=== PATIENT | female | born 1965 | race Caucasian/White ===

== ENCOUNTER 2017-05-01 08:47 | Inpatient (IN) | payer OTHER ==
[~2017-05-01] VITALS: Ht 157.5 cm; Wt 64.5 kg
--- NOTE | 2017-05-01 09:06 | RADRPT ---
PROCEDURE: Chest Radiograph. CLINICAL INDICATION: Chest pain TECHNIQUE: Single frontal chest radiograph. COMPARISON: None available FINDINGS: The cardiomediastinal silhouette is within normal limits. No infiltrate or effusion is seen. Th e bones are intact. IMPRESSION: 1. Unremarkable chest radiograph. RPTAT: KK .Alonso Cameron MD, MD Date Time Electronically viewed and signed by .Alonso Cameron MD, on 05/01/2017 09:06 .B/
--- NOTE | 2017-05-01 09:10 | ERA ---
ER Documentation Chief Complaint Date/Time DATE: 05/01/17 TIME: 09:07 Chief Complaint per ems report cp HPI 51-year-old female history of chronic psychiatric issues and chronic encephalopathy who presents with chest pain. The patient presents from convalescent home and reported approximately 5 minutes of left-sided chest pain that was difficult to characterize. She describes complete resolution of symptoms. She denies any fevers or chills, no pleuritic pain. Remainder of HPI is somewhat limited given her mental state. ROS All systems reviewed and are negative except as per history of present illness. FmHx Family History: No diabetes Physical Exam Vitals Vital Signs Date Time Temp Pulse Resp B/P Pulse Ox O2 Delivery O2 Flow Rate FiO2 05/01/17 09:15 Nasal Cannula 2 05/01/17 08:58 98.1 75 18 111/70 99 Physical Exam General: Well developed, well nourished, no acute distress Head: Normocephalic, atraumatic. Eyes: Pupils equally reactive, EOM intact ENT: Moist mucous membranes Neck: Supple, no lymphadenopathy Respiratory: Lungs clear bilaterally, no distress Cardiovascular: RRR, no murmurs, rubs, or gallops Abdominal: Soft, non-tender, non-distended, no peritoneal signs : Deferred MSK: No edema, no unilateral swelling, 4/5 strength diffusely appears to be somewhat bedridden Neurologic: Alert and oriented to person and place appears to be at baseline, moving all extremities, normal speech, no focal weakness, no cerebellar signs Skin: No rash Psych: Normal mood Result Diagram: 05/01/1790405/01/17904 Results 24 hrs Laboratory Tests Test 05/01/17 09:05 White Blood Count 6.610^3/ul Red Blood Count 4.7510^6/ul Hemoglobin 14.0g/dl Hematocrit 42.9% Mean Corpuscular Volume 90.3fl Mean Corpuscular Hemoglobin 29.5pg Mean Corpuscular Hemoglobin Concent 32.6g/dl Red Cell Distribution Width 13.2% Platelet Count 53759^3/UL Mean Platelet Volume 9.9fl Neutrophils % 51.4% Lymphocytes % 39.0% Monocytes % 5.3% Eosinophils % 3.5% Basophils % 0.6% Nucleated Red Blood Cells % 0.0/100WBC Neutrophils # 3.410^3/ul Lymphocytes # 2.610^3/ul Monocytes # 0.410^3/ul Eosinophils # 0.210^3/ul Basophils # 0.010^3/ul Nucleated Red Blood Cells # 0.010^3/ul Prothrombin Time 13.5Sec Prothrombin Time Ratio 1.1 INR International Normalized Ratio 1.03 Activated Partial Thromboplast Time 24.6Sec D-Dimer 484.60ng/ml D-Dimer Comment Sodium Level 145mmol/L Potassium Level 4.1mmol/L Chloride Level 98mmol/L Carbon Dioxide Level 32mmol/L Anion Gap 19 Blood Urea Nitrogen 17mg/dl Creatinine 0.54mg/dl Glucose Level 109mg/dl Calcium Level 10.2mg/dl Troponin I < 0.012ng/ml Current Medications Medications (Trade) Dose Ordered Sig/Loren Route PRN Reason Start Time Stop Time Status Last Admin Dose Admin IV Flush 10 ml 10 ml STK-MED ONCE .ROUTE 05/01/17 10:19 05/01/17 10:20 DC Sodium Chloride (NS) 100 ml @ ud STK-MED ONCE .ROUTE 05/01/17 10:19 05/01/17 10:20 DC Iodixanol (Visipaque Locm) 50 ml STK-MED ONCE .ROUTE 05/01/17 10:20 05/01/17 10:21 DC Procedures/MDM EKG, MONITORS, & DIAGNOSTIC IMAGING: EKG: I reviewed and interpreted a 12-lead EKG. Rhythm: Normal sinus rhythm Ectopy: None Intervals: No abnormalities ST segments: No elevations or depressions T waves: No contiguous inversions Repeat EKG: EKG: I reviewed and interpreted a 12-lead EKG. Rhythm: Normal sinus rhythm Ectopy: None Intervals: No abnormalities ST segments: No elevations or depressions T waves: No contiguous inversions Chest x-ray: I reviewed and interpreted a 1 view of the chest Mediastinum: No enlargement Cardiac silhouette: No cardiomegaly Airspace: Clear lung qiu bilaterally without evidence of pneumothorax Bones: No evidence of fracture CTPA: No evidence of pulmonary embolism or dissection LAB INTERPRETATION: Positive d-dimer, negative troponin MEDICAL DECISION MAKING: The patient's history, physical exam and clinical presentation is concerning for possible cardiogenic etiology and acute coronary syndrome. The patient is at risk for pulmonary embolism given her bedridden state, d-dimer is appropriate given low concern for pulmonary embolism. Low risk Wells profile. Based on the patient's clinical exam and history and risk factors, I have a much lower clinical concern for acute aortic dissection, pneumothorax, pneumonia , cardiac tamponade HEART Score: 2 MACE Rate: 1.7% Shared Decision Making: We had a conversation regarding risk stratification, MACE rate, and the risks, benefits, alternatives of disposition planning options. Disposition planning: Given the patient's age and description of symptoms I cannot fully rule out ACS in the emergency room and recommend hospitalization for serial enzymes and risk stratification. ER COURSE: Aspirin provided prior to arrival. The patient is chest pain-free. D-dimer was elevated prompting CTPA which is negative for pulmonary embolism or dissection. The patient is resting comfortably. Inpatient hospitalization to risk stratify and rule out ACS is appropriate. I kept the patient and/or family informed of laboratory and diagnostic imaging results throughout the emergency room course. DISPOSITION PLAN: Telemetry admission for management and rule out of acute coronary syndrome. CONSULTATION: Accepting care team and consultations: I discussed the current laboratory data, diagnostic imaging and emergency care provided. Admitting team: Dr. Felder Admitting team indication: Insurance directed Departure Diagnosis: Primary Impression: Chest pain Qualified Code: R07.9 - Chest pain, unspecified type Condition: Stable ANA MEHTA MD May 01, 2017 09:10
[2017-05-01 09:18] LABS: BASOPHILS % 0.6 % (0.0-2.0); EOSINOPHILS # 0.2 10^3/ul (0.0-0.5); EOSINOPHILS % 3.5 % (0.0-7.0); HEMATOCRIT 42.9 % (37.0-47.0); LYMPHOCYTES # 2.6 10^3/ul (0.8-2.9); MEAN CORPUSCULAR HEMOGLOBIN 29.5 pg (29.0-33.0); MEAN CORPUSCULAR HGB CONC 32.6 g/dl (32.0-37.0); MEAN CORPUSCULAR VOLUME 90.3 fl (82.0-101.0); MEAN PLATELET VOLUME 9.9 fl (7.4-10.4); MONOCYTE # 0.4 10^3/ul (0.3-0.9); MONOCYTES % 5.3 % (0.0-11.0); NEUTROPHIL # 3.4 10^3/ul (1.6-7.5); NEUTROPHILS % 51.4 % (39.0-77.0); PLATELET COUNT 184 10^3/UL (140-415); RED BLOOD COUNT 4.75 10^6/ul (4.20-5.40); RED CELL DISTRIBUTION WIDTH 13.2 % (11.5-14.5); WHITE BLOOD COUNT 6.6 10^3/ul (4.8-10.8)
[2017-05-01 09:43] LABS: ANION GAP 19 (8-16); BLOOD UREA NITROGEN 17 mg/dl (7-20); CALCIUM 10.2 mg/dl (8.4-10.2); CARBON DIOXIDE 32 mmol/L (21-31); CHLORIDE 98 mmol/L (97-110); CREATININE 0.54 mg/dl (0.44-1.00); GLUCOSE 109 mg/dl (70-220); INR 1.03; POTASSIUM 4.1 mmol/L (3.5-5.1); PROTIME 13.5 Sec (12.2-14.2); PT RATIO 1.1; SODIUM 145 mmol/L (135-144)
[2017-05-01 09:44] LABS: PARTIAL THROMBOPLASTIN TIME 24.6 Sec (25.0-35.0)
[2017-05-01 09:52] LABS: D-DIMER 484.6 ng/ml (<460)
[2017-05-01 10:10] LABS: TROPONIN-I < 0.012 ng/ml (0.00-0.12)
[2017-05-01] MEDS ORDERED: SOD CHLORIDE 0.9% 100 ML ONE (10:19)
[2017-05-01] MEDS ORDERED: IODIXANOL LOCM 50 ML BTL ONE (10:20)
--- NOTE | 2017-05-01 11:00 | RADRPT ---
PROCEDURE: CT angiogram of the chest with contrast. CLINICAL INDICATION: Left-sided chest pain. TECHNIQUE: CT scan of the chest with contrast was performed on a multidetector high-resolution CT scan. The patient was scanned following the uncomplicated intravenous administration of 110 ml Visi paque 320. Coronal and sagittal reformatted images were obtained from the axial source images. Stand rashel CT angiogram of the chest with contrast protocols were performed. 2-D and 3-D reformats were per formed. The total exam CTDI equals 73.82 mGy and the total exam DLP equals 488.89 mGy-cm. One or more of the following dose reduction techniques were used: - Automated exposure control. - Adjustment of the mA and/or kV according to patient size. Use of iterative reconstruction technique. COMPARISON: Chest earlier same day FINDINGS: The aorta is normal in size without aneurysm or dissection. No evidence of periaortic fluid collect ions. The pulmonary outflow tract, right and left main pulmonary arteries, right and left interloba r and primary intersegmental pulmonary arteries are well enhanced without evidence of filling defect s. Specifically no central pulmonary emboli. There is no evidence of pulmonary arterial hypertensio n or right heart strain. The brachial cephalic artery, right and left subclavian arteries, and prox imal right and left common carotid and vertebral arteries are unremarkable. The celiac axis and tho se portions of the SMA visualized are unremarkable. The heart is within normal limits in size without pericardial effusion. No evidence of mediastinal hilar or axillary lymphadenopathy. No evidence of pleural effusions or pneumothorax. Evidence of a cute lung consolidation or pulmonary nodules bilaterally. There is mild diffuse chronic interstitia l lung disease. Status post previous cholecystectomy without evidence of biliary ductal dilation. Those portions of the upper abdomen visualized are unremarkable. There is degenerative changes of the thoracic and up per lumbar spine. No acute osseous findings are osteoblastic/osteolytic lesions. The thoracic and upper abdominal brito are unremarkable. IMPRESSION: 1. No evidence of aortic dissection or aneurysm. 2. No central pulmonary emboli. 3. No evidence acute lung infiltrates, thoracic effusions or lymphadenopathy. Mild bilateral diffu se chronic interstitial lung disease. RPTAT:AAJJ B Donnie, Physician Date Time Electronically viewed and signed by Shari Fields Physician on 05/01/2017 10:59 BM/
[2017-05-01] MEDS ORDERED: ONDANSETRON 4 MG INJ IV PRN ×2 (12:00→12:30)
[2017-05-01] MEDS ORDERED: ACETAMINOPHEN 325 MG TAB PO PRN ×2 (12:00→12:30)
[2017-05-01] MEDS ORDERED: IODIXANOL LOCM 100 ML BTL ONE (12:09)
[2017-05-01] MEDS ORDERED: morphine 2 MG INJ IV PRN (12:30)
[2017-05-01] MEDS ORDERED: NACL 0.9% 3 ML SYG IV SCH (12:30)
[2017-05-01] MEDS ORDERED: MAGNESIUM HYDROXIDE 30ML CUP PO PRN (12:30)
[2017-05-01] MEDS ORDERED: BISACODYL (EC) 5 MG TAB PO PRN (12:30)
[2017-05-01] MEDS ORDERED: HYDROCODONE/APAP (5/325) TAB PO PRN (12:30)
--- NOTE | 2017-05-01 14:49 | HP ---
Date/Time of Note Date/Time of Note DATE: 05/01/17 TIME: 14:48 Assessment/Plan VTE Prophylaxis VTE Prophylaxis Intervention: LMWH Lines/Catheters IV [facility]ter [facility]from [facility] [place] Assessment/Plan Chief Complaint/Hosp Course 1. Chest pain. To rule out acute coronary syndrome. Serial troponins will be ordered. A 2D echocardiogram will be ordered. Cardiology consult will be obtained. The patient will be maintained on aspirin. 2. Essential hypertension. The patient's antihypertensives will be resumed. 3. Type 2 diabetes mellitus. The patient was started on sliding scale insulin along with basal insulin and pre-meal insulin. Hemoglobin A1c will be obtained to evaluate the blood glucose control over the past few weeks. 4. Dyslipidemia. The patient will be continued on statins. A fasting lipid panel will be obtained. 5. Nicotine use. Cessation will be advised. The patient will be provided with a nicotine patch if she develops any withdrawal from nicotine. 6. Schizophrenia. The patient will be continued on antipsychotics. Plan: The patient will be admitted to inpatient telemetry floor. The patient will be started on a carbohydrate controlled, low-cholesterol diet. The patient will be started on DVT prophylaxis and gastrointestinal prophylaxis. The patient will remain a full code. Activities will be as tolerated. The rest of the patient's management will be based on the clinical course and the results of diagnostic studies. Based on the patient's clinical presentation, she most probably requires at least one midnight's stay for further management and evaluation of her clinical presentation. The case and management of this patient was fully discussed with Dr. Felder. Problems: HPI/ROS Admit Date/Time Admit Date/Time May 01, 2017 at 11:32 Hx of Present Illness Reason for admission: Chest pain. Consultants 1. Erika Aguilar MD, Cardiology. This is a 51-year-old female with past medical history of essential hypertension, type 2 diabetes mellitus, depression, schizophrenia, and current nicotine use who was brought to the emergency room because of complaints of chest pain. The patient lives in a convalescent home resident. Patient verbalized the chest pain as substernal with radiation to the back. The patient denied any associated diaphoresis. The patient denied any associated nausea, vomiting, or dizziness. The patient was complaining of some cephalgia. The patient verbalized that her chest pain resolved with aspirin. In the emergency room, the patient's initial troponins were negative. The patient was treated with IV Zofran in the emergency room. The patient was noticed to have elevated d-dimer. Consequently, the patient underwent a CT angiogram of the chest that was negative for any pulmonary embolism. ROS Constitutional: no complaints Eyes: no complaints ENT: no complaints Respiratory: no complaints Cardiovascular: chest pain Gastrointestinal: no complaints Genitourinary: no complaints Musculoskeletal: no complaints Skin: no complaints Neurologic: no complaints Endocrine: no complaints Lymphatic: no complaints Psychological: anxiety Immunologic: no complaints PMH/Family/Social Past Medical History Medical History: diabetes, high cholesterol, hypertension, other (Depression, Schizophrenia) Past Surgical History Past Surgical Hx: no surgical history Family History Significant Family History: heart disease Social History Alcohol Use: sober Smoking Status: Former smoker Drug Use: none Exam/Review of Systems Vital Signs Vitals Vital Signs Date Time Temp Pulse Resp B/P Pulse Ox O2 Delivery O2 Flow Rate FiO2 05/01/17 11:59 73 20 97/74 99 Room Air 05/01/17 09:15 2 05/01/17 08:58 98.1 Exam Exam General: Adequately build 48 year-old female lying in bed in no apparent distress. HEENT: Normocephalic, atraumatic. Eyes: Anicteric sclerae, conjunctivae clear. ENT: Nasal septum midline, oral mucosa moist. Neck supple, no JVD noticed. Respiratory: Bilaterally diminished breath sounds. No use of accessory muscles of respiration. No adventitious breath sounds. Cardiovascular: S1, S2 heard. No murmurs or gallops. Abdomen: Soft, nontender, and nondistended. Bowel sounds positive in all 4 quadrants. Genitourinary: Deferred. Extremities: No cyanosis, no clubbing. Bilateral lower extremity 1+ pitting pedal edema. Peripheral pulses palpable. Neurologic: Cranial nerves II through XII grossly intact. The patient is awake, alert, and oriented. Skin: Normal skin turgor. No skin rashes. Psychologic: Appropriate affect. Labs Result Diagram: 05/01/1790405/01/17904 Medications Medications Current Medications Ondansetron HCl (Zofran Inj) 4 mg Q6H PRN IV NAUSEA AND/OR VOMITING; Start 05/01 at 12:30 Aspirin (Aspirin) 81 mg DAILY PO ; Start 05/02/17 at 09:00 Acetaminophen (Tylenol Tab) 650 mg Q6H PRN PO PAIN LEVEL 1-3 OR FEVER; Start at 12:30 Acetaminophen/ Hydrocodone Bitart ([place] (5/325)) 1 tab Q6H PRN PO PAIN LEVEL 4 -6; Start 05/01/17 at 12:30 Morphine Sulfate (morphine) 2 mg Q4H PRN IV PAIN LEVEL 7-10; Start 05/01/17 at 12:30 Magnesium Hydroxide (Milk Of Mag) 30 ml DAILY PRN PO CONSTIPATION; Start at 12:30 Bisacodyl (Dulcolax) 5 mg DAILY PRN PO CONSTIPATION; Start 05/01/17 at 12:30 Famotidine (Pepcid) 20 mg Q12 PO ; Start 05/01/17 at 21:00 Enoxaparin Sodium (Lovenox) 40 mg DAILY SC ; Start 05/02/17 at 09:00 Insulin Glargine (Lantus) 12 unit DAILY@08 SC ; Start 05/02/17 at 08:00; Status UNV Diagnostic Test (Pha) (Accu-Chek) 1 ea 02 XX ; Start 05/02/17 at 02:00; Status UNV Miscellaneous Information 1 ea NOTE XX ; Start 05/01/17 at 15:00 Glucose (Glutose) 15 gm Q15M PRN PO DECREASED GLUCOSE; Start 05/01/17 at 15:00 Glucose (Glutose) 22.5 gm Q15M PRN PO DECREASED GLUCOSE; Start 05/01/17 at 15:00 Dextrose (D50w Syringe) 25 ml Q15M PRN IV DECREASED GLUCOSE; Start 05/01/17 at 15:00 Dextrose (D50w Syringe) 50 ml Q15M PRN IV DECREASED GLUCOSE; Start 05/01/17 at 15:00 Glucagon (Glucagen) 1 mg Q15M PRN IM DECREASED GLUCOSE; Start 05/01/17 at 15:00 Glucose (Glutose) 15 gm Q15M PRN BUCCAL DECREASED GLUCOSE; Start 05/01/17 at 15: 00 BAYRON SUTHERLAND NP May 01, 2017 14:49
[2017-05-01 14:52] VITALS: Ht 157.5 cm; Wt 64.5 kg
[2017-05-01] MEDS ORDERED: GLUCAGON 1 MG INJ IM PRN (15:00)
[2017-05-01] MEDS ORDERED: GLUCOSE GEL 15 GRAM TUBE PO PRN ×2 (15:00)
[2017-05-01] MEDS ORDERED: DEXTROSE 50% 50 ML SYRINGE IV PRN ×2 (15:00)
[2017-05-01] MEDS ORDERED: GLUCOSE GEL 15 GRAM TUBE BUCCAL PRN (15:00)
[2017-05-01] MEDS ORDERED: LORAZEPAM 1 MG TAB PO PRN (15:00)
[2017-05-01 15:36] LABS: CREATINE KINASE 81 IU/L (23-200)
--- NOTE | 2017-05-01 15:44 | RADRPT ---
Echocardiogram Report Patient Name: YODIT BALLARD Gender: Female Date: 1965 Study Date: 01-May-2017 [employer] Making Machine Operator: Jak Jensen [facility] Location: [id number] Ref. Physician: BAYRON SUTHERLAND Quality: Adequate Procedures: Transthoracic echocardiogram with complete 2D, M-Mode, and doppler examination. Indications: Chest Pain. 2D/M Mode Doppler Measurement Value Normal Ranges Measurement Value Normal Ranges LVIDd 2D 3.3 3.5 - 5.6 cm AV Peak Mickey 1.3 m/sec LVIDs 2D 2.2 2.1 - 4.1 cm AV Peak PG 7.0 mmHg FS 2D 32.4 % LVOT Peak Mickey 1.0 m/sec LVPWd 2D 1.3 0.6 - 1.1 cm LVOT Peak PG 4.0 mmHg IVSd 2D 1.3 0.6 - 1.1 cm MV E Peak Mickey 0.8 m/sec IVS/LVPW 2D 1.0 MV A Peak Mickey 0.6 m/sec AoR Diam 2D 2.6 2.0 - 3.7 cm MV E/A 1.3 LA/Ao 2D 2 0 - 1 MV Decel Time 250 msec EDV 2D 35.9 cm3 MV E/A 1.3 ESV 2D 11.1 cm3 TR Peak Mickey 2.1 m/sec LA Dimen 2D 4.1 2.3 - 4.0 cm TR Peak PG 18.0 mmHg RVSP 28.0 mmHg Findings Left Ventricle: Normal left ventricular systolic function. Normal left ventricular cavity size. Mild concentric left ventricular hypertrophy. Ejection fraction is visually estimated at 55 %. Abnormal Diastolic Function. Right Ventricle: Normal right ventricular size. Normal right ventricular systolic function. Left Atrium: There is mild enlargement of left atrium. Right Atrium: The right atrium is normal in size. Mitral Valve: Mitral valve leaflets appear mildly thickened. Mild mitral annular calcification. Trace mitral regurgitation. Aortic Valve: Normal appearance of the aortic valve. No significant aortic stenosis or insufficiency. Tricuspid Valve: Normal appearance of the tricuspid valve. Estimated peak PA systolic pressure 28 mmHg. There is trace tricuspid regurgitation. Pulmonic Valve: Pulmonic valve not well visualized. There is trace pulmonic regurgitation. Pericardium: Normal pericardium with no significant pericardial effusion. Aorta: Normal aortic root. IVC: Normal size and poor respiratory collapse consistent with elevated right atrial pressure. Conclusions 1.Normal left ventricular systolic function. Normal left ventricular cavity size. Mild concentric left ventricular hypertrophy. Ejection fraction is visually estimated at 55 %. Abnormal Diastolic Function. 2.Mitral valve leaflets appear mildly thickened. Mild mitral annular calcification. Trace mitral regurgitation. 3.Normal appearance of the aortic valve. No significant aortic stenosis or insufficiency. 4.Normal appearance of the tricuspid valve. Estimated peak PA systolic pressure 28 mmHg. There is trace tricuspid regurgitation. Electronically Signed By: Eric Aguilar 01-May-2017 15:43:26 -0700 Patient Name: YODIT BALLARD Study Date: 01-May-2017 [id number]
[2017-05-01 15:50] LABS: CK-MB 4.34 ng/ml (0.0-2.4)
[2017-05-01 15:51] LABS: TROPONIN-I < 0.012 ng/ml (0.00-0.12)
[2017-05-01 16:14] VITALS: BP 95/61; RESP 20
[2017-05-01] MEDS ORDERED: ALBUTEROL/IPRATROPIUM (NEB) 3 ML AMP HHN PRN (16:30)
[2017-05-01 16:42] VITALS: PULSE 64
--- NOTE | 2017-05-01 17:01 | CONS ---
Date/Time of Note Date/Time of Note DATE: 05/01/17 TIME: 16:54 Assessment/Plan Assessment/Plan Chief Complaint/Hosp Course 1. Atypical chest pain rule out acute coronary syndrome 2. Diabetes with normal hemoglobin A1c. 3. History of hypertension currently under good control 4. History of drug use 5. History of alcohol and drug abuse which has quit now. 6. History of psych disorder. Recommendations: I will continue with her current cardiac care including aspirin. Serial cardiac enzymes will be obtained. We will do a Lexiscan stress test tomorrow thoracic and obstructive coronary artery disease. Patient was advised to stop smoking. Thank you for this referral will continue to follow along with you. Problems: Consultation Date/Type/Reason Admit Date/Time May 01, 2017 at 11:32 Date of Consultation: May 01, 2017 Type of Consultation: CARDIOLOGY Reason for Consultation CHEST PAIN Referring Provider: BAYRON SUTHERLAND NP Hx of Present Illness Thank you for his referral. This is a 51-year-old female history of diabetes hypertension who was brought into the emergency room with complaint of chest pain. Patient is a poor historian. She apparently lives in a jail does not move her exercise. She has complained of chest pain left-sided sharp poking. Could not not explain any exacerbating or relieving factors for it. It was mild to moderate intensity. Has resolved completely. Allergies no reported allergy PMH: 1. Diabetes #2 hypertension #3 history of psych disorder and schizophrenia, 4. History of smoking. History of drug and alcohol use. Social history patient actively smokes. She has a history of heavy alcohol and drug abuse apparently including cocaine use. She said she has been sober since last year. Family history: No early coronary artery disease is reported. Medications are medical records reviewed personally reviewed. Review of system as above mentioned she denies all other. Past Medical History Medical History: diabetes, high cholesterol, hypertension, other (Depression, Schizophrenia) Past Surgical History Past Surgical Hx: no surgical history Social History Alcohol Use: sober Smoking Status: Former smoker Drug Use: none Exam/Review of Systems Vital Signs Vitals Vital Signs Date Time Temp Pulse Resp B/P Pulse Ox O2 Delivery O2 Flow Rate FiO2 05/01/17 16:42 64 05/01/17 16:14 97.9 20 95/61 98 05/01/17 11:59 Room Air 05/01/17 09:15 2 Exam General: no acute distress HEENT: NC/AT. pupils are equal. round. NECK: NO JVD. no stridor. CV: RRR. systolic murmur; no gallop or rubs. PULM: no wheezing or rhonchi. GI: SOFT, NT, ND, no rebound or guarding Extremity: trace B/L LE edema. no clubbing. neuro: awake and alert, OX3. Psych:ANXIOUS rectal: deferred : normal ECG NSR nonspecific T-wave abnormality ECHO REVIEWED: 1. Normal left ventricular systolic function. Normal left ventricular cavity size. Mild concentric left ventricular hypertrophy. Ejection fraction is visually estimated at 55 %. Abnormal Diastolic Function. 2. Mitral valve leaflets appear mildly thickened. Mild mitral annular calcification. Trace mitral regurgitation. 3. Normal appearance of the aortic valve. No significant aortic stenosis or insufficiency. 4. Normal appearance of the tricuspid valve. Estimated peak PA systolic pressure 28 mmHg. There is trace tricuspid regurgitation. Results Result Diagram: 05/01/17 0905 05/01/17 0905 Results 24 hrs Laboratory Tests Test 05/01/17 09:05 05/01/17 14:52 05/01/17 15:09 White Blood Count 6.6 Red Blood Count 4.75 Hemoglobin 14.0 Hematocrit 42.9 Mean Corpuscular Volume 90.3 Mean Corpuscular Hemoglobin 29.5 Mean Corpuscular Hemoglobin Concent 32.6 Red Cell Distribution Width 13.2 Platelet Count 184 Mean Platelet Volume 9.9 Neutrophils % 51.4 Lymphocytes % 39.0 Monocytes % 5.3 Eosinophils % 3.5 Basophils % 0.6 Nucleated Red Blood Cells % 0.0 Neutrophils # 3.4 Lymphocytes # 2.6 Monocytes # 0.4 Eosinophils # 0.2 Basophils # 0.0 Nucleated Red Blood Cells # 0.0 Prothrombin Time 13.5 Prothrombin Time Ratio 1.1 INR International Normalized Ratio 1.03 Activated Partial Thromboplast Time 24.6 L D-Dimer 484.60 H D-Dimer Comment Sodium Level 145 H Potassium Level 4.1 Chloride Level 98 Carbon Dioxide Level 32 H Anion Gap 19 H Blood Urea Nitrogen 17 Creatinine 0.54 Glucose Level 109 Calcium Level 10.2 Troponin I < 0.012 < 0.012 Hemoglobin A1c 5.0 Creatine Kinase 81 Creatine Kinase Index 5.4 Creatinine Kinase MB (Mass) 4.34 H Thyroid Stimulating Hormone (TSH) 1.180 Free Thyroxine 1.11 B-Type Natriuretic Peptide 17 Medications Medications Current Medications Ondansetron HCl (Zofran Inj) 4 mg Q6H PRN IV NAUSEA AND/OR VOMITING; Start 05/01 at 12:30 Aspirin (Aspirin) 81 mg DAILY PO ; Start 05/02/17 at 09:00 Acetaminophen (Tylenol Tab) 650 mg Q6H PRN PO PAIN LEVEL 1-3 OR FEVER; Start at 12:30 Acetaminophen/ Hydrocodone Bitart ([place] (5/325)) 1 tab Q6H PRN PO PAIN LEVEL 4 -6; Start 05/01/17 at 12:30 Morphine Sulfate (morphine) 2 mg Q4H PRN IV PAIN LEVEL 7-10; Start 05/01/17 at 12:30 Magnesium Hydroxide (Milk Of Mag) 30 ml DAILY PRN PO CONSTIPATION; Start at 12:30 Bisacodyl (Dulcolax) 5 mg DAILY PRN PO CONSTIPATION; Start 05/01/17 at 12:30 Famotidine (Pepcid) 20 mg Q12 PO ; Start 05/01/17 at 21:00 Enoxaparin Sodium (Lovenox) 40 mg DAILY SC ; Start 05/02/17 at 09:00 Insulin Glargine (Lantus) 12 unit DAILY@08 SC ; Start 05/02/17 at 08:00 Diagnostic Test (Pha) (Accu-Chek) 1 ea 02 XX ; Start 05/02/17 at 02:00 Miscellaneous Information 1 ea NOTE XX ; Start 05/01/17 at 15:00 Glucose (Glutose) 15 gm Q15M PRN PO DECREASED GLUCOSE; Start 05/01/17 at 15:00 Glucose (Glutose) 22.5 gm Q15M PRN PO DECREASED GLUCOSE; Start 05/01/17 at 15:00 Dextrose (D50w Syringe) 25 ml Q15M PRN IV DECREASED GLUCOSE; Start 05/01/17 at 15:00 Dextrose (D50w Syringe) 50 ml Q15M PRN IV DECREASED GLUCOSE; Start 05/01/17 at 15:00 Glucagon (Glucagen) 1 mg Q15M PRN IM DECREASED GLUCOSE; Start 05/01/17 at 15:00 Glucose (Glutose) 15 gm Q15M PRN BUCCAL DECREASED GLUCOSE; Start 05/01/17 at 15: 00 Atorvastatin Calcium (Lipitor) 10 mg HS PO ; Start 05/01/17 at 21:00 Risperidone (Risperdal) 2 mg BID PO ; Start 05/01/17 at 21:00 Lorazepam (Ativan) 1 mg Q6H PRN PO ANXIETY; Start 05/01/17 at 15:00 Lamotrigine (Lamictal) 50 mg BID PO ; Start 05/01/17 at 21:00 Losartan Potassium (Cozaar) 25 mg DAILY PO ; Start 05/02/17 at 09:00 CHAITANYA NEVAREZ MD May 01, 2017 17:01
[2017-05-01 17:08] LABS: ADD UMIC NO; UR ASCORBIC ACID NEGATIVE (NEGATIVE); UR BILIRUBIN (Dip) NEGATIVE (NEGATIVE); UR BLOOD (Dip) NEGATIVE (NEGATIVE); UR CLARITY CLEAR (CLEAR); UR COLOR YELLOW (YELLOW); UR GLUCOSE (Dip) NEGATIVE (NEGATIVE); UR KETONES (Dip) NEGATIVE (NEGATIVE); UR LEUKOCYTE ESTERASE (Dip) NEGATIVE Leu/ul (NEGATIVE); UR NITRITE (Dip) NEGATIVE (NEGATIVE); UR SPECIFIC GRAVITY (Dip) 1.028 (1.003-1.030); UR TOTAL PROTEIN (Dip) NEGATIVE (NEGATIVE); UR UROBILINOGEN (Dip) NEGATIVE (NEGATIVE)
[2017-05-01 17:24] LABS: BARBITURATES Negative (NEGATIVE); BENZODIAZEPINES Negative (NEGATIVE); CANNABINOIDS Negative (NEGATIVE); COCAINE Negative (NEGATIVE); OPIATES Negative (NEGATIVE)
[2017-05-01] MEDS: INSULIN ASPART [NOVOLOG] 3 ML PEN SC SCH ×3 (17:39→21:00)
[2017-05-01 20:00] VITALS: BP 99/64; RESP 15
[2017-05-01 21:26] VITALS: PULSE 80
[2017-05-01 21:36] LABS: CREATINE KINASE 58 IU/L (23-200)
[2017-05-01 21:47] LABS: CK-MB 2.84 ng/ml (0.0-2.4)
[2017-05-01 21:54] LABS: TROPONIN-I < 0.012 ng/ml (0.00-0.12)
[2017-05-01] MEDS: FAMOTIDINE 20 MG TAB PO SCH (22:16)
[2017-05-01] MEDS: RISPERIDONE 2 MG TAB PO SCH (22:17)
[2017-05-01] MEDS: ATORVASTATIN 10 MG TAB PO SCH (22:17)
[2017-05-01] MEDS: LAMOTRIGINE 25 MG TAB PO SCH (22:17)
[2017-05-02] VITALS (12 sets, daily range): BP systolic 90–122; BP diastolic 51–70; PULSE 64–74; RESP 15–18
[2017-05-02] MEDS ORDERED: ACCU-CHEK XX SCH (02:00)
[2017-05-02] MEDS: ACCU-CHEK XX SCH (02:00)
[2017-05-02 07:53] LABS: BASOPHILS % 0.5 % (0.0-2.0); EOSINOPHILS # 0.2 10^3/ul (0.0-0.5); EOSINOPHILS % 2.9 % (0.0-7.0); HEMATOCRIT 41.2 % (37.0-47.0); HEMOGLOBIN 13.6 g/dl (12.0-16.0); LYMPHOCYTES # 2.5 10^3/ul (0.8-2.9); LYMPHOCYTES % 40.4 % (15.0-51.0); MEAN CORPUSCULAR HEMOGLOBIN 29.7 pg (29.0-33.0); MEAN PLATELET VOLUME 10.3 fl (7.4-10.4); MONOCYTE # 0.3 10^3/ul (0.3-0.9); MONOCYTES % 5.4 % (0.0-11.0); NEUTROPHIL # 3.2 10^3/ul (1.6-7.5); NEUTROPHILS % 50.5 % (39.0-77.0); PLATELET COUNT 187 10^3/UL (140-415); RED BLOOD COUNT 4.58 10^6/ul (4.20-5.40); WHITE BLOOD COUNT 6.3 10^3/ul (4.8-10.8)
[2017-05-02] MEDS: INSULIN ASPART [NOVOLOG] 3 ML PEN SC SCH ×7 (07:55→20:12)
[2017-05-02 08:20] LABS: CREATINE KINASE 44 IU/L (23-200)
[2017-05-02 08:27] LABS: ALBUMIN/GLOBULIN RATIO 1.33; BILIRUBIN,INDIRECT 0.3 mg/dl (0-1.1); BILIRUBIN,TOTAL 0.3 mg/dl (0.2-1.3); CREATININE 0.59 mg/dl (0.44-1.00); POTASSIUM 3.8 mmol/L (3.5-5.1)
[2017-05-02 08:30] LABS: CHOL/HDL RATIO 2.7 RATIO; MAGNESIUM 1.5 mg/dl (1.7-2.5)
[2017-05-02 08:33] LABS: CK-MB 1.42 ng/ml (0.0-2.4)
[2017-05-02 08:35] LABS: TROPONIN-I < 0.012 ng/ml (0.00-0.12)
[2017-05-02] MEDS: INSULIN GLARGINE [LANtus] 3 ML PEN SC SCH (08:35)
[2017-05-02] MEDS: LOSARTAN 25 MG TAB PO SCH (09:00)
[2017-05-02] MEDS: LAMOTRIGINE 25 MG TAB PO SCH ×2 (10:40→20:09)
[2017-05-02] MEDS: FAMOTIDINE 20 MG TAB PO SCH ×2 (10:41→20:09)
[2017-05-02] MEDS: RISPERIDONE 2 MG TAB PO SCH ×2 (10:42→20:10)
[2017-05-02] MEDS: ASPIRIN 81 MG TAB PO SCH (10:42)
[2017-05-02] MEDS: ENOXAPARIN 40 MG/0.4 ML SYG SC SCH (10:44)
[2017-05-02] MEDS ORDERED: MAGNESIUM SULFATE 2 GM/50 ML 50 ML IVPB ONE (11:00)
--- NOTE | 2017-05-02 12:25 | PN ---
Date/Time of Note Date/Time of Note DATE: 05/02/17 TIME: 12:20 Assessment/Plan VTE Prophylaxis VTE Prophylaxis Intervention: LMWH Lines/Catheters IV C[facility]ter Type [facility]from [facility] Urinary Cath still in place: Yes Reason Cath still needed: other (indicate) Assessment/Plan Chief Complaint/Hosp Course 1. Chest pain. To rule out acute coronary syndrome. The patient is scheduled for a CT coronary angiogram. Continue aspirin. Serial troponins negative. 2D echocardiogram showing preserved left ventricular ejection fraction. 2. Essential hypertension. Continue antihypertensives. 3. Type 2 diabetes mellitus. Continue the patient on sliding scale insulin along with basal insulin and pre-meal insulin. 4. Dyslipidemia. The patient will be continued on statins. Fasting lipid panel satisfactory. 5. Nicotine use. Cessation will be advised. The patient will be provided with a nicotine patch if she develops any withdrawal from nicotine. 6. Schizophrenia. The patient will be continued on antipsychotics. 7. Fluids, electrolytes, and nutrition. Carbohydrate controlled, low- cholesterol diet. 8. DVT prophylaxis. Subcutaneous Lovenox. Plan: Continue current management. Await further recommendations from cardiology. The case and management of this patient was fully discussed with Dr. Felder. Problems: Subjective 24 Hr Interval Summary Free Text/Dictation Denies any chest pain. Exam/Review of Systems Vital Signs Vitals Vital Signs Date Time Temp Pulse Resp B/P Pulse Ox O2 Delivery O2 Flow Rate FiO2 05/02/17 12:03 98.6 72 16 96/51 95 05/01/17 11:59 Room Air 05/01/17 09:15 2 Intake and Output 05/01/17 05/01/17 05/02/17 15:00 23:00 07:00 Intake Total 500 ml 200 ml Output Total 550 ml 500 ml Balance -50 ml -300 ml Exam General: Adequately build 48 year-old female lying in bed in no apparent distress. HEENT: Normocephalic, atraumatic. Eyes: Anicteric sclerae, conjunctivae clear. ENT: Nasal septum midline, oral mucosa moist. Neck supple, no JVD noticed. Respiratory: Bilaterally diminished breath sounds. No use of accessory muscles of respiration. No adventitious breath sounds. Cardiovascular: S1, S2 heard. No murmurs or gallops. Abdomen: Soft, nontender, and nondistended. Bowel sounds positive in all 4 quadrants. Genitourinary: Deferred. Extremities: No cyanosis, no clubbing. Bilateral lower extremity 1+ pitting pedal edema. Peripheral pulses palpable. Neurologic: Cranial nerves II through XII grossly intact. The patient is awake, alert, and oriented. Skin: Normal skin turgor. No skin rashes. Psychologic: Appropriate affect. Results Result Diagram: 05/02/17 0654 05/02/17 0654 Results 24 hrs Laboratory Tests Test 05/01/17 14:52 05/01/17 15:09 05/01/17 16:45 05/01/17 17:20 Hemoglobin A1c 5.0 Creatine Kinase 81 Creatine Kinase Index 5.4 Creatinine Kinase MB (Mass) 4.34 H Troponin I < 0.012 Thyroid Stimulating Hormone (TSH) 1.180 Free Thyroxine 1.11 B-Type Natriuretic Peptide 17 Urine Color YELLOW Urine Clarity CLEAR Urine pH 7.0 Urine Specific [place] 1.028 Urine Ketones NEGATIVE Urine Nitrite NEGATIVE Urine Bilirubin NEGATIVE Urine Urobilinogen NEGATIVE Urine Leukocyte Esterase NEGATIVE Urine Hemoglobin NEGATIVE Urine Glucose NEGATIVE Urine Total Protein NEGATIVE Urine Test NEGATIVE Urine Opiates Screen Negative Urine Barbiturates Negative Urine Amphetamines Screen Negative Urine Benzodiazepines Screen Negative Urine Cocaine Screen Negative Urine Cannabinoids Negative Bedside Glucose 83 Test 05/01/17 21:05 05/01/17 22:13 05/02/17 06:54 05/02/17 08:10 Creatine Kinase 58 44 Creatine Kinase Index 4.9 3.2 Creatinine Kinase MB (Mass) 2.84 H 1.42 Troponin I < 0.012 < 0.012 Bedside Glucose 91 156 White Blood Count 6.3 Red Blood Count 4.58 Hemoglobin 13.6 Hematocrit 41.2 Mean Corpuscular Volume 90.0 Mean Corpuscular Hemoglobin 29.7 Mean Corpuscular Hemoglobin Concent 33.0 Red Cell Distribution Width 13.0 Platelet Count 187 Mean Platelet Volume 10.3 Neutrophils % 50.5 Lymphocytes % 40.4 Monocytes % 5.4 Eosinophils % 2.9 Basophils % 0.5 Nucleated Red Blood Cells % 0.0 Neutrophils # 3.2 Lymphocytes # 2.5 Monocytes # 0.3 Eosinophils # 0.2 Basophils # 0.0 Nucleated Red Blood Cells # 0.0 Sodium Level 144 Potassium Level 3.8 Chloride Level 97 Carbon Dioxide Level 31 Anion Gap 20 H Blood Urea Nitrogen 18 Creatinine 0.59 Glucose Level 108 Calcium Level 10.0 Phosphorus Level 4.0 Magnesium Level 1.5 L Total Bilirubin 0.3 Direct Bilirubin 0.00 Indirect Bilirubin 0.3 Aspartate Amino Transf (AST/SGOT) 16 Alanine Aminotransferase (ALT/SGPT) 38 Alkaline Phosphatase 113 Total Protein 7.0 Albumin 4.0 Globulin 3.00 Albumin/Globulin Ratio 1.33 Triglycerides Level 113 Cholesterol Level 123 LDL Cholesterol, Calculated 56 HDL Cholesterol 44 Cholesterol/HDL Ratio 2.7 Thyroid Stimulating Hormone (TSH) 1.760 Free Thyroxine 1.05 Medications Medications Current Medications Ondansetron HCl (Zofran Inj) 4 mg Q6H PRN IV NAUSEA AND/OR VOMITING; Start 05/01 at 12:30 Aspirin (Aspirin) 81 mg DAILY PO Last administered on 05/02/17 10:42; Admin Dose 81 MG; Start 05/02/17 at 09:00 Acetaminophen (Tylenol Tab) 650 mg Q6H PRN PO PAIN LEVEL 1-3 OR FEVER; Start at 12:30 Acetaminophen/ Hydrocodone Bitart ([place] (5/325)) 1 tab Q6H PRN PO PAIN LEVEL 4 -6; Start 05/01/17 at 12:30 Morphine Sulfate (morphine) 2 mg Q4H PRN IV PAIN LEVEL 7-10; Start 05/01/17 at 12:30 Magnesium Hydroxide (Milk Of Mag) 30 ml DAILY PRN PO CONSTIPATION; Start at 12:30 Bisacodyl (Dulcolax) 5 mg DAILY PRN PO CONSTIPATION; Start 05/01/17 at 12:30 Famotidine (Pepcid) 20 mg Q12 PO Last administered on 05/02/17 10:41; Admin Dose 20 MG; Start 05/01/17 at 21:00 Enoxaparin Sodium (Lovenox) 40 mg DAILY SC Last administered on 05/02/17 10:44 ; Admin Dose 40 MG; Start 05/02/17 at 09:00 Insulin Glargine (Lantus) 12 unit DAILY@08 SC Last administered on 05/02/17 08: 35; Admin Dose 12 UNIT; Start 05/02/17 at 08:00 Diagnostic Test (Pha) (Accu-Chek) 1 ea 02 XX ; Start 05/02/17 at 02:00 Miscellaneous Information 1 ea NOTE XX ; Start 05/01/17 at 15:00 Glucose (Glutose) 15 gm Q15M PRN PO DECREASED GLUCOSE; Start 05/01/17 at 15:00 Glucose (Glutose) 22.5 gm Q15M PRN PO DECREASED GLUCOSE; Start 05/01/17 at 15:00 Dextrose (D50w Syringe) 25 ml Q15M PRN IV DECREASED GLUCOSE; Start 05/01/17 at 15:00 Dextrose (D50w Syringe) 50 ml Q15M PRN IV DECREASED GLUCOSE; Start 05/01/17 at 15:00 Glucagon (Glucagen) 1 mg Q15M PRN IM DECREASED GLUCOSE; Start 05/01/17 at 15:00 Glucose (Glutose) 15 gm Q15M PRN BUCCAL DECREASED GLUCOSE; Start 05/01/17 at 15: 00 Atorvastatin Calcium (Lipitor) 10 mg HS PO Last administered on 05/01/17 22:17 ; Admin Dose 10 MG; Start 05/01/17 at 21:00 Risperidone (Risperdal) 2 mg BID PO Last administered on 05/02/17 10:42; Admin Dose 2 MG; Start 05/01/17 at 21:00 Lorazepam (Ativan) 1 mg Q6H PRN PO ANXIETY; Start 05/01/17 at 15:00 Lamotrigine (Lamictal) 50 mg BID PO Last administered on 05/02/17 10:40; Admin Dose 50 MG; Start 05/01/17 at 21:00 Losartan Potassium 25 mg 25 mg DAILY PO ; Start 05/02/17 at 09:00 Magnesium Sulfate (Magnesium Sulfate 2 Gm/50 ml) 50 ml @ 25 mls/hr ONCE ONCE IVPB ; Start 05/02/17 at 11:00; Stop 05/02/17 at 12:59 BAYRON SUTHERLAND NP May 02, 2017 12:24
--- NOTE | 2017-05-02 14:27 | CONS ---
Date/Time of Note Date/Time of Note DATE: 05/02/17 TIME: 14:26 Consult Date/Type/Reason Admit Date/Time May 01, 2017 at 11:32 Initial Consult Date 05/01/17 Type of Consultation: CARDIOLOGY Ordering Provider: BAYRON SUTHERLAND NP Subjective Discussed with staff emergency was reviewed patient remained sinus rhythm. At this point does not chest pain pressure to me. Discussed with Dr. Garcia as well. Nuclear medicine machine is down unable to use and do a nuclear stress study. OBJECTIVE: General: no acute distress HEENT: NC/AT. pupils are equal. round. NECK: NO JVD. no stridor. CV: RRR. systolic murmur; no gallop or rubs. PULM: no wheezing or rhonchi. GI: SOFT, NT, ND, no rebound or guarding Extremity: trace B/L LE edema. no clubbing. neuro: awake and alert, OX3. Psych:ANXIOUS rectal: deferred : normal ECG NSR nonspecific T-wave abnormality ECHO REVIEWED: 1. Normal left ventricular systolic function. Normal left ventricular cavity size. Mild concentric left ventricular hypertrophy. Ejection fraction is visually estimated at 55 %. Abnormal Diastolic Function. 2. Mitral valve leaflets appear mildly thickened. Mild mitral annular calcification. Trace mitral regurgitation. 3. Normal appearance of the aortic valve. No significant aortic stenosis or insufficiency. 4. Normal appearance of the tricuspid valve. Estimated peak PA systolic pressure 28 mmHg. There is trace tricuspid regurgitation. Objective Vital Signs Date Time Temp Pulse Resp B/P Pulse Ox O2 Delivery O2 Flow Rate FiO2 05/02/17 12:38 67 05/02/17 12:03 98.6 16 96/51 95 05/01/17 11:59 Room Air 05/01/17 09:15 2 Intake and Output 05/01/17 05/01/17 05/02/17 15:00 23:00 07:00 Intake Total 500 ml 200 ml Output Total 550 ml 500 ml Balance -50 ml -300 ml Results/Medications Result Diagram: 05/02/17 0654 05/02/17 0654 Results 24 hrs Laboratory Tests Test 05/01/17 14:52 05/01/17 15:09 05/01/17 16:45 05/01/17 17:20 Hemoglobin A1c 5.0 Creatine Kinase 81 Creatine Kinase Index 5.4 Creatinine Kinase MB (Mass) 4.34 H Troponin I < 0.012 Thyroid Stimulating Hormone (TSH) 1.180 Free Thyroxine 1.11 B-Type Natriuretic Peptide 17 Urine Color YELLOW Urine Clarity CLEAR Urine pH 7.0 Urine Specific [place] 1.028 Urine Ketones NEGATIVE Urine Nitrite NEGATIVE Urine Bilirubin NEGATIVE Urine Urobilinogen NEGATIVE Urine Leukocyte Esterase NEGATIVE Urine Hemoglobin NEGATIVE Urine Glucose NEGATIVE Urine Total Protein NEGATIVE Urine Test NEGATIVE Urine Opiates Screen Negative Urine Barbiturates Negative Urine Amphetamines Screen Negative Urine Benzodiazepines Screen Negative Urine Cocaine Screen Negative Urine Cannabinoids Negative Bedside Glucose 83 Test 05/01/17 21:05 05/01/17 22:13 05/02/17 06:54 05/02/17 08:10 Creatine Kinase 58 44 Creatine Kinase Index 4.9 3.2 Creatinine Kinase MB (Mass) 2.84 H 1.42 Troponin I < 0.012 < 0.012 Bedside Glucose 91 156 White Blood Count 6.3 Red Blood Count 4.58 Hemoglobin 13.6 Hematocrit 41.2 Mean Corpuscular Volume 90.0 Mean Corpuscular Hemoglobin 29.7 Mean Corpuscular Hemoglobin Concent 33.0 Red Cell Distribution Width 13.0 Platelet Count 187 Mean Platelet Volume 10.3 Neutrophils % 50.5 Lymphocytes % 40.4 Monocytes % 5.4 Eosinophils % 2.9 Basophils % 0.5 Nucleated Red Blood Cells % 0.0 Neutrophils # 3.2 Lymphocytes # 2.5 Monocytes # 0.3 Eosinophils # 0.2 Basophils # 0.0 Nucleated Red Blood Cells # 0.0 Sodium Level 144 Potassium Level 3.8 Chloride Level 97 Carbon Dioxide Level 31 Anion Gap 20 H Blood Urea Nitrogen 18 Creatinine 0.59 Glucose Level 108 Calcium Level 10.0 Phosphorus Level 4.0 Magnesium Level 1.5 L Total Bilirubin 0.3 Direct Bilirubin 0.00 Indirect Bilirubin 0.3 Aspartate Amino Transf (AST/SGOT) 16 Alanine Aminotransferase (ALT/SGPT) 38 Alkaline Phosphatase 113 Total Protein 7.0 Albumin 4.0 Globulin 3.00 Albumin/Globulin Ratio 1.33 Triglycerides Level 113 Cholesterol Level 123 LDL Cholesterol, Calculated 56 HDL Cholesterol 44 Cholesterol/HDL Ratio 2.7 Thyroid Stimulating Hormone (TSH) 1.760 Free Thyroxine 1.05 Test 05/02/17 12:56 Bedside Glucose 84 Medications Current Medications Ondansetron HCl (Zofran Inj) 4 mg Q6H PRN IV NAUSEA AND/OR VOMITING; Start 05/01 at 12:30 Aspirin (Aspirin) 81 mg DAILY PO Last administered on 05/02/17 10:42; Admin Dose 81 MG; Start 05/02/17 at 09:00 Acetaminophen (Tylenol Tab) 650 mg Q6H PRN PO PAIN LEVEL 1-3 OR FEVER; Start at 12:30 Acetaminophen/ Hydrocodone Bitart ([place] (5/325)) 1 tab Q6H PRN PO PAIN LEVEL 4 -6; Start 05/01/17 at 12:30 Morphine Sulfate (morphine) 2 mg Q4H PRN IV PAIN LEVEL 7-10; Start 05/01/17 at 12:30 Magnesium Hydroxide (Milk Of Mag) 30 ml DAILY PRN PO CONSTIPATION; Start at 12:30 Bisacodyl (Dulcolax) 5 mg DAILY PRN PO CONSTIPATION; Start 05/01/17 at 12:30 Famotidine (Pepcid) 20 mg Q12 PO Last administered on 05/02/17 10:41; Admin Dose 20 MG; Start 05/01/17 at 21:00 Enoxaparin Sodium (Lovenox) 40 mg DAILY SC Last administered on 05/02/17 10:44 ; Admin Dose 40 MG; Start 05/02/17 at 09:00 Insulin Glargine (Lantus) 12 unit DAILY@08 SC Last administered on 05/02/17 08: 35; Admin Dose 12 UNIT; Start 05/02/17 at 08:00 Diagnostic Test (Pha) (Accu-Chek) 1 ea 02 XX ; Start 05/02/17 at 02:00 Miscellaneous Information 1 ea NOTE XX ; Start 05/01/17 at 15:00 Glucose (Glutose) 15 gm Q15M PRN PO DECREASED GLUCOSE; Start 05/01/17 at 15:00 Glucose (Glutose) 22.5 gm Q15M PRN PO DECREASED GLUCOSE; Start 05/01/17 at 15:00 Dextrose (D50w Syringe) 25 ml Q15M PRN IV DECREASED GLUCOSE; Start 05/01/17 at 15:00 Dextrose (D50w Syringe) 50 ml Q15M PRN IV DECREASED GLUCOSE; Start 05/01/17 at 15:00 Glucagon (Glucagen) 1 mg Q15M PRN IM DECREASED GLUCOSE; Start 05/01/17 at 15:00 Glucose (Glutose) 15 gm Q15M PRN BUCCAL DECREASED GLUCOSE; Start 05/01/17 at 15: 00 Atorvastatin Calcium (Lipitor) 10 mg HS PO Last administered on 05/01/17 22:17 ; Admin Dose 10 MG; Start 05/01/17 at 21:00 Risperidone (Risperdal) 2 mg BID PO Last administered on 05/02/17 10:42; Admin Dose 2 MG; Start 05/01/17 at 21:00 Lorazepam (Ativan) 1 mg Q6H PRN PO ANXIETY; Start 05/01/17 at 15:00 Lamotrigine (Lamictal) 50 mg BID PO Last administered on 05/02/17 10:40; Admin Dose 50 MG; Start 05/01/17 at 21:00 Losartan Potassium (Cozaar) 25 mg DAILY PO ; Start 05/02/17 at 09:00 Assessment/Plan Chief Complaint/Hosp Course 1. Atypical chest pain rule out acute coronary syndrome 2. Diabetes with normal hemoglobin A1c. 3. History of hypertension currently under good control 4. History of drug use 5. History of alcohol and drug abuse which has quit now. 6. History of psych disorder. Recommendations: I will continue with her current cardiac care including aspirin. I have ordered a CT coronary angiogram to rule out obstructive coronary artery disease. Patient was advised to stop smoking. Thank you for this referral will continue to follow along with you. Problems: CHAITANYA NEVAREZ MD May 02, 2017 14:27
[2017-05-02] MEDS ORDERED: SOD CHLORIDE 0.9% 100 ML ONE (17:46)
[2017-05-02] MEDS ORDERED: IOHEXOL 100 ML ONE (17:46)
[2017-05-02] MEDS ORDERED: IOHEXOL 350MG/ML 50 ML BTL ONE (17:47)
[2017-05-02] MEDS ORDERED: NITROGLYCERIN AEROSOL (4.9 GM) ONE (18:47)
--- NOTE | 2017-05-02 19:48 | RADRPT ---
PROCEDURE: CTA OF THE HEART AND CORONARY ARTERIES WITH CONTRAST CLINICAL INDICATION: Chest pain COMPARISON: CT chest 05/01/2017 TECHNIQUE: Multiphasic ECG-gated volumetric acquisition from the ascending aorta to the diaphragm pe rformed with intravenous contrast on a high-resolution multi detector scanner with multiphasic recon structions. Multiplanar reconstructions, three-dimensional reconstructions, as well as maximal inten sity projection images are produced and reviewed. One or more of the following dose reduction techni ques were used: Automated exposure control; Adjustment of the mA and/or kV according to patient size ; Use of iterative reconstruction technique; ECG dose modulation. CTDI = 8, 34, 69 mGy. DLP = 991 mG y-cm. Stenosis classification of vessels greater than 1.5 mm in diameter: None0% Minimal1-24% Wzwl67-53% Wjrywyue17-07% Wfmeye73-89% Vovwpeej690% (When a vessel appears focally occluded with distal reconstitution there may be trac e patency which is below the resolution of the examination or collateral pathways may exist.) CONTRAST: 100 mL of Omnipaque 350 intravenously without adverse event. FINDINGS: CORONARY CT ANGIOGRAM: Overall quality of the CT angiographic examination is partially degraded due to elevated heart rate; beta blockade was not possible due to borderline low blood pressure. Normal origins of the coronary arteries are present. The coronary artery system is left dominant. Total calcium score: 0 Right Coronary Artery: Widely patent without focal irregularity, mural plaque, or significant stenos is. The acute marginal branch enhances normally. Posterior descending and posterior lateral coronary artery branches are widely patent. Left Main Coronary Artery: Widely patent without focal irregularity, mural plaque, or significant st enosis. Left Anterior Descending Coronary Artery: Widely patent without focal irregularity, mural plaque, or significant stenosis. Visualized septal and diagonal branches: Widely patent without focal irregularity, mural plaque, or significant stenosis. Left Circumflex Coronary Artery: Widely patent without focal irregularity, mural plaque, or signific ant stenosis. Visualized obtuse marginal branches: Widely patent throughout, without focal significant stenosis. Normal appearance of the pericardium. No pericardial effusion. Normal appearing trileaflet aortic valve. Normal appearance of the mitral valve without evidence of prolapse on systolic gated images. Myocardial attenuation appears within normal limits. Left atrial appendage is well opacified. No evidence of intracardiac mass or thrombus. EXTRACARDIAC FINDINGS: Thoracic aorta: Normal caliber. Pulmonary vessels: Normal caliber pulmonary arteries. No evidence of central filling defect. Conven tional pulmonary venous return. Chest: The visualized lung parenchyma is unremarkable. No mediastinal lymphadenopathy. Abdomen: Incidental imaging of the upper abdomen is unremarkable. IMPRESSION: Left dominant coronary arterial system. Total calcium score: 0 Although images are partially degraded due to elevated heart rate there is no evidence of calcified or noncalcified plaque within any of the coronary arteries, all vessels appear widely patent. RPTAT: AADD .Alejandro Sanford MD, MD Date Time Electronically viewed and signed by .Alejandro Sanford MD, MD on 05/02/2017 19:48 .B/
[2017-05-02] MEDS: ATORVASTATIN 10 MG TAB PO SCH (20:09)
[2017-05-03] VITALS (12 sets, daily range): BP systolic 91–104; BP diastolic 57–67; PULSE 59–80; RESP 18–19
[2017-05-03] MEDS: ACCU-CHEK XX SCH (02:00)
[2017-05-03 07:41] LABS: BASOPHILS % 0.3 % (0.0-2.0); EOSINOPHILS # 0.2 10^3/ul (0.0-0.5); EOSINOPHILS % 2.8 % (0.0-7.0); HEMOGLOBIN 13.6 g/dl (12.0-16.0); LYMPHOCYTES # 2.5 10^3/ul (0.8-2.9); LYMPHOCYTES % 38.7 % (15.0-51.0); MEAN CORPUSCULAR HEMOGLOBIN 29.7 pg (29.0-33.0); MEAN CORPUSCULAR HGB CONC 33.2 g/dl (32.0-37.0); MEAN CORPUSCULAR VOLUME 89.5 fl (82.0-101.0); MEAN PLATELET VOLUME 10.2 fl (7.4-10.4); MONOCYTE # 0.4 10^3/ul (0.3-0.9); MONOCYTES % 6.5 % (0.0-11.0); NEUTROPHIL # 3.3 10^3/ul (1.6-7.5); NEUTROPHILS % 51.7 % (39.0-77.0); PLATELET COUNT 188 10^3/UL (140-415); RED BLOOD COUNT 4.58 10^6/ul (4.20-5.40); RED CELL DISTRIBUTION WIDTH 13.2 % (11.5-14.5); WHITE BLOOD COUNT 6.4 10^3/ul (4.8-10.8)
[2017-05-03] MEDS: INSULIN ASPART [NOVOLOG] 3 ML PEN SC SCH ×7 (07:55→20:21)
[2017-05-03 08:04] LABS: CALCIUM 9.8 mg/dl (8.4-10.2); CREATININE 0.5 mg/dl (0.44-1.00); POTASSIUM 3.7 mmol/L (3.5-5.1)
[2017-05-03 08:08] LABS: MAGNESIUM 1.7 mg/dl (1.7-2.5); PHOSPHORUS 3.7 mg/dl (2.5-4.9)
--- NOTE | 2017-05-03 08:56 | CONS ---
Date/Time of Note Date/Time of Note DATE: 05/03/17 TIME: 08:54 Consult Date/Type/Reason Admit Date/Time May 01, 2017 at 11:32 Initial Consult Date 05/01/17 Type of Consultation: CARDIOLOGY Ordering Provider: BAYRON SUTHERLAND NP Subjective Discussed with staff rhythm was reviewed patient remained sinus rhythm. At this point does not chest pain pressure to me. no palpitations OBJECTIVE: General: no acute distress HEENT: NC/AT. pupils are equal. round. NECK: NO JVD. no stridor. CV: RRR. systolic murmur; no gallop or rubs. PULM: no wheezing or rhonchi. GI: SOFT, NT, ND, no rebound or guarding Extremity: trace B/L LE edema. no clubbing. neuro: awake and alert, OX3. Psych:ANXIOUS rectal: deferred : normal ECG NSR nonspecific T-wave abnormality ECHO REVIEWED: 1. Normal left ventricular systolic function. Normal left ventricular cavity size. Mild concentric left ventricular hypertrophy. Ejection fraction is visually estimated at 55 %. Abnormal Diastolic Function. 2. Mitral valve leaflets appear mildly thickened. Mild mitral annular calcification. Trace mitral regurgitation. 3. Normal appearance of the aortic valve. No significant aortic stenosis or insufficiency. 4. Normal appearance of the tricuspid valve. Estimated peak PA systolic pressure 28 mmHg. There is trace tricuspid regurgitation. Objective Vital Signs Date Time Temp Pulse Resp B/P Pulse Ox O2 Delivery O2 Flow Rate FiO2 05/03/17 07:00 98.3 67 18 104/60 96 05/01/17 11:59 Room Air 05/01/17 09:15 2 Intake and Output 05/02/17 05/02/17 05/03/17 15:00 23:00 07:00 Intake Total 100 ml Output Total 700 ml Balance -600 ml Results/Medications Result Diagram: 05/03/17 0633 05/03/17 0633 Results 24 hrs Laboratory Tests Test 05/02/17 12:56 05/02/17 14:55 05/02/17 17:46 05/02/17 20:12 Bedside Glucose 84 83 83 108 Test 05/03/17 06:33 05/03/17 08:32 White Blood Count 6.4 Red Blood Count 4.58 Hemoglobin 13.6 Hematocrit 41.0 Mean Corpuscular Volume 89.5 Mean Corpuscular Hemoglobin 29.7 Mean Corpuscular Hemoglobin Concent 33.2 Red Cell Distribution Width 13.2 Platelet Count 188 Mean Platelet Volume 10.2 Neutrophils % 51.7 Lymphocytes % 38.7 Monocytes % 6.5 Eosinophils % 2.8 Basophils % 0.3 Nucleated Red Blood Cells % 0.0 Neutrophils # 3.3 Lymphocytes # 2.5 Monocytes # 0.4 Eosinophils # 0.2 Basophils # 0.0 Nucleated Red Blood Cells # 0.0 Sodium Level 143 Potassium Level 3.7 Chloride Level 99 Carbon Dioxide Level 29 Anion Gap 19 H Blood Urea Nitrogen 17 Creatinine 0.50 Glucose Level 81 Calcium Level 9.8 Phosphorus Level 3.7 Magnesium Level 1.7 Bedside Glucose 86 Medications Current Medications Ondansetron HCl (Zofran Inj) 4 mg Q6H PRN IV NAUSEA AND/OR VOMITING; Start 05/01 at 12:30 Aspirin (Aspirin) 81 mg DAILY PO Last administered on 05/02/17 10:42; Admin Dose 81 MG; Start 05/02/17 at 09:00 Acetaminophen (Tylenol Tab) 650 mg Q6H PRN PO PAIN LEVEL 1-3 OR FEVER; Start at 12:30 Acetaminophen/ Hydrocodone Bitart ([place] (5/325)) 1 tab Q6H PRN PO PAIN LEVEL 4 -6; Start 05/01/17 at 12:30 Morphine Sulfate (morphine) 2 mg Q4H PRN IV PAIN LEVEL 7-10; Start 05/01/17 at 12:30 Magnesium Hydroxide (Milk Of Mag) 30 ml DAILY PRN PO CONSTIPATION; Start at 12:30 Bisacodyl (Dulcolax) 5 mg DAILY PRN PO CONSTIPATION; Start 05/01/17 at 12:30 Famotidine (Pepcid) 20 mg Q12 PO Last administered on 05/02/17 20:09; Admin Dose 20 MG; Start 05/01/17 at 21:00 Enoxaparin Sodium (Lovenox) 40 mg DAILY SC Last administered on 05/02/17 10:44 ; Admin Dose 40 MG; Start 05/02/17 at 09:00 Insulin Glargine (Lantus) 12 unit DAILY@08 SC Last administered on 05/02/17 08: 35; Admin Dose 12 UNIT; Start 05/02/17 at 08:00 Diagnostic Test (Pha) (Accu-Chek) 1 ea 02 XX ; Start 05/02/17 at 02:00 Miscellaneous Information 1 ea NOTE XX ; Start 05/01/17 at 15:00 Glucose (Glutose) 15 gm Q15M PRN PO DECREASED GLUCOSE; Start 05/01/17 at 15:00 Glucose (Glutose) 22.5 gm Q15M PRN PO DECREASED GLUCOSE; Start 05/01/17 at 15:00 Dextrose (D50w Syringe) 25 ml Q15M PRN IV DECREASED GLUCOSE; Start 05/01/17 at 15:00 Dextrose (D50w Syringe) 50 ml Q15M PRN IV DECREASED GLUCOSE; Start 05/01/17 at 15:00 Glucagon (Glucagen) 1 mg Q15M PRN IM DECREASED GLUCOSE; Start 05/01/17 at 15:00 Glucose (Glutose) 15 gm Q15M PRN BUCCAL DECREASED GLUCOSE; Start 05/01/17 at 15: 00 Atorvastatin Calcium (Lipitor) 10 mg HS PO Last administered on 05/02/17 20:09 ; Admin Dose 10 MG; Start 05/01/17 at 21:00 Risperidone (Risperdal) 2 mg BID PO Last administered on 05/02/17 20:10; Admin Dose 2 MG; Start 05/01/17 at 21:00 Lorazepam (Ativan) 1 mg Q6H PRN PO ANXIETY; Start 05/01/17 at 15:00 Lamotrigine (Lamictal) 50 mg BID PO Last administered on 05/02/17 20:09; Admin Dose 50 MG; Start 05/01/17 at 21:00 Losartan Potassium (Cozaar) 25 mg DAILY PO ; Start 05/02/17 at 09:00 Assessment/Plan Chief Complaint/Hosp Course 1. Atypical chest pain rule out acute coronary syndrome 2. Diabetes with normal hemoglobin A1c. 3. History of hypertension currently under good control 4. History of drug use 5. History of alcohol and drug abuse which has quit now. 6. History of psych disorder. Recommendations: I will continue with her current cardiac care including aspirin. CT coronary angiogram did NOT show any evidence of significant CAD. Patient was advised to stop smoking. cont medical therapy Thank you for this referral will continue to follow along with you. Problems: CHAITANYA NEVAREZ MD May 03, 2017 08:56
[2017-05-03] MEDS: ASPIRIN 81 MG TAB PO SCH (09:56)
[2017-05-03] MEDS: LAMOTRIGINE 25 MG TAB PO SCH ×2 (09:56→20:21)
[2017-05-03] MEDS: RISPERIDONE 2 MG TAB PO SCH ×2 (09:56→20:21)
[2017-05-03] MEDS: FAMOTIDINE 20 MG TAB PO SCH ×2 (09:57→20:20)
[2017-05-03] MEDS: LOSARTAN 25 MG TAB PO SCH (09:57)
[2017-05-03] MEDS: INSULIN GLARGINE [LANtus] 3 ML PEN SC SCH (09:59)
[2017-05-03] MEDS: ENOXAPARIN 40 MG/0.4 ML SYG SC SCH (10:01)
--- NOTE | 2017-05-03 10:39 | PN ---
Date/Time of Note Date/Time of Note DATE: 05/03/17 TIME: 10:30 Assessment/Plan VTE Prophylaxis VTE Prophylaxis Intervention: SCD's Lines/Catheters IV [facility]from [facility] Urinary Cath still in place: Yes Reason Cath still needed: urinary retention Assessment/Plan Chief Complaint/Hosp Course Patient denies shortness of breath, denies any chest pain, however remains slightly hypotensive. Problems: Assessment/Plan -Atypical chest pain. Acute coronary syndrome ruled out. Dr. Aguilar is following and cardiology consultation. Patient status post CT coronary angiogram with no evidence of acute coronary artery disease. Continue aspirin. -Hypertension, patient is currently hypotensive. -Diabetes mellitus type 2, continue Lantus and NovoLog. -Dyslipidemia, continue statin. -Possible COPD, continue breathing treatments as needed for shortness of breath. -Ongoing tobacco use, cessation is strongly advised. -Schizophrenia, continue Lamictal and Risperdal. Further recommendations based on clinical course. Plan of care discussed with Dr. Roach Exam/Review of Systems Vital Signs Vitals Vital Signs Date Time Temp Pulse Resp B/P Pulse Ox O2 Delivery O2 Flow Rate FiO2 05/03/17 09:01 61 05/03/17 07:00 98.3 18 104/60 96 05/01/17 11:59 Room Air 05/01/17 09:15 2 Intake and Output 05/02/17 05/02/17 05/03/17 15:00 23:00 07:00 Intake Total 100 ml Output Total 700 ml Balance -600 ml Exam Constitutional: alert, frail Psych: confusion Head: normocephalic Neck: supple Respiratory: normal air movement Cardiovascular: nl pulses, regular rate and rhythm Gastrointestinal: non-tender, soft Extremities: normal pulses Neurological: confused Results Result Diagram: 05/03/17 0633 05/03/17 0633 Results 24 hrs Laboratory Tests Test 05/02/17 12:56 05/02/17 14:55 05/02/17 17:46 05/02/17 20:12 Bedside Glucose 84 83 83 108 Test 05/03/17 06:33 05/03/17 08:32 White Blood Count 6.4 Red Blood Count 4.58 Hemoglobin 13.6 Hematocrit 41.0 Mean Corpuscular Volume 89.5 Mean Corpuscular Hemoglobin 29.7 Mean Corpuscular Hemoglobin Concent 33.2 Red Cell Distribution Width 13.2 Platelet Count 188 Mean Platelet Volume 10.2 Neutrophils % 51.7 Lymphocytes % 38.7 Monocytes % 6.5 Eosinophils % 2.8 Basophils % 0.3 Nucleated Red Blood Cells % 0.0 Neutrophils # 3.3 Lymphocytes # 2.5 Monocytes # 0.4 Eosinophils # 0.2 Basophils # 0.0 Nucleated Red Blood Cells # 0.0 Sodium Level 143 Potassium Level 3.7 Chloride Level 99 Carbon Dioxide Level 29 Anion Gap 19 H Blood Urea Nitrogen 17 Creatinine 0.50 Glucose Level 81 Calcium Level 9.8 Phosphorus Level 3.7 Magnesium Level 1.7 Bedside Glucose 86 Medications Medications Current Medications Ondansetron HCl (Zofran Inj) 4 mg Q6H PRN IV NAUSEA AND/OR VOMITING; Start 05/01 at 12:30 Aspirin (Aspirin) 81 mg DAILY PO Last administered on 05/03/17 09:56; Admin Dose 81 MG; Start 05/02/17 at 09:00 Acetaminophen (Tylenol Tab) 650 mg Q6H PRN PO PAIN LEVEL 1-3 OR FEVER; Start at 12:30 Acetaminophen/ Hydrocodone Bitart ([place] (5/325)) 1 tab Q6H PRN PO PAIN LEVEL 4 -6; Start 05/01/17 at 12:30 Morphine Sulfate (morphine) 2 mg Q4H PRN IV PAIN LEVEL 7-10; Start 05/01/17 at 12:30 Magnesium Hydroxide (Milk Of Mag) 30 ml DAILY PRN PO CONSTIPATION; Start at 12:30 Bisacodyl (Dulcolax) 5 mg DAILY PRN PO CONSTIPATION; Start 05/01/17 at 12:30 Famotidine (Pepcid) 20 mg Q12 PO Last administered on 05/03/17 09:57; Admin Dose 20 MG; Start 05/01/17 at 21:00 Enoxaparin Sodium (Lovenox) 40 mg DAILY SC Last administered on 05/03/17 10:01 ; Admin Dose 40 MG; Start 05/02/17 at 09:00 Insulin Glargine (Lantus) 12 unit DAILY@08 SC Last administered on 05/03/17 09: 59; Admin Dose 12 UNIT; Start 05/02/17 at 08:00 Diagnostic Test (Pha) (Accu-Chek) 1 ea 02 XX ; Start 05/02/17 at 02:00 Miscellaneous Information 1 ea NOTE XX ; Start 05/01/17 at 15:00 Glucose (Glutose) 15 gm Q15M PRN PO DECREASED GLUCOSE; Start 05/01/17 at 15:00 Glucose (Glutose) 22.5 gm Q15M PRN PO DECREASED GLUCOSE; Start 05/01/17 at 15:00 Dextrose (D50w Syringe) 25 ml Q15M PRN IV DECREASED GLUCOSE; Start 05/01/17 at 15:00 Dextrose (D50w Syringe) 50 ml Q15M PRN IV DECREASED GLUCOSE; Start 05/01/17 at 15:00 Glucagon (Glucagen) 1 mg Q15M PRN IM DECREASED GLUCOSE; Start 05/01/17 at 15:00 Glucose (Glutose) 15 gm Q15M PRN BUCCAL DECREASED GLUCOSE; Start 05/01/17 at 15: 00 Atorvastatin Calcium (Lipitor) 10 mg HS PO Last administered on 05/02/17 20:09 ; Admin Dose 10 MG; Start 05/01/17 at 21:00 Risperidone (Risperdal) 2 mg BID PO Last administered on 05/03/17 09:56; Admin Dose 2 MG; Start 05/01/17 at 21:00 Lorazepam (Ativan) 1 mg Q6H PRN PO ANXIETY; Start 05/01/17 at 15:00 Lamotrigine (Lamictal) 50 mg BID PO Last administered on 05/03/17 09:56; Admin Dose 50 MG; Start 05/01/17 at 21:00 Losartan Potassium (Cozaar) 25 mg DAILY PO Last administered on 05/03/17 09:57 ; Admin Dose 25 MG; Start 05/02/17 at 09:00 LINDA BEASLEY May 03, 2017 10:38
[2017-05-03] MEDS ORDERED: SOD CHLORIDE 0.9% 1,000 ML IV ONE (17:00)
[2017-05-03] MEDS: ATORVASTATIN 10 MG TAB PO SCH (20:20)
[2017-05-04] VITALS (8 sets, daily range): BP systolic 95–134; BP diastolic 52–66; PULSE 61–80; RESP 17–18
[2017-05-04] MEDS: ACCU-CHEK XX SCH (01:39)
[2017-05-04] MEDS: INSULIN ASPART [NOVOLOG] 3 ML PEN SC SCH ×4 (07:55→12:39)
--- NOTE | 2017-05-04 08:09 | CONS ---
Date/Time of Note Date/Time of Note DATE: 05/04/17 TIME: 08:08 Consult Date/Type/Reason Admit Date/Time May 01, 2017 at 11:32 Initial Consult Date 05/01/17 Type of Consultation: CARDIOLOGY Ordering Provider: BAYRON SUTHERLAND NP Subjective Discussed with staff rhythm was reviewed patient remained sinus rhythm. At this point SHE does not report any more chest pain pressure to me. no palpitations OBJECTIVE: General: no acute distress HEENT: NC/AT. pupils are equal. round. NECK: NO JVD. no stridor. CV: RRR. systolic murmur; no gallop or rubs. PULM: no wheezing or rhonchi. GI: SOFT, NT, ND, no rebound or guarding Extremity: trace B/L LE edema. no clubbing. neuro: awake and alert, OX3. Psych:ANXIOUS rectal: deferred : normal ECG NSR nonspecific T-wave abnormality ECHO REVIEWED: 1. Normal left ventricular systolic function. Normal left ventricular cavity size. Mild concentric left ventricular hypertrophy. Ejection fraction is visually estimated at 55 %. Abnormal Diastolic Function. 2. Mitral valve leaflets appear mildly thickened. Mild mitral annular calcification. Trace mitral regurgitation. 3. Normal appearance of the aortic valve. No significant aortic stenosis or insufficiency. 4. Normal appearance of the tricuspid valve. Estimated peak PA systolic pressure 28 mmHg. There is trace tricuspid regurgitation. Objective Vital Signs Date Time Temp Pulse Resp B/P Pulse Ox O2 Delivery O2 Flow Rate FiO2 05/04/17 07:31 98.5 65 17 95/56 96 05/01/17 11:59 Room Air 05/01/17 09:15 2 Intake and Output 05/03/17 05/03/17 05/04/17 15:00 23:00 07:00 Intake Total 800 ml 200 ml Output Total 950 ml 1100 ml Balance -150 ml -900 ml Results/Medications Result Diagram: 05/03/17 0633 05/03/17 0633 Results 24 hrs Laboratory Tests Test 05/03/17 08:32 05/03/17 12:30 05/03/17 17:09 05/03/17 20:13 Bedside Glucose 86 147 87 139 Test 05/04/17 02:48 Bedside Glucose 136 Medications Current Medications Ondansetron HCl (Zofran Inj) 4 mg Q6H PRN IV NAUSEA AND/OR VOMITING; Start 05/01 at 12:30 Aspirin (Aspirin) 81 mg DAILY PO Last administered on 05/03/17 09:56; Admin Dose 81 MG; Start 05/02/17 at 09:00 Acetaminophen (Tylenol Tab) 650 mg Q6H PRN PO PAIN LEVEL 1-3 OR FEVER; Start at 12:30 Acetaminophen/ Hydrocodone Bitart ([place] (5/325)) 1 tab Q6H PRN PO PAIN LEVEL 4 -6; Start 05/01/17 at 12:30 Morphine Sulfate (morphine) 2 mg Q4H PRN IV PAIN LEVEL 7-10; Start 05/01/17 at 12:30 Magnesium Hydroxide (Milk Of Mag) 30 ml DAILY PRN PO CONSTIPATION; Start at 12:30 Bisacodyl (Dulcolax) 5 mg DAILY PRN PO CONSTIPATION; Start 05/01/17 at 12:30 Famotidine (Pepcid) 20 mg Q12 PO Last administered on 05/03/17 20:20; Admin Dose 20 MG; Start 05/01/17 at 21:00 Enoxaparin Sodium (Lovenox) 40 mg DAILY SC Last administered on 05/03/17 10:01 ; Admin Dose 40 MG; Start 05/02/17 at 09:00 Insulin Glargine (Lantus) 12 unit DAILY@08 SC Last administered on 05/03/17 09: 59; Admin Dose 12 UNIT; Start 05/02/17 at 08:00 Diagnostic Test (Pha) (Accu-Chek) 1 ea 02 XX ; Start 05/02/17 at 02:00 Miscellaneous Information 1 ea NOTE XX ; Start 05/01/17 at 15:00 Glucose (Glutose) 15 gm Q15M PRN PO DECREASED GLUCOSE; Start 05/01/17 at 15:00 Glucose (Glutose) 22.5 gm Q15M PRN PO DECREASED GLUCOSE; Start 05/01/17 at 15:00 Dextrose (D50w Syringe) 25 ml Q15M PRN IV DECREASED GLUCOSE; Start 05/01/17 at 15:00 Dextrose (D50w Syringe) 50 ml Q15M PRN IV DECREASED GLUCOSE; Start 05/01/17 at 15:00 Glucagon (Glucagen) 1 mg Q15M PRN IM DECREASED GLUCOSE; Start 05/01/17 at 15:00 Glucose (Glutose) 15 gm Q15M PRN BUCCAL DECREASED GLUCOSE; Start 05/01/17 at 15: 00 Atorvastatin Calcium (Lipitor) 10 mg HS PO Last administered on 05/03/17 20:20 ; Admin Dose 10 MG; Start 05/01/17 at 21:00 Risperidone (Risperdal) 2 mg BID PO Last administered on 05/03/17 20:21; Admin Dose 2 MG; Start 05/01/17 at 21:00 Lorazepam (Ativan) 1 mg Q6H PRN PO ANXIETY; Start 05/01/17 at 15:00 Lamotrigine (Lamictal) 50 mg BID PO Last administered on 05/03/17 20:21; Admin Dose 50 MG; Start 05/01/17 at 21:00 Assessment/Plan Chief Complaint/Hosp Course 1. Atypical chest pain: was ruled out for acute coronary syndrome 2. Diabetes with normal hemoglobin A1c. 3. History of hypertension currently under good control 4. History of drug use 5. History of alcohol and drug abuse which has quit now. 6. History of psych disorder. Recommendations: I will continue with her current cardiac care including aspirin. CT coronary angiogram did NOT show any evidence of significant CAD. Patient was advised to stop smoking. cont medical therapy dc planning when ok with IM. OK TO dc tele from cardiac stand point Thank you for this referral will continue to follow along with you. Problems: CHAITANYA NEVAREZ MD May 04, 2017 08:09
[2017-05-04 08:28] LABS: BASOPHILS % 0.4 % (0.0-2.0); EOSINOPHILS # 0.2 10^3/ul (0.0-0.5); EOSINOPHILS % 2.4 % (0.0-7.0); HEMATOCRIT 37.7 % (37.0-47.0); HEMOGLOBIN 12.4 g/dl (12.0-16.0); LYMPHOCYTES # 2.3 10^3/ul (0.8-2.9); LYMPHOCYTES % 30.6 % (15.0-51.0); MEAN CORPUSCULAR HEMOGLOBIN 29.9 pg (29.0-33.0); MEAN CORPUSCULAR HGB CONC 32.9 g/dl (32.0-37.0); MEAN CORPUSCULAR VOLUME 90.8 fl (82.0-101.0); MEAN PLATELET VOLUME 10.1 fl (7.4-10.4); MONOCYTE # 0.6 10^3/ul (0.3-0.9); MONOCYTES % 7.3 % (0.0-11.0); NEUTROPHIL # 4.5 10^3/ul (1.6-7.5); PLATELET COUNT 179 10^3/UL (140-415); RED BLOOD COUNT 4.15 10^6/ul (4.20-5.40); RED CELL DISTRIBUTION WIDTH 13.2 % (11.5-14.5); WHITE BLOOD COUNT 7.6 10^3/ul (4.8-10.8)
[2017-05-04] MEDS: LAMOTRIGINE 25 MG TAB PO SCH (08:33)
[2017-05-04] MEDS: ASPIRIN 81 MG TAB PO SCH (08:33)
[2017-05-04] MEDS: RISPERIDONE 2 MG TAB PO SCH (08:34)
[2017-05-04] MEDS: FAMOTIDINE 20 MG TAB PO SCH (08:34)
[2017-05-04] MEDS: ENOXAPARIN 40 MG/0.4 ML SYG SC SCH (08:35)
[2017-05-04] MEDS: INSULIN GLARGINE [LANtus] 3 ML PEN SC SCH (08:46)
[2017-05-04 08:47] LABS: CALCIUM 9.4 mg/dl (8.4-10.2); CREATININE 0.58 mg/dl (0.44-1.00); POTASSIUM 3.9 mmol/L (3.5-5.1)
--- NOTE | 2017-05-04 13:56 | PDOCDIS ---
Discharge Instructions CONDITION Patient Condition: Stable HOME CARE INSTRUCTIONS: Special Diet: carb controlled ACTIVITY: Activity Restrictions: Slowly Increase Activity Rest between Activity Avoid heavy lifting Do not Drive Do not operate Machinery Do not operate Power Tool Avoid Heavy Housework Bathing Restrictions: Sponge Bath FOLLOW UP/APPOINTMENTS Follow-up Plan FU with Primary MD x 1 week FU with cardiology as recommended Call 911 or send to the nearest hospital if symptoms get worse. Dw staff EUSEBIO VALERA May 04, 2017 13:56
== END 2017-05-04 16:05 | DRG 313 ==
LOC: E/R 08:47 → TEL 11:32
PROVIDERS: ADMIT Internal Medicine; ATTEND Internal Medicine
DX: R07.89 Other chest pain (principal); F20.9 Schizophrenia, unspecified; I10 Essential (primary) hypertension; E11.9 Type 2 diabetes mellitus without complications; E78.5 Hyperlipidemia, unspecified; F17.200 Nicotine dependence, unspecified, uncomplicated; Z86.59 Personal history of other mental and behavioral disorders; Z79.4 Long term (current) use of insulin
CPT/HCPCS: 36415; 71010; 71275; 75574; 80048; 80053; 80061; 80307; 81003; 82550; 82553; 82962; 83036; 83735; 83880; 84100; 84439; 84443; 84484; 84703; 85025; 85378; 85610; 85730; 87081; 93005; 93306; J1650; J1815; J3475; J7030; Q9967

== ENCOUNTER 2017-05-23 10:41 | Emergency (ER) | payer OTHER ==
[~2017-05-23] VITALS: Ht 165.1 cm; Wt 75.0 kg
[2017-05-23 10:51] VITALS: Ht 165.1 cm; Wt 75.0 kg
[2017-05-23] MEDS ORDERED: SOD CHLORIDE 0.9% 500 ML IV STA (11:17)
[2017-05-23] MEDS ORDERED: ACETAMINOPHEN 325 MG TAB PO STA (11:17)
[2017-05-23] MEDS ORDERED: DIPHENHYDRAMINE 50 MG INJ IV STA (11:17)
[2017-05-23] MEDS ORDERED: METOCLOPRAMIDE 10 MG INJ IV STA (11:17)
--- NOTE | 2017-05-23 11:35 | ERA ---
ER Documentation Chief Complaint Date/Time DATE: 05/23/17 TIME: 11:24 Chief Complaint headache x 2 months; hypertensive; tachycardia per facility HPI This is a 51-year-old female with a past medical history of hypertension, hyperlipidemia, diabetes, previous cocaine and tobacco use, chronic encephalopathy with tremor, nonambulatory, currently residing in a nursing facility who is presenting with a moderate 3-4 out of 10 dull aching bilateral frontal headache, waxing and waning for approximately 2 months, not relieved by Tylenol, not associated with any vision changes, no nausea or vomiting. The patient denies any trauma or falls. She does have a few scratches on her face, but she notes that is from picking her face. The family also reported concerns of an episode of hypertension as well as a fast heart rate. The patient is normotensive and not tachycardic in the ER. The patient has not been sick recently. She denies fever or chills. She denies chest pain or trouble breathing. She has not had a cough or cold or congestion recently. The patient does endorse suprapubic discomfort and reports burning sensation with urination that has been going on for "a long time." The patient's sensation is normal. She has chronic difficulty with movement of her extremities associated with chronic weakness that is unchanged today. ROS All systems reviewed and are negative except as per history of present illness. Medications Home Meds Reported Medications Insulin Aspart* (Novolog Insulin Pen*) 100 Unit/Ml Soln, 0 SC .SLIDING SCALE AC , EA IF 131-160 =2 UNITS 161-200 =3 UNITS 201-250 =6 UNITS 251-300 =9 UNITS 301-350 =12 UNITS 351-400 15 UNITS BS OVER 400 OR UNDER 60 CALL 05/23/17 Risperidone* (Risperidone*) 2 Mg Tablet, 2 MG PO BID, TAB 05/23/17 Ondansetron Hcl* (Zofran*) 4 Mg Tablet, 4 MG PO Q6H Y for NAUSEA AND OR VOMITING , TAB 05/23/17 Multivitamins* (Theragran*) 1 Tab Tab, 1 TAB PO DAILY, TAB 05/23/17 Magnesium Hydroxide* (Milk Of Magnesia*) 400 Mg/5 Ml Oral.susp, 30 ML PO DAILY Y for CONSTIPATION, ML 05/23/17 Lorazepam* (Lorazepam*) 1 Mg Tablet, 1 MG PO Q6 Y for ANXIETY, #60 TAB 05/23/17 Insulin Glargine* (Lantus*) 100 Unit/Ml Soln, 12 UNIT SC DAILY, #1 VIAL 05/23/17 Lamotrigine* (Lamotrigine*) 25 Mg Tablet, 50 MG PO Q12, TAB 05/23/17 Hydrocodone/Acetaminophen ([place] 5-325 Tablet) 1 Each Tablet, 1 EACH PO Q6 Y for PAIN, TAB 05/23/17 Famotidine* (Famotidine*) 20 Mg Tablet, 20 MG PO BID, #60 TAB 05/23/17 Enoxaparin Sodium* (Enoxaparin Sodium*) 40 Mg/0.4 Ml Syringe, 40 MG SC DAILY, SYR 05/23/17 Ipratropium-Albuterol (Ipratropium-Albuterol) 0.5-3 Mg/3 Ml Ampul.neb, 3 ML INHALATION Q4 Y for SHORTNESS OF BREATH, #30 VIAL 05/23/17 Bisacodyl* (Bisacodyl*) 5 Mg Tablet.dr, 5 MG PO DAILY, TAB 05/23/17 Atorvastatin Calcium (Atorvastatin Calcium) 10 Mg Tablet, 10 MG PO QHS, #30 TAB 05/23/17 Aspirin (Low Dose Aspirin) 81 Mg Tablet.dr, 81 MG PO DAILY, #30 TAB 05/23/17 Acetaminophen* (Acetaminophen*) 650 Mg Tablet, 650 MG PO Q6H Y for PAIN AND OR ELEVATED TEMP, #30 TAB 05/23/17 Allergies Allergies: Coded Allergies: No Known Allergy (Unverified , 05/23/17) PMhx/Soc History of Surgery: No Anesthesia Reaction: No (unknown) Hx Neurological Disorder: Yes (chronic encephalopathy) Hx Respiratory Disorders: No Hx Cardiac Disorders: Yes (HTN) Hx Psychiatric Problems: Yes (schizophrenia) Hx Miscellaneous Medical Probl: No Hx Alcohol Use: Yes Hx Substance Use: Yes (cocaine) Hx Tobacco Use: Yes Physical Exam Vitals Vital Signs Date Time Temp Pulse Resp B/P Pulse Ox O2 Delivery O2 Flow Rate FiO2 05/23/17 15:10 76 18 97/72 97 Room Air 05/23/17 14:13 78 18 92/65 97 Room Air 05/23/17 10:51 98.7 92 18 108/80 97 Physical Exam Const: NAD Head: Atraumatic to scalp, small scabbing lesion to right cheek Eyes: Normal Conjunctiva ENT: Normal External Ears, Nose. Dry Mucous Membranes Neck: Full range of motion. ~ No meningismus. Resp: Clear to auscultation bilaterally Cardio: Regular rate and rhythm, no murmurs Abd: Soft, non distended, mild suprapubic discomfort on palpation. Normal bowel sounds Skin: No petechiae or rashes Back: No flank tenderness Ext: No cyanosis, or edema Neur: Awake and alert, Orientedx3, spastic paraparesis, spastic plegia with tremor of BUE but squeeze 5/5 strength, sensation intact in all extremities Psych: slow, withdrawn Result Diagram: 05/23/17 1145 05/23/17 1145 Results 24 hrs Laboratory Tests Test 05/23/17 11:45 05/23/17 14:20 White Blood Count 6.810^3/ul Red Blood Count 4.2310^6/ul Hemoglobin 12.6g/dl Hematocrit 38.0% Mean Corpuscular Volume 89.8fl Mean Corpuscular Hemoglobin 29.8pg Mean Corpuscular Hemoglobin Concent 33.2g/dl Red Cell Distribution Width 13.8% Platelet Count 70469^3/UL Mean Platelet Volume 10.2fl Neutrophils % 55.9% Lymphocytes % 34.5% Monocytes % 6.7% Eosinophils % 1.9% Basophils % 0.7% Nucleated Red Blood Cells % 0.0/100WBC Neutrophils # (Manual) 3.810^3/ul Lymphocytes # 2.410^3/ul Monocytes # 0.510^3/ul Eosinophils # 0.110^3/ul Basophils # 0.110^3/ul Nucleated Red Blood Cells # 0.010^3/ul Prothrombin Time 13.6Sec Prothrombin Time Ratio 1.1 INR International Normalized Ratio 1.04 Activated Partial Thromboplast Time 28.6Sec Sodium Level 145mmol/L Potassium Level 4.1mmol/L Chloride Level 101mmol/L Carbon Dioxide Level 31mmol/L Anion Gap 17 Blood Urea Nitrogen 20mg/dl Creatinine 0.52mg/dl Glucose Level 92mg/dl Calcium Level 9.8mg/dl Total Bilirubin 0.1mg/dl Direct Bilirubin 0.00mg/dl Indirect Bilirubin 0.1mg/dl Aspartate Amino Transf (AST/SGOT) 17IU/L Alanine Aminotransferase (ALT/SGPT) 33IU/L Alkaline Phosphatase 98IU/L Total Protein 6.8g/dl Albumin 3.7g/dl Globulin 3.10g/dl Albumin/Globulin Ratio 1.19 Urine Color STRAW Urine Clarity CLEAR Urine pH 6.0 Urine Specific [place] 1.011 Urine Ketones NEGATIVEmg/dL Urine Nitrite NEGATIVEmg/dL Urine Bilirubin NEGATIVEmg/dL Urine Urobilinogen NEGATIVEmg/dL Urine Leukocyte Esterase NEGATIVELeu/ul Urine Microscopic RBC 1/HPF Urine Microscopic WBC 1/HPF Urine Bacteria FEW/HPF Urine Hemoglobin NEGATIVEmg/dL Urine Glucose NEGATIVEmg/dL Urine Total Protein NEGATIVEmg/dl Current Medications Medications (Trade) Dose Ordered Sig/Loren Route PRN Reason Start Time Stop Time Status Last Admin Dose Admin Sodium Chloride (NS) 500 ml @ 500 mls/hr Q1H STAT IV 05/23/17 11:17 05/23/17 12:16 DC 05/23/17 12:00 Acetaminophen (Tylenol Tab) 650 mg ONCE STAT PO 05/23/17 11:17 05/23/17 11:20 DC 05/23/17 11:59 Metoclopramide HCl (Reglan) 10 mg ONCE STAT IV 05/23/17 11:17 05/23/17 11:20 DC 05/23/17 11:59 Diphenhydramine HCl (Benadryl) 25 mg ONCE STAT IV 05/23/17 11:17 05/23/17 11:20 DC 05/23/17 11:58 Ketorolac Tromethamine (Toradol) 30 mg ONCE STAT IV 05/23/17 14:18 05/23/17 14:19 DC 05/23/17 14:54 Procedures/MDM The patient's initial complaint is a chronic headache. The patient denies trauma , she has a history of encephalopathy, so this must be ruled out. Workup will be performed for this. The patient does have a secondary complaint of suprapubic discomfort and burning with urination. This will be worked up as well. The patient's blood work was obtained and reviewed. Her CMC and BMP are unremarkable. The patient's urinalysis demonstrated showed 1 WBC and 1 bacteria, which is not convincing of a UTI. The patient's CT of the head showed the following per the radiologist: PROCEDURE: CT Head without. CLINICAL INDICATION: Headache. COMPARISON: No prior studies are available for comparison. FINDINGS: There is no intracranial hemorrhage, extra-axial fluid collection, mass lesion, midline shift or hydrocephalus. The ventricles, sulci and cisterns are within normal limits. The white matter is unremarkable. The [place]- white matter differentiation is preserved. The basal cisterns are patent. There is partial empty sella, normal variant. The midline structures are intact. The orbits, calvarium and extracranial soft tissues are normal in appearance. The visualized paranasal sinuses, mastoid air cells and middle ear cavities are normally aerated. IMPRESSION: No acute intracranial abnormality. No intracranial hemorrhage, extra-axial fluid collection, mass lesion or hydrocephalous. .Marilyn Lara MD, MD Date Time Electronically viewed and signed by .Marilyn Lara MD, MD on 05/23/2017 13: 36 The patient was given IV fluids, Reglan, Benadryl and toradol with resolution of her symptoms. The patient's vital signs have remained stable in the emergency department. At this time, the patient stable for discharge. She will be given precautions with which to return to the emergency department. She needs to follow-up with a primary care doctor in 2-3 days for reevaluation. Departure Diagnosis: Primary Impression: Headache Qualified Code: R51 - Chronic nonintractable headache, unspecified headache type Condition: Stable MARILYN CORREA MD May 23, 2017 11:35
[2017-05-23 12:25] LABS: BASOPHIL # 0.1 10^3/ul (0.0-0.1); BASOPHILS % 0.7 % (0.0-2.0); EOSINOPHILS # 0.1 10^3/ul (0.0-0.5); EOSINOPHILS % 1.9 % (0.0-7.0); HEMOGLOBIN 12.6 g/dl (12.0-16.0); LYMPHOCYTES # 2.4 10^3/ul (0.8-2.9); LYMPHOCYTES % 34.5 % (15.0-51.0); MEAN CORPUSCULAR HEMOGLOBIN 29.8 pg (29.0-33.0); MEAN CORPUSCULAR HGB CONC 33.2 g/dl (32.0-37.0); MEAN CORPUSCULAR VOLUME 89.8 fl (82.0-101.0); MEAN PLATELET VOLUME 10.2 fl (7.4-10.4); MONOCYTE # 0.5 10^3/ul (0.3-0.9); MONOCYTES % 6.7 % (0.0-11.0); NEUTROPHILS % 55.9 % (39.0-77.0); PLATELET COUNT 204 10^3/UL (140-415); RED BLOOD COUNT 4.23 10^6/ul (4.20-5.40); RED CELL DISTRIBUTION WIDTH 13.8 % (11.5-14.5); WHITE BLOOD COUNT 6.8 10^3/ul (4.8-10.8)
[2017-05-23 12:51] LABS: ALBUMIN 3.7 g/dl (3.3-4.9); ALBUMIN/GLOBULIN RATIO 1.19; BILIRUBIN,INDIRECT 0.1 mg/dl (0-1.1); BILIRUBIN,TOTAL 0.1 mg/dl (0.2-1.3); CALCIUM 9.8 mg/dl (8.4-10.2); CREATININE 0.52 mg/dl (0.44-1.00); INR 1.04; POTASSIUM 4.1 mmol/L (3.5-5.1); PROTIME 13.6 Sec (12.2-14.2); PT RATIO 1.1; TOTAL PROTEIN 6.8 g/dl (6.1-8.1)
[2017-05-23 12:52] LABS: PARTIAL THROMBOPLASTIN TIME 28.6 Sec (25.0-35.0)
--- NOTE | 2017-05-23 13:36 | RADRPT ---
PROCEDURE: CT Head without. CLINICAL INDICATION: Headache. TECHNIQUE: The study was performed utilizing a multi-slice, multidetector CT scanner. Direct spira l 1 mm axial sections were obtained through the head without the use of intravenous contrast materia l. 1 or more of the following dose reduction techniques were utilized: Automated exposure control, adjustment of the mA and/or kV according to patient's size, iterative reconstruction technique. Co logan and sagittal reformations were obtained. The images were reviewed on a PACS workstation. RADIATION DOSE: CTDIvol: 42.7 mGyDLP: 630.2 mGy-cm COMPARISON: No prior studies are available for comparison. FINDINGS: There is no intracranial hemorrhage, extra-axial fluid collection, mass lesion, midline shift or hyd rocephalus. The ventricles, sulci and cisterns are within normal limits. The white matter is unrem arkable. The corral[place]-white matter differentiation is preserved. The basal cisterns are patent. There is partial empty sella, normal variant. The midline structures are intact. The orbits, calvarium and extracranial soft tissues are normal in appearance. The visualized paranasal sinuses, mastoid ai r cells and middle ear cavities are normally aerated. IMPRESSION: 1. No acute intracranial abnormality. No intracranial hemorrhage, extra-axial fluid collection, ma ss lesion or hydrocephalous. RPTAT: HGAS .Neri Lara MD, MD Date Time Electronically viewed and signed by .Neri Lraa MD, MD on 05/23/2017 13:36 .S/
[2017-05-23] MEDS ORDERED: KETOROLAC 30 MG INJ IV STA (14:18)
[2017-05-23 14:45] LABS: UR BACTERIA FEW /HPF (NONE SEEN); UR RBC 1 /HPF (0-5)
[2017-05-23] MEDS ORDERED: ASPI-664 PO (14:51)
[2017-05-23] MEDS ORDERED: ATOR10TA65 PO (14:51)
[2017-05-23] MEDS ORDERED: ACET-2047 PO (14:51)
[2017-05-23] MEDS ORDERED: IPRA3AMP INHALATION (14:52)
[2017-05-23] MEDS ORDERED: BISA5TAB6 PO (14:52)
[2017-05-23] MEDS ORDERED: ENOX40DI2 SC (14:53)
[2017-05-23] MEDS ORDERED: FAMO20TA18 PO (14:55)
[2017-05-23] MEDS ORDERED: HYDR-906 PO (14:56)
[2017-05-23] MEDS ORDERED: LAMO25TA PO (14:57)
[2017-05-23] MEDS ORDERED: LORA1TAB PO (14:58)
[2017-05-23] MEDS ORDERED: LANT3I SC (14:58)
[2017-05-23] MEDS ORDERED: MULTI PO (14:59)
[2017-05-23] MEDS ORDERED: MAGN400O4 PO (14:59)
[2017-05-23] MEDS ORDERED: ONDA4TAB8 PO (15:00)
[2017-05-23] MEDS ORDERED: RISP2TAB3 PO (15:00)
[2017-05-23] MEDS ORDERED: NOVO3I SC (15:05)
[2017-05-23 15:06] LABS: ADD UMIC NO; UR ASCORBIC ACID NEGATIVE (NEGATIVE); UR BILIRUBIN (Dip) NEGATIVE (NEGATIVE); UR BLOOD (Dip) NEGATIVE (NEGATIVE); UR CLARITY CLEAR (CLEAR); UR COLOR STRAW (YELLOW); UR GLUCOSE (Dip) NEGATIVE (NEGATIVE); UR KETONES (Dip) NEGATIVE (NEGATIVE); UR LEUKOCYTE ESTERASE (Dip) NEGATIVE Leu/ul (NEGATIVE); UR NITRITE (Dip) NEGATIVE (NEGATIVE); UR SPECIFIC GRAVITY (Dip) 1.011 (1.003-1.030); UR TOTAL PROTEIN (Dip) NEGATIVE (NEGATIVE); UR UROBILINOGEN (Dip) NEGATIVE (NEGATIVE)
[2017-05-23 18:36] VITALS: BP 113/74; PULSE 87; RESP 18
== END 2017-05-23 18:34 | disposition home or self-care (01) ==
LOC: E/R 10:41
DX: R51 Headache (principal); I10 Essential (primary) hypertension; E11.9 Type 2 diabetes mellitus without complications; Z79.01 Long term (current) use of anticoagulants; Z79.4 Long term (current) use of insulin; Z79.82 Long term (current) use of aspirin; Z87.891 Personal history of nicotine dependence
CPT/HCPCS: 36415; 70450; 80053; 81003; 85025; 85610; 85730; 96374; 96375; J1200; J1885; J2765; J7040; P9612; Z7502; Z7610

== ENCOUNTER 2017-08-14 17:36 | Inpatient (IN) | payer OTHER ==
[~2017-08-14] VITALS: Ht 157.5 cm; Wt 76.8 kg
[~2017-08-14 17:36] MED LIST: ACET-2047 PO; ASPI-664 PO; ATOR10TA65 PO; BISA5TAB6 PO; ENOX40DI2 SC; FAMO20TA18 PO; HYDR-906 PO; IPRA3AMP INHALATION; LAMO25TA PO; LANT3I SC; LORA1TAB PO; MAGN400O4 PO; MULTI PO; NOVO3I SC; ONDA4TAB8 PO; RISP2TAB3 PO
--- NOTE | 2017-08-14 17:54 | ERD ---
ER Documentation Chief Complaint Chief Complaint HPI 51-year-old woman brought in by EMS from [facility] for complaints of chest pain. Patient states she has sharp nonexertional nonradiating chest pain to the lower portion of the anterior chest near the epigastrium and below the right breast. HPI was limited given the patient's past medical history although was supplemented by reviewing past medical reports, [place] [facility] records, speaking to EMS, nursing staff. Patient has had a recent cardiac workup with widely coronary vessels on angiography and negative cardiac CT imaging. Patient was transported here by EMS without further complications. ROS All systems reviewed and are negative except as per history of present illness. Medications Home Meds Reported Medications Insulin Aspart* (Novolog Insulin Pen*) 100 Unit/Ml Soln, 0 SC .SLIDING SCALE AC , EA IF 131-160 =2 UNITS 161-200 =3 UNITS 201-250 =6 UNITS 251-300 =9 UNITS 301-350 =12 UNITS 351-400 15 UNITS BS OVER 400 OR UNDER 60 CALL 05/23/17 Risperidone* (Risperidone*) 2 Mg Tablet, 2 MG PO BID, TAB 05/23/17 Ondansetron Hcl* (Zofran*) 4 Mg Tablet, 4 MG PO Q6H Y for NAUSEA AND OR VOMITING , TAB 05/23/17 Multivitamins* (Theragran*) 1 Tab Tab, 1 TAB PO DAILY, TAB 05/23/17 Magnesium Hydroxide* (Milk Of Magnesia*) 400 Mg/5 Ml Oral.susp, 30 ML PO DAILY Y for CONSTIPATION, ML 05/23/17 Lorazepam* (Lorazepam*) 1 Mg Tablet, 1 MG PO Q6 Y for ANXIETY, #60 TAB 05/23/17 Insulin Glargine* (Lantus*) 100 Unit/Ml Soln, 12 UNIT SC DAILY, #1 VIAL 05/23/17 Lamotrigine* (Lamotrigine*) 25 Mg Tablet, 50 MG PO Q12, TAB 05/23/17 Hydrocodone/Acetaminophen ([place] 5-325 Tablet) 1 Each Tablet, 1 EACH PO Q6 Y for PAIN, TAB 05/23/17 Famotidine* (Famotidine*) 20 Mg Tablet, 20 MG PO BID, #60 TAB 05/23/17 Enoxaparin Sodium* (Enoxaparin Sodium*) 40 Mg/0.4 Ml Syringe, 40 MG SC DAILY, SYR 05/23/17 Ipratropium-Albuterol (Ipratropium-Albuterol) 0.5-3 Mg/3 Ml Ampul.neb, 3 ML INHALATION Q4 Y for SHORTNESS OF BREATH, #30 VIAL 05/23/17 Bisacodyl* (Bisacodyl*) 5 Mg Tablet.dr, 5 MG PO DAILY, TAB 05/23/17 Atorvastatin Calcium (Atorvastatin Calcium) 10 Mg Tablet, 10 MG PO QHS, #30 TAB 05/23/17 Aspirin (Low Dose Aspirin) 81 Mg Tablet.dr, 81 MG PO DAILY, #30 TAB 05/23/17 Acetaminophen* (Acetaminophen*) 650 Mg Tablet, 650 MG PO Q6H Y for PAIN AND OR ELEVATED TEMP, #30 TAB 05/23/17 Allergies Allergies: Coded Allergies: No Known Allergy (Unverified , 05/23/17) PMhx/Soc Psychosis, hypertension, hyperlipidemia, diabetes, previous cocaine and tobacco use, chronic encephalopathy with tremor, recent CT angiogram IMPRESSION: 1. No evidence of aortic dissection or aneurysm. 2. No central pulmonary emboli. 3. No evidence acute lung infiltrates, thoracic effusions or lymphadenopathy. Mild bilateral diffuse chronic interstitial lung disease. Recent percutaneous transluminal coronary angiography revealed widely patent coronary vessels History of Surgery: No Anesthesia Reaction: No (unknown) Hx Neurological Disorder: Yes (chronic encephalopathy) Hx Respiratory Disorders: No Hx Cardiac Disorders: Yes (HTN) Hx Psychiatric Problems: Yes (schizophrenia) Hx Miscellaneous Medical Probl: No Hx Alcohol Use: No Hx Substance Use: No (cocaine) Hx Tobacco Use: No FmHx Family History: No diabetes Physical Exam Vitals Vital Signs Date Time Temp Pulse Resp B/P Pulse Ox O2 Delivery O2 Flow Rate FiO2 08/14/17 18:33 98.1 71 9 142/104 98 Room Air 08/14/17 17:56 98.7 86 20 138/66 98 Physical Exam GENERAL: Well-developed, appears dehydrated, afebrile HEENT: Dry mucous membranes, pink conjunctiva, no cervical spine tenderness or step-off deformities, no goiter, no jaundice or icterus, extraocular movements intact without pain. No submandibular induration, and no pharyngeal erythema NEURO: Alert and oriented x 1, pupils equal round reactive to light, able to answer simple questions and follow simple commands, no focal deficits CARDIAC: Regular rate and rhythm, no murmurs rubs or gallops LUNGS: Clear bilaterally no wheezing crackles or stridor ABDOMEN: Soft nontender, no guarding, no rigidity, no rebound, no psoas sign no obturator sign. Normoactive bowel sounds SKIN: Warm and dry to touch, no abrasions, contusions, or hematomas, no lacerations, no ecchymosis, no target lesions, and without ulcers EXTREMITIES: No clubbing cyanosis or edema, calves are bilaterally symmetrical, no Homans sign, no popliteal cord sign. Distal pulses equal and bilateral PSYCH: Flat affect Result Diagram: 08/14/17181608/14/171816 Results 24 hrs Laboratory Tests Test 08/14/17 18:17 White Blood Count 6.210^3/ul Red Blood Count 4.1110^6/ul Hemoglobin 12.5g/dl Hematocrit 37.0% Mean Corpuscular Volume 90.0fl Mean Corpuscular Hemoglobin 30.4pg Mean Corpuscular Hemoglobin Concent 33.8g/dl Red Cell Distribution Width 12.6% Platelet Count 80242^3/UL Mean Platelet Volume 9.5fl Neutrophils % 43.3% Lymphocytes % 44.1% Monocytes % 7.4% Eosinophils % 4.5% Basophils % 0.5% Nucleated Red Blood Cells % 0.0/100WBC Neutrophils # 2.710^3/ul Lymphocytes # 2.810^3/ul Monocytes # 0.510^3/ul Eosinophils # 0.310^3/ul Basophils # 0.010^3/ul Nucleated Red Blood Cells # 0.010^3/ul Prothrombin Time 13.7Sec Prothrombin Time Ratio 1.1 INR International Normalized Ratio 1.05 Sodium Level 141mmol/L Potassium Level 4.0mmol/L Chloride Level 102mmol/L Carbon Dioxide Level 31mmol/L Anion Gap 12 Blood Urea Nitrogen 28mg/dl Creatinine 0.84mg/dl Glucose Level 86mg/dl Calcium Level 9.3mg/dl Total Bilirubin 0.0mg/dl Direct Bilirubin 0.00mg/dl Indirect Bilirubin 0.0mg/dl Aspartate Amino Transf (AST/SGOT) 20IU/L Alanine Aminotransferase (ALT/SGPT) 44IU/L Alkaline Phosphatase 99IU/L Troponin I 0.016ng/ml Total Protein 6.6g/dl Albumin 3.6g/dl Globulin 3.00g/dl Albumin/Globulin Ratio 1.20 Lipase 1391U/L Current Medications Medications (Trade) Dose Ordered Sig/Loren Route PRN Reason Start Time Stop Time Status Last Admin Dose Admin Sodium Chloride 1,000 ml @ 1,000 mls/hr Q1H ONCE IV 08/14/17 18:30 08/14/17 19:29 DC 08/14/17 18:24 Sodium Chloride (NS) 1,000 ml @ 1,000 mls/hr Q1H ONCE IV 08/14/17 19:30 08/14/17 20:29 08/14/17 19:19 Procedures/MDM IV line was established patient was placed on secured entrance monitor rhythm strip revealed a sinus rhythm at about 70 bpm with upright P and T waves. Patient was afebrile EKG performed, read by me: 68 bpm, normal sinus rhythm, normal axis, no acute ST segment changes, narrow QRS complex, with good R-wave progression in precordial leads. Chest X-ray 1V Interpreted by me: Soft Tissue: No acute abnormalities Bones: No acute abnormalities Mediastinum/Cardiac Silhouette/Lungs: No acute abnormalities I administered 1 L normal saline intravenously for mild dehydration. CBC was within normal limits, electrolytes revealed dehydration with an increased BUN/creatinine ratio, liver function tests were normal, although lipase elevated at about 1400, troponin was negative. Urine analysis was negative for infection. I administered another 2 L normal saline intravenously for acute pancreatitis. I spoke to the patient's PMD Dr. Roach who recommended admission to [facility] for continued medical management and possible GI consultation. Departure Diagnosis: Primary Impression: Dehydration Additional Impression: Acute pancreatitis Pancreatitis type: unspecified pancreatitis type Acute pancreatitis complication: unspecified Qualified Code: K85.90 - Acute pancreatitis, unspecified complication status, unspecified pancreatitis type Condition: MELISSA Baltazar MD Aug 14, 2017 17:54
[2017-08-14 18:27] LABS: BASOPHILS % 0.5 % (0.0-2.0); EOSINOPHILS # 0.3 10^3/ul (0.0-0.5); EOSINOPHILS % 4.5 % (0.0-7.0); HEMOGLOBIN 12.5 g/dl (12.0-16.0); LYMPHOCYTES # 2.8 10^3/ul (0.8-2.9); LYMPHOCYTES % 44.1 % (15.0-51.0); MEAN CORPUSCULAR HEMOGLOBIN 30.4 pg (29.0-33.0); MEAN CORPUSCULAR HGB CONC 33.8 g/dl (32.0-37.0); MEAN PLATELET VOLUME 9.5 fl (7.4-10.4); MONOCYTE # 0.5 10^3/ul (0.3-0.9); MONOCYTES % 7.4 % (0.0-11.0); NEUTROPHIL # 2.7 10^3/ul (1.6-7.5); NEUTROPHILS % 43.3 % (39.0-77.0); PLATELET COUNT 187 10^3/UL (140-415); RED BLOOD COUNT 4.11 10^6/ul (4.20-5.40); RED CELL DISTRIBUTION WIDTH 12.6 % (11.5-14.5); WHITE BLOOD COUNT 6.2 10^3/ul (4.8-10.8)
[2017-08-14] MEDS ORDERED: SOD CHLORIDE 0.9% 1,000 ML IV ONE ×2 (18:30→19:30)
[2017-08-14 18:33] VITALS: TEMP 98.1
--- NOTE | 2017-08-14 18:39 | RADRPT ---
PROCEDURE: XR Chest 1 view. CLINICAL INDICATION: Chest pain. Abdominal pain. TECHNIQUE: Single view of the chest was obtained. COMPARISON: May 01, [address] May 01, 2017 FINDINGS: The heart is large. Calcified atherosclerosis is noted in the aorta. Elevated right hemidiaphragm i s identified. Subsegmental atelectasis is noted in the left lower lobe. No consolidations are identi fied. No pneumothorax is seen. Osseous structures are intact. IMPRESSION: Cardiomegaly with calcified atherosclerosis in the aorta. Subsegmental atelectasis in the left lower lobe. Elevated right hemidiaphragm. RPTAT: AA .Venancio Saldana MD, MD Date Time Electronically viewed and signed by .Venancio Saldana MD, on 08/14/2017 18:39 .P/
[2017-08-14 18:42] LABS: INR 1.05; PROTIME 13.7 Sec (12.2-14.2); PT RATIO 1.1
[2017-08-14 18:46] LABS: ALBUMIN 3.6 g/dl (3.3-4.9); ALBUMIN/GLOBULIN RATIO 1.2; CALCIUM 9.3 mg/dl (8.4-10.2); CREATININE 0.84 mg/dl (0.44-1.00); TOTAL PROTEIN 6.6 g/dl (6.1-8.1)
[2017-08-14 18:58] LABS: TROPONIN-I 0.016 ng/ml (0.00-0.12)
[2017-08-14 19:36] LABS: ADD UMIC YES; UR ASCORBIC ACID NEGATIVE (NEGATIVE); UR BILIRUBIN (Dip) NEGATIVE (NEGATIVE); UR BLOOD (Dip) NEGATIVE (NEGATIVE); UR CLARITY CLEAR (CLEAR); UR COLOR YELLOW (YELLOW); UR GLUCOSE (Dip) NEGATIVE (NEGATIVE); UR KETONES (Dip) NEGATIVE (NEGATIVE); UR LEUKOCYTE ESTERASE (Dip) TRACE Leu/ul (NEGATIVE); UR NITRITE (Dip) NEGATIVE (NEGATIVE); UR RBC 1 /HPF (0-5); UR SPECIFIC GRAVITY (Dip) 1.025 (1.003-1.030); UR TOTAL PROTEIN (Dip) NEGATIVE (NEGATIVE); UR UROBILINOGEN (Dip) NEGATIVE (NEGATIVE)
[2017-08-14 20:20] VITALS: Ht 157.5 cm; Wt 76.8 kg
[2017-08-14 21:04] VITALS: BP 141/75; RESP 17
[2017-08-14] MEDS ORDERED: ALBUTEROL/IPRATROPIUM (NEB) 3 ML AMP NEB PRN (23:00)
[2017-08-14] MEDS ORDERED: BARIUM SULF 2% 450 ML BTL (BERRY SMOOTHIE) PO ONE (23:00)
[2017-08-14] MEDS ORDERED: ONDANSETRON 4 MG INJ IV PRN (23:00)
[2017-08-14] MEDS ORDERED: GLUCAGON 1 MG INJ IM PRN (23:45)
[2017-08-14] MEDS ORDERED: GLUCOSE GEL 15 GRAM TUBE PO PRN ×2 (23:45)
[2017-08-14] MEDS ORDERED: DEXTROSE 50% 50 ML SYRINGE IV PRN ×2 (23:45)
[2017-08-14] MEDS ORDERED: GLUCOSE GEL 15 GRAM TUBE BUCCAL PRN (23:45)
[2017-08-14] MEDS: D5W-0.45 NACL + KCL 20 MEQ 1,000 ML IV SCH (23:51)
[2017-08-14] MEDS: morphine 2 MG INJ IV PRN (23:55)
[2017-08-15 01:40] VITALS: BP 129/84; RESP 17
[2017-08-15] MEDS ORDERED: NIT4 SL (03:22)
[2017-08-15] MEDS ORDERED: PANTOPRAZOLE 40 MG INJ IV SCH (06:00)
[2017-08-15 06:29] LABS: BASOPHILS % 0.3 % (0.0-2.0); EOSINOPHILS # 0.2 10^3/ul (0.0-0.5); HEMOGLOBIN 11.5 g/dl (12.0-16.0); LYMPHOCYTES # 2.3 10^3/ul (0.8-2.9); LYMPHOCYTES % 35.8 % (15.0-51.0); MEAN CORPUSCULAR HEMOGLOBIN 29.6 pg (29.0-33.0); MEAN CORPUSCULAR HGB CONC 32.9 g/dl (32.0-37.0); MEAN CORPUSCULAR VOLUME 90.2 fl (82.0-101.0); MEAN PLATELET VOLUME 9.8 fl (7.4-10.4); MONOCYTE # 0.6 10^3/ul (0.3-0.9); MONOCYTES % 8.6 % (0.0-11.0); NEUTROPHIL # 3.3 10^3/ul (1.6-7.5); NEUTROPHILS % 52.1 % (39.0-77.0); PLATELET COUNT 162 10^3/UL (140-415); RED BLOOD COUNT 3.88 10^6/ul (4.20-5.40); RED CELL DISTRIBUTION WIDTH 12.7 % (11.5-14.5); WHITE BLOOD COUNT 6.4 10^3/ul (4.8-10.8)
[2017-08-15 07:16] LABS: ALBUMIN 3.3 g/dl (3.3-4.9); ALBUMIN/GLOBULIN RATIO 1.17; BILIRUBIN,INDIRECT 0.3 mg/dl (0-1.1); BILIRUBIN,TOTAL 0.3 mg/dl (0.2-1.3); CALCIUM 9.1 mg/dl (8.4-10.2); CREATININE 0.77 mg/dl (0.44-1.00); POTASSIUM 3.7 mmol/L (3.5-5.1); TOTAL PROTEIN 6.1 g/dl (6.1-8.1)
[2017-08-15 07:45] VITALS: BP 132/78; RESP 14
[2017-08-15] MEDS: INSULIN ASPART [NOVOLOG] 3 ML PEN SC SCH ×4 (08:15→21:00)
[2017-08-15] MEDS: INSULIN GLARGINE [LANtus] 3 ML PEN SC SCH (09:00)
[2017-08-15] MEDS: D5W-0.45 NACL + KCL 20 MEQ 1,000 ML IV SCH ×4 (09:00→23:54)
[2017-08-15] MEDS: morphine 2 MG INJ IV PRN ×3 (09:12→23:54)
[2017-08-15] MEDS ORDERED: IOHEXOL 300MG/ML 150 ML BTL ONE (10:05)
[2017-08-15] MEDS ORDERED: SOD CHLORIDE 0.9% 100 ML ONE (10:05)
--- NOTE | 2017-08-15 10:45 | RADRPT ---
PROCEDURE: CT ABDOMEN AND PELVIS WITH IV CONTRAST. CLINICAL INDICATION: Abdominal pain and history of pancreatitis TECHNIQUE: CT scan of the abdomen and pelvis without contrast was performed on a multidetector hig h-resolution CT scanner following the use of IV contrast. 100 cc Omnipaque-300 was administered. Cor onal and sagittal reformatted images were obtained from the axial source images. Images were reviewe d on a high-resolution PACS workstation. The total exam CTDI equals 21.1 mGy and the total exam DLP equals 1321.3 mGy-cm. One or more of the following dose reduction techniques were used: Automated exposure control. Adjustment of the mA and/or kV according to patient size. Use of iterative reconstruction technique. DICOM images are available. COMPARISON: None FINDINGS: CT abdomen: Left lower lobe atelectasis is noted. Heart size is mildly enlarged. No significant pericardial effu benito. Hepatic morphology is within limits. No gross masses or lesions. Status post cholecystectomy. Mild i ntrahepatic dilatation is noted. Common bile duct appears to within normal limits. The spleen and pancreas are within normal limits. Both adrenal glands are within normal limits. Both kidneys are in normal anatomic position. Left-sided hydronephrosis is identified secondary to a 5 mm stone within the left proximal ureter, located approximately 4.5 cm below the left UPJ. Multip le additional nonobstructing stones are noted within the left renal pelvis and midpole of the left k idney. The right kidney is unremarkable. The visualized GI tract demonstrate normal caliber loops of small and large bowel. No evidence of farhad wel obstruction. The appendix is within normal limits. Stool filled loops of large bowel suggestive of constipation. The aorta is unremarkable. No significant retroperitoneal lymphadenopathy. CT pelvis: The bladder is within limits. There is a low-density 2.8 cm lesion within the left body of the uteru s, probably a fibroid. Fat-containing bilateral inguinal hernias are noted. Stool filled rectosigmoi d colon is noted. The visualized osseous structures demonstrates degenerative changes of the spine. IMPRESSION: 1. No gross CT evidence of acute pancreatitis. 2. LEFT-SIDED HYDRONEPHROSIS SECONDARY TO A 5 MM STONE WITHIN THE LEFT PROXIMAL URETER, LOCATED APPR OXIMATELY 4.5 CM BELOW THE LEFT UVJ. Multiple additional nonobstructing stone within the left kidney . 3. The right kidney is unremarkable. 4. Status post cholecystectomy. 5. No evidence of bowel obstruction. The appendix is within normal limits. Stool filled loops of lar ge bowel suggestive of constipation. 6. Fat-containing bilateral inguinal hernias. 7. Probable 2.8 cm left uterine body leiomyoma. RPTAT: AARR Physician Becki Date Time Electronically viewed and signed by Michael Estrada Physician on 08/15/2017 10:44 DEV/
[2017-08-15] MEDS: LAMOTRIGINE 25 MG TAB PO SCH ×2 (11:07→21:42)
[2017-08-15] MEDS: ASPIRIN (EC) 81 MG TAB PO SCH (11:07)
[2017-08-15] MEDS: RISPERIDONE 2 MG TAB PO SCH ×2 (11:07→21:42)
--- NOTE | 2017-08-15 11:21 | HP ---
Date/Time of Note Date/Time of Note DATE: 08/15/17 TIME: 11:16 Assessment/Plan VTE Prophylaxis VTE Prophylaxis Intervention: SCD's Lines/Catheters IV [facility] Peripheral IV Central line still needed: Yes Assessment/Plan Chief Complaint/Hosp Course Assessment/Plan -Atypical chest pain. Rule out acute coronary syndrome. Obtain cardiac enzymes every [address] Aguilar is asked to see patient in cardiology consultation -Acute pancreatitis. Keep patient n.p.o., continue IV fluids with dextrose, continue to monitor amylase and lipase. Dr. Richards is asked to see patient in gastroenterology consultation -Left-sided hydronephrosis with stone in the ureter. Dr. Frost is asked to see patient in neurology consultation -Hypertension, patient is currently hypotensive. -Diabetes mellitus type 2, continue Lantus and NovoLog. -Dyslipidemia. -Possible COPD, continue breathing treatments as needed for shortness of breath. -Schizophrenia Further recommendations based on clinical course. Plan of care discussed with Dr. Roach Problems: HPI/ROS Admit Date/Time Admit Date/Time Aug 14, 2017 at 19:34 Hx of Present Illness Patient is 51-year-old female known to me from previous admission. Patient has a history of diabetes, essential hypertension, hyperlipidemia, and schizophrenia. Patient was brought from [facility] facility for complaints of sharp nonexertional and nonradiating chest pain. On evaluation in the emergency room patient's troponin was 0.016 twelve-lead EKG revealed normal sinus rhythm at the rate of [address] segment segment elevation or depression. However patient was found to have elevated lipase and amylase and elevated liver enzymes. Patient was diagnosed with acute pancreatitis and admitted for further evaluation and management. PMH/Family/Social Past Medical History Medical History: diabetes, high cholesterol, hypertension, other (Schizophrenia ) Past Surgical History Past Surgical Hx: no surgical history Family History Significant Family History: diabetes Social History Alcohol Use: none Smoking Status: Former smoker Drug Use: none Exam/Review of Systems Vital Signs Vitals Vital Signs Date Time Temp Pulse Resp B/P Pulse Ox O2 Delivery O2 Flow Rate FiO2 08/15/17 07:45 97.7 66 14 132/78 97 08/14/17 20:00 Room Air Intake and Output 08/14/17 08/14/17 08/15/17 15:00 23:00 07:00 Intake Total 2000 ml 500 ml Balance 2000 ml 500 ml Exam Constitutional: alert, oriented Head: normocephalic Eyes: nl conjunctiva Neck: supple Respiratory: normal air movement Cardiovascular: nl pulses Gastrointestinal: soft, tender Musculoskeletal: nl extremities to inspection Extremities: normal pulses Neurological: confused Labs Result Diagram: 08/15/17 0540 08/15/17 0540 Medications Medications Current Medications Potassium Chloride/Dextrose/ Sod Cl (D5-1/2ns + KCl 20 Meq) 1,000 ml @ 100 mls/ hr Q10H IV Last administered on 08/14/17 23:51; Admin Dose 100 MLS/HR; Start 08/14/17 at 23:00 Pantoprazole (Protonix Iv) 40 mg DAILY@06 IV Last administered on 08/15/17 06 :43; Admin Dose 40 MG; Start 08/15/17 at 06:00 Ondansetron HCl (Zofran Inj) 4 mg Q6H PRN IV NAUSEA AND/OR VOMITING; Start at 23:00 Morphine Sulfate (morphine) 2 mg Q4H PRN IV PAIN LEVEL 4-7 Last administered on 08/15/17 09:12; Admin Dose 2 MG; Start 08/14/17 at 23:00 Acetaminophen (Tylenol Tab) 650 mg Q6H PRN PO PAIN AND OR ELEVATED TEMP; Start 08/14/17 at 23:00 Aspirin (Halfprin) 81 mg DAILY PO Last administered on 08/15/17 11:07; Admin Dose 81 MG; Start 08/15/17 at 09:00 Insulin Glargine (Lantus) 12 unit DAILY SC ; Start 08/15/17 at 09:00 Lamotrigine (Lamictal) 50 mg Q12 PO Last administered on 08/15/17 11:07; Admin Dose 50 MG; Start 08/15/17 at 09:00 Lorazepam (Ativan) 1 mg Q6 PRN PO ANXIETY; Start 08/14/17 at 23:00 Risperidone (Risperdal) 2 mg BID PO Last administered on 08/15/17 11:07; Admin Dose 2 MG; Start 08/15/17 at 09:00 Miscellaneous Information 1 ea NOTE XX ; Start 08/14/17 at 23:45 Glucose (Glutose) 15 gm Q15M PRN PO DECREASED GLUCOSE; Start 08/14/17 at 23:45 Glucose (Glutose) 22.5 gm Q15M PRN PO DECREASED GLUCOSE; Start 08/14/17 at 23: 45 Dextrose (D50w Syringe) 25 ml Q15M PRN IV DECREASED GLUCOSE; Start 08/14/17 at 23:45 Dextrose (D50w Syringe) 50 ml Q15M PRN IV DECREASED GLUCOSE; Start 08/14/17 at 23:45 Glucagon (Glucagen) 1 mg Q15M PRN IM DECREASED GLUCOSE; Start 08/14/17 at 23: 45 Glucose (Glutose) 15 gm Q15M PRN BUCCAL DECREASED GLUCOSE; Start 08/14/17 at 23:45 LINDA BEASLEY Aug 15, 2017 11:21
[2017-08-15] MEDS ORDERED: INSULIN GLARGINE [LANtus] 3 ML PEN SC ONE (12:00)
--- NOTE | 2017-08-15 18:58 | CONS ---
Date/Time of Note Date/Time of Note DATE: 08/15/17 TIME: 18:52 Assessment/Plan Assessment/Plan Chief Complaint/Hosp Course 1. nonanginal chest pain 2. acute pancreatitis 3. HTN 4. DM 5. Psych disorder Patient has previously had cardiac workup including echocardiogram and CT coronary angiogram both of which were unremarkable. Her calcium score is 0. Her chest pain does not appear to be cardiac related and most likely related to her GI symptoms versus others. Treatment of her GI GI issues including her pancreatitis as per internal medicine. Diabetic management as per internal medicine. No further cardiac workup at this point would be required. Thank you for his referral. CHAITANYA NEVAREZ MD [facility] Problems: Consultation Date/Type/Reason Admit Date/Time Aug 14, 2017 at 19:34 Date of Consultation: Aug 15, 2017 Type of Consultation: cardiology Reason for Consultation chest pain Referring Provider: LINDA BEASLEY of Present Illness CC: chest pain HPI: Thank you for his referral. This is a 51-year-old female history of diabetes hypertension who was brought into the emergency room with complaint of chest pain. Patient is a poor historian. She apparently lives in a assisted does not move her exercise much She has complained of chest pain right-sided sharp poking. Could not not explain any exacerbating or relieving factors for it. It was mild to moderate intensity. Workup here has shown severely elevated amylase and lipase consistent with pancreatitis. Her old chart was reviewed. Patient was also admitted here a few months ago for similar complaints of chest pain. That time workup including CT coronary angiogram was normal. Allergies no reported allergy PMH: 1. Diabetes #2 hypertension #3 history of psych disorder and schizophrenia, 4. History of smoking. History of drug and alcohol use. Social history patient actively smokes. She has a history of heavy alcohol and drug abuse apparently including cocaine use. She said she has been sober since last year. Family history: No early coronary artery disease is reported. Medications are medical records reviewed personally reviewed. Review of system as above mentioned she denies all other. Past Medical History Medical History: diabetes, high cholesterol, hypertension, other (Schizophrenia ) Past Surgical History Past Surgical Hx: no surgical history Social History Alcohol Use: none Smoking Status: Former smoker Drug Use: none Exam/Review of Systems Vital Signs Vitals Vital Signs Date Time Temp Pulse Resp B/P Pulse Ox O2 Delivery O2 Flow Rate FiO2 11/21/17 07:45 97.7 66 14 132/78 97 08/14/17 20:00 Room Air Intake and Output 08/14/17 08/14/17 08/15/17 15:00 23:00 07:00 Intake Total 2000 ml 500 ml Balance 2000 ml 500 ml Exam General: no acute distress HEENT: NC/AT. pupils are equal. round. NECK: NO JVD. no stridor. CV: RRR. systolic murmur; no gallop or rubs. PULM: no wheezing or rhonchi. GI: SOFT, mild tenderness, ND, no rebound or guarding Extremity: trace B/L LE edema. no clubbing. neuro: awake and alert, Psych: calm and pleasant rectal: deferred ECG NSR NORMAL CT pio angio 05/02/17: Left dominant coronary arterial system. Total calcium score: 0 Although images are partially degraded due to elevated heart rate there is no evidence of calcified or noncalcified plaque within any of the coronary arteries , all vessels appear widely patent. Results Result Diagram: 08/15/17 0540 08/15/17 0540 Results 24 hrs Laboratory Tests Test 08/15/17 05:40 08/15/17 08:17 08/15/17 12:21 08/15/17 18:31 White Blood Count 6.4 Red Blood Count 3.88 L Hemoglobin 11.5 L Hematocrit 35.0 L Mean Corpuscular Volume 90.2 Mean Corpuscular Hemoglobin 29.6 Mean Corpuscular Hemoglobin Concent 32.9 Red Cell Distribution Width 12.7 Platelet Count 162 Mean Platelet Volume 9.8 Neutrophils % 52.1 Lymphocytes % 35.8 Monocytes % 8.6 Eosinophils % 3.0 Basophils % 0.3 Nucleated Red Blood Cells % 0.0 Neutrophils # 3.3 Lymphocytes # 2.3 Monocytes # 0.6 Eosinophils # 0.2 Basophils # 0.0 Nucleated Red Blood Cells # 0.0 Sodium Level 141 Potassium Level 3.7 Chloride Level 105 Carbon Dioxide Level 31 Anion Gap 9 Blood Urea Nitrogen 19 # Creatinine 0.77 Glucose Level 89 Hemoglobin A1c 5.0 Calcium Level 9.1 Total Bilirubin 0.3 Direct Bilirubin 0.00 Indirect Bilirubin 0.3 Aspartate Amino Transf (AST/SGOT) 649 H Alanine Aminotransferase (ALT/SGPT) 398 H Alkaline Phosphatase 126 H Total Protein 6.1 Albumin 3.3 Globulin 2.80 Albumin/Globulin Ratio 1.17 Amylase Level 324 H Lipase 7584 H Bedside Glucose 103 91 92 Medications Medications Current Medications Potassium Chloride/Dextrose/ Sod Cl (D5-1/2ns + KCl 20 Meq) 1,000 ml @ 100 mls/ hr Q10H IV Last administered on 08/15/17 12:17; Admin Dose 100 MLS/HR; Start 08/14/17 at 23:00 Ondansetron HCl (Zofran Inj) 4 mg Q6H PRN IV NAUSEA AND/OR VOMITING; Start at 23:00 Morphine Sulfate (morphine) 2 mg Q4H PRN IV PAIN LEVEL 4-7 Last administered on 08/15/17 18:26; Admin Dose 2 MG; Start 08/14/17 at 23:00 Acetaminophen (Tylenol Tab) 650 mg Q6H PRN PO PAIN AND OR ELEVATED TEMP; Start 08/14/17 at 23:00 Aspirin (Halfprin) 81 mg DAILY PO Last administered on 08/15/17 11:07; Admin Dose 81 MG; Start 08/15/17 at 09:00 Insulin Glargine (Lantus) 12 unit DAILY SC ; Start 08/15/17 at 09:00 Lamotrigine (Lamictal) 50 mg Q12 PO Last administered on 08/15/17 11:07; Admin Dose 50 MG; Start 08/15/17 at 09:00 Lorazepam (Ativan) 1 mg Q6 PRN PO ANXIETY; Start 08/14/17 at 23:00 Risperidone (Risperdal) 2 mg BID PO Last administered on 08/15/17 11:07; Admin Dose 2 MG; Start 08/15/17 at 09:00 Miscellaneous Information 1 ea NOTE XX ; Start 08/14/17 at 23:45 Glucose (Glutose) 15 gm Q15M PRN PO DECREASED GLUCOSE; Start 08/14/17 at 23:45 Glucose (Glutose) 22.5 gm Q15M PRN PO DECREASED GLUCOSE; Start 08/14/17 at 23: 45 Dextrose (D50w Syringe) 25 ml Q15M PRN IV DECREASED GLUCOSE; Start 08/14/17 at 23:45 Dextrose (D50w Syringe) 50 ml Q15M PRN IV DECREASED GLUCOSE; Start 08/14/17 at 23:45 Glucagon (Glucagen) 1 mg Q15M PRN IM DECREASED GLUCOSE; Start 08/14/17 at 23: 45 Glucose (Glutose) 15 gm Q15M PRN BUCCAL DECREASED GLUCOSE; Start 08/14/17 at 23:45 Insulin Aspart (Novolog Insulin Pen) NOVOLOG *MILD* ALGORITHM Q4 SC ; Start at 17:00 Famotidine (Pepcid Iv) 20 mg BID IV ; Start 08/15/17 at 21:00 CHAITANYA NEVAREZ MD Aug 15, 2017 18:58
[2017-08-15 19:28] VITALS: BP 127/87; RESP 16
[2017-08-15 19:55] LABS: CREATINE KINASE 25 IU/L (23-200)
[2017-08-15 20:04] LABS: CK-MB 0.28 ng/ml (0.0-2.4)
[2017-08-15 20:05] LABS: TROPONIN-I < 0.012 ng/ml (0.00-0.12)
--- NOTE | 2017-08-15 21:12 | CONS ---
Date/Time of Note Date/Time of Note DATE: 08/15/17 TIME: 21:00 Assessment/Plan Assessment/Plan Chief Complaint/Hosp Course 51-year-old female with a history of hypertension diabetes high cholesterol and history of schizophrenia, she resides in a [id number] and was brought to [facility] because of chest pain. she underwent a CT scan of the abdomen and pelvis and that showed a stone in the upper left ureter with multiple stones in the renal pelvis the 5 mm stone in the upper left ureter she should be able to pass it on her own. We will strain her urine, give her pain medications, get a KUB, and put her on Flomax as well Problems: Consultation Date/Type/Reason Admit Date/Time Aug 14, 2017 at 19:34 Date of Consultation: Aug 15, 2017 Type of Consultation: Urology Reason for Consultation Left upper ureteral stone and renal stones Referring Provider: TAWANA FORD MD Hx of Present Illness 51-year-old female resident of a [facility] facility was brought to [facility] emergency room because of chest pain and she has a history of the following problems: -Atypical chest pain. -Acute pancreatitis. -Left-sided hydronephrosis with stone in the ureter. -Hypertension -Diabetes mellitus type 2 -Dyslipidemia. -Possible COPD -Schizophrenia The patient underwent a CT scan of the abdomen and pelvis and that showed the stone in the upper left ureter was multiple additional stones in the left renal pelvis and lower pole of the left kidney therefore a urological consultation was requested Constitutional: no complaints Eyes: no complaints ENT: no complaints Respiratory: no complaints Cardiovascular: chest pain Gastrointestinal: No diarrhea, No nausea, No vomiting Genitourinary: no complaints Musculoskeletal: no complaints Skin: no complaints Neurologic: no complaints Past Medical History Medical History: diabetes, high cholesterol, hypertension, other (Schizophrenia ) Past Surgical History Past Surgical Hx: no surgical history Social History Alcohol Use: none Smoking Status: Former smoker Drug Use: none Exam/Review of Systems Vital Signs Vitals Vital Signs Date Time Temp Pulse Resp B/P Pulse Ox O2 Delivery O2 Flow Rate FiO2 08/15/17 19:28 98.3 68 16 127/87 95 08/14/17 20:00 Room Air Intake and Output 08/14/17 08/14/17 08/15/17 15:00 23:00 07:00 Intake Total 2000 ml 500 ml Balance 2000 ml 500 ml Exam Constitutional: alert Psych: no complaints Head: normocephalic Eyes: nl conjunctiva ENMT: nl external ears & nose Neck: supple Respiratory: normal air movement Cardiovascular: No jugular venous distention (JVD) Gastrointestinal: soft, No tender Musculoskeletal: nl extremities to inspection (The) Extremities: No calf tenderness ( The patient was brought to the operating room general anesthesia was induced. Timeout was done the patient was identified by his name birthdate and the procedure. The patient was given 1 g of ceftriaxone IV at the start of the procedure. The genital area was then prepped and draped in the usual sterile manner cystoscopy was done was a 22 Filipino cystoscope and it showed prostatic enlargement with obstruction, the bladder was trabeculated, there was no bladder tumors or stones. The cystoscope was then removed and the urethra was dilated with a Chicot dilators up to #30 Filipino. The 26 Filipino bipolar resectoscope sheath was then introduced under direct vision through the penile urethra all the way to the bladder. Then the resection of the prostate was started first the median lobe was resected then the right lateral lobe then the left lateral lobe and finally the anterior lobe as well as apical tissue. All the bleeders were electrocoagulated, all the prostatic chips were evacuated, good hemostasis was obtained. The ureteral orifices as well as external sphincter were intact and safeguarded during the whole procedure. At the end of the procedure the resectoscope was removed and #24 Filipino three-way Chaney catheter was inserted into the bladder the balloon was inflated with 60 mL of sterile water the catheter was connected to a drainage back and continuous bladder irrigation was started in the operating room with normal saline. The patient was transferred to the recovery room in stable and satisfactory condition.), No pitting pedal edema Results Result Diagram: 08/15/17 0540 08/15/17 0540 Results 24 hrs Laboratory Tests Test 08/15/17 05:40 08/15/17 08:17 08/15/17 12:21 08/15/17 18:31 White Blood Count 6.4 Red Blood Count 3.88 L Hemoglobin 11.5 L Hematocrit 35.0 L Mean Corpuscular Volume 90.2 Mean Corpuscular Hemoglobin 29.6 Mean Corpuscular Hemoglobin Concent 32.9 Red Cell Distribution Width 12.7 Platelet Count 162 Mean Platelet Volume 9.8 Neutrophils % 52.1 Lymphocytes % 35.8 Monocytes % 8.6 Eosinophils % 3.0 Basophils % 0.3 Nucleated Red Blood Cells % 0.0 Neutrophils # 3.3 Lymphocytes # 2.3 Monocytes # 0.6 Eosinophils # 0.2 Basophils # 0.0 Nucleated Red Blood Cells # 0.0 Sodium Level 141 Potassium Level 3.7 Chloride Level 105 Carbon Dioxide Level 31 Anion Gap 9 Blood Urea Nitrogen 19 # Creatinine 0.77 Glucose Level 89 Hemoglobin A1c 5.0 Calcium Level 9.1 Total Bilirubin 0.3 Direct Bilirubin 0.00 Indirect Bilirubin 0.3 Aspartate Amino Transf (AST/SGOT) 649 H Alanine Aminotransferase (ALT/SGPT) 398 H Alkaline Phosphatase 126 H Total Protein 6.1 Albumin 3.3 Globulin 2.80 Albumin/Globulin Ratio 1.17 Amylase Level 324 H Lipase 7584 H Bedside Glucose 103 91 92 Test 08/15/17 19:12 Creatine Kinase 25 Creatine Kinase Index 1.1 Creatinine Kinase MB (Mass) 0.28 Troponin I < 0.012 Imaging Free Text/Dictation CT scan of the abdomen and pelvis with contrast: 1. No gross CT evidence of acute pancreatitis. 2. LEFT-SIDED HYDRONEPHROSIS SECONDARY TO A 5 MM STONE WITHIN THE LEFT PROXIMAL URETER, LOCATED APPROXIMATELY 4.5 CM BELOW THE LEFT UVJ. Multiple additional nonobstructing stone within the left kidney. 3. The right kidney is unremarkable. 4. Status post cholecystectomy. 5. No evidence of bowel obstruction. The appendix is within normal limits. Stool filled loops of large bowel suggestive of constipation. 6. Fat-containing bilateral inguinal hernias. 7. Probable 2.8 cm left uterine body leiomyoma. Medications Medications Current Medications Potassium Chloride/Dextrose/ Sod Cl (D5-1/2ns + KCl 20 Meq) 1,000 ml @ 100 mls/ hr Q10H IV Last administered on 08/15/17 12:17; Admin Dose 100 MLS/HR; Start 08/14/17 at 23:00 Ondansetron HCl (Zofran Inj) 4 mg Q6H PRN IV NAUSEA AND/OR VOMITING; Start at 23:00 Morphine Sulfate (morphine) 2 mg Q4H PRN IV PAIN LEVEL 4-7 Last administered on 08/15/17 18:26; Admin Dose 2 MG; Start 08/14/17 at 23:00 Acetaminophen (Tylenol Tab) 650 mg Q6H PRN PO PAIN AND OR ELEVATED TEMP; Start 08/14/17 at 23:00 Aspirin (Halfprin) 81 mg DAILY PO Last administered on 08/15/17 11:07; Admin Dose 81 MG; Start 08/15/17 at 09:00 Insulin Glargine (Lantus) 12 unit DAILY SC ; Start 08/15/17 at 09:00 Lamotrigine (Lamictal) 50 mg Q12 PO Last administered on 08/15/17 11:07; Admin Dose 50 MG; Start 08/15/17 at 09:00 Lorazepam (Ativan) 1 mg Q6 PRN PO ANXIETY; Start 08/14/17 at 23:00 Risperidone (Risperdal) 2 mg BID PO Last administered on 08/15/17 11:07; Admin Dose 2 MG; Start 08/15/17 at 09:00 Miscellaneous Information 1 ea NOTE XX ; Start 08/14/17 at 23:45 Glucose (Glutose) 15 gm Q15M PRN PO DECREASED GLUCOSE; Start 08/14/17 at 23:45 Glucose (Glutose) 22.5 gm Q15M PRN PO DECREASED GLUCOSE; Start 08/14/17 at 23: 45 Dextrose (D50w Syringe) 25 ml Q15M PRN IV DECREASED GLUCOSE; Start 08/14/17 at 23:45 Dextrose (D50w Syringe) 50 ml Q15M PRN IV DECREASED GLUCOSE; Start 08/14/17 at 23:45 Glucagon (Glucagen) 1 mg Q15M PRN IM DECREASED GLUCOSE; Start 08/14/17 at 23: 45 Glucose (Glutose) 15 gm Q15M PRN BUCCAL DECREASED GLUCOSE; Start 08/14/17 at 23:45 Insulin Aspart (Novolog Insulin Pen) NOVOLOG *MILD* ALGORITHM Q4 SC ; Start at 17:00 Famotidine (Pepcid Iv) 20 mg BID IV ; Start 08/15/17 at 21:00 KANIKA HENAO MD Aug 15, 2017 21:11
[2017-08-15] MEDS: FAMOTIDINE 20 MG INJ IV SCH (21:40)
[2017-08-16] MEDS: INSULIN ASPART [NOVOLOG] 3 ML PEN SC SCH ×6 (01:00→20:38)
[2017-08-16 01:22] LABS: CREATINE KINASE 25 IU/L (23-200)
[2017-08-16 01:30] LABS: CK-MB 0.31 ng/ml (0.0-2.4)
[2017-08-16 01:38] LABS: TROPONIN-I < 0.012 ng/ml (0.00-0.12)
[2017-08-16 01:39] VITALS: BP 140/77; RESP 16
[2017-08-16] MEDS: D5W-0.45 NACL + KCL 20 MEQ 1,000 ML IV SCH ×2 (05:00→13:29)
[2017-08-16] MEDS: morphine 2 MG INJ IV PRN ×3 (05:39→20:21)
[2017-08-16 06:15] LABS: BASOPHILS % 0.5 % (0.0-2.0); EOSINOPHILS # 0.3 10^3/ul (0.0-0.5); EOSINOPHILS % 5.9 % (0.0-7.0); HEMATOCRIT 38.4 % (37.0-47.0); HEMOGLOBIN 12.8 g/dl (12.0-16.0); LYMPHOCYTES # 1.7 10^3/ul (0.8-2.9); LYMPHOCYTES % 41.2 % (15.0-51.0); MEAN CORPUSCULAR HEMOGLOBIN 30.3 pg (29.0-33.0); MEAN CORPUSCULAR HGB CONC 33.3 g/dl (32.0-37.0); MEAN CORPUSCULAR VOLUME 90.8 fl (82.0-101.0); MONOCYTE # 0.4 10^3/ul (0.3-0.9); NEUTROPHIL # 1.8 10^3/ul (1.6-7.5); NEUTROPHILS % 42.2 % (39.0-77.0); PLATELET COUNT 165 10^3/UL (140-415); RED BLOOD COUNT 4.23 10^6/ul (4.20-5.40); RED CELL DISTRIBUTION WIDTH 12.9 % (11.5-14.5); WHITE BLOOD COUNT 4.2 10^3/ul (4.8-10.8)
[2017-08-16 06:50] LABS: CALCIUM 9.8 mg/dl (8.4-10.2); CREATININE 0.73 mg/dl (0.44-1.00); POTASSIUM 3.9 mmol/L (3.5-5.1)
[2017-08-16 07:54] VITALS: BP 146/83; RESP 18
--- NOTE | 2017-08-16 08:47 | CONS ---
Date/Time of Note Date/Time of Note DATE: 08/16/17 TIME: 08:45 Consult Date/Type/Reason Admit Date/Time Aug 14, 2017 at 19:34 Initial Consult Date 08/15/17 Type of Consultation: card Ordering Provider: TAWAAN FORD MD Subjective cardiology follow up note: S: D/w STAFF pt denies any cp or sob or palpitations to me now she denies abd pain to me and wants to eat. O: General: no acute distress HEENT: NC/AT. pupils are equal. round. NECK: NO JVD. no stridor. CV: RRR. systolic murmur; no gallop or rubs. PULM: no wheezing or rhonchi. GI: SOFT, mild tenderness, ND, no rebound or guarding Extremity: trace B/L LE edema. no clubbing. neuro: awake and alert, Psych: calm and pleasant rectal: deferred ECG NSR NORMAL CT pio angio 05/02/17: Left dominant coronary arterial system. Total calcium score: 0 Although images are partially degraded due to elevated heart rate there is no evidence of calcified or noncalcified plaque within any of the coronary arteries , all vessels appear widely patent. Objective Vital Signs Date Time Temp Pulse Resp B/P Pulse Ox O2 Delivery O2 Flow Rate FiO2 08/16/17 07:54 98.3 69 18 146/83 96 08/14/17 20:00 Room Air Intake and Output 08/15/17 08/15/17 08/16/17 15:00 23:00 07:00 Intake Total 650 ml 950 ml Balance 650 ml 950 ml Results/Medications Result Diagram: 08/16/17 0529 08/16/17 0529 Results 24 hrs Laboratory Tests Test 08/15/17 12:21 08/15/17 18:31 08/15/17 19:12 08/15/17 21:47 Bedside Glucose 91 92 92 Creatine Kinase 25 Creatine Kinase Index 1.1 Creatinine Kinase MB (Mass) 0.28 Troponin I < 0.012 Test 08/16/17 00:28 08/16/17 01:18 08/16/17 05:29 08/16/17 05:35 Creatine Kinase 25 Creatine Kinase Index 1.2 Creatinine Kinase MB (Mass) 0.31 Troponin I < 0.012 Bedside Glucose 99 102 White Blood Count 4.2 #L Red Blood Count 4.23 Hemoglobin 12.8 Hematocrit 38.4 Mean Corpuscular Volume 90.8 Mean Corpuscular Hemoglobin 30.3 Mean Corpuscular Hemoglobin Concent 33.3 Red Cell Distribution Width 12.9 Platelet Count 165 Mean Platelet Volume 10.0 Neutrophils % 42.2 Lymphocytes % 41.2 Monocytes % 10.0 Eosinophils % 5.9 Basophils % 0.5 Nucleated Red Blood Cells % 0.0 Neutrophils # 1.8 Lymphocytes # 1.7 Monocytes # 0.4 Eosinophils # 0.3 Basophils # 0.0 Nucleated Red Blood Cells # 0.0 Sodium Level 141 Potassium Level 3.9 Chloride Level 103 Carbon Dioxide Level 30 Anion Gap 12 Blood Urea Nitrogen 11 Creatinine 0.73 Glucose Level 101 Calcium Level 9.8 Amylase Level 173 #H Medications Current Medications Potassium Chloride/Dextrose/ Sod Cl (D5-1/2ns + KCl 20 Meq) 1,000 ml @ 100 mls/ hr Q10H IV Last administered on 08/15/17 23:54; Admin Dose 100 MLS/HR; Start 08/14/17 at 23:00 Ondansetron HCl (Zofran Inj) 4 mg Q6H PRN IV NAUSEA AND/OR VOMITING; Start at 23:00 Morphine Sulfate (morphine) 2 mg Q4H PRN IV PAIN LEVEL 4-7 Last administered on 08/16/17 05:39; Admin Dose 2 MG; Start 08/14/17 at 23:00 Acetaminophen (Tylenol Tab) 650 mg Q6H PRN PO PAIN AND OR ELEVATED TEMP; Start 08/14/17 at 23:00 Aspirin (Halfprin) 81 mg DAILY PO Last administered on 08/15/17 11:07; Admin Dose 81 MG; Start 08/15/17 at 09:00 Insulin Glargine (Lantus) 12 unit DAILY SC ; Start 08/15/17 at 09:00 Lamotrigine (Lamictal) 50 mg Q12 PO Last administered on 08/15/17 21:42; Admin Dose 50 MG; Start 08/15/17 at 09:00 Lorazepam (Ativan) 1 mg Q6 PRN PO ANXIETY; Start 08/14/17 at 23:00 Risperidone (Risperdal) 2 mg BID PO Last administered on 08/15/17 21:42; Admin Dose 2 MG; Start 08/15/17 at 09:00 Miscellaneous Information 1 ea NOTE XX ; Start 08/14/17 at 23:45 Glucose (Glutose) 15 gm Q15M PRN PO DECREASED GLUCOSE; Start 08/14/17 at 23:45 Glucose (Glutose) 22.5 gm Q15M PRN PO DECREASED GLUCOSE; Start 08/14/17 at 23: 45 Dextrose (D50w Syringe) 25 ml Q15M PRN IV DECREASED GLUCOSE; Start 08/14/17 at 23:45 Dextrose (D50w Syringe) 50 ml Q15M PRN IV DECREASED GLUCOSE; Start 08/14/17 at 23:45 Glucagon (Glucagen) 1 mg Q15M PRN IM DECREASED GLUCOSE; Start 08/14/17 at 23: 45 Glucose (Glutose) 15 gm Q15M PRN BUCCAL DECREASED GLUCOSE; Start 08/14/17 at 23:45 Insulin Aspart (Novolog Insulin Pen) NOVOLOG *MILD* ALGORITHM Q4 SC ; Start at 17:00 Famotidine (Pepcid Iv) 20 mg BID IV Last administered on 08/15/17t 21:40; Admin Dose 20 MG; Start 08/15/17 at 21:00 Assessment/Plan Chief Complaint/Hosp Course 1. nonanginal chest pain 2. acute pancreatitis 3. HTN 4. DM 5. Psych disorder Patient has previously had cardiac workup including echocardiogram and CT coronary angiogram both of which were unremarkable. Her calcium score is 0 which makes at very low risk of significant CAD. Her chest pain does not appear to be cardiac related and most likely related to her GI symptoms versus others. Treatment of her GI GI issues including her pancreatitis as per internal medicine. Diabetic management as per internal medicine. No further cardiac workup at this point would be required. Thank you for his referral. I will follow up with you on as needed base. CHAITANYA NEVAREZ MD [facility] Problems: CHAITANYA NEVAREZ MD Aug 16, 2017 08:47
[2017-08-16] MEDS: RISPERIDONE 2 MG TAB PO SCH ×2 (09:28→20:21)
[2017-08-16] MEDS: ASPIRIN (EC) 81 MG TAB PO SCH (09:28)
[2017-08-16] MEDS: LAMOTRIGINE 25 MG TAB PO SCH ×2 (09:28→20:20)
[2017-08-16] MEDS: FAMOTIDINE 20 MG INJ IV SCH ×2 (09:28→20:20)
[2017-08-16] MEDS: INSULIN GLARGINE [LANtus] 3 ML PEN SC SCH (09:31)
--- NOTE | 2017-08-16 11:03 | RADRPT ---
PROCEDURE: XR Abdomen. CLINICAL INDICATION: Left renal stone. TECHNIQUE: AP abdomen x-ray. COMPARISON: CT 08/15/2017. FINDINGS: There is a nonspecific bowel gas pattern without evidence of obstruction. There is gaseous distensi on of the bowel loops with scattered stool noted throughout colon. Free intraperitoneal air cannot be entirely excluded on non-upright radiographs. Surgical clips are noted in the right upper abdomen. There is a 10 mm stone expected region of the lower pole of the left kidney. There are multiple laye ring stones in the left renal pelvis/proximal left ureter. There is a 6 mm stone in the mid left ure ter. There are multilevel degenerative changes of the imaged spine. There is no acute osseous abnormality. IMPRESSION: 1. 10 mm stone in expected region of the lower pole of the left kidney. Multiple layering stones in the left renal pelvis/proximal left ureter. 6 mm stone in the proximal to mid left ureter. 2. Gaseous distension of the bowel loops with scattered stool noted throughout colon. RPTAT: EE Geovanni Ruiz Physician Date Time Electronically viewed and signed by Geovanni Ruiz Physician on 08/16/2017 11:02 PH/
[2017-08-16 14:22] VITALS: BP 144/83; RESP 18
--- NOTE | 2017-08-16 16:52 | PN ---
Date/Time of Note Date/Time of Note DATE: 08/16/17 TIME: 16:51 Assessment/Plan VTE Prophylaxis VTE Prophylaxis Intervention: SCD's Lines/Catheters IV [facility]from [facility] Peripheral IV Assessment/Plan Chief Complaint/Hosp Course Assessment/Plan -Atypical chest pain. Rule out acute coronary syndrome. Obtain cardiac enzymes every [address] Aguilar is asked to see patient in cardiology consultation -Acute pancreatitis. Keep patient n.p.o., continue IV fluids with dextrose, continue to monitor amylase and lipase. Dr. Richards is following in gastroenterology consultation. Pending MRCP -Left-sided hydronephrosis with stone in the ureter. Dr. Frost is asked to see patient in neurology consultation -Hypertension, patient is currently hypotensive. -Diabetes mellitus type 2, continue Lantus and NovoLog. -Dyslipidemia. -Possible COPD, continue breathing treatments as needed for shortness of breath. -Schizophrenia Further recommendations based on clinical course. Plan of care discussed with Dr. Roach Problems: Exam/Review of Systems Vital Signs Vitals Vital Signs Date Time Temp Pulse Resp B/P Pulse Ox O2 Delivery O2 Flow Rate FiO2 08/16/17 14:22 98.4 71 18 144/83 95 08/14/17 20:00 Room Air Intake and Output 08/15/17 08/15/17 08/16/17 15:00 23:00 07:00 Intake Total 650 ml 950 ml Balance 650 ml 950 ml Exam Constitutional: alert, oriented Neck: supple Respiratory: normal air movement Cardiovascular: nl pulses Gastrointestinal: soft, tender Musculoskeletal: nl extremities to inspection Extremities: normal pulses Neurological: confused Results Result Diagram: 08/16/17 0529 08/16/17 0529 Results 24 hrs Laboratory Tests Test 08/15/17 18:31 08/15/17 19:12 08/15/17 21:47 08/16/17 00:28 Bedside Glucose 92 92 Creatine Kinase 25 25 Creatine Kinase Index 1.1 1.2 Creatinine Kinase MB (Mass) 0.28 0.31 Troponin I < 0.012 < 0.012 Test 08/16/17 01:18 08/16/17 05:29 08/16/17 05:35 08/16/17 09:10 Bedside Glucose 99 102 100 White Blood Count 4.2 #L Red Blood Count 4.23 Hemoglobin 12.8 Hematocrit 38.4 Mean Corpuscular Volume 90.8 Mean Corpuscular Hemoglobin 30.3 Mean Corpuscular Hemoglobin Concent 33.3 Red Cell Distribution Width 12.9 Platelet Count 165 Mean Platelet Volume 10.0 Neutrophils % 42.2 Lymphocytes % 41.2 Monocytes % 10.0 Eosinophils % 5.9 Basophils % 0.5 Nucleated Red Blood Cells % 0.0 Neutrophils # 1.8 Lymphocytes # 1.7 Monocytes # 0.4 Eosinophils # 0.3 Basophils # 0.0 Nucleated Red Blood Cells # 0.0 Sodium Level 141 Potassium Level 3.9 Chloride Level 103 Carbon Dioxide Level 30 Anion Gap 12 Blood Urea Nitrogen 11 Creatinine 0.73 Glucose Level 101 Calcium Level 9.8 Amylase Level 173 #H Test 08/16/17 12:55 Bedside Glucose 78 Medications Medications Current Medications Potassium Chloride/Dextrose/ Sod Cl (D5-1/2ns + KCl 20 Meq) 1,000 ml @ 100 mls/ hr Q10H IV Last administered on 08/16/17 13:29; Admin Dose 100 MLS/HR; Start 08/14/17 at 23:00 Ondansetron HCl (Zofran Inj) 4 mg Q6H PRN IV NAUSEA AND/OR VOMITING; Start at 23:00 Morphine Sulfate (morphine) 2 mg Q4H PRN IV PAIN LEVEL 4-7 Last administered on 08/16/17 10:21; Admin Dose 2 MG; Start 08/14/17 at 23:00 Acetaminophen (Tylenol Tab) 650 mg Q6H PRN PO PAIN AND OR ELEVATED TEMP; Start 08/14/17 at 23:00 Aspirin (Halfprin) 81 mg DAILY PO Last administered on 08/16/17 09:28; Admin Dose 81 MG; Start 08/15/17 at 09:00 Insulin Glargine (Lantus) 12 unit DAILY SC Last administered on 08/16/17 09: 31; Admin Dose 12 UNIT; Start 08/15/17 at 09:00 Lamotrigine (Lamictal) 50 mg Q12 PO Last administered on 08/16/17 09:28; Admin Dose 50 MG; Start 08/15/17 at 09:00 Lorazepam (Ativan) 1 mg Q6 PRN PO ANXIETY; Start 08/14/17 at 23:00 Risperidone (Risperdal) 2 mg BID PO Last administered on 08/16/17 09:28; Admin Dose 2 MG; Start 08/15/17 at 09:00 Miscellaneous Information 1 ea NOTE XX ; Start 08/14/17 at 23:45 Glucose (Glutose) 15 gm Q15M PRN PO DECREASED GLUCOSE; Start 08/14/17 at 23:45 Glucose (Glutose) 22.5 gm Q15M PRN PO DECREASED GLUCOSE; Start 08/14/17 at 23: 45 Dextrose (D50w Syringe) 25 ml Q15M PRN IV DECREASED GLUCOSE; Start 08/14/17 at 23:45 Dextrose (D50w Syringe) 50 ml Q15M PRN IV DECREASED GLUCOSE; Start 08/14/17 at 23:45 Glucagon (Glucagen) 1 mg Q15M PRN IM DECREASED GLUCOSE; Start 08/14/17 at 23: 45 Glucose (Glutose) 15 gm Q15M PRN BUCCAL DECREASED GLUCOSE; Start 08/14/17 at 23:45 Insulin Aspart (Novolog Insulin Pen) NOVOLOG *MILD* ALGORITHM Q4 SC ; Start at 17:00 Famotidine (Pepcid Iv) 20 mg BID IV Last administered on 08/16/17 09:28; Admin Dose 20 MG; Start 08/15/17 at 21:00 LINDA BEASLEY Aug 16, 2017 16:52
--- NOTE | 2017-08-16 18:52 | RADRPT ---
PROCEDURE: MRI abdomen / MRCP CLINICAL INDICATION: Abdominal pain. Biliary obstruction. Pancreatitis TECHNIQUE: MRI of the abdomen is performed without contrast utilizing axial T2 and T2 fat suppress ion sequences. The MRCP is performed and the MIP series submitted for review. COMPARISON: CT abdomen and pelvis 08/15/2017 FINDINGS: The study is limited because of motion artifact. Suboptimal positioning of the patient's upper extre mities also limits the examination. Visualized lower thorax: Trace dependent pleural effusions are suggested. The visualized heart is m ildly enlarged. Liver: Normal in size, contour and signal intensity with no evidence for masses or ductal dilatatio n. Gallbladder: Findings are compatible with prior cholecystectomy Common bile duct: There is no filling defect to suggest choledocholithiasis. The caliber of the du ct is normal estimated at 4.4 mm. The MRCP shows no evidence for intrahepatic or extrahepatic ducta l dilatation, the ductal system is smoothly aligned with no evidence for filling defect. Pancreas: There is no finding to suggest pancreatitis, mass or ductal dilatation. Spleen: Normal in size with no masses evident. Adrenal glands: Unremarkable bilaterally. Kidneys: Moderate to severe left-sided hydronephrosis is again noted, the calculi seen on the prior CT are low in signal intensity in the dependent portion of the collecting system. The right kidney is unremarkable. Stomach, visualized small bowel and visualized large intestine: No abnormalities are demonstrated. Abdominal aorta: Normal in caliber estimated at 2 cm. Inferior vena cava: Normal. Vertebral bodies and osseous structures: Unremarkable. Musculature and soft tissues: Unremarkable. RPTAT:HJJR IMPRESSION: 1. Slightly limited exam because of patient motion artifact. 2. Unremarkable MRCP without evidence of choledocholithiasis, ductal dilatation or pancreatitis to correlate with the provided history. 3. Changes of prior cholecystectomy. 4. Moderate to severe left-sided hydronephrosis caused by a urinary tract calculi seen to better ad vantage on the prior CT of 08/15/2017. Physician Inga Date Time Electronically viewed and signed by Physician Inga on 08/16/2017 18:51 JR/
[2017-08-16] MEDS: LORAZEPAM 1 MG TAB PO PRN (19:45)
--- NOTE | 2017-08-16 20:19 | CONS ---
Date/Time of Note Date/Time of Note DATE: 08/16/17 TIME: 20:15 Consult Date/Type/Reason Admit Date/Time Aug 14, 2017 at 19:34 Initial Consult Date 08/15/17 Type of Consultation: Urology Reason for Consultation Left ureteral and renal stones Ordering Provider: TAWANA FORD MD Subjective Patient complaining of right chest pain and right abdominal pain even though the stone that she has is on the left side. Objective Vital Signs Date Time Temp Pulse Resp B/P Pulse Ox O2 Delivery O2 Flow Rate FiO2 08/16/17 14:22 98.4 71 18 144/83 95 08/14/17 20:00 Room Air Intake and Output 08/15/17 08/15/17 08/16/17 15:00 23:00 07:00 Intake Total 650 ml 950 ml Balance 650 ml 950 ml Exam The abdomen is obese. No mass is palpable. Results/Medications Result Diagram: 08/16/17 0529 08/16/17 0529 Results 24 hrs Laboratory Tests Test 08/15/17 21:47 08/16/17 00:28 08/16/17 01:18 08/16/17 05:29 Bedside Glucose 92 99 Creatine Kinase 25 Creatine Kinase Index 1.2 Creatinine Kinase MB (Mass) 0.31 Troponin I < 0.012 White Blood Count 4.2 #L Red Blood Count 4.23 Hemoglobin 12.8 Hematocrit 38.4 Mean Corpuscular Volume 90.8 Mean Corpuscular Hemoglobin 30.3 Mean Corpuscular Hemoglobin Concent 33.3 Red Cell Distribution Width 12.9 Platelet Count 165 Mean Platelet Volume 10.0 Neutrophils % 42.2 Lymphocytes % 41.2 Monocytes % 10.0 Eosinophils % 5.9 Basophils % 0.5 Nucleated Red Blood Cells % 0.0 Neutrophils # 1.8 Lymphocytes # 1.7 Monocytes # 0.4 Eosinophils # 0.3 Basophils # 0.0 Nucleated Red Blood Cells # 0.0 Sodium Level 141 Potassium Level 3.9 Chloride Level 103 Carbon Dioxide Level 30 Anion Gap 12 Blood Urea Nitrogen 11 Creatinine 0.73 Glucose Level 101 Calcium Level 9.8 Amylase Level 173 #H Test 08/16/17 05:35 08/16/17 09:10 08/16/17 12:55 08/16/17 17:20 Bedside Glucose 102 100 78 87 Medications Current Medications Potassium Chloride/Dextrose/ Sod Cl (D5-1/2ns + KCl 20 Meq) 1,000 ml @ 100 mls/ hr Q10H IV Last administered on 08/16/17 13:29; Admin Dose 100 MLS/HR; Start 08/14/17 at 23:00 Ondansetron HCl (Zofran Inj) 4 mg Q6H PRN IV NAUSEA AND/OR VOMITING; Start at 23:00 Morphine Sulfate (morphine) 2 mg Q4H PRN IV PAIN LEVEL 4-7 Last administered on 08/16/17 10:21; Admin Dose 2 MG; Start 08/14/17 at 23:00 Acetaminophen (Tylenol Tab) 650 mg Q6H PRN PO PAIN AND OR ELEVATED TEMP; Start 08/14/17 at 23:00 Aspirin (Halfprin) 81 mg DAILY PO Last administered on 08/16/17 09:28; Admin Dose 81 MG; Start 08/15/17 at 09:00 Insulin Glargine (Lantus) 12 unit DAILY SC Last administered on 08/16/17 09: 31; Admin Dose 12 UNIT; Start 08/15/17 at 09:00 Lamotrigine (Lamictal) 50 mg Q12 PO Last administered on 08/16/17 09:28; Admin Dose 50 MG; Start 08/15/17 at 09:00 Lorazepam (Ativan) 1 mg Q6 PRN PO ANXIETY Last administered on 08/16/17 19:45 ; Admin Dose 1 MG; Start 08/14/17 at 23:00 Risperidone (Risperdal) 2 mg BID PO Last administered on 08/16/17 09:28; Admin Dose 2 MG; Start 08/15/17 at 09:00 Miscellaneous Information 1 ea NOTE XX ; Start 08/14/17 at 23:45 Glucose (Glutose) 15 gm Q15M PRN PO DECREASED GLUCOSE; Start 08/14/17 at 23:45 Glucose (Glutose) 22.5 gm Q15M PRN PO DECREASED GLUCOSE; Start 08/14/17 at 23: 45 Dextrose (D50w Syringe) 25 ml Q15M PRN IV DECREASED GLUCOSE; Start 08/14/17 at 23:45 Dextrose (D50w Syringe) 50 ml Q15M PRN IV DECREASED GLUCOSE; Start 08/14/17 at 23:45 Glucagon (Glucagen) 1 mg Q15M PRN IM DECREASED GLUCOSE; Start 08/14/17 at 23: 45 Glucose (Glutose) 15 gm Q15M PRN BUCCAL DECREASED GLUCOSE; Start 08/14/17 at 23:45 Insulin Aspart (Novolog Insulin Pen) NOVOLOG *MILD* ALGORITHM Q4 SC ; Start at 17:00 Famotidine (Pepcid Iv) 20 mg BID IV Last administered on 08/16/17t 09:28; Admin Dose 20 MG; Start 08/15/17 at 21:00 Assessment/Plan Chief Complaint/Hosp Course 51-year-old female with a history of hypertension diabetes high cholesterol and history of schizophrenia, she resides in a [id number] facility and was brought to [facility] because of chest pain. she underwent a CT scan of the abdomen and pelvis and that showed a stone in the upper left ureter with multiple stones in the renal pelvis. The 5 mm stone in the upper left ureter she should be able to pass it on her own. We will strain her urine, give her pain medications, get a KUB, and put her on Flomax as well Problems: KANIKA HENAO MD Aug 16, 2017 20:19
--- NOTE | 2017-08-16 20:26 | CONS ---
DATE OF ADMISSION: 08/14/2017 DATE OF CONSULTATION: GASTROINTESTINAL CONSULTATION REASON FOR CONSULTATION: Acute biliary pancreatitis. HISTORY OF PRESENT ILLNESS: The patient is a 51-year-old female with a history of diabetes mellitus , hypertension, hyperlipidemia, schizophrenia, was brought to the hospital for chest pain. The davi ent was worked up in the ER. There was no ST segment elevation. EKG was normal, however, patient w as found to have elevated lipase and amylase, and liver enzymes, so diagnosis of biliary pancreatiti s was made, and patient was admitted for further management. The patient denies of abdominal pain n ow. No nausea, no vomiting. PAST MEDICAL HISTORY: As described. PAST SURGICAL HISTORY: None. FAMILY HISTORY: Nothing contributory. SOCIAL HISTORY: Does not smoke or drink. PHYSICAL EXAMINATION: GENERAL: Moderately built, nourished, not in distress. VITAL SIGNS: Stable. HEENT: Unremarkable. NECK: Supple. No thyromegaly. No lymphadenopathy. CARDIOVASCULAR: No murmur, gallop or click. LUNGS: Clear. ABDOMEN: Benign. EXTREMITIES: No edema. CENTRAL NERVOUS SYSTEM: Communicating. LABORATORY DATA: WBC is 4.2, hematocrit is 38.5, platelet count is adequate. Amylase has come down to 173; however, when patient was admitted on 08/15/2017, the lipase was 7500, and amylase was 324, with SGOT/SGPT in the range of 649, 398 and 126. CAT scan failed to show any pancreatitis. MRCP w as negative. No dilated biliary system. No stone in the bile duct. The pancreas was normal. IMPRESSION: 1. Biliary pancreatitis, which resolved. 2. Diabetes mellitus. 3. Hypertension. 4. Hydronephrosis with 10 mm of stone in the kidney and 6 mm stone in the ureter. 5. Schizophrenia. PLAN: At this point, from GI point, resume regular diet. We will monitor liver function tests clos constantine, and will follow up IV hydration. Dictated By: JOAN DANIELS/JOSEMANUEL Conf#: [id number] DID#: [id number] CC: TAWANA FORD MD;*EndCC*
[2017-08-16 21:30] VITALS: BP 171/82; RESP 20
[2017-08-16 23:27] VITALS: BP 136/85; RESP 20
[2017-08-17] MEDS: INSULIN ASPART [NOVOLOG] 3 ML PEN SC SCH ×6 (01:00→22:04)
[2017-08-17] MEDS: D5W-0.45 NACL + KCL 20 MEQ 1,000 ML IV SCH ×2 (01:02→11:06)
[2017-08-17 02:10] VITALS: BP 147/97; RESP 20
[2017-08-17 06:14] LABS: BASOPHILS % 0.7 % (0.0-2.0); EOSINOPHILS # 0.3 10^3/ul (0.0-0.5); EOSINOPHILS % 6.4 % (0.0-7.0); HEMATOCRIT 39.6 % (37.0-47.0); HEMOGLOBIN 13.3 g/dl (12.0-16.0); LYMPHOCYTES # 1.6 10^3/ul (0.8-2.9); LYMPHOCYTES % 34.6 % (15.0-51.0); MEAN CORPUSCULAR HEMOGLOBIN 30.1 pg (29.0-33.0); MEAN CORPUSCULAR HGB CONC 33.6 g/dl (32.0-37.0); MEAN CORPUSCULAR VOLUME 89.6 fl (82.0-101.0); MONOCYTE # 0.4 10^3/ul (0.3-0.9); MONOCYTES % 8.4 % (0.0-11.0); NEUTROPHIL # 2.3 10^3/ul (1.6-7.5); NEUTROPHILS % 49.7 % (39.0-77.0); PLATELET COUNT 151 10^3/UL (140-415); RED BLOOD COUNT 4.42 10^6/ul (4.20-5.40); RED CELL DISTRIBUTION WIDTH 12.4 % (11.5-14.5); WHITE BLOOD COUNT 4.5 10^3/ul (4.8-10.8)
[2017-08-17 06:16] LABS: POSITIVE DIFF @See below
[2017-08-17 06:34] LABS: CALCIUM 10.3 mg/dl (8.4-10.2); CREATININE 0.76 mg/dl (0.44-1.00); POTASSIUM 3.6 mmol/L (3.5-5.1)
[2017-08-17 07:41] VITALS: BP 158/98; RESP 18
[2017-08-17] MEDS: FAMOTIDINE 20 MG INJ IV SCH ×2 (08:42→21:58)
[2017-08-17] MEDS: LAMOTRIGINE 25 MG TAB PO SCH ×2 (08:42→21:59)
[2017-08-17] MEDS: RISPERIDONE 2 MG TAB PO SCH ×2 (08:43→21:59)
[2017-08-17] MEDS: INSULIN GLARGINE [LANtus] 3 ML PEN SC SCH (08:46)
[2017-08-17] MEDS: ASPIRIN (EC) 81 MG TAB PO SCH ×2 (08:52→12:17)
[2017-08-17] MEDS: ACETAMINOPHEN 325 MG TAB PO PRN ×2 (12:17→18:21)
--- NOTE | 2017-08-17 12:37 | PN ---
Date/Time of Note Date/Time of Note DATE: 08/17/17 TIME: 12:35 Assessment/Plan VTE Prophylaxis VTE Prophylaxis Intervention: other Lines/Catheters IV C[facility]ter Type [facility]from [facility] Peripheral IV Urinary Cath still in place: No Assessment/Plan Assessment/Plan -Atypical chest pain. Rule out acute coronary syndrome. Obtain cardiac enzymes every 8 hours 3. - per Dr. Aguilar in cardiology consultation -Acute pancreatitis. Keep patient n.p.o., continue IV fluids with dextrose, continue to monitor amylase and lipase. Dr. Richards is following in gastroenterology consultation. Pending MRCP -Left-sided hydronephrosis with stone in the ureter. Dr. Frost is asked to see patient in neurology consultation -Hypertension, patient is currently hypotensive. -Diabetes mellitus type 2, continue Lantus and NovoLog. -Dyslipidemia. -Possible COPD, continue breathing treatments as needed for shortness of breath. -Schizophrenia Further recommendations based on clinical course. Plan of care discussed with Dr. Roach Subjective 24 Hr Interval Summary Cardiovascular: chest pain Genitourinary: flank pain (left) Exam/Review of Systems Vital Signs Vitals Vital Signs Date Time Temp Pulse Resp B/P Pulse Ox O2 Delivery O2 Flow Rate FiO2 08/17/17 07:41 98.3 85 18 158/98 95 08/14/17 20:00 Room Air Intake and Output 08/16/17 08/16/17 08/17/17 15:00 23:00 07:00 Intake Total 400 ml 300 ml 1300 ml Balance 400 ml 300 ml 1300 ml Exam Respiratory: clear to auscultation, diminished breath sounds Cardiovascular: nl pulses Gastrointestinal: soft, tender Musculoskeletal: nl extremities to inspection Results Result Diagram: 08/17/17 0521 08/17/17 0520 Results 24 hrs Laboratory Tests Test 08/16/17 12:55 08/16/17 17:20 08/16/17 20:28 08/17/17 01:04 Bedside Glucose 78 87 91 93 Test 08/17/17 05:20 08/17/17 05:21 08/17/17 05:55 08/17/17 08:41 Sodium Level 143 Potassium Level 3.6 Chloride Level 103 Carbon Dioxide Level 31 Anion Gap 13 Blood Urea Nitrogen 10 Creatinine 0.76 Glucose Level 94 Calcium Level 10.3 H Lipase 490 H White Blood Count 4.5 L Red Blood Count 4.42 Hemoglobin 13.3 Hematocrit 39.6 Mean Corpuscular Volume 89.6 Mean Corpuscular Hemoglobin 30.1 Mean Corpuscular Hemoglobin Concent 33.6 Red Cell Distribution Width 12.4 Platelet Count 151 Mean Platelet Volume 11.0 H Neutrophils % 49.7 Lymphocytes % 34.6 Monocytes % 8.4 Eosinophils % 6.4 Basophils % 0.7 Nucleated Red Blood Cells % 0.0 Neutrophils # 2.3 Lymphocytes # 1.6 Monocytes # 0.4 Eosinophils # 0.3 Basophils # 0.0 Nucleated Red Blood Cells # 0.0 Bedside Glucose 86 120 Test 08/17/17 12:13 Bedside Glucose 104 Medications Medications Current Medications Potassium Chloride/Dextrose/ Sod Cl (D5-1/2ns + KCl 20 Meq) 1,000 ml @ 60 mls/ hr [id number] IV Last administered on 08/17/17 11:06; Admin Dose 100 MLS/HR; Start 08/14/17 at 23:00 Ondansetron HCl (Zofran Inj) 4 mg Q6H PRN IV NAUSEA AND/OR VOMITING; Start at 23:00 Morphine Sulfate (morphine) 2 mg Q4H PRN IV PAIN LEVEL 4-7 Last administered on 08/16/17 20:21; Admin Dose 2 MG; Start 08/14/17 at 23:00 Acetaminophen (Tylenol Tab) 650 mg Q6H PRN PO PAIN AND OR ELEVATED TEMP Last administered on 08/17/17 12:17; Admin Dose 650 MG; Start 08/14/17 at 23:00 Aspirin (Halfprin) 81 mg DAILY PO Last administered on 08/17/17 12:17; Admin Dose 81 MG; Start 08/15/17 at 09:00 Insulin Glargine (Lantus) 12 unit DAILY SC Last administered on 08/17/17 08: 46; Admin Dose 12 UNIT; Start 08/15/17 at 09:00 Lamotrigine (Lamictal) 50 mg Q12 PO Last administered on 08/17/17 08:42; Admin Dose 50 MG; Start 08/15/17 at 09:00 Lorazepam (Ativan) 1 mg Q6 PRN PO ANXIETY Last administered on 08/16/17 19:45 ; Admin Dose 1 MG; Start 08/14/17 at 23:00 Risperidone (Risperdal) 2 mg BID PO Last administered on 08/17/17 08:43; Admin Dose 2 MG; Start 08/15/17 at 09:00 Miscellaneous Information 1 ea NOTE XX ; Start 08/14/17 at 23:45 Glucose (Glutose) 15 gm Q15M PRN PO DECREASED GLUCOSE; Start 08/14/17 at 23:45 Glucose (Glutose) 22.5 gm Q15M PRN PO DECREASED GLUCOSE; Start 08/14/17 at 23: 45 Dextrose (D50w Syringe) 25 ml Q15M PRN IV DECREASED GLUCOSE; Start 08/14/17 at 23:45 Dextrose (D50w Syringe) 50 ml Q15M PRN IV DECREASED GLUCOSE; Start 08/14/17 at 23:45 Glucagon (Glucagen) 1 mg Q15M PRN IM DECREASED GLUCOSE; Start 08/14/17 at 23: 45 Glucose (Glutose) 15 gm Q15M PRN BUCCAL DECREASED GLUCOSE; Start 08/14/17 at 23:45 Insulin Aspart (Novolog Insulin Pen) NOVOLOG *MILD* ALGORITHM Q4 SC ; Start at 17:00 Famotidine (Pepcid Iv) 20 mg BID IV Last administered on 08/17/17 08:42; Admin Dose 20 MG; Start 08/15/17 at 21:00 EUSEBIO VALERA Aug 17, 2017 12:37
[2017-08-17 14:17] VITALS: BP 161/95; RESP 16
[2017-08-17 16:29] VITALS: BP 174/90
[2017-08-17] MEDS: ACCU-CHEK XX SCH ×2 (17:08→21:59)
[2017-08-17] MEDS: AMLODIPINE 10 MG TAB PO SCH (17:28)
[2017-08-17 19:53] VITALS: BP 160/98; RESP 18
[2017-08-17 21:00] VITALS: BP 148/79; PULSE 74
[2017-08-17] MEDS: morphine 2 MG INJ IV PRN (22:00)
[2017-08-18 02:21] VITALS: BP 137/86; RESP 18
[2017-08-18] MEDS: D5W-0.45 NACL + KCL 20 MEQ 1,000 ML IV SCH ×3 (02:48→19:24)
[2017-08-18 06:27] LABS: BASOPHILS % 0.4 % (0.0-2.0); EOSINOPHILS # 0.3 10^3/ul (0.0-0.5); EOSINOPHILS % 4.6 % (0.0-7.0); HEMATOCRIT 40.4 % (37.0-47.0); HEMOGLOBIN 13.7 g/dl (12.0-16.0); LYMPHOCYTES # 1.7 10^3/ul (0.8-2.9); LYMPHOCYTES % 31.7 % (15.0-51.0); MEAN CORPUSCULAR HEMOGLOBIN 30.1 pg (29.0-33.0); MEAN CORPUSCULAR HGB CONC 33.9 g/dl (32.0-37.0); MEAN CORPUSCULAR VOLUME 88.8 fl (82.0-101.0); MEAN PLATELET VOLUME 9.4 fl (7.4-10.4); MONOCYTE # 0.4 10^3/ul (0.3-0.9); MONOCYTES % 7.7 % (0.0-11.0); NEUTROPHIL # 3.1 10^3/ul (1.6-7.5); NEUTROPHILS % 55.4 % (39.0-77.0); PLATELET COUNT 177 10^3/UL (140-415); RED BLOOD COUNT 4.55 10^6/ul (4.20-5.40); RED CELL DISTRIBUTION WIDTH 12.8 % (11.5-14.5); WHITE BLOOD COUNT 5.5 10^3/ul (4.8-10.8)
[2017-08-18 07:02] LABS: CALCIUM 10.3 mg/dl (8.4-10.2); CREATININE 0.75 mg/dl (0.44-1.00)
[2017-08-18 07:26] LABS: POTASSIUM 3.3 mmol/L (3.5-5.1)
[2017-08-18 07:35] VITALS: BP 136/86; RESP 18
[2017-08-18] MEDS: INSULIN ASPART [NOVOLOG] 3 ML PEN SC SCH ×4 (08:00→21:00)
[2017-08-18] MEDS: ACCU-CHEK XX SCH ×4 (08:27→21:14)
[2017-08-18] MEDS: LAMOTRIGINE 25 MG TAB PO SCH ×2 (09:34→21:03)
[2017-08-18] MEDS: FAMOTIDINE 20 MG INJ IV SCH ×2 (09:34→21:03)
[2017-08-18] MEDS: AMLODIPINE 10 MG TAB PO SCH (09:35)
[2017-08-18] MEDS: ASPIRIN (EC) 81 MG TAB PO SCH (09:35)
[2017-08-18] MEDS: RISPERIDONE 2 MG TAB PO SCH ×2 (09:35→21:02)
[2017-08-18] MEDS: INSULIN GLARGINE [LANtus] 3 ML PEN SC SCH (09:46)
--- NOTE | 2017-08-18 12:16 | CONS ---
Date/Time of Note Date/Time of Note DATE: 08/18/17 TIME: 12:07 Consult Date/Type/Reason Admit Date/Time Aug 14, 2017 at 19:34 Initial Consult Date 08/15/17 Type of Consultation: Urology Reason for Consultation Left ureteral stone and renal stones Ordering Provider: TAWANA FORD MD Subjective Patient states that she has pain all over, over the chest and the abdomen Objective Vital Signs Date Time Temp Pulse Resp B/P Pulse Ox O2 Delivery O2 Flow Rate FiO2 08/18/17 07:35 98.2 90 18 136/86 95 08/14/17 20:00 Room Air Intake and Output 08/17/17 08/17/17 08/18/17 14:59 22:59 06:59 Intake Total 400 ml 1020 ml 940 ml Balance 400 ml 1020 ml 940 ml Exam The patient is afebrile, the abdomen is soft, mild left flank tenderness, the patient is incontinent and the nurses could not strain her urine for stones Results/Medications Result Diagram: 08/18/17 0539 08/18/17 0539 Results 24 hrs Laboratory Tests Test 08/17/17 12:13 08/17/17 17:05 08/17/17 22:03 08/18/17 05:39 Bedside Glucose 104 84 84 White Blood Count 5.5 # Red Blood Count 4.55 Hemoglobin 13.7 Hematocrit 40.4 Mean Corpuscular Volume 88.8 Mean Corpuscular Hemoglobin 30.1 Mean Corpuscular Hemoglobin Concent 33.9 Red Cell Distribution Width 12.8 Platelet Count 177 Mean Platelet Volume 9.4 Neutrophils % 55.4 Lymphocytes % 31.7 Monocytes % 7.7 Eosinophils % 4.6 Basophils % 0.4 Nucleated Red Blood Cells % 0.0 Neutrophils # 3.1 Lymphocytes # 1.7 Monocytes # 0.4 Eosinophils # 0.3 Basophils # 0.0 Nucleated Red Blood Cells # 0.0 Sodium Level 142 Potassium Level 3.3 L Chloride Level 103 Carbon Dioxide Level 32 H Anion Gap 10 Blood Urea Nitrogen 9 Creatinine 0.75 Glucose Level 99 Calcium Level 10.3 H Lipase 444 H Test 08/18/17 08:25 Bedside Glucose 103 Medications Current Medications Potassium Chloride/Dextrose/ Sod Cl (D5-1/2ns + KCl 20 Meq) 1,000 ml @ 60 mls/ hr [id number] IV Last administered on 08/18/17 02:48; Admin Dose 60 MLS/HR; Start 08/14/17 at 23:00 Ondansetron HCl (Zofran Inj) 4 mg Q6H PRN IV NAUSEA AND/OR VOMITING; Start at 23:00 Morphine Sulfate (morphine) 2 mg Q4H PRN IV PAIN LEVEL 4-7 Last administered on 08/17/17 22:00; Admin Dose 2 MG; Start 08/14/17 at 23:00 Acetaminophen (Tylenol Tab) 650 mg Q6H PRN PO PAIN AND OR ELEVATED TEMP Last administered on 08/17/17 18:21; Admin Dose 650 MG; Start 08/14/17 at 23:00 Aspirin (Halfprin) 81 mg DAILY PO Last administered on 08/18/17 09:35; Admin Dose 81 MG; Start 08/15/17 at 09:00 Insulin Glargine (Lantus) 12 unit DAILY SC Last administered on 08/18/17 09: 46; Admin Dose 12 UNIT; Start 08/15/17 at 09:00 Lamotrigine (Lamictal) 50 mg Q12 PO Last administered on 08/18/17 09:34; Admin Dose 50 MG; Start 08/15/17 at 09:00 Lorazepam (Ativan) 1 mg Q6 PRN PO ANXIETY Last administered on 08/16/17 19:45 ; Admin Dose 1 MG; Start 08/14/17 at 23:00 Risperidone (Risperdal) 2 mg BID PO Last administered on 08/18/17 09:35; Admin Dose 2 MG; Start 08/15/17 at 09:00 Miscellaneous Information 1 ea NOTE XX ; Start 08/14/17 at 23:45 Glucose (Glutose) 15 gm Q15M PRN PO DECREASED GLUCOSE; Start 08/14/17 at 23:45 Glucose (Glutose) 22.5 gm Q15M PRN PO DECREASED GLUCOSE; Start 08/14/17 at 23: 45 Dextrose (D50w Syringe) 25 ml Q15M PRN IV DECREASED GLUCOSE; Start 08/14/17 at 23:45 Dextrose (D50w Syringe) 50 ml Q15M PRN IV DECREASED GLUCOSE; Start 08/14/17 at 23:45 Glucagon (Glucagen) 1 mg Q15M PRN IM DECREASED GLUCOSE; Start 08/14/17 at 23: 45 Glucose (Glutose) 15 gm Q15M PRN BUCCAL DECREASED GLUCOSE; Start 08/14/17 at 23:45 Famotidine (Pepcid Iv) 20 mg BID IV Last administered on 08/18/17 09:34; Admin Dose 20 MG; Start 08/15/17 at 21:00 Amlodipine Besylate (Norvasc) 10 mg DAILY PO Last administered on 08/18/17 09 :35; Admin Dose 10 MG; Start 08/17/17 at 17:00 Diagnostic Test (Pha) (Accu-Chek) 1 02 XX ; Start 08/19/17 at 02:00 Assessment/Plan Chief Complaint/Hosp Course 51-year-old female with a history of hypertension ,diabetes,high cholesterol and history of schizophrenia, she resides in a [id number] facility and was brought to [facility] because of chest pain. she underwent a CT scan of the abdomen and pelvis and that showed a stone in the upper left ureter with multiple stones in the renal pelvis. The 5 mm stone in the upper left ureter she should be able to pass it on her own. A KUB done yesterday:There is a 10 mm stone expected region of the lower pole of the left kidney. There are multiple layering stones in the left renal pelvis/ proximal left ureter. There is a 6 mm stone in the mid left ureter. This appears to be lower than it was before. We will repeat the KUB and continue to strain her urine and put her on tamsulosin. Problems: KANIKA HENAO MD Aug 18, 2017 12:16
--- NOTE | 2017-08-18 12:48 | CONS ---
Date/Time of Note Date/Time of Note DATE: 08/18/17 TIME: 12:47 Assessment/Plan Assessment/Plan Additional Assessment/Plan 1. Biliary pancreatitis, which resolved. 2. Diabetes mellitus. 3. Hypertension. 4. Hydronephrosis with 10 mm of stone in the kidney and 6 mm stone in the ureter. 5. Schizophrenia. Plan Patient's pancreatitis is clinically resolved and will start her on a regular diet. Consultation Date/Type/Reason Admit Date/Time Aug 14, 2017 at 19:34 Initial Consult Date 08/15/17 Type of Consultation: Urology Referring Provider: TAWANA FORD MD 24 HR Interval Summary Constitutional: improved Exam/Review of Systems Vital Signs Vitals Vital Signs Date Time Temp Pulse Resp B/P Pulse Ox O2 Delivery O2 Flow Rate FiO2 08/18/17 07:35 98.2 90 18 136/86 95 08/14/17 20:00 Room Air Intake and Output 08/17/17 08/17/17 08/18/17 14:59 22:59 06:59 Intake Total 400 ml 1020 ml 940 ml Balance 400 ml 1020 ml 940 ml Exam Constitutional: alert, oriented, well developed Psych: nl mood/affect, no complaints Head: atraumatic, normocephalic Eyes: EOMI, PERRL, nl conjunctiva, nl lids, nl sclera ENMT: nl external ears & nose, nl lips & teeth, nl nasal mucosa & septum Neck: non-tender, supple Respiratory: clear to auscultation, normal air movement Cardiovascular: nl pulses, regular rate and rhythm Gastrointestinal: nl liver, spleen, non-tender, soft Musculoskeletal: nl extremities to inspection, nl gait and stance Extremities: normal pulses Neurological: MACHINE BRUSHER II-XII intact, nl mental status, nl speech, nl strength Skin: nl turgor, No rash or lesions Lymph: nl lymph nodes Results Result Diagram: 08/18/17 0539 08/18/17 0539 Results 24 hrs Laboratory Tests Test 08/17/17 17:05 08/17/17 22:03 08/18/17 05:39 08/18/17 08:25 Bedside Glucose 84 84 103 White Blood Count 5.5 # Red Blood Count 4.55 Hemoglobin 13.7 Hematocrit 40.4 Mean Corpuscular Volume 88.8 Mean Corpuscular Hemoglobin 30.1 Mean Corpuscular Hemoglobin Concent 33.9 Red Cell Distribution Width 12.8 Platelet Count 177 Mean Platelet Volume 9.4 Neutrophils % 55.4 Lymphocytes % 31.7 Monocytes % 7.7 Eosinophils % 4.6 Basophils % 0.4 Nucleated Red Blood Cells % 0.0 Neutrophils # 3.1 Lymphocytes # 1.7 Monocytes # 0.4 Eosinophils # 0.3 Basophils # 0.0 Nucleated Red Blood Cells # 0.0 Sodium Level 142 Potassium Level 3.3 L Chloride Level 103 Carbon Dioxide Level 32 H Anion Gap 10 Blood Urea Nitrogen 9 Creatinine 0.75 Glucose Level 99 Calcium Level 10.3 H Lipase 444 H Test 08/18/17 12:17 Bedside Glucose 137 Medications Medications Current Medications Potassium Chloride/Dextrose/ Sod Cl (D5-1/2ns + KCl 20 Meq) 1,000 ml @ 60 mls/ hr [id number] IV Last administered on 08/18/17 02:48; Admin Dose 60 MLS/HR; Start 08/14/17 at 23:00 Ondansetron HCl (Zofran Inj) 4 mg Q6H PRN IV NAUSEA AND/OR VOMITING; Start at 23:00 Morphine Sulfate (morphine) 2 mg Q4H PRN IV PAIN LEVEL 4-7 Last administered on 08/17/17 22:00; Admin Dose 2 MG; Start 08/14/17 at 23:00 Acetaminophen (Tylenol Tab) 650 mg Q6H PRN PO PAIN AND OR ELEVATED TEMP Last administered on 08/17/17 18:21; Admin Dose 650 MG; Start 08/14/17 at 23:00 Aspirin (Halfprin) 81 mg DAILY PO Last administered on 08/18/17 09:35; Admin Dose 81 MG; Start 08/15/17 at 09:00 Insulin Glargine (Lantus) 12 unit DAILY SC Last administered on 08/18/17 09: 46; Admin Dose 12 UNIT; Start 08/15/17 at 09:00 Lamotrigine (Lamictal) 50 mg Q12 PO Last administered on 08/18/17 09:34; Admin Dose 50 MG; Start 08/15/17 at 09:00 Lorazepam (Ativan) 1 mg Q6 PRN PO ANXIETY Last administered on 08/16/17 19:45 ; Admin Dose 1 MG; Start 08/14/17 at 23:00 Risperidone (Risperdal) 2 mg BID PO Last administered on 08/18/17 09:35; Admin Dose 2 MG; Start 08/15/17 at 09:00 Miscellaneous Information 1 ea NOTE XX ; Start 08/14/17 at 23:45 Glucose (Glutose) 15 gm Q15M PRN PO DECREASED GLUCOSE; Start 08/14/17 at 23:45 Glucose (Glutose) 22.5 gm Q15M PRN PO DECREASED GLUCOSE; Start 08/14/17 at 23: 45 Dextrose (D50w Syringe) 25 ml Q15M PRN IV DECREASED GLUCOSE; Start 08/14/17 at 23:45 Dextrose (D50w Syringe) 50 ml Q15M PRN IV DECREASED GLUCOSE; Start 08/14/17 at 23:45 Glucagon (Glucagen) 1 mg Q15M PRN IM DECREASED GLUCOSE; Start 08/14/17 at 23: 45 Glucose (Glutose) 15 gm Q15M PRN BUCCAL DECREASED GLUCOSE; Start 08/14/17 at 23:45 Famotidine (Pepcid Iv) 20 mg BID IV Last administered on 08/18/17 09:34; Admin Dose 20 MG; Start 08/15/17 at 21:00 Amlodipine Besylate (Norvasc) 10 mg DAILY PO Last administered on 08/18/17 09 :35; Admin Dose 10 MG; Start 08/17/17 at 17:00 Diagnostic Test (Pha) (Accu-Chek) 1 ea 02 XX ; Start 08/19/17 at 02:00 Tamsulosin HCl (Flomax) 0.4 mg HS PO ; Start 08/18/17 at 21:00 JOAN BOTELLO MD Aug 18, 2017 12:48
--- NOTE | 2017-08-18 14:00 | PN ---
Date/Time of Note Date/Time of Note DATE: 08/18/17 TIME: 13:57 Assessment/Plan VTE Prophylaxis VTE Prophylaxis Intervention: SCD's Lines/Catheters IV [facility]ter Type (from [facility]): Peripheral IV Urinary Cath still in place: No Assessment/Plan Chief Complaint/Hosp Course Patient started on clear liquid diet, tolerates it well, continue to monitor lipase. Assessment/Plan -Atypical chest pain. Rule out acute coronary syndrome. Cardiac enzymes are negative 3 Dr. Aguilar is following in cardiology consultation -Acute biliary pancreatitis, resolving. continue to monitor amylase and lipase. Dr. Richards is following in gastroenterology consultation. -Left-sided hydronephrosis with stone in the ureter. Dr. Frost is following in neurology consultation. Continue tamsulosin continue to strain urine -Hypertension, patient is currently hypotensive. -Diabetes mellitus type 2, continue Lantus and NovoLog. -Dyslipidemia. -Possible COPD, continue breathing treatments as needed for shortness of breath. -Schizophrenia Further recommendations based on clinical course. Plan of care discussed with Dr. Roach Problems: Exam/Review of Systems Vital Signs Vitals Vital Signs Date Time Temp Pulse Resp B/P Pulse Ox O2 Delivery O2 Flow Rate FiO2 08/18/17 07:35 98.2 90 18 136/86 95 08/14/17 20:00 Room Air Intake and Output 08/17/17 08/17/17 08/18/17 14:59 22:59 06:59 Intake Total 400 ml 1020 ml 940 ml Balance 400 ml 1020 ml 940 ml Exam Constitutional: alert, oriented Neck: supple Respiratory: normal air movement Cardiovascular: nl pulses Gastrointestinal: soft, tender Musculoskeletal: nl extremities to inspection Extremities: normal pulses Neurological: confused Results Result Diagram: 08/18/17 0539 08/18/17 0539 Results 24 hrs Laboratory Tests Test 08/17/17 17:05 08/17/17 22:03 08/18/17 05:39 08/18/17 08:25 Bedside Glucose 84 84 103 White Blood Count 5.5 # Red Blood Count 4.55 Hemoglobin 13.7 Hematocrit 40.4 Mean Corpuscular Volume 88.8 Mean Corpuscular Hemoglobin 30.1 Mean Corpuscular Hemoglobin Concent 33.9 Red Cell Distribution Width 12.8 Platelet Count 177 Mean Platelet Volume 9.4 Neutrophils % 55.4 Lymphocytes % 31.7 Monocytes % 7.7 Eosinophils % 4.6 Basophils % 0.4 Nucleated Red Blood Cells % 0.0 Neutrophils # 3.1 Lymphocytes # 1.7 Monocytes # 0.4 Eosinophils # 0.3 Basophils # 0.0 Nucleated Red Blood Cells # 0.0 Sodium Level 142 Potassium Level 3.3 L Chloride Level 103 Carbon Dioxide Level 32 H Anion Gap 10 Blood Urea Nitrogen 9 Creatinine 0.75 Glucose Level 99 Calcium Level 10.3 H Lipase 444 H Test 08/18/17 12:17 Bedside Glucose 137 Medications Medications Current Medications Potassium Chloride/Dextrose/ Sod Cl (D5-1/2ns + KCl 20 Meq) 1,000 ml @ 60 mls/ hr [id number] IV Last administered on 08/18/17 02:48; Admin Dose 60 MLS/HR; Start 08/14/17 at 23:00 Ondansetron HCl (Zofran Inj) 4 mg Q6H PRN IV NAUSEA AND/OR VOMITING; Start at 23:00 Morphine Sulfate (morphine) 2 mg Q4H PRN IV PAIN LEVEL 4-7 Last administered on 08/17/17 22:00; Admin Dose 2 MG; Start 08/14/17 at 23:00 Acetaminophen (Tylenol Tab) 650 mg Q6H PRN PO PAIN AND OR ELEVATED TEMP Last administered on 08/17/17 18:21; Admin Dose 650 MG; Start 08/14/17 at 23:00 Aspirin (Halfprin) 81 mg DAILY PO Last administered on 08/18/17 09:35; Admin Dose 81 MG; Start 08/15/17 at 09:00 Insulin Glargine (Lantus) 12 unit DAILY SC Last administered on 08/18/17 09: 46; Admin Dose 12 UNIT; Start 08/15/17 at 09:00 Lamotrigine (Lamictal) 50 mg Q12 PO Last administered on 08/18/17 09:34; Admin Dose 50 MG; Start 08/15/17 at 09:00 Lorazepam (Ativan) 1 mg Q6 PRN PO ANXIETY Last administered on 08/16/17 19:45 ; Admin Dose 1 MG; Start 08/14/17 at 23:00 Risperidone (Risperdal) 2 mg BID PO Last administered on 08/18/17 09:35; Admin Dose 2 MG; Start 08/15/17 at 09:00 Miscellaneous Information 1 ea NOTE XX ; Start 08/14/17 at 23:45 Glucose (Glutose) 15 gm Q15M PRN PO DECREASED GLUCOSE; Start 08/14/17 at 23:45 Glucose (Glutose) 22.5 gm Q15M PRN PO DECREASED GLUCOSE; Start 08/14/17 at 23: 45 Dextrose (D50w Syringe) 25 ml Q15M PRN IV DECREASED GLUCOSE; Start 08/14/17 at 23:45 Dextrose (D50w Syringe) 50 ml Q15M PRN IV DECREASED GLUCOSE; Start 08/14/17 at 23:45 Glucagon (Glucagen) 1 mg Q15M PRN IM DECREASED GLUCOSE; Start 08/14/17 at 23: 45 Glucose (Glutose) 15 gm Q15M PRN BUCCAL DECREASED GLUCOSE; Start 08/14/17 at 23:45 Famotidine (Pepcid Iv) 20 mg BID IV Last administered on 08/18/17 09:34; Admin Dose 20 MG; Start 08/15/17 at 21:00 Amlodipine Besylate (Norvasc) 10 mg DAILY PO Last administered on 08/18/17 09 :35; Admin Dose 10 MG; Start 08/17/17 at 17:00 Diagnostic Test (Pha) (Accu-Chek) 1 ea 02 XX ; Start 08/19/17 at 02:00 Tamsulosin HCl (Flomax) 0.4 mg HS PO ; Start 08/18/17 at 21:00 LINDA BEASLEY Aug 18, 2017 14:00
[2017-08-18 14:25] VITALS: BP 115/59; RESP 20
--- NOTE | 2017-08-18 15:56 | CONS ---
Date/Time of Note Date/Time of Note DATE: 08/18/17 TIME: 15:55 Consult Date/Type/Reason Admit Date/Time Aug 14, 2017 at 19:34 Initial Consult Date 08/15/17 Type of Consultation: card Ordering Provider: TAWANA FORD MD Subjective cardiology follow up note: S: D/w STAFF pt denies any left sided cp or sob or palpitations to me now. but she has had intermittent right sided sharp chest pain she denies abd pain to me . O: General: no acute distress HEENT: NC/AT. pupils are equal. round. NECK: NO JVD. no stridor. CV: RRR. systolic murmur; no gallop or rubs. PULM: no wheezing or rhonchi. GI: SOFT, mild tenderness, ND, no rebound or guarding Extremity: trace B/L LE edema. no clubbing. neuro: awake and alert, Psych: calm and pleasant rectal: deferred ECG NSR NORMAL CT pio angio 05/02/17: Left dominant coronary arterial system. Total calcium score: 0 Although images are partially degraded due to elevated heart rate there is no evidence of calcified or noncalcified plaque within any of the coronary arteries , all vessels appear widely patent. Objective Vital Signs Date Time Temp Pulse Resp B/P Pulse Ox O2 Delivery O2 Flow Rate FiO2 08/18/17 14:25 98.3 97 20 115/59 94 08/14/17 20:00 Room Air Intake and Output 08/17/17 08/17/17 08/18/17 15:00 23:00 07:00 Intake Total 400 ml 1020 ml 940 ml Balance 400 ml 1020 ml 940 ml Results/Medications Result Diagram: 08/18/17 0539 08/18/17 0539 Results 24 hrs Laboratory Tests Test 08/17/17 17:05 08/17/17 22:03 08/18/17 05:39 08/18/17 08:25 Bedside Glucose 84 84 103 White Blood Count 5.5 # Red Blood Count 4.55 Hemoglobin 13.7 Hematocrit 40.4 Mean Corpuscular Volume 88.8 Mean Corpuscular Hemoglobin 30.1 Mean Corpuscular Hemoglobin Concent 33.9 Red Cell Distribution Width 12.8 Platelet Count 177 Mean Platelet Volume 9.4 Neutrophils % 55.4 Lymphocytes % 31.7 Monocytes % 7.7 Eosinophils % 4.6 Basophils % 0.4 Nucleated Red Blood Cells % 0.0 Neutrophils # 3.1 Lymphocytes # 1.7 Monocytes # 0.4 Eosinophils # 0.3 Basophils # 0.0 Nucleated Red Blood Cells # 0.0 Sodium Level 142 Potassium Level 3.3 L Chloride Level 103 Carbon Dioxide Level 32 H Anion Gap 10 Blood Urea Nitrogen 9 Creatinine 0.75 Glucose Level 99 Calcium Level 10.3 H Lipase 444 H Test 08/18/17 12:17 Bedside Glucose 137 Medications Current Medications Potassium Chloride/Dextrose/ Sod Cl (D5-1/2ns + KCl 20 Meq) 1,000 ml @ 60 mls/ hr [id number] IV Last administered on 08/18/17 02:48; Admin Dose 60 MLS/HR; Start 08/14/17 at 23:00 Ondansetron HCl (Zofran Inj) 4 mg Q6H PRN IV NAUSEA AND/OR VOMITING; Start at 23:00 Morphine Sulfate (morphine) 2 mg Q4H PRN IV PAIN LEVEL 4-7 Last administered on 08/17/17 22:00; Admin Dose 2 MG; Start 08/14/17 at 23:00 Acetaminophen (Tylenol Tab) 650 mg Q6H PRN PO PAIN AND OR ELEVATED TEMP Last administered on 08/17/17 18:21; Admin Dose 650 MG; Start 08/14/17 at 23:00 Aspirin (Halfprin) 81 mg DAILY PO Last administered on 08/18/17 09:35; Admin Dose 81 MG; Start 08/15/17 at 09:00 Insulin Glargine (Lantus) 12 unit DAILY SC Last administered on 08/18/17 09: 46; Admin Dose 12 UNIT; Start 08/15/17 at 09:00 Lamotrigine (Lamictal) 50 mg Q12 PO Last administered on 08/18/17 09:34; Admin Dose 50 MG; Start 08/15/17 at 09:00 Lorazepam (Ativan) 1 mg Q6 PRN PO ANXIETY Last administered on 08/16/17 19:45 ; Admin Dose 1 MG; Start 08/14/17 at 23:00 Risperidone (Risperdal) 2 mg BID PO Last administered on 08/18/17 09:35; Admin Dose 2 MG; Start 08/15/17 at 09:00 Miscellaneous Information 1 ea NOTE XX ; Start 08/14/17 at 23:45 Glucose (Glutose) 15 gm Q15M PRN PO DECREASED GLUCOSE; Start 08/14/17 at 23:45 Glucose (Glutose) 22.5 gm Q15M PRN PO DECREASED GLUCOSE; Start 08/14/17 at 23: 45 Dextrose (D50w Syringe) 25 ml Q15M PRN IV DECREASED GLUCOSE; Start 08/14/17 at 23:45 Dextrose (D50w Syringe) 50 ml Q15M PRN IV DECREASED GLUCOSE; Start 08/14/17 at 23:45 Glucagon (Glucagen) 1 mg Q15M PRN IM DECREASED GLUCOSE; Start 08/14/17 at 23: 45 Glucose (Glutose) 15 gm Q15M PRN BUCCAL DECREASED GLUCOSE; Start 08/14/17 at 23:45 Famotidine (Pepcid Iv) 20 mg BID IV Last administered on 08/18/17 09:34; Admin Dose 20 MG; Start 08/15/17 at 21:00 Amlodipine Besylate (Norvasc) 10 mg DAILY PO Last administered on 08/18/17 09 :35; Admin Dose 10 MG; Start 08/17/17 at 17:00 Diagnostic Test (Pha) (Accu-Chek) 1 ea 02 XX ; Start 08/19/17 at 02:00 Tamsulosin HCl (Flomax) 0.4 mg HS PO ; Start 08/18/17 at 21:00 Assessment/Plan Chief Complaint/Hosp Course 1. nonanginal chest pain: improved 2. acute pancreatitis 3. HTN 4. DM 5. Psych disorder Patient has previously had cardiac workup including echocardiogram and CT coronary angiogram both of which were unremarkable. Her calcium score is 0 which makes at very low risk of significant CAD. Her chest pain does not appear to be cardiac related and most likely related to her GI symptoms versus others. Treatment of her GI GI issues including her pancreatitis as per internal medicine. Diabetic management as per internal medicine. No further cardiac workup at this point would be required. Thank you for his referral. I will follow up with you on as needed base. CHAITANYA NEVAREZ MD [facility] Problems: CHAITANYA NEVAREZ MD Aug 18, 2017 15:56
[2017-08-18 19:56] VITALS: BP 137/81; RESP 20
[2017-08-18] MEDS: TAMSULOSIN (SR) 0.4 MG CAP PO SCH (21:03)
[2017-08-18] MEDS: ACETAMINOPHEN 325 MG TAB PO PRN (21:16)
[2017-08-19 02:00] VITALS: BP 115/65; RESP 20
[2017-08-19] MEDS: ACCU-CHEK XX SCH ×5 (02:00→21:37)
[2017-08-19 06:40] LABS: BASOPHILS % 0.2 % (0.0-2.0); EOSINOPHILS # 0.3 10^3/ul (0.0-0.5); EOSINOPHILS % 5.7 % (0.0-7.0); HEMATOCRIT 39.9 % (37.0-47.0); HEMOGLOBIN 13.5 g/dl (12.0-16.0); LYMPHOCYTES # 2.2 10^3/ul (0.8-2.9); LYMPHOCYTES % 46.6 % (15.0-51.0); MEAN CORPUSCULAR HGB CONC 33.8 g/dl (32.0-37.0); MEAN CORPUSCULAR VOLUME 88.7 fl (82.0-101.0); MEAN PLATELET VOLUME 9.4 fl (7.4-10.4); MONOCYTE # 0.3 10^3/ul (0.3-0.9); MONOCYTES % 6.3 % (0.0-11.0); PLATELET COUNT 192 10^3/UL (140-415); RED CELL DISTRIBUTION WIDTH 12.8 % (11.5-14.5); WHITE BLOOD COUNT 4.8 10^3/ul (4.8-10.8)
[2017-08-19 06:51] LABS: CALCIUM 9.9 mg/dl (8.4-10.2); CREATININE 0.73 mg/dl (0.44-1.00); POTASSIUM 3.6 mmol/L (3.5-5.1)
[2017-08-19 07:22] VITALS: BP 154/91; RESP 18
[2017-08-19] MEDS: INSULIN ASPART [NOVOLOG] 3 ML PEN SC SCH ×4 (08:00→21:00)
[2017-08-19] MEDS: RISPERIDONE 2 MG TAB PO SCH ×2 (08:22→21:05)
[2017-08-19] MEDS: FAMOTIDINE 20 MG INJ IV SCH ×2 (08:22→21:05)
[2017-08-19] MEDS: AMLODIPINE 10 MG TAB PO SCH (08:23)
[2017-08-19] MEDS: ASPIRIN (EC) 81 MG TAB PO SCH (08:23)
[2017-08-19] MEDS: LAMOTRIGINE 25 MG TAB PO SCH ×2 (08:23→21:05)
[2017-08-19] MEDS: INSULIN GLARGINE [LANtus] 3 ML PEN SC SCH (08:29)
--- NOTE | 2017-08-19 09:29 | RADRPT ---
PROCEDURE: XR Abdomen. CLINICAL INDICATION: Abdomen pain. TECHNIQUE: AP supine abdomen x-ray. COMPARISON: Abdomen radiograph dated 08/16/2017. CT scan of the abdomen and pelvis dated 08/15/2017 . FINDINGS: Surgical clips are present in the right upper quadrant of the abdomen. The bowel gas pattern is normal with no evidence of obstruction. Multiple left renal calculi seen on prior CT scan are difficult to visualize due to overlying bowel contents. There are degenerative changes of the spine and hips. The osseous structures are otherwise unremarkable. IMPRESSION: 1. Prior right upper quadrant abdomen surgery. 2. Multiple left renal calculi seen on prior CT scan are difficult to visualize due to overlying farhad wel contents. 3. Degenerative changes of the spine and hips. RPTAT: QQ .Ravi Gurrola MD, Date Time Electronically viewed and signed by .Ravi Gurrola MD, on 08/19/2017 09:29 .R/
--- NOTE | 2017-08-19 11:03 | PN ---
Date/Time of Note Date/Time of Note DATE: 08/19/17 TIME: 11:03 Assessment/Plan VTE Prophylaxis VTE Prophylaxis Intervention: other Lines/Catheters [facility]from [facility] Peripheral IV Urinary Cath still in place: No Assessment/Plan Chief Complaint/Hosp Course -Atypical chest pain. Rule out acute coronary syndrome. Cardiac enzymes are negative 3 Dr. Aguilar is following in cardiology consultation -Acute biliary pancreatitis, resolving. continue to monitor amylase and lipase. Dr. Richards is following in gastroenterology consultation. -Left-sided hydronephrosis with stone in the ureter. Dr. Frost is following in neurology consultation. Continue tamsulosin continue to strain urine -Hypertension, patient is currently hypotensive. -Diabetes mellitus type 2, continue Lantus and NovoLog. -Dyslipidemia. -Possible COPD, continue breathing treatments as needed for shortness of breath. -Schizophrenia Problems: Subjective 24 Hr Interval Summary Free Text/Dictation Patient resting comfortably, in no acute distress Exam/Review of Systems Vital Signs Vitals Vital Signs Date Time Temp Pulse Resp B/P Pulse Ox O2 Delivery O2 Flow Rate FiO2 08/19/17 07:22 98.3 81 18 154/91 97 Intake and Output 08/18/17 08/18/17 08/19/17 15:00 23:00 07:00 Intake Total 2080 ml 1100 ml Balance 2080 ml 1100 ml Exam Constitutional: well developed Head: atraumatic, normocephalic Neck: supple Respiratory: clear to auscultation Cardiovascular: regular rate and rhythm Gastrointestinal: non-tender, soft Extremities: normal pulses Results Result Diagram: 08/19/17 0552 08/19/17 0552 Results 24 hrs Laboratory Tests Test 08/18/17 12:17 08/18/17 17:20 08/18/17 21:04 08/19/17 05:52 Bedside Glucose 137 71 99 White Blood Count 4.8 Red Blood Count 4.50 Hemoglobin 13.5 Hematocrit 39.9 Mean Corpuscular Volume 88.7 Mean Corpuscular Hemoglobin 30.0 Mean Corpuscular Hemoglobin Concent 33.8 Red Cell Distribution Width 12.8 Platelet Count 192 Mean Platelet Volume 9.4 Neutrophils % 41.0 Lymphocytes % 46.6 Monocytes % 6.3 Eosinophils % 5.7 Basophils % 0.2 Nucleated Red Blood Cells % 0.0 Neutrophils # 2.0 Lymphocytes # 2.2 Monocytes # 0.3 Eosinophils # 0.3 Basophils # 0.0 Nucleated Red Blood Cells # 0.0 Sodium Level 144 Potassium Level 3.6 Chloride Level 102 Carbon Dioxide Level 30 Anion Gap 16 Blood Urea Nitrogen 8 Creatinine 0.73 Glucose Level 116 Calcium Level 9.9 Lipase 371 H Test 08/19/17 08:21 Bedside Glucose 112 Medications Medications Current Medications Potassium Chloride/Dextrose/ Sod Cl (D5-1/2ns + KCl 20 Meq) 1,000 ml @ 60 mls/ hr [id number] IV Last administered on 08/18/17 19:24; Admin Dose 60 MLS/HR; Start 08/14/17 at 23:00 Ondansetron HCl (Zofran Inj) 4 mg Q6H PRN IV NAUSEA AND/OR VOMITING; Start at 23:00 Morphine Sulfate (morphine) 2 mg Q4H PRN IV PAIN LEVEL 4-7 Last administered on 08/17/17 22:00; Admin Dose 2 MG; Start 08/14/17 at 23:00 Acetaminophen (Tylenol Tab) 650 mg Q6H PRN PO PAIN AND OR ELEVATED TEMP Last administered on 08/18/17 21:16; Admin Dose 650 MG; Start 08/14/17 at 23:00 Aspirin (Halfprin) 81 mg DAILY PO Last administered on 08/19/17 08:23; Admin Dose 81 MG; Start 08/15/17 at 09:00 Insulin Glargine (Lantus) 12 unit DAILY SC Last administered on 08/19/17 08: 29; Admin Dose 12 UNIT; Start 08/15/17 at 09:00 Lamotrigine (Lamictal) 50 mg Q12 PO Last administered on 08/19/17 08:23; Admin Dose 50 MG; Start 08/15/17 at 09:00 Lorazepam (Ativan) 1 mg Q6 PRN PO ANXIETY Last administered on 08/16/17 19:45 ; Admin Dose 1 MG; Start 08/14/17 at 23:00 Risperidone (Risperdal) 2 mg BID PO Last administered on 08/19/17 08:22; Admin Dose 2 MG; Start 08/15/17 at 09:00 Miscellaneous Information 1 ea NOTE XX ; Start 08/14/17 at 23:45 Glucose (Glutose) 15 gm Q15M PRN PO DECREASED GLUCOSE; Start 08/14/17 at 23:45 Glucose (Glutose) 22.5 gm Q15M PRN PO DECREASED GLUCOSE; Start 08/14/17 at 23: 45 Dextrose (D50w Syringe) 25 ml Q15M PRN IV DECREASED GLUCOSE; Start 08/14/17 at 23:45 Dextrose (D50w Syringe) 50 ml Q15M PRN IV DECREASED GLUCOSE; Start 08/14/17 at 23:45 Glucagon (Glucagen) 1 mg Q15M PRN IM DECREASED GLUCOSE; Start 08/14/17 at 23: 45 Glucose (Glutose) 15 gm Q15M PRN BUCCAL DECREASED GLUCOSE; Start 08/14/17 at 23:45 Famotidine (Pepcid Iv) 20 mg BID IV Last administered on 08/19/17 08:22; Admin Dose 20 MG; Start 08/15/17 at 21:00 Amlodipine Besylate (Norvasc) 10 mg DAILY PO Last administered on 08/19/17 08 :23; Admin Dose 10 MG; Start 08/17/17 at 17:00 Diagnostic Test (Pha) (Accu-Chek) 1 ea 02 XX ; Start 08/19/17 at 02:00 Tamsulosin HCl (Flomax) 0.4 mg HS PO Last administered on 08/18/17 21:03; Admin Dose 0.4 MG; Start 08/18/17 at 21:00 PRASANNA DAMON Aug 19, 2017 11:03
[2017-08-19 13:55] VITALS: BP 135/81; RESP 16
[2017-08-19] MEDS: D5W-0.45 NACL + KCL 20 MEQ 1,000 ML IV SCH (14:30)
--- NOTE | 2017-08-19 16:02 | CONS ---
Date/Time of Note Date/Time of Note DATE: 08/19/17 TIME: 16:02 Assessment/Plan Assessment/Plan Additional Assessment/Plan Additional Assessment/Plan 1. Biliary pancreatitis, which resolved. 2. Diabetes mellitus. 3. Hypertension. 4. Hydronephrosis with 10 mm of stone in the kidney and 6 mm stone in the ureter. 5. Schizophrenia. Plan Patient's pancreatitis is clinically resolved and will start her on a regular diet. Continue present care Consultation Date/Type/Reason Admit Date/Time Aug 14, 2017 at 19:34 Initial Consult Date 08/15/17 Type of Consultation: card Referring Provider: TAWANA FORD MD 24 HR Interval Summary Constitutional: improved Exam/Review of Systems Vital Signs Vitals Vital Signs Date Time Temp Pulse Resp B/P Pulse Ox O2 Delivery O2 Flow Rate FiO2 08/19/17 13:55 98.0 78 16 135/81 97 Intake and Output 08/18/17 08/18/17 08/19/17 15:00 23:00 07:00 Intake Total 2080 ml 1100 ml Balance 2080 ml 1100 ml Exam Constitutional: alert, oriented, well developed Psych: nl mood/affect, no complaints Head: atraumatic, normocephalic Eyes: EOMI, PERRL, nl conjunctiva, nl lids, nl sclera ENMT: nl external ears & nose, nl lips & teeth, nl nasal mucosa & septum Neck: non-tender, supple Respiratory: clear to auscultation, normal air movement Cardiovascular: nl pulses, regular rate and rhythm Gastrointestinal: nl liver, spleen, non-tender, soft Musculoskeletal: nl extremities to inspection, nl gait and stance Extremities: normal pulses Neurological: EX[employer] II-XII intact, nl mental status, nl speech, nl strength Skin: nl turgor, No rash or lesions Lymph: nl lymph nodes Results Result Diagram: 08/19/17 0552 08/19/17 0552 Results 24 hrs Laboratory Tests Test 08/18/17 17:20 08/18/17 21:04 08/19/17 05:52 08/19/17 08:21 Bedside Glucose 71 99 112 White Blood Count 4.8 Red Blood Count 4.50 Hemoglobin 13.5 Hematocrit 39.9 Mean Corpuscular Volume 88.7 Mean Corpuscular Hemoglobin 30.0 Mean Corpuscular Hemoglobin Concent 33.8 Red Cell Distribution Width 12.8 Platelet Count 192 Mean Platelet Volume 9.4 Neutrophils % 41.0 Lymphocytes % 46.6 Monocytes % 6.3 Eosinophils % 5.7 Basophils % 0.2 Nucleated Red Blood Cells % 0.0 Neutrophils # 2.0 Lymphocytes # 2.2 Monocytes # 0.3 Eosinophils # 0.3 Basophils # 0.0 Nucleated Red Blood Cells # 0.0 Sodium Level 144 Potassium Level 3.6 Chloride Level 102 Carbon Dioxide Level 30 Anion Gap 16 Blood Urea Nitrogen 8 Creatinine 0.73 Glucose Level 116 Calcium Level 9.9 Lipase 371 H Test 08/19/17 12:26 Bedside Glucose 81 Medications Medications Current Medications Potassium Chloride/Dextrose/ Sod Cl (D5-1/2ns + KCl 20 Meq) 1,000 ml @ 60 mls/ hr [id number] IV Last administered on 08/19/17 14:30; Admin Dose 60 MLS/HR; Start 08/14/17 at 23:00 Ondansetron HCl (Zofran Inj) 4 mg Q6H PRN IV NAUSEA AND/OR VOMITING; Start at 23:00 Morphine Sulfate (morphine) 2 mg Q4H PRN IV PAIN LEVEL 4-7 Last administered on 08/17/17 22:00; Admin Dose 2 MG; Start 08/14/17 at 23:00 Acetaminophen (Tylenol Tab) 650 mg Q6H PRN PO PAIN AND OR ELEVATED TEMP Last administered on 08/18/17 21:16; Admin Dose 650 MG; Start 08/14/17 at 23:00 Aspirin (Halfprin) 81 mg DAILY PO Last administered on 08/19/17 08:23; Admin Dose 81 MG; Start 08/15/17 at 09:00 Insulin Glargine (Lantus) 12 unit DAILY SC Last administered on 08/19/17 08: 29; Admin Dose 12 UNIT; Start 08/15/17 at 09:00 Lamotrigine (Lamictal) 50 mg Q12 PO Last administered on 08/19/17 08:23; Admin Dose 50 MG; Start 08/15/17 at 09:00 Lorazepam (Ativan) 1 mg Q6 PRN PO ANXIETY Last administered on 08/16/17 19:45 ; Admin Dose 1 MG; Start 08/14/17 at 23:00 Risperidone (Risperdal) 2 mg BID PO Last administered on 08/19/17 08:22; Admin Dose 2 MG; Start 08/15/17 at 09:00 Miscellaneous Information 1 ea NOTE XX ; Start 08/14/17 at 23:45 Glucose (Glutose) 15 gm Q15M PRN PO DECREASED GLUCOSE; Start 08/14/17 at 23:45 Glucose (Glutose) 22.5 gm Q15M PRN PO DECREASED GLUCOSE; Start 08/14/17 at 23: 45 Dextrose (D50w Syringe) 25 ml Q15M PRN IV DECREASED GLUCOSE; Start 08/14/17 at 23:45 Dextrose (D50w Syringe) 50 ml Q15M PRN IV DECREASED GLUCOSE; Start 08/14/17 at 23:45 Glucagon (Glucagen) 1 mg Q15M PRN IM DECREASED GLUCOSE; Start 08/14/17 at 23: 45 Glucose (Glutose) 15 gm Q15M PRN BUCCAL DECREASED GLUCOSE; Start 08/14/17 at 23:45 Famotidine (Pepcid Iv) 20 mg BID IV Last administered on 08/19/17 08:22; Admin Dose 20 MG; Start 08/15/17 at 21:00 Amlodipine Besylate (Norvasc) 10 mg DAILY PO Last administered on 08/19/17 08 :23; Admin Dose 10 MG; Start 08/17/17 at 17:00 Diagnostic Test (Pha) (Accu-Chek) 1 ea 02 XX ; Start 08/19/17 at 02:00 Tamsulosin HCl (Flomax) 0.4 mg HS PO Last administered on 08/18/17 21:03; Admin Dose 0.4 MG; Start 08/18/17 at 21:00 JOAN BOTELLO MD Aug 19, 2017 16:02
[2017-08-19 19:21] VITALS: BP 129/84; RESP 18
--- NOTE | 2017-08-19 19:42 | CONS ---
Date/Time of Note Date/Time of Note DATE: 08/19/17 TIME: 19:38 Consult Date/Type/Reason Admit Date/Time Aug 14, 2017 at 19:34 Initial Consult Date 08/15/17 Type of Consultation: Urology Reason for Consultation Left renal and ureteral stones Ordering Provider: TAWANA FORD MD Subjective The patient states that she has pain in her chest. No abdominal pain. Objective Vital Signs Date Time Temp Pulse Resp B/P Pulse Ox O2 Delivery O2 Flow Rate FiO2 08/19/17 19:21 97.9 80 18 129/84 97 Intake and Output 08/18/17 08/18/17 08/19/17 15:00 23:00 07:00 Intake Total 2080 ml 1100 ml Balance 2080 ml 1100 ml Exam Abdomen is soft, there is no tenderness. Results/Medications Result Diagram: 08/19/17 0552 08/19/17 0552 Results 24 hrs Laboratory Tests Test 08/18/17 21:04 08/19/17 05:52 08/19/17 08:21 08/19/17 12:26 Bedside Glucose 99 112 81 White Blood Count 4.8 Red Blood Count 4.50 Hemoglobin 13.5 Hematocrit 39.9 Mean Corpuscular Volume 88.7 Mean Corpuscular Hemoglobin 30.0 Mean Corpuscular Hemoglobin Concent 33.8 Red Cell Distribution Width 12.8 Platelet Count 192 Mean Platelet Volume 9.4 Neutrophils % 41.0 Lymphocytes % 46.6 Monocytes % 6.3 Eosinophils % 5.7 Basophils % 0.2 Nucleated Red Blood Cells % 0.0 Neutrophils # 2.0 Lymphocytes # 2.2 Monocytes # 0.3 Eosinophils # 0.3 Basophils # 0.0 Nucleated Red Blood Cells # 0.0 Sodium Level 144 Potassium Level 3.6 Chloride Level 102 Carbon Dioxide Level 30 Anion Gap 16 Blood Urea Nitrogen 8 Creatinine 0.73 Glucose Level 116 Calcium Level 9.9 Lipase 371 H Test 08/19/17 17:05 Bedside Glucose 87 Medications Current Medications Potassium Chloride/Dextrose/ Sod Cl (D5-1/2ns + KCl 20 Meq) 1,000 ml @ 60 mls/ hr [id number] IV Last administered on 08/19/17t 14:30; Admin Dose 60 MLS/HR; Start 08/14/17 at 23:00 Ondansetron HCl (Zofran Inj) 4 mg Q6H PRN IV NAUSEA AND/OR VOMITING; Start at 23:00 Morphine Sulfate (morphine) 2 mg Q4H PRN IV PAIN LEVEL 4-7 Last administered on 08/17/17 22:00; Admin Dose 2 MG; Start 08/14/17 at 23:00 Acetaminophen (Tylenol Tab) 650 mg Q6H PRN PO PAIN AND OR ELEVATED TEMP Last administered on 08/18/17 21:16; Admin Dose 650 MG; Start 08/14/17 at 23:00 Aspirin (Halfprin) 81 mg DAILY PO Last administered on 08/19/17 08:23; Admin Dose 81 MG; Start 08/15/17 at 09:00 Insulin Glargine (Lantus) 12 unit DAILY SC Last administered on 08/19/17 08: 29; Admin Dose 12 UNIT; Start 08/15/17 at 09:00 Lamotrigine (Lamictal) 50 mg Q12 PO Last administered on 08/19/17 08:23; Admin Dose 50 MG; Start 08/15/17 at 09:00 Lorazepam (Ativan) 1 mg Q6 PRN PO ANXIETY Last administered on 08/16/17 19:45 ; Admin Dose 1 MG; Start 08/14/17 at 23:00 Risperidone (Risperdal) 2 mg BID PO Last administered on 08/19/17 08:22; Admin Dose 2 MG; Start 08/15/17 at 09:00 Miscellaneous Information 1 ea NOTE XX ; Start 08/14/17 at 23:45 Glucose (Glutose) 15 gm Q15M PRN PO DECREASED GLUCOSE; Start 08/14/17 at 23:45 Glucose (Glutose) 22.5 gm Q15M PRN PO DECREASED GLUCOSE; Start 08/14/17 at 23: 45 Dextrose (D50w Syringe) 25 ml Q15M PRN IV DECREASED GLUCOSE; Start 08/14/17 at 23:45 Dextrose (D50w Syringe) 50 ml Q15M PRN IV DECREASED GLUCOSE; Start 08/14/17 at 23:45 Glucagon (Glucagen) 1 mg Q15M PRN IM DECREASED GLUCOSE; Start 08/14/17 at 23: 45 Glucose (Glutose) 15 gm Q15M PRN BUCCAL DECREASED GLUCOSE; Start 08/14/17 at 23:45 Famotidine (Pepcid Iv) 20 mg BID IV Last administered on 08/19/17 08:22; Admin Dose 20 MG; Start 08/15/17 at 21:00 Amlodipine Besylate (Norvasc) 10 mg DAILY PO Last administered on 08/19/17 08 :23; Admin Dose 10 MG; Start 08/17/17 at 17:00 Diagnostic Test (Pha) (Accu-Chek) 1 ea 02 XX ; Start 08/19/17 at 02:00 Tamsulosin HCl (Flomax) 0.4 mg HS PO Last administered on 08/18/17 21:03; Admin Dose 0.4 MG; Start 08/18/17 at 21:00 Assessment/Plan Chief Complaint/Hosp Course 51-year-old female with a history of hypertension ,diabetes,high cholesterol and history of schizophrenia, she resides in a [id number] and was brought to [facility] because of chest pain. she underwent a CT scan of the abdomen and pelvis and that showed a stone in the upper left ureter with multiple stones in the renal pelvis. The 5 mm stone in the upper left ureter is not seen on the plain KUB. I ordered a repeat CT of the abdomen and pelvis without contrast to see if the stone has passed or still in the ureter. The patient is incontinent and one cannot strain the urine for the stones. Problems: KANIKA HENAO MD Aug 19, 2017 19:42
[2017-08-19] MEDS: TAMSULOSIN (SR) 0.4 MG CAP PO SCH (21:04)
[2017-08-19] MEDS: morphine 2 MG INJ IV PRN (21:06)
[2017-08-20] MEDS: ACCU-CHEK XX SCH ×5 (02:00→21:00)
[2017-08-20 02:07] VITALS: BP 127/71; RESP 18
[2017-08-20] MEDS: D5W-0.45 NACL + KCL 20 MEQ 1,000 ML IV SCH ×2 (05:34→06:41)
[2017-08-20 07:24] VITALS: BP 127/69; RESP 18
[2017-08-20] MEDS: INSULIN ASPART [NOVOLOG] 3 ML PEN SC SCH ×4 (08:00→20:53)
[2017-08-20] MEDS: INSULIN GLARGINE [LANtus] 3 ML PEN SC SCH (08:16)
[2017-08-20] MEDS: AMLODIPINE 10 MG TAB PO SCH (08:22)
[2017-08-20] MEDS: RISPERIDONE 2 MG TAB PO SCH ×2 (08:22→20:52)
[2017-08-20] MEDS: LAMOTRIGINE 25 MG TAB PO SCH ×2 (08:22→20:53)
[2017-08-20] MEDS: FAMOTIDINE 20 MG INJ IV SCH ×2 (08:22→20:52)
[2017-08-20] MEDS: ASPIRIN (EC) 81 MG TAB PO SCH (08:23)
--- NOTE | 2017-08-20 10:46 | PN ---
Date/Time of Note Date/Time of Note DATE: 08/20/17 TIME: 10:45 Assessment/Plan VTE Prophylaxis VTE Prophylaxis Intervention: other Lines/Catheters IV Catheter Type (from [facility]): Peripheral IV Urinary Cath still in place: No Assessment/Plan Chief Complaint/Hosp Course -Atypical chest pain. Rule out acute coronary syndrome. Cardiac enzymes are negative 3 Dr. Aguilar is following in cardiology consultation -Acute biliary pancreatitis, resolving. continue to monitor amylase and lipase. Dr. Richards is following in gastroenterology consultation. -Left-sided hydronephrosis with stone in the ureter. Dr. Frost is following in neurology consultation. Continue tamsulosin continue to strain urine -Hypertension, patient is currently hypotensive. -Diabetes mellitus type 2, continue Lantus and NovoLog. -Dyslipidemia. -Possible COPD, continue breathing treatments as needed for shortness of breath. -Schizophrenia Problems: Subjective 24 Hr Interval Summary Free Text/Dictation Patient complain of abdominal pain, but tolerating diet Exam/Review of Systems Vital Signs Vitals Vital Signs Date Time Temp Pulse Resp B/P Pulse Ox O2 Delivery O2 Flow Rate FiO2 08/20/17 07:24 98.0 84 18 127/69 95 Intake and Output 08/19/17 08/19/17 08/20/17 14:59 22:59 06:59 Intake Total 400 ml 1080 ml 1360 ml Balance 400 ml 1080 ml 1360 ml Exam Constitutional: well developed Head: atraumatic, normocephalic Neck: supple Respiratory: diminished breath sounds Cardiovascular: regular rate and rhythm Gastrointestinal: non-tender, soft Extremities: normal pulses Results Result Diagram: 08/19/17 0552 08/19/17 0552 Results 24 hrs Laboratory Tests Test 08/19/17 12:26 08/19/17 17:05 08/19/17 21:36 08/20/17 05:18 Bedside Glucose 81 87 105 Lipase 239 Test 08/20/17 08:11 Bedside Glucose 123 Medications Medications Current Medications Potassium Chloride/Dextrose/ Sod Cl (D5-1/2ns + KCl 20 Meq) 1,000 ml @ 60 mls/ hr [id number] IV Last administered on 08/20/17t 06:41; Admin Dose 60 MLS/HR; Start 08/14/17 at 23:00 Ondansetron HCl (Zofran Inj) 4 mg Q6H PRN IV NAUSEA AND/OR VOMITING; Start at 23:00 Morphine Sulfate (morphine) 2 mg Q4H PRN IV PAIN LEVEL 4-7 Last administered on 08/19/17 21:06; Admin Dose 2 MG; Start 08/14/17 at 23:00 Acetaminophen (Tylenol Tab) 650 mg Q6H PRN PO PAIN AND OR ELEVATED TEMP Last administered on 08/18/17 21:16; Admin Dose 650 MG; Start 08/14/17 at 23:00 Aspirin (Halfprin) 81 mg DAILY PO Last administered on 08/20/17 08:23; Admin Dose 81 MG; Start 08/15/17 at 09:00 Insulin Glargine (Lantus) 12 unit DAILY SC Last administered on 08/20/17 08: 16; Admin Dose 12 UNIT; Start 08/15/17 at 09:00 Lamotrigine (Lamictal) 50 mg Q12 PO Last administered on 08/20/17 08:22; Admin Dose 50 MG; Start 08/15/17 at 09:00 Lorazepam (Ativan) 1 mg Q6 PRN PO ANXIETY Last administered on 08/16/17 19:45 ; Admin Dose 1 MG; Start 08/14/17 at 23:00 Risperidone (Risperdal) 2 mg BID PO Last administered on 08/20/17 08:22; Admin Dose 2 MG; Start 08/15/17 at 09:00 Miscellaneous Information 1 ea NOTE XX ; Start 08/14/17 at 23:45 Glucose (Glutose) 15 gm Q15M PRN PO DECREASED GLUCOSE; Start 08/14/17 at 23:45 Glucose (Glutose) 22.5 gm Q15M PRN PO DECREASED GLUCOSE; Start 08/14/17 at 23: 45 Dextrose (D50w Syringe) 25 ml Q15M PRN IV DECREASED GLUCOSE; Start 08/14/17 at 23:45 Dextrose (D50w Syringe) 50 ml Q15M PRN IV DECREASED GLUCOSE; Start 08/14/17 at 23:45 Glucagon (Glucagen) 1 mg Q15M PRN IM DECREASED GLUCOSE; Start 08/14/17 at 23: 45 Glucose (Glutose) 15 gm Q15M PRN BUCCAL DECREASED GLUCOSE; Start 08/14/17 at 23:45 Famotidine (Pepcid Iv) 20 mg BID IV Last administered on 08/20/17 08:22; Admin Dose 20 MG; Start 08/15/17 at 21:00 Amlodipine Besylate (Norvasc) 10 mg DAILY PO Last administered on 08/20/17 08 :22; Admin Dose 10 MG; Start 08/17/17 at 17:00 Diagnostic Test (Pha) (Accu-Chek) 1 ea 02 XX ; Start 08/19/17 at 02:00 Tamsulosin HCl (Flomax) 0.4 mg HS PO Last administered on 08/19/17 21:04; Admin Dose 0.4 MG; Start 08/18/17 at 21:00 PRASANNA DAMON Aug 20, 2017 10:46
[2017-08-20] MEDS ORDERED: MAGNESIUM HYDROXIDE 30ML CUP PO PRN (11:00)
--- NOTE | 2017-08-20 13:11 | CONS ---
Date/Time of Note Date/Time of Note DATE: 08/20/17 TIME: 13:10 Assessment/Plan Assessment/Plan Additional Assessment/Plan Additional Assessment/Plan Additional Assessment/Plan 1. Biliary pancreatitis, which resolved. 2. Diabetes mellitus. 3. Hypertension. 4. Hydronephrosis with 10 mm of stone in the kidney and 6 mm stone in the ureter. 5. Schizophrenia. Plan Patient's pancreatitis is clinically resolved and will start her on a regular diet. Continue present care Last KUB was negative Consultation Date/Type/Reason Admit Date/Time Aug 14, 2017 at 19:34 Initial Consult Date 08/15/17 Type of Consultation: Urology Referring Provider: TAWANA FORD MD 24 HR Interval Summary Free Text/Dictation Patient complains of chest pain No abdominal pain no nausea no vomiting Tolerating feeding Constitutional: no complaints Exam/Review of Systems Vital Signs Vitals Vital Signs Date Time Temp Pulse Resp B/P Pulse Ox O2 Delivery O2 Flow Rate FiO2 08/20/17 07:24 98.0 84 18 127/69 95 Intake and Output 08/19/17 08/19/17 08/20/17 15:00 23:00 07:00 Intake Total 400 ml 1080 ml 1360 ml Balance 400 ml 1080 ml 1360 ml Exam Constitutional: alert, oriented, well developed Psych: nl mood/affect, no complaints Head: atraumatic, normocephalic Eyes: EOMI, PERRL, nl conjunctiva, nl lids, nl sclera ENMT: nl external ears & nose, nl lips & teeth, nl nasal mucosa & septum Neck: non-tender, supple Respiratory: clear to auscultation, normal air movement Cardiovascular: nl pulses, regular rate and rhythm Gastrointestinal: nl liver, spleen, non-tender, soft Musculoskeletal: nl extremities to inspection, nl gait and stance Extremities: normal pulses Neurological: COP EXAMINER II-XII intact, nl mental status, nl speech, nl strength Skin: nl turgor, No rash or lesions Lymph: nl lymph nodes Results Result Diagram: 08/19/17 0552 08/19/17 0552 Results 24 hrs Laboratory Tests Test 08/19/17 17:05 08/19/17 21:36 08/20/17 05:18 08/20/17 08:11 Bedside Glucose 87 105 123 Lipase 239 Test 08/20/17 12:05 Bedside Glucose 93 Medications Medications Current Medications Potassium Chloride/Dextrose/ Sod Cl (D5-1/2ns + KCl 20 Meq) 1,000 ml @ 60 mls/ hr [id number] IV Last administered on 08/20/17 06:41; Admin Dose 60 MLS/HR; Start 08/14/17 at 23:00 Ondansetron HCl (Zofran Inj) 4 mg Q6H PRN IV NAUSEA AND/OR VOMITING; Start at 23:00 Morphine Sulfate (morphine) 2 mg Q4H PRN IV PAIN LEVEL 4-7 Last administered on 08/19/17 21:06; Admin Dose 2 MG; Start 08/14/17 at 23:00 Acetaminophen (Tylenol Tab) 650 mg Q6H PRN PO PAIN AND OR ELEVATED TEMP Last administered on 08/18/17 21:16; Admin Dose 650 MG; Start 08/14/17 at 23:00 Aspirin (Halfprin) 81 mg DAILY PO Last administered on 08/20/17 08:23; Admin Dose 81 MG; Start 08/15/17 at 09:00 Insulin Glargine (Lantus) 12 unit DAILY SC Last administered on 08/20/17 08: 16; Admin Dose 12 UNIT; Start 08/15/17 at 09:00 Lamotrigine (Lamictal) 50 mg Q12 PO Last administered on 08/20/17 08:22; Admin Dose 50 MG; Start 08/15/17 at 09:00 Lorazepam (Ativan) 1 mg Q6 PRN PO ANXIETY Last administered on 08/16/17 19:45 ; Admin Dose 1 MG; Start 08/14/17 at 23:00 Risperidone (Risperdal) 2 mg BID PO Last administered on 08/20/17 08:22; Admin Dose 2 MG; Start 08/15/17 at 09:00 Miscellaneous Information 1 ea NOTE XX ; Start 08/14/17 at 23:45 Glucose (Glutose) 15 gm Q15M PRN PO DECREASED GLUCOSE; Start 08/14/17 at 23:45 Glucose (Glutose) 22.5 gm Q15M PRN PO DECREASED GLUCOSE; Start 08/14/17 at 23: 45 Dextrose (D50w Syringe) 25 ml Q15M PRN IV DECREASED GLUCOSE; Start 08/14/17 at 23:45 Dextrose (D50w Syringe) 50 ml Q15M PRN IV DECREASED GLUCOSE; Start 08/14/17 at 23:45 Glucagon (Glucagen) 1 mg Q15M PRN IM DECREASED GLUCOSE; Start 08/14/17 at 23: 45 Glucose (Glutose) 15 gm Q15M PRN BUCCAL DECREASED GLUCOSE; Start 08/14/17 at 23:45 Famotidine (Pepcid Iv) 20 mg BID IV Last administered on 08/20/17 08:22; Admin Dose 20 MG; Start 08/15/17 at 21:00 Amlodipine Besylate (Norvasc) 10 mg DAILY PO Last administered on 08/20/17 08 :22; Admin Dose 10 MG; Start 08/17/17 at 17:00 Diagnostic Test (Pha) (Accu-Chek) 1 ea 02 XX ; Start 08/19/17 at 02:00 Tamsulosin HCl (Flomax) 0.4 mg HS PO Last administered on 08/19/17 21:04; Admin Dose 0.4 MG; Start 08/18/17 at 21:00 Docusate Sodium (Colace) 100 mg BID PO ; Start 08/20/17 at 21:00 Magnesium Hydroxide (Milk Of Mag) 30 ml DAILY PRN PO CONSTIPATION; Start 08/20 at 11:00 JOAN BOTELLO MD Aug 20, 2017 13:11
--- NOTE | 2017-08-20 13:37 | RADRPT ---
PROCEDURE: CT abdomen and pelvis without IV contrast. CLINICAL INDICATION: Abdomen pain/renal stone. TECHNIQUE: CT scan of the abdomen and pelvis was performed on a [address] scanner. The patient is scanned without IV contrast. Coronal and sagittal reformatted images were obtained from the axia l source images. Images were reviewed on a high-resolution PACS workstation. DICOM images are avai lable. Total radiation dose: Total CTDIvol: 18.2 mGy. Total DLP: 1035 mGy-cm. One or more of the following dose reduction techniques were used: automated exposure control, adjustment of the mA and/or kV acc ording to patient size, or use of iterative reconstruction technique. COMPARISON: CT abdomen pelvis, 08/15/2017. FINDINGS: CT abdomen: The lung bases are clear. The heart is not enlarged without pericardial thickening or effusion. The liver is normal in size and density without focal hepatic mass or biliary dilatation. The splee n is normal in size. The stomach is partially collapsed but is grossly unremarkable. The pancreas as visualized is normal. There is status post cholecystectomy and there is no evidence of biliary dilatation. The adrenal glands are symmetrical and normal. There is 0.7 cm x 0.4 cm obstructing stone in the le ft proximal ureter, causing mild to moderate hydronephrosis of the left kidney. There are multiple stones in the calices of the left kidney. The kidneys are symmetrically normal bilaterally. No regla al mass lesion is seen.. The aorta is normal in caliber. There is no retroperitoneal lymphadenopathy. The jaya hepatis reg ion is clear. There is some fecal impaction along the colon including the rectosigmoid colon. The b owel and mesentery, as visualized, are equally unremarkable. CT pelvis: There are small inguinal hernia bilaterally, containing the fat. There is no indication of acute ap pendicitis in the right lower quadrant. The small bowel loops situated within the pelvis are unrema rkable. There are several small uterine fibroids. The female pelvic organs are normal. The pelvic sidewalls and inguinal regions are clear. No mass, lymphadenopathy is seen. No acute inflammation seen. There is somewhat diffuse thickened wall of the urinary bladder. The surrounding osseous structures are unremarkable. No osteolytic or osteoblastic lesion is detect ed. IMPRESSION: 1. 0.7 cm x 0.4 cm obstructing stone in the left proximal ureter, causing mild to moderate hydronep hrosis of the left kidney. 2. Multiple stones in the calices of the left kidney. 3. Status post cholecystectomy. 4. Somewhat diffuse thickened wall of the urinary bladder, concerning for cystitis. 5. Some fecal impaction along the colon including the rectosigmoid colon. 6. Several small uterine fibroids. 7. Small inguinal hernia bilaterally, containing the fat. RPTAT: GG .Barry Schultz MD, MD Date Time Electronically viewed and signed by .Barry Schultz MD, on 08/20/2017 13:36 .Y/
[2017-08-20 13:51] VITALS: BP 114/64; RESP 16
--- NOTE | 2017-08-20 18:30 | CONS ---
Date/Time of Note Date/Time of Note DATE: 08/20/17 TIME: 18:23 Consult Date/Type/Reason Admit Date/Time Aug 14, 2017 at 19:34 Initial Consult Date 08/15/17 Type of Consultation: Urology Reason for Consultation Left upper ureteral stone Ordering Provider: TAWANA FORD MD Subjective Pain left side of her abdomen and left flank Objective Vital Signs Date Time Temp Pulse Resp B/P Pulse Ox O2 Delivery O2 Flow Rate FiO2 08/20/17 13:51 98.1 89 16 114/64 97 Intake and Output 08/19/17 08/19/17 08/20/17 15:00 23:00 07:00 Intake Total 400 ml 1080 ml 1360 ml Balance 400 ml 1080 ml 1360 ml Exam Patient has scratches on her face, abdomen is tender on the left side. CT scan of the abdomen and pelvis showed: 1. 0.7 cm x 0.4 cm obstructing stone in the left proximal ureter, causing mild to moderate hydronephrosis of the left kidney. 2. Multiple stones in the calices of the left kidney. 3. Status post cholecystectomy. 4. Somewhat diffuse thickened wall of the urinary bladder, concerning for cystitis. 5. Some fecal impaction along the colon including the rectosigmoid colon. 6. Several small uterine fibroids. 7. Small inguinal hernia bilaterally, containing the fat. Results/Medications Result Diagram: 08/19/17 0552 08/19/17 0552 Results 24 hrs Laboratory Tests Test 08/19/17 21:36 08/20/17 05:18 08/20/17 08:11 08/20/17 12:05 Bedside Glucose 105 123 93 Lipase 239 Test 08/20/17 17:42 Bedside Glucose 78 Medications Current Medications Potassium Chloride/Dextrose/ Sod Cl (D5-1/2ns + KCl 20 Meq) 1,000 ml @ 60 mls/ hr [id number] IV Last administered on 08/20/17 06:41; Admin Dose 60 MLS/HR; Start 08/14/17 at 23:00 Ondansetron HCl (Zofran Inj) 4 mg Q6H PRN IV NAUSEA AND/OR VOMITING; Start at 23:00 Morphine Sulfate (morphine) 2 mg Q4H PRN IV PAIN LEVEL 4-7 Last administered on 08/19/17 21:06; Admin Dose 2 MG; Start 08/14/17 at 23:00 Acetaminophen (Tylenol Tab) 650 mg Q6H PRN PO PAIN AND OR ELEVATED TEMP Last administered on 08/18/17 21:16; Admin Dose 650 MG; Start 08/14/17 at 23:00 Aspirin (Halfprin) 81 mg DAILY PO Last administered on 08/20/17 08:23; Admin Dose 81 MG; Start 08/15/17 at 09:00 Insulin Glargine (Lantus) 12 unit DAILY SC Last administered on 08/20/17 08: 16; Admin Dose 12 UNIT; Start 08/15/17 at 09:00 Lamotrigine (Lamictal) 50 mg Q12 PO Last administered on 08/20/17 08:22; Admin Dose 50 MG; Start 08/15/17 at 09:00 Lorazepam (Ativan) 1 mg Q6 PRN PO ANXIETY Last administered on 08/16/17 19:45 ; Admin Dose 1 MG; Start 08/14/17 at 23:00 Risperidone (Risperdal) 2 mg BID PO Last administered on 08/20/17 08:22; Admin Dose 2 MG; Start 08/15/17 at 09:00 Miscellaneous Information 1 ea NOTE XX ; Start 08/14/17 at 23:45 Glucose (Glutose) 15 gm Q15M PRN PO DECREASED GLUCOSE; Start 08/14/17 at 23:45 Glucose (Glutose) 22.5 gm Q15M PRN PO DECREASED GLUCOSE; Start 08/14/17 at 23: 45 Dextrose (D50w Syringe) 25 ml Q15M PRN IV DECREASED GLUCOSE; Start 08/14/17 at 23:45 Dextrose (D50w Syringe) 50 ml Q15M PRN IV DECREASED GLUCOSE; Start 08/14/17 at 23:45 Glucagon (Glucagen) 1 mg Q15M PRN IM DECREASED GLUCOSE; Start 08/14/17 at 23: 45 Glucose (Glutose) 15 gm Q15M PRN BUCCAL DECREASED GLUCOSE; Start 08/14/17 at 23:45 Famotidine (Pepcid Iv) 20 mg BID IV Last administered on 08/20/17 08:22; Admin Dose 20 MG; Start 08/15/17 at 21:00 Amlodipine Besylate (Norvasc) 10 mg DAILY PO Last administered on 08/20/17 08 :22; Admin Dose 10 MG; Start 08/17/17 at 17:00 Diagnostic Test (Pha) (Accu-Chek) 1 ea 02 XX ; Start 08/19/17 at 02:00 Tamsulosin HCl (Flomax) 0.4 mg HS PO Last administered on 08/19/17 21:04; Admin Dose 0.4 MG; Start 08/18/17 at 21:00 Docusate Sodium (Colace) 100 mg BID PO ; Start 08/20/17 at 21:00 Magnesium Hydroxide (Milk Of Mag) 30 ml DAILY PRN PO CONSTIPATION; Start 08/20 at 11:00 Assessment/Plan Chief Complaint/Hosp Course 51-year-old female with a history of hypertension ,diabetes,high cholesterol and history of schizophrenia, she resides in a [id number] and was brought to [facility] because of chest pain. she underwent a CT scan of the abdomen and pelvis and that showed a stone in the upper left ureter with multiple stones in the renal pelvis. Since the stone in the upper left ureter is not seen on the plain KUB I ordered a repeat CT of the abdomen and pelvis without contrast to see if the stone has passed or still in the ureter. The CT scan showed: 1. 0.7 cm x 0.4 cm obstructing stone in the left proximal ureter, causing mild to moderate hydronephrosis of the left kidney. 2. Multiple stones in the calices of the left kidney. 3. Status post cholecystectomy. 4. Somewhat diffuse thickened wall of the urinary bladder, concerning for cystitis. 5. Some fecal impaction along the colon including the rectosigmoid colon. 6. Several small uterine fibroids. 7. Small inguinal hernia bilaterally, containing the fat. Since the stone is still in the upper ureter and obstructing I explained to the patient the need to do a cystoscopy left ureteroscopy and insertion of left ureteral JJ stent the patient seems to understand it and she is agreeable to proceed. I did try to call the next of kin on the face sheet. The first number was that of [facility] the second number they did not answer just says you have reached the number. The third number is that of a lady with same last name I left her my phone number to call back. I did schedule the patient for the procedure August 21 at 1730 p.m. Problems: KANIKA HENAO MD Aug 20, 2017 18:30
[2017-08-20 19:40] VITALS: BP 123/84; RESP 18
[2017-08-20] MEDS: DOCUSATE SODIUM 100 MG CAP PO SCH (20:52)
[2017-08-20] MEDS: TAMSULOSIN (SR) 0.4 MG CAP PO SCH (20:52)
[2017-08-21] VITALS (11 sets, daily range): BP systolic 96–141; BP diastolic 51–81; PULSE 66–98; RESP 12–22
[2017-08-21] MEDS: D5W-0.45 NACL + KCL 20 MEQ 1,000 ML IV SCH ×3 (00:18→22:27)
[2017-08-21] MEDS: ACCU-CHEK XX SCH ×6 (02:00→23:25)
[2017-08-21 06:35] LABS: BASOPHILS % 0.6 % (0.0-2.0); EOSINOPHILS # 0.3 10^3/ul (0.0-0.5); EOSINOPHILS % 4.8 % (0.0-7.0); HEMATOCRIT 37.4 % (37.0-47.0); HEMOGLOBIN 12.4 g/dl (12.0-16.0); LYMPHOCYTES # 2.1 10^3/ul (0.8-2.9); LYMPHOCYTES % 39.1 % (15.0-51.0); MEAN CORPUSCULAR HEMOGLOBIN 29.6 pg (29.0-33.0); MEAN CORPUSCULAR HGB CONC 33.2 g/dl (32.0-37.0); MEAN CORPUSCULAR VOLUME 89.3 fl (82.0-101.0); MONOCYTE # 0.4 10^3/ul (0.3-0.9); MONOCYTES % 7.9 % (0.0-11.0); NEUTROPHIL # 2.6 10^3/ul (1.6-7.5); NEUTROPHILS % 47.4 % (39.0-77.0); PLATELET COUNT 192 10^3/UL (140-415); RED BLOOD COUNT 4.19 10^6/ul (4.20-5.40); RED CELL DISTRIBUTION WIDTH 12.4 % (11.5-14.5); WHITE BLOOD COUNT 5.4 10^3/ul (4.8-10.8)
[2017-08-21 06:54] LABS: CALCIUM 9.7 mg/dl (8.4-10.2); CREATININE 0.88 mg/dl (0.44-1.00); POTASSIUM 3.6 mmol/L (3.5-5.1)
[2017-08-21] MEDS ORDERED: CEFAZOLIN 1 GM INJ ONE (07:00)
[2017-08-21] MEDS: INSULIN ASPART [NOVOLOG] 3 ML PEN SC SCH ×4 (08:00→20:58)
[2017-08-21] MEDS: ASPIRIN (EC) 81 MG TAB PO SCH (09:00)
[2017-08-21] MEDS: DOCUSATE SODIUM 100 MG CAP PO SCH ×3 (09:00→22:29)
[2017-08-21] MEDS: FAMOTIDINE 20 MG INJ IV SCH ×3 (09:23→22:30)
[2017-08-21] MEDS: RISPERIDONE 2 MG TAB PO SCH ×3 (09:26→22:30)
[2017-08-21] MEDS: LAMOTRIGINE 25 MG TAB PO SCH ×3 (09:26→22:29)
[2017-08-21] MEDS: INSULIN GLARGINE [LANtus] 3 ML PEN SC SCH (09:34)
[2017-08-21] MEDS: AMLODIPINE 10 MG TAB PO SCH (11:04)
--- NOTE | 2017-08-21 13:45 | PN ---
Date/Time of Note Date/Time of Note DATE: 08/21/17 TIME: 13:44 Assessment/Plan VTE Prophylaxis VTE Prophylaxis Intervention: SCD's Lines/Catheters IV C[facility]ter Type (from [facility]): Peripheral IV Urinary Cath still in place: No Assessment/Plan Chief Complaint/Hosp Course Pending lithotripsy today, patient complains of itching, upper extremity and facial rash, please obtain scabies scrape. Assessment/Plan -Atypical chest pain. Rule out acute coronary syndrome. Cardiac enzymes are negative 3 Dr. Aguilar is following in cardiology consultation -Acute biliary pancreatitis, resolving. continue to monitor amylase and lipase. Dr. Richards is following in gastroenterology consultation. -Left-sided hydronephrosis with stone in the ureter. Dr. Frost is following in neurology consultation. Continue tamsulosin continue to strain urine -Hypertension, patient is currently hypotensive. -Diabetes mellitus type 2, continue Lantus and NovoLog. -Dyslipidemia. -Possible COPD, continue breathing treatments as needed for shortness of breath. -Schizophrenia Further recommendations based on clinical course. Plan of care discussed with Dr. Roach Problems: Exam/Review of Systems Vital Signs Vitals Vital Signs Date Time Temp Pulse Resp B/P Pulse Ox O2 Delivery O2 Flow Rate FiO2 08/21/17 07:56 98.5 66 12 96/51 97 08/21/17 07:34 Room Air Intake and Output 08/20/17 08/20/17 08/21/17 15:00 23:00 07:00 Intake Total 1560 ml 1060 ml Balance 1560 ml 1060 ml Exam Constitutional: alert, oriented Neck: supple Respiratory: normal air movement Cardiovascular: nl pulses Gastrointestinal: soft, tender Musculoskeletal: nl extremities to inspection Extremities: normal pulses Neurological: confused Results Result Diagram: 08/21/17 0556 08/21/17 0556 Results 24 hrs Laboratory Tests Test 08/20/17 17:42 08/20/17 20:51 08/21/17 05:56 08/21/17 07:56 Bedside Glucose 78 101 91 White Blood Count 5.4 Red Blood Count 4.19 L Hemoglobin 12.4 Hematocrit 37.4 Mean Corpuscular Volume 89.3 Mean Corpuscular Hemoglobin 29.6 Mean Corpuscular Hemoglobin Concent 33.2 Red Cell Distribution Width 12.4 Platelet Count 192 Mean Platelet Volume 9.0 Neutrophils % 47.4 Lymphocytes % 39.1 Monocytes % 7.9 Eosinophils % 4.8 Basophils % 0.6 Nucleated Red Blood Cells % 0.0 Neutrophils # 2.6 Lymphocytes # 2.1 Monocytes # 0.4 Eosinophils # 0.3 Basophils # 0.0 Nucleated Red Blood Cells # 0.0 Sodium Level 144 Potassium Level 3.6 Chloride Level 104 Carbon Dioxide Level 31 Anion Gap 13 Blood Urea Nitrogen 15 Creatinine 0.88 Glucose Level 91 Calcium Level 9.7 Lipase 396 H Test 08/21/17 09:27 08/21/17 12:33 Bedside Glucose 114 93 Medications Medications Current Medications Potassium Chloride/Dextrose/ Sod Cl (D5-1/2ns + KCl 20 Meq) 1,000 ml @ 60 mls/ hr [id number] IV Last administered on 08/21/17 00:18; Admin Dose 60 MLS/HR; Start 08/14/17 at 23:00 Ondansetron HCl (Zofran Inj) 4 mg Q6H PRN IV NAUSEA AND/OR VOMITING; Start at 23:00 Morphine Sulfate (morphine) 2 mg Q4H PRN IV PAIN LEVEL 4-7 Last administered on 08/19/17 21:06; Admin Dose 2 MG; Start 08/14/17 at 23:00 Acetaminophen (Tylenol Tab) 650 mg Q6H PRN PO PAIN AND OR ELEVATED TEMP Last administered on 08/18/17 21:16; Admin Dose 650 MG; Start 08/14/17 at 23:00 Aspirin (Halfprin) 81 mg DAILY PO Last administered on 08/20/17 08:23; Admin Dose 81 MG; Start 08/15/17 at 09:00 Insulin Glargine (Lantus) 12 unit DAILY SC Last administered on 08/21/17 09: 34; Admin Dose 12 UNIT; Start 08/15/17 at 09:00 Lamotrigine (Lamictal) 50 mg Q12 PO Last administered on 08/21/17 09:26; Admin Dose 50 MG; Start 08/15/17 at 09:00 Lorazepam (Ativan) 1 mg Q6 PRN PO ANXIETY Last administered on 08/16/17 19:45 ; Admin Dose 1 MG; Start 08/14/17 at 23:00 Risperidone (Risperdal) 2 mg BID PO Last administered on 08/21/17 09:26; Admin Dose 2 MG; Start 08/15/17 at 09:00 Miscellaneous Information 1 ea NOTE XX ; Start 08/14/17 at 23:45 Glucose (Glutose) 15 gm Q15M PRN PO DECREASED GLUCOSE; Start 08/14/17 at 23:45 Glucose (Glutose) 22.5 gm Q15M PRN PO DECREASED GLUCOSE; Start 08/14/17 at 23: 45 Dextrose (D50w Syringe) 25 ml Q15M PRN IV DECREASED GLUCOSE; Start 08/14/17 at 23:45 Dextrose (D50w Syringe) 50 ml Q15M PRN IV DECREASED GLUCOSE; Start 08/14/17 at 23:45 Glucagon (Glucagen) 1 mg Q15M PRN IM DECREASED GLUCOSE; Start 08/14/17 at 23: 45 Glucose (Glutose) 15 gm Q15M PRN BUCCAL DECREASED GLUCOSE; Start 08/14/17 at 23:45 Famotidine (Pepcid Iv) 20 mg BID IV Last administered on 08/21/17 09:23; Admin Dose 20 MG; Start 08/15/17 at 21:00 Amlodipine Besylate (Norvasc) 10 mg DAILY PO Last administered on 08/21/17 11 :04; Admin Dose 10 MG; Start 08/17/17 at 17:00 Diagnostic Test (Pha) (Accu-Chek) 1 ea 02 XX ; Start 08/19/17 at 02:00 Tamsulosin HCl (Flomax) 0.4 mg HS PO Last administered on 08/20/17 20:52; Admin Dose 0.4 MG; Start 08/18/17 at 21:00 Docusate Sodium (Colace) 100 mg BID PO Last administered on 08/21/17 09:00; Admin Dose 100 MG; Start 08/20/17 at 21:00 Magnesium Hydroxide (Milk Of Mag) 30 ml DAILY PRN PO CONSTIPATION; Start 08/20 at 11:00 LINDA BEASLEY Aug 21, 2017 13:45
--- NOTE | 2017-08-21 16:13 | CONS ---
Date/Time of Note Date/Time of Note DATE: 08/21/17 TIME: 16:12 Consult Date/Type/Reason Admit Date/Time Aug 14, 2017 at 19:34 Initial Consult Date 08/15/17 Type of Consultation: card Ordering Provider: TAWANA FORD MD Subjective cardiology follow up note: S: D/w STAFF pt denies any left sided cp or sob or palpitations to me now. but she has had intermittent right sided sharp chest pain and back pain she denies abd pain to me now and states she is hungry. O: General: no acute distress HEENT: NC/AT. pupils are equal. round. NECK: NO JVD. no stridor. CV: RRR. systolic murmur; no gallop or rubs. PULM: no wheezing or rhonchi. GI: SOFT, mild tenderness, ND, no rebound or guarding Extremity: trace B/L LE edema. no clubbing. neuro: awake and alert, Psych: calm and pleasant rectal: deferred ECG NSR NORMAL CT pio angio 05/02/17: Left dominant coronary arterial system. Total calcium score: 0 Although images are partially degraded due to elevated heart rate there is no evidence of calcified or noncalcified plaque within any of the coronary arteries , all vessels appear widely patent. Objective Vital Signs Date Time Temp Pulse Resp B/P Pulse Ox O2 Delivery O2 Flow Rate FiO2 08/21/17 15:07 98.9 74 18 116/59 97 08/21/17 07:34 Room Air Intake and Output 08/20/17 08/20/17 08/21/17 14:59 22:59 06:59 Intake Total 1560 ml 1060 ml Balance 1560 ml 1060 ml Results/Medications Result Diagram: 08/21/17 0556 08/21/17 0556 Results 24 hrs Laboratory Tests Test 08/20/17 17:42 08/20/17 20:51 08/21/17 05:56 08/21/17 07:56 Bedside Glucose 78 101 91 White Blood Count 5.4 Red Blood Count 4.19 L Hemoglobin 12.4 Hematocrit 37.4 Mean Corpuscular Volume 89.3 Mean Corpuscular Hemoglobin 29.6 Mean Corpuscular Hemoglobin Concent 33.2 Red Cell Distribution Width 12.4 Platelet Count 192 Mean Platelet Volume 9.0 Neutrophils % 47.4 Lymphocytes % 39.1 Monocytes % 7.9 Eosinophils % 4.8 Basophils % 0.6 Nucleated Red Blood Cells % 0.0 Neutrophils # 2.6 Lymphocytes # 2.1 Monocytes # 0.4 Eosinophils # 0.3 Basophils # 0.0 Nucleated Red Blood Cells # 0.0 Sodium Level 144 Potassium Level 3.6 Chloride Level 104 Carbon Dioxide Level 31 Anion Gap 13 Blood Urea Nitrogen 15 Creatinine 0.88 Glucose Level 91 Calcium Level 9.7 Lipase 396 H Test 08/21/17 09:27 08/21/17 12:33 Bedside Glucose 114 93 Medications Current Medications Potassium Chloride/Dextrose/ Sod Cl (D5-1/2ns + KCl 20 Meq) 1,000 ml @ 60 mls/ hr [id number] IV Last administered on 08/21/17 00:18; Admin Dose 60 MLS/HR; Start 08/14/17 at 23:00 Ondansetron HCl (Zofran Inj) 4 mg Q6H PRN IV NAUSEA AND/OR VOMITING; Start at 23:00 Morphine Sulfate (morphine) 2 mg Q4H PRN IV PAIN LEVEL 4-7 Last administered on 08/19/17 21:06; Admin Dose 2 MG; Start 08/14/17 at 23:00 Acetaminophen (Tylenol Tab) 650 mg Q6H PRN PO PAIN AND OR ELEVATED TEMP Last administered on 08/18/17 21:16; Admin Dose 650 MG; Start 08/14/17 at 23:00 Aspirin (Halfprin) 81 mg DAILY PO Last administered on 08/20/17 08:23; Admin Dose 81 MG; Start 08/15/17 at 09:00 Insulin Glargine (Lantus) 12 unit DAILY SC Last administered on 08/21/17 09: 34; Admin Dose 12 UNIT; Start 08/15/17 at 09:00 Lamotrigine (Lamictal) 50 mg Q12 PO Last administered on 08/21/17 09:26; Admin Dose 50 MG; Start 08/15/17 at 09:00 Lorazepam (Ativan) 1 mg Q6 PRN PO ANXIETY Last administered on 08/16/17 19:45 ; Admin Dose 1 MG; Start 08/14/17 at 23:00 Risperidone (Risperdal) 2 mg BID PO Last administered on 08/21/17 09:26; Admin Dose 2 MG; Start 08/15/17 at 09:00 Miscellaneous Information 1 ea NOTE XX ; Start 08/14/17 at 23:45 Glucose (Glutose) 15 gm Q15M PRN PO DECREASED GLUCOSE; Start 08/14/17 at 23:45 Glucose (Glutose) 22.5 gm Q15M PRN PO DECREASED GLUCOSE; Start 08/14/17 at 23: 45 Dextrose (D50w Syringe) 25 ml Q15M PRN IV DECREASED GLUCOSE; Start 08/14/17 at 23:45 Dextrose (D50w Syringe) 50 ml Q15M PRN IV DECREASED GLUCOSE; Start 08/14/17 at 23:45 Glucagon (Glucagen) 1 mg Q15M PRN IM DECREASED GLUCOSE; Start 08/14/17 at 23: 45 Glucose (Glutose) 15 gm Q15M PRN BUCCAL DECREASED GLUCOSE; Start 08/14/17 at 23:45 Famotidine (Pepcid Iv) 20 mg BID IV Last administered on 08/21/17 09:23; Admin Dose 20 MG; Start 08/15/17 at 21:00 Amlodipine Besylate (Norvasc) 10 mg DAILY PO Last administered on 08/21/17 11 :04; Admin Dose 10 MG; Start 08/17/17 at 17:00 Diagnostic Test (Pha) (Accu-Chek) 1 ea 02 XX ; Start 08/19/17 at 02:00 Tamsulosin HCl (Flomax) 0.4 mg HS PO Last administered on 08/20/17 20:52; Admin Dose 0.4 MG; Start 08/18/17 at 21:00 Docusate Sodium (Colace) 100 mg BID PO Last administered on 08/21/17 09:00; Admin Dose 100 MG; Start 08/20/17 at 21:00 Magnesium Hydroxide (Milk Of Mag) 30 ml DAILY PRN PO CONSTIPATION; Start 08/20 at 11:00 Assessment/Plan Chief Complaint/Hosp Course 1. nonanginal chest pain: improved 2. acute pancreatitis 3. HTN 4. DM 5. Psych disorder Patient has previously had cardiac workup including echocardiogram and CT coronary angiogram both of which were unremarkable. Her calcium score is 0 which makes at very low risk of significant CAD. Her right sided chest pain does not appear to be cardiac related and most likely related to her GI symptoms versus others. Treatment of her GI GI issues including her pancreatitis as per internal medicine. Diabetic management as per internal medicine. Thank you for his referral. I will follow up with you on as needed base. CHAITANYA NEVAREZ MD FACC Problems: CHAITANYA NEVAREZ MD Aug 21, 2017 16:13
--- NOTE | 2017-08-21 19:07 | CONS ---
Date/Time of Note Date/Time of Note DATE: 08/21/17 TIME: 19:05 Assessment/Plan Assessment/Plan Additional Assessment/Plan Additional Assessment/Plan 1. Biliary pancreatitis, which resolved. Repeat CT is negative for pancreatitis and also negative for biliary dilatation 2. Diabetes mellitus. 3. Hypertension. 4. Hydronephrosis with 10 mm of stone in the kidney and 6 mm stone in the ureter. Plan Patient is scheduled for lithotripsy and removal of the ureteral stone Continue low-fat diet after the procedure if okay with the surgeon Consultation Date/Type/Reason Admit Date/Time Aug 14, 2017 at 19:34 Initial Consult Date 08/15/17 Type of Consultation: card Referring Provider: TAWANA FORD MD 24 HR Interval Summary Constitutional: improved Exam/Review of Systems Vital Signs Vitals Vital Signs Date Time Temp Pulse Resp B/P Pulse Ox O2 Delivery O2 Flow Rate FiO2 08/21/17 15:07 98.9 74 18 116/59 97 08/21/17 07:34 Room Air Intake and Output 08/20/17 08/20/17 08/21/17 15:00 23:00 07:00 Intake Total 1560 ml 1060 ml Balance 1560 ml 1060 ml Exam Constitutional: alert, oriented, well developed Psych: nl mood/affect, no complaints Head: atraumatic, normocephalic Eyes: EOMI, PERRL, nl conjunctiva, nl lids, nl sclera ENMT: nl external ears & nose, nl lips & teeth, nl nasal mucosa & septum Neck: non-tender, supple Respiratory: clear to auscultation, normal air movement Cardiovascular: nl pulses, regular rate and rhythm Gastrointestinal: nl liver, spleen, non-tender, soft Musculoskeletal: nl extremities to inspection, nl gait and stance Extremities: normal pulses Neurological: PACKAGE CHECKER II-XII intact, nl mental status, nl speech, nl strength Skin: nl turgor, No rash or lesions Lymph: nl lymph nodes Results Result Diagram: 08/21/17 0556 08/21/17 0556 Results 24 hrs Laboratory Tests Test 08/20/17 20:51 08/21/17 05:56 08/21/17 07:56 08/21/17 09:27 Bedside Glucose 101 91 114 White Blood Count 5.4 Red Blood Count 4.19 L Hemoglobin 12.4 Hematocrit 37.4 Mean Corpuscular Volume 89.3 Mean Corpuscular Hemoglobin 29.6 Mean Corpuscular Hemoglobin Concent 33.2 Red Cell Distribution Width 12.4 Platelet Count 192 Mean Platelet Volume 9.0 Neutrophils % 47.4 Lymphocytes % 39.1 Monocytes % 7.9 Eosinophils % 4.8 Basophils % 0.6 Nucleated Red Blood Cells % 0.0 Neutrophils # 2.6 Lymphocytes # 2.1 Monocytes # 0.4 Eosinophils # 0.3 Basophils # 0.0 Nucleated Red Blood Cells # 0.0 Sodium Level 144 Potassium Level 3.6 Chloride Level 104 Carbon Dioxide Level 31 Anion Gap 13 Blood Urea Nitrogen 15 Creatinine 0.88 Glucose Level 91 Calcium Level 9.7 Lipase 396 H Test 08/21/17 12:33 08/21/17 16:47 Bedside Glucose 93 82 Medications Medications Current Medications Potassium Chloride/Dextrose/ Sod Cl (D5-1/2ns + KCl 20 Meq) 1,000 ml @ 60 mls/ hr [id number] IV Last administered on 08/21/17 17:16; Admin Dose 60 MLS/HR; Start 08/14/17 at 23:00 Ondansetron HCl (Zofran Inj) 4 mg Q6H PRN IV NAUSEA AND/OR VOMITING; Start at 23:00 Morphine Sulfate (morphine) 2 mg Q4H PRN IV PAIN LEVEL 4-7 Last administered on 08/19/17 21:06; Admin Dose 2 MG; Start 08/14/17 at 23:00 Acetaminophen (Tylenol Tab) 650 mg Q6H PRN PO PAIN AND OR ELEVATED TEMP Last administered on 08/18/17 21:16; Admin Dose 650 MG; Start 08/14/17 at 23:00 Aspirin (Halfprin) 81 mg DAILY PO Last administered on 08/20/17 08:23; Admin Dose 81 MG; Start 08/15/17 at 09:00 Insulin Glargine (Lantus) 12 unit DAILY SC Last administered on 08/21/17 09: 34; Admin Dose 12 UNIT; Start 08/15/17 at 09:00 Lamotrigine (Lamictal) 50 mg Q12 PO Last administered on 08/21/17 09:26; Admin Dose 50 MG; Start 08/15/17 at 09:00 Lorazepam (Ativan) 1 mg Q6 PRN PO ANXIETY Last administered on 08/16/17 19:45 ; Admin Dose 1 MG; Start 08/14/17 at 23:00 Risperidone (Risperdal) 2 mg BID PO Last administered on 08/21/17 09:26; Admin Dose 2 MG; Start 08/15/17 at 09:00 Miscellaneous Information 1 ea NOTE XX ; Start 08/14/17 at 23:45 Glucose (Glutose) 15 gm Q15M PRN PO DECREASED GLUCOSE; Start 08/14/17 at 23:45 Glucose (Glutose) 22.5 gm Q15M PRN PO DECREASED GLUCOSE; Start 08/14/17 at 23: 45 Dextrose (D50w Syringe) 25 ml Q15M PRN IV DECREASED GLUCOSE; Start 08/14/17 at 23:45 Dextrose (D50w Syringe) 50 ml Q15M PRN IV DECREASED GLUCOSE; Start 08/14/17 at 23:45 Glucagon (Glucagen) 1 mg Q15M PRN IM DECREASED GLUCOSE; Start 08/14/17 at 23: 45 Glucose (Glutose) 15 gm Q15M PRN BUCCAL DECREASED GLUCOSE; Start 08/14/17 at 23:45 Famotidine (Pepcid Iv) 20 mg BID IV Last administered on 08/21/17 09:23; Admin Dose 20 MG; Start 08/15/17 at 21:00 Amlodipine Besylate (Norvasc) 10 mg DAILY PO Last administered on 08/21/17 11 :04; Admin Dose 10 MG; Start 08/17/17 at 17:00 Diagnostic Test (Pha) (Accu-Chek) 1 ea 02 XX ; Start 08/19/17 at 02:00 Tamsulosin HCl (Flomax) 0.4 mg HS PO Last administered on 08/20/17 20:52; Admin Dose 0.4 MG; Start 08/18/17 at 21:00 Docusate Sodium (Colace) 100 mg BID PO Last administered on 08/21/17 09:00; Admin Dose 100 MG; Start 08/20/17 at 21:00 Magnesium Hydroxide (Milk Of Mag) 30 ml DAILY PRN PO CONSTIPATION; Start 08/20 at 11:00 JOAN BOTELLO MD Aug 21, 2017 19:07
[2017-08-21] MEDS ORDERED: PROPOFOL 20 ML ONE (19:23)
[2017-08-21] MEDS ORDERED: METOCLOPRAMIDE 10 MG INJ ONE (19:24)
[2017-08-21] MEDS ORDERED: MIDAZOLAM 1 MG/ML 2 ML INJ ONE (19:24)
[2017-08-21] MEDS ORDERED: FENTAnyl 50 MCG/ML VIAL ONE (19:27)
[2017-08-21] MEDS ORDERED: ONDANSETRON 4 MG INJ ONE (19:28)
[2017-08-21] MEDS ORDERED: IOHEXOL 300MG/ML 30 ML BTL ONE (19:33)
[2017-08-21] MEDS ORDERED: DIPHENHYDRAMINE 50 MG INJ IV PRN (20:00)
[2017-08-21] MEDS ORDERED: HYDROmorphONE (0.2 MG/ML) 10ML SYG IV PRN ×3 (20:00)
[2017-08-21] MEDS ORDERED: ONDANSETRON 4 MG INJ IV PRN (20:00)
[2017-08-21] MEDS ORDERED: MEPERIDINE 25 MG INJ IV PRN (20:00)
[2017-08-21] MEDS ORDERED: EPINEPHrine 0.1 MG/ML SYG ONE (20:40)
[2017-08-21] MEDS: TAMSULOSIN (SR) 0.4 MG CAP PO SCH (20:58)
--- NOTE | 2017-08-21 21:19 | OPR ---
Date/Time of Note Date/Time of Note DATE: 08/21/17 TIME: 21:09 Operative Report Procedure Date: Aug 21, 2017 Preoperative Diagnosis Left upper ureteral stone Postoperative Diagnosis Left upper ureteral stone Operation/Procedure Performed Cystoscopy left ureteroscopy and insertion of left ureteral JJ stent 6 Greek by 22 cm long Surgeon see signature line Model Maker Scale None Anesthesia Type: general Anesthesiologist: SHANNON BAIRES MD Estimated Blood Loss: none Transfusion none Specimen Urine for culture and sensitivity Grafts/Implants none Complications none Pt Condition Post Procedure: stable Disposition: PACU Indications Left upper ureteral stone Procedure Description Patient was brought to the operating room general anesthesia was given. Patient was given 2 g of Ancef IV at the start of the procedure. Timeout was done and the patient was identified by her name birthdate and the procedure and the side of the procedure. The patient was positioned in the lithotomy position. The genital area was prepped and draped in the usual sterile manner. #21 Greek cystoscope sheath was introduced into the bladder and urine was collected for culture and sensitivity. The left ureteral orifice was then cannulated was a 5 Greek open ended and a 0.035 zip wire was advanced through the open ended into the left ureter and once it reached the upper ureter it did go by the stone but then when I advanced the open ended to the level of the stone the stone moved back into the kidney. The open-ended was removed and the cystoscope was also removed. A dual lumen ureteral catheter was then advanced on the zip wire and through the second working channel I passed a 0.[address] up to the kidney. The dual-lumen was then removed and the sensor wire was used as a safety wire. The zip wire was used to advance an access sheath on it however the access sheath would not advance beyond a few centimeter of the distal left ureter. I removed the access sheath and then used the rigid ureteroscope and I was able to advance the rigid ureteroscope all the way up as far it goes to the upper ureter. I thought that would have helped dilate the ureter however as I tried a second time to pass the access sheath the access sheath would not advance then I repeated the ureteroscopy with the longer rigid ureteroscope and I was able to reach the kidney with it. The ureter itself was a clear of any stone. I tried to see if I could pass the access sheath and the distal ureter which I did but it would not advance over the sacroiliac area. I used the digital flexible ureteroscope and attempted to pass it up the ureter on the sensor wire. It would not advance. At that moment I decided to just put the JJ stent with the hope that that will dilate the ureter and we could repeat the procedure another time or if we can see the stone on fluoroscopy then do extracorporeal shockwave lithotripsy at a later date. I reintroduced the cystoscope on the safety wire and on the same wire I advanced a 6 Greek by 22 cm long JJ stent. The proximal end curled into the kidney and the distal end curled into the bladder. The patient was transferred to the recovery room in a stable and satisfactory condition. KANIKA HENAO MD Aug 21, 2017 21:19
[2017-08-21] MEDS: CEFAZOLIN 1 GM/50 ML (PMX) 50 ML IVPB SCH (22:28)
[2017-08-22 02:13] VITALS: BP 104/65; RESP 18
[2017-08-22] MEDS: CEFAZOLIN 1 GM/50 ML (PMX) 50 ML IVPB SCH ×3 (05:48→21:00)
[2017-08-22 06:43] LABS: BASOPHILS % 0.4 % (0.0-2.0); EOSINOPHILS # 0.2 10^3/ul (0.0-0.5); EOSINOPHILS % 3.1 % (0.0-7.0); HEMATOCRIT 34.2 % (37.0-47.0); HEMOGLOBIN 11.5 g/dl (12.0-16.0); LYMPHOCYTES # 1.9 10^3/ul (0.8-2.9); LYMPHOCYTES % 28.3 % (15.0-51.0); MEAN CORPUSCULAR HEMOGLOBIN 30.1 pg (29.0-33.0); MEAN CORPUSCULAR HGB CONC 33.6 g/dl (32.0-37.0); MEAN CORPUSCULAR VOLUME 89.5 fl (82.0-101.0); MEAN PLATELET VOLUME 9.2 fl (7.4-10.4); MONOCYTE # 0.5 10^3/ul (0.3-0.9); MONOCYTES % 7.3 % (0.0-11.0); NEUTROPHIL # 4.2 10^3/ul (1.6-7.5); NEUTROPHILS % 60.6 % (39.0-77.0); PLATELET COUNT 172 10^3/UL (140-415); RED BLOOD COUNT 3.82 10^6/ul (4.20-5.40); RED CELL DISTRIBUTION WIDTH 12.6 % (11.5-14.5); WHITE BLOOD COUNT 6.9 10^3/ul (4.8-10.8)
[2017-08-22 07:18] LABS: CALCIUM 9.3 mg/dl (8.4-10.2); CREATININE 0.9 mg/dl (0.44-1.00); POTASSIUM 3.8 mmol/L (3.5-5.1)
[2017-08-22 07:32] VITALS: BP 110/64; RESP 20
[2017-08-22] MEDS: D5W-0.45 NACL + KCL 20 MEQ 1,000 ML IV SCH ×2 (07:34→13:59)
[2017-08-22] MEDS: ACCU-CHEK XX SCH ×4 (07:51→20:55)
[2017-08-22] MEDS: INSULIN ASPART [NOVOLOG] 3 ML PEN SC SCH ×4 (07:52→20:54)
--- NOTE | 2017-08-22 08:06 | RADRPT ---
PROCEDURE: X-ray cystoscopy with retrograde urogram CLINICAL INDICATION: Left renal collecting system stone. TECHNIQUE: X-ray images were obtained intraoperatively during a cystoscopy and retrograde urogram procedure. Fluoroscopy time: 4.42 min Number of images/sequences:11 COMPARISON: CT 08/20/2017. FINDINGS: X-ray images were obtained intraoperatively for localization during a cystoscopy and left retrograde urogram procedure. Left double-J ureteric stent was placed. Procedure was performed by Dr. Frost. IMPRESSION: 1. X-ray images and fluoroscopic guidance utilized intraoperatively for localization during a cysto scopy and left retrograde urogram with stent placement procedure. 2. Please refer to the procedural/operative report. RPTAT: [facility]EE Physician Kanika Date Time Electronically viewed and signed by Physician Kanika on 08/22/2017 08:05 PH/
[2017-08-22] MEDS: ASPIRIN (EC) 81 MG TAB PO SCH (09:15)
[2017-08-22] MEDS: LAMOTRIGINE 25 MG TAB PO SCH ×2 (09:15→20:44)
[2017-08-22] MEDS: FAMOTIDINE 20 MG INJ IV SCH ×2 (09:15→20:44)
[2017-08-22] MEDS: RISPERIDONE 2 MG TAB PO SCH ×2 (09:16→20:44)
[2017-08-22] MEDS: DOCUSATE SODIUM 100 MG CAP PO SCH ×2 (09:16→20:44)
[2017-08-22] MEDS: AMLODIPINE 10 MG TAB PO SCH (09:16)
--- NOTE | 2017-08-22 09:48 | RADRPT ---
PROCEDURE: XR ABDOMEN. CLINICAL INDICATION: Flank pain and left renal stones TECHNIQUE: 3 views of the abdomen were obtained. COMPARISON: CT 08/20/2017; DR ABDOMEN 08/19/2017 FINDINGS: There is nonspecific bowel gas pattern. No evidence of obstruction. No evidence of air-fluid levels. Stool and air is noted throughout large bowel. No evidence of subdiaphragmatic free air. There is a left-sided double-J ureteric stent. No definitive radiopaque stones noted at this time. Status post cholecystectomy. Degenerative changes of the spine is noted.. IMPRESSION: 1. Left-sided double-J ureteric stent in place. No definitive ureteric radiopaque stones is visualiz able on KUB. 2. Constipation. RPTAT: AAPP Physician Becki Date Time Electronically viewed and signed by Physician Becki on 08/22/2017 09:48 DEV/
[2017-08-22] MEDS: INSULIN GLARGINE [LANtus] 3 ML PEN SC SCH (09:52)
[2017-08-22 13:31] VITALS: BP 101/64; RESP 20
--- NOTE | 2017-08-22 15:29 | CONS ---
Date/Time of Note Date/Time of Note DATE: 08/22/17 TIME: 15:27 Consult Date/Type/Reason Admit Date/Time Aug 14, 2017 at 19:34 Initial Consult Date 08/15/17 Type of Consultation: card Ordering Provider: TAWANA FORD MD Subjective cardiology follow up note: S: D/w STAFF pt denies any left sided cp or sob or palpitations to me now. but she has had intermittent right sided sharp chest pain and back pain she denies abd pain to me now and states she is hungry. S/P CYSTOSCOPY 08/21 O: General: no acute distress HEENT: NC/AT. pupils are equal. round. NECK: NO JVD. no stridor. CV: RRR. systolic murmur; no gallop or rubs. PULM: no wheezing or rhonchi. GI: SOFT, mild tenderness, ND, no rebound or guarding Extremity: trace B/L LE edema. no clubbing. neuro: awake and alert, Psych: calm and pleasant rectal: deferred ECG NSR NORMAL CT pio angio 05/02/17: Left dominant coronary arterial system. Total calcium score: 0 Although images are partially degraded due to elevated heart rate there is no evidence of calcified or noncalcified plaque within any of the coronary arteries , all vessels appear widely patent. Objective Vital Signs Date Time Temp Pulse Resp B/P Pulse Ox O2 Delivery O2 Flow Rate FiO2 08/22/17 13:31 98.3 82 20 101/64 95 08/21/17 21:32 Room Air Intake and Output 08/21/17 08/21/17 08/22/17 15:00 23:00 07:00 Intake Total 1300 ml 520 ml Output Total 0 ml Balance 1300 ml 520 ml Results/Medications Result Diagram: 08/22/17 0607 08/22/17 0607 Results 24 hrs Laboratory Tests Test 08/21/17 16:47 08/21/17 21:39 08/22/17 06:07 08/22/17 07:51 Bedside Glucose 82 89 81 White Blood Count 6.9 # Red Blood Count 3.82 L Hemoglobin 11.5 L Hematocrit 34.2 L Mean Corpuscular Volume 89.5 Mean Corpuscular Hemoglobin 30.1 Mean Corpuscular Hemoglobin Concent 33.6 Red Cell Distribution Width 12.6 Platelet Count 172 Mean Platelet Volume 9.2 Neutrophils % 60.6 Lymphocytes % 28.3 Monocytes % 7.3 Eosinophils % 3.1 Basophils % 0.4 Nucleated Red Blood Cells % 0.0 Neutrophils # 4.2 Lymphocytes # 1.9 Monocytes # 0.5 Eosinophils # 0.2 Basophils # 0.0 Nucleated Red Blood Cells # 0.0 Sodium Level 144 Potassium Level 3.8 Chloride Level 103 Carbon Dioxide Level 32 H Anion Gap 13 Blood Urea Nitrogen 16 Creatinine 0.90 Glucose Level 82 Calcium Level 9.3 Test 08/22/17 09:51 08/22/17 12:01 Bedside Glucose 153 112 Medications Current Medications Potassium Chloride/Dextrose/ Sod Cl (D5-1/2ns + KCl 20 Meq) 1,000 ml @ 60 mls/ hr [id number] IV Last administered on 08/22/17 13:59; Admin Dose 60 MLS/HR; Start 08/14/17 at 23:00 Ondansetron HCl (Zofran Inj) 4 mg Q6H PRN IV NAUSEA AND/OR VOMITING; Start at 23:00 Morphine Sulfate (morphine) 2 mg Q4H PRN IV PAIN LEVEL 4-7 Last administered on 08/19/17 21:06; Admin Dose 2 MG; Start 08/14/17 at 23:00 Acetaminophen (Tylenol Tab) 650 mg Q6H PRN PO PAIN AND OR ELEVATED TEMP Last administered on 08/18/17 21:16; Admin Dose 650 MG; Start 08/14/17 at 23:00 Aspirin (Halfprin) 81 mg DAILY PO Last administered on 08/22/17 09:15; Admin Dose 81 MG; Start 08/15/17 at 09:00 Insulin Glargine (Lantus) 12 unit DAILY SC Last administered on 08/22/17 09: 52; Admin Dose 12 UNIT; Start 08/15/17 at 09:00 Lamotrigine (Lamictal) 50 mg Q12 PO Last administered on 08/22/17 09:15; Admin Dose 50 MG; Start 08/15/17 at 09:00 Lorazepam (Ativan) 1 mg Q6 PRN PO ANXIETY Last administered on 08/16/17 19:45 ; Admin Dose 1 MG; Start 08/14/17 at 23:00 Risperidone (Risperdal) 2 mg BID PO Last administered on 08/22/17 09:16; Admin Dose 2 MG; Start 08/15/17 at 09:00 Miscellaneous Information 1 ea NOTE XX ; Start 08/14/17 at 23:45 Glucose (Glutose) 15 gm Q15M PRN PO DECREASED GLUCOSE; Start 08/14/17 at 23:45 Glucose (Glutose) 22.5 gm Q15M PRN PO DECREASED GLUCOSE; Start 08/14/17 at 23: 45 Dextrose (D50w Syringe) 25 ml Q15M PRN IV DECREASED GLUCOSE; Start 08/14/17 at 23:45 Dextrose (D50w Syringe) 50 ml Q15M PRN IV DECREASED GLUCOSE; Start 08/14/17 at 23:45 Glucagon (Glucagen) 1 mg Q15M PRN IM DECREASED GLUCOSE; Start 08/14/17 at 23: 45 Glucose (Glutose) 15 gm Q15M PRN BUCCAL DECREASED GLUCOSE; Start 08/14/17 at 23:45 Famotidine (Pepcid Iv) 20 mg BID IV Last administered on 08/22/17 09:15; Admin Dose 20 MG; Start 08/15/17 at 21:00 Amlodipine Besylate (Norvasc) 10 mg DAILY PO Last administered on 08/22/17 09 :16; Admin Dose 10 MG; Start 08/17/17 at 17:00 Diagnostic Test (Pha) (Accu-Chek) 1 ea 02 XX ; Start 08/19/17 at 02:00 Docusate Sodium (Colace) 100 mg BID PO Last administered on 08/22/17 09:16; Admin Dose 100 MG; Start 08/20/17 at 21:00 Magnesium Hydroxide 30 ml 30 ml DAILY PRN PO CONSTIPATION; Start 08/20/17 at 11:00 Cefazolin Sodium (Ancef 1 Gm/50 ml (Pmx)) 50 ml @ 100 mls/hr Q8 IVPB Last administered on 08/22/17 13:58; Admin Dose 100 MLS/HR; Start 08/21/17 at 22: 00 Assessment/Plan Chief Complaint/Hosp Course 1. nonanginal chest pain: improved 2. acute pancreatitis 3. HTN 4. DM 5. Psych disorder 6. S/P cystoscopy: f/u rec Patient has previously had cardiac workup including echocardiogram and CT coronary angiogram both of which were unremarkable. Her calcium score is 0 which makes at very low risk of significant CAD. Her right sided chest pain does not appear to be cardiac related and most likely related to her GI symptoms versus others. Treatment of her GI GI issues including her pancreatitis as per internal medicine. Diabetic management as per internal medicine. Thank you for his referral. I will follow up with you on as needed base. CHAITANYA NEVAREZ MD [facility] Problems: CHAITANYA NEVAREZ MD Aug 22, 2017 15:29
--- NOTE | 2017-08-22 16:10 | PN ---
Date/Time of Note Date/Time of Note DATE: 08/22/17 TIME: 16:07 Assessment/Plan VTE Prophylaxis VTE Prophylaxis Intervention: SCD's Lines/Catheters IV [facility]ter [facility] (from [facility]): Peripheral IV Urinary Cath still in place: No Assessment/Plan Chief Complaint/Hosp Course Patient is status post cystoscopy yesterday, remains hemodynamically stable Assessment/Plan -Atypical chest pain. Rule out acute coronary syndrome. Cardiac enzymes are negative 3 Dr. Aguilar is following in cardiology consultation -Acute biliary pancreatitis, resolving. continue to monitor amylase and lipase. Dr. Richards is following in gastroenterology consultation. -Left-sided hydronephrosis with stone in the ureter. S/p cystoscopy, left ureteroscopy, and insertion of left ureteral JJ stent by Dr. Frost on 08/21. -Hypertension, patient is currently hypotensive. -Diabetes mellitus type 2, continue Lantus and NovoLog. -Dyslipidemia. -Possible COPD, continue breathing treatments as needed for shortness of breath. -Schizophrenia -Facial and upper extremities rash, pending scabies scrapes Further recommendations based on clinical course. Plan of care discussed with Dr. Roach Problems: Exam/Review of Systems Vital Signs Vitals Vital Signs Date Time Temp Pulse Resp B/P Pulse Ox O2 Delivery O2 Flow Rate FiO2 08/22/17 13:31 98.3 82 20 101/64 95 08/21/17 21:32 Room Air Intake and Output 08/21/17 08/21/17 08/22/17 15:00 23:00 07:00 Intake Total 1300 ml 520 ml Output Total 0 ml Balance 1300 ml 520 ml Exam Constitutional: alert, oriented Neck: supple Respiratory: normal air movement Cardiovascular: nl pulses Gastrointestinal: soft, tender Musculoskeletal: nl extremities to inspection Extremities: normal pulses Neurological: confused Results Result Diagram: 08/22/17 0607 08/22/17 0607 Results 24 hrs Laboratory Tests Test 08/21/17 16:47 08/21/17 21:39 08/22/17 06:07 08/22/17 07:51 Bedside Glucose 82 89 81 White Blood Count 6.9 # Red Blood Count 3.82 L Hemoglobin 11.5 L Hematocrit 34.2 L Mean Corpuscular Volume 89.5 Mean Corpuscular Hemoglobin 30.1 Mean Corpuscular Hemoglobin Concent 33.6 Red Cell Distribution Width 12.6 Platelet Count 172 Mean Platelet Volume 9.2 Neutrophils % 60.6 Lymphocytes % 28.3 Monocytes % 7.3 Eosinophils % 3.1 Basophils % 0.4 Nucleated Red Blood Cells % 0.0 Neutrophils # 4.2 Lymphocytes # 1.9 Monocytes # 0.5 Eosinophils # 0.2 Basophils # 0.0 Nucleated Red Blood Cells # 0.0 Sodium Level 144 Potassium Level 3.8 Chloride Level 103 Carbon Dioxide Level 32 H Anion Gap 13 Blood Urea Nitrogen 16 Creatinine 0.90 Glucose Level 82 Calcium Level 9.3 Test 08/22/17 09:51 08/22/17 12:01 Bedside Glucose 153 112 Medications Medications Current Medications Potassium Chloride/Dextrose/ Sod Cl (D5-1/2ns + KCl 20 Meq) 1,000 ml @ 60 mls/ hr [id number] IV Last administered on 08/22/17 13:59; Admin Dose 60 MLS/HR; Start 08/14/17 at 23:00 Ondansetron HCl (Zofran Inj) 4 mg Q6H PRN IV NAUSEA AND/OR VOMITING; Start at 23:00 Morphine Sulfate (morphine) 2 mg Q4H PRN IV PAIN LEVEL 4-7 Last administered on 08/19/17 21:06; Admin Dose 2 MG; Start 08/14/17 at 23:00 Acetaminophen (Tylenol Tab) 650 mg Q6H PRN PO PAIN AND OR ELEVATED TEMP Last administered on 08/18/17 21:16; Admin Dose 650 MG; Start 08/14/17 at 23:00 Aspirin (Halfprin) 81 mg DAILY PO Last administered on 08/22/17 09:15; Admin Dose 81 MG; Start 08/15/17 at 09:00 Insulin Glargine (Lantus) 12 unit DAILY SC Last administered on 08/22/17 09: 52; Admin Dose 12 UNIT; Start 08/15/17 at 09:00 Lamotrigine (Lamictal) 50 mg Q12 PO Last administered on 08/22/17 09:15; Admin Dose 50 MG; Start 08/15/17 at 09:00 Lorazepam (Ativan) 1 mg Q6 PRN PO ANXIETY Last administered on 08/16/17 19:45 ; Admin Dose 1 MG; Start 08/14/17 at 23:00 Risperidone (Risperdal) 2 mg BID PO Last administered on 08/22/17 09:16; Admin Dose 2 MG; Start 08/15/17 at 09:00 Miscellaneous Information 1 ea NOTE XX ; Start 08/14/17 at 23:45 Glucose (Glutose) 15 gm Q15M PRN PO DECREASED GLUCOSE; Start 08/14/17 at 23:45 Glucose (Glutose) 22.5 gm Q15M PRN PO DECREASED GLUCOSE; Start 08/14/17 at 23: 45 Dextrose (D50w Syringe) 25 ml Q15M PRN IV DECREASED GLUCOSE; Start 08/14/17 at 23:45 Dextrose (D50w Syringe) 50 ml Q15M PRN IV DECREASED GLUCOSE; Start 08/14/17 at 23:45 Glucagon (Glucagen) 1 mg Q15M PRN IM DECREASED GLUCOSE; Start 08/14/17 at 23: 45 Glucose (Glutose) 15 gm Q15M PRN BUCCAL DECREASED GLUCOSE; Start 08/14/17 at 23:45 Famotidine (Pepcid Iv) 20 mg BID IV Last administered on 08/22/17 09:15; Admin Dose 20 MG; Start 08/15/17 at 21:00 Amlodipine Besylate (Norvasc) 10 mg DAILY PO Last administered on 08/22/17 09 :16; Admin Dose 10 MG; Start 08/17/17 at 17:00 Diagnostic Test (Pha) (Accu-Chek) 1 ea 02 XX ; Start 08/19/17 at 02:00 Docusate Sodium (Colace) 100 mg BID PO Last administered on 08/22/17 09:16; Admin Dose 100 MG; Start 08/20/17 at 21:00 Magnesium Hydroxide 30 ml 30 ml DAILY PRN PO CONSTIPATION; Start 08/20/17 at 11:00 Cefazolin Sodium (Ancef 1 Gm/50 ml (Pmx)) 50 ml @ 100 mls/hr Q8 IVPB Last administered on 08/22/17 13:58; Admin Dose 100 MLS/HR; Start 08/21/17 at 22: 00 LINDA BEASLEY Aug 22, 2017 16:10
--- NOTE | 2017-08-22 18:58 | CONS ---
Date/Time of Note Date/Time of Note DATE: 08/22/17 TIME: 18:58 Assessment/Plan Assessment/Plan Additional Assessment/Plan Assessment/Plan Additional Assessment/Plan Additional Assessment/Plan 1. Biliary pancreatitis, which resolved. Repeat CT is negative for pancreatitis and also negative for biliary dilatation 2. Diabetes mellitus. 3. Hypertension. 4. Hydronephrosis with 10 mm of stone in the kidney and 6 mm stone in the ureter. 5. Schizophrenia Plan Patient is scheduled for lithotripsy and removal of the ureteral stone patient had a JJ stent placed yesterday after lithotripsy Continue low-fat diet Consultation Date/Type/Reason Admit Date/Time Aug 14, 2017 at 19:34 Initial Consult Date 08/15/17 Type of Consultation: card Referring Provider: TAWANA FORD MD 24 HR Interval Summary Constitutional: improved Exam/Review of Systems Vital Signs Vitals Vital Signs Date Time Temp Pulse Resp B/P Pulse Ox O2 Delivery O2 Flow Rate FiO2 08/22/17 13:31 98.3 82 20 101/64 95 08/21/17 21:32 Room Air Intake and Output 08/21/17 08/21/17 08/22/17 15:00 23:00 07:00 Intake Total 1300 ml 520 ml Output Total 0 ml Balance 1300 ml 520 ml Exam Constitutional: alert, oriented, well developed Psych: nl mood/affect, no complaints Head: atraumatic, normocephalic Eyes: EOMI, PERRL, nl conjunctiva, nl lids, nl sclera ENMT: nl external ears & nose, nl lips & teeth, nl nasal mucosa & septum Neck: non-tender, supple Respiratory: clear to auscultation, normal air movement Cardiovascular: nl pulses, regular rate and rhythm Gastrointestinal: nl liver, spleen, non-tender, soft Musculoskeletal: nl extremities to inspection, nl gait and stance Extremities: normal pulses Neurological: [employer] II-XII intact, nl mental status, nl speech, nl strength Skin: nl turgor, No rash or lesions Lymph: nl lymph nodes Results Result Diagram: 08/22/17 0607 08/22/17 0607 Results 24 hrs Laboratory Tests Test 08/21/17 21:39 08/22/17 06:07 08/22/17 07:51 08/22/17 09:51 Bedside Glucose 89 81 153 White Blood Count 6.9 # Red Blood Count 3.82 L Hemoglobin 11.5 L Hematocrit 34.2 L Mean Corpuscular Volume 89.5 Mean Corpuscular Hemoglobin 30.1 Mean Corpuscular Hemoglobin Concent 33.6 Red Cell Distribution Width 12.6 Platelet Count 172 Mean Platelet Volume 9.2 Neutrophils % 60.6 Lymphocytes % 28.3 Monocytes % 7.3 Eosinophils % 3.1 Basophils % 0.4 Nucleated Red Blood Cells % 0.0 Neutrophils # 4.2 Lymphocytes # 1.9 Monocytes # 0.5 Eosinophils # 0.2 Basophils # 0.0 Nucleated Red Blood Cells # 0.0 Sodium Level 144 Potassium Level 3.8 Chloride Level 103 Carbon Dioxide Level 32 H Anion Gap 13 Blood Urea Nitrogen 16 Creatinine 0.90 Glucose Level 82 Calcium Level 9.3 Test 08/22/17 12:01 08/22/17 17:06 Bedside Glucose 112 108 Medications Medications Current Medications Potassium Chloride/Dextrose/ Sod Cl (D5-1/2ns + KCl 20 Meq) 1,000 ml @ 60 mls/ hr [id number] IV Last administered on 08/22/17 13:59; Admin Dose 60 MLS/HR; Start 08/14/17 at 23:00 Ondansetron HCl (Zofran Inj) 4 mg Q6H PRN IV NAUSEA AND/OR VOMITING; Start at 23:00 Morphine Sulfate (morphine) 2 mg Q4H PRN IV PAIN LEVEL 4-7 Last administered on 08/19/17 21:06; Admin Dose 2 MG; Start 08/14/17 at 23:00 Acetaminophen (Tylenol Tab) 650 mg Q6H PRN PO PAIN AND OR ELEVATED TEMP Last administered on 08/18/17 21:16; Admin Dose 650 MG; Start 08/14/17 at 23:00 Aspirin (Halfprin) 81 mg DAILY PO Last administered on 08/22/17 09:15; Admin Dose 81 MG; Start 08/15/17 at 09:00 Insulin Glargine (Lantus) 12 unit DAILY SC Last administered on 08/22/17 09: 52; Admin Dose 12 UNIT; Start 08/15/17 at 09:00 Lamotrigine (Lamictal) 50 mg Q12 PO Last administered on 08/22/17 09:15; Admin Dose 50 MG; Start 08/15/17 at 09:00 Lorazepam (Ativan) 1 mg Q6 PRN PO ANXIETY Last administered on 08/16/17 19:45 ; Admin Dose 1 MG; Start 08/14/17 at 23:00 Risperidone (Risperdal) 2 mg BID PO Last administered on 08/22/17 09:16; Admin Dose 2 MG; Start 08/15/17 at 09:00 Miscellaneous Information 1 ea NOTE XX ; Start 08/14/17 at 23:45 Glucose (Glutose) 15 gm Q15M PRN PO DECREASED GLUCOSE; Start 08/14/17 at 23:45 Glucose (Glutose) 22.5 gm Q15M PRN PO DECREASED GLUCOSE; Start 08/14/17 at 23: 45 Dextrose (D50w Syringe) 25 ml Q15M PRN IV DECREASED GLUCOSE; Start 08/14/17 at 23:45 Dextrose (D50w Syringe) 50 ml Q15M PRN IV DECREASED GLUCOSE; Start 08/14/17 at 23:45 Glucagon (Glucagen) 1 mg Q15M PRN IM DECREASED GLUCOSE; Start 08/14/17 at 23: 45 Glucose (Glutose) 15 gm Q15M PRN BUCCAL DECREASED GLUCOSE; Start 08/14/17 at 23:45 Famotidine (Pepcid Iv) 20 mg BID IV Last administered on 08/22/17 09:15; Admin Dose 20 MG; Start 08/15/17 at 21:00 Amlodipine Besylate (Norvasc) 10 mg DAILY PO Last administered on 08/22/17 09 :16; Admin Dose 10 MG; Start 08/17/17 at 17:00 Diagnostic Test (Pha) (Accu-Chek) 1 ea 02 XX ; Start 08/19/17 at 02:00 Docusate Sodium (Colace) 100 mg BID PO Last administered on 08/22/17 09:16; Admin Dose 100 MG; Start 08/20/17 at 21:00 Magnesium Hydroxide 30 ml 30 ml DAILY PRN PO CONSTIPATION; Start 08/20/17 at 11:00 Cefazolin Sodium (Ancef 1 Gm/50 ml (Pmx)) 50 ml @ 100 mls/hr Q8 IVPB Last administered on 08/22/17 13:58; Admin Dose 100 MLS/HR; Start 08/21/17 at 22: 00 Triamcinolone Acetonide (Kenalog 0.1% Cr) 1 applic BID TOP ; Start 08/22/17 at 21:00 JOAN BOTELLO MD Aug 22, 2017 18:58
[2017-08-22 19:22] VITALS: BP 124/76; RESP 16
[2017-08-22] MEDS: TRIAMCINOLONE ACET 0.1% 15 GM CR TOP SCH (20:44)
[2017-08-23] MEDS: D5W-0.45 NACL + KCL 20 MEQ 1,000 ML IV SCH ×2 (00:14→06:51)
[2017-08-23 01:32] VITALS: BP 102/69; RESP 18
[2017-08-23] MEDS: ACCU-CHEK XX SCH ×5 (02:00→21:00)
[2017-08-23] MEDS: CEFAZOLIN 1 GM/50 ML (PMX) 50 ML IVPB SCH ×3 (05:16→21:29)
[2017-08-23 06:40] LABS: BASOPHILS % 0.5 % (0.0-2.0); EOSINOPHILS # 0.3 10^3/ul (0.0-0.5); EOSINOPHILS % 4.7 % (0.0-7.0); HEMATOCRIT 35.4 % (37.0-47.0); HEMOGLOBIN 11.8 g/dl (12.0-16.0); LYMPHOCYTES # 2.4 10^3/ul (0.8-2.9); LYMPHOCYTES % 39.3 % (15.0-51.0); MEAN CORPUSCULAR HGB CONC 33.3 g/dl (32.0-37.0); MEAN CORPUSCULAR VOLUME 90.1 fl (82.0-101.0); MEAN PLATELET VOLUME 9.3 fl (7.4-10.4); MONOCYTE # 0.4 10^3/ul (0.3-0.9); MONOCYTES % 7.1 % (0.0-11.0); NEUTROPHILS % 48.2 % (39.0-77.0); PLATELET COUNT 188 10^3/UL (140-415); RED BLOOD COUNT 3.93 10^6/ul (4.20-5.40); RED CELL DISTRIBUTION WIDTH 12.5 % (11.5-14.5); WHITE BLOOD COUNT 6.2 10^3/ul (4.8-10.8)
[2017-08-23 07:28] LABS: CALCIUM 9.1 mg/dl (8.4-10.2); CREATININE 0.9 mg/dl (0.44-1.00); POTASSIUM 3.6 mmol/L (3.5-5.1)
[2017-08-23 07:34] VITALS: BP 126/77; RESP 16
[2017-08-23] MEDS: INSULIN ASPART [NOVOLOG] 3 ML PEN SC SCH ×4 (08:00→21:00)
--- NOTE | 2017-08-23 08:10 | CONS ---
Date/Time of Note Date/Time of Note DATE: 08/23/17 TIME: 08:05 Consult Date/Type/Reason Admit Date/Time Aug 14, 2017 at 19:34 Initial Consult Date 08/15/17 Type of Consultation: Urology Reason for Consultation Left ureteral/renal stone Ordering Provider: TAWANA FORD MD Subjective Patient denies having any pain today. Objective Vital Signs Date Time Temp Pulse Resp B/P Pulse Ox O2 Delivery O2 Flow Rate FiO2 08/23/17 07:34 98.6 76 16 126/77 94 08/21/17 21:32 Room Air Intake and Output 08/22/17 08/22/17 08/23/17 14:59 22:59 06:59 Intake Total 630 ml 1470 ml 1090 ml Balance 630 ml 1470 ml 1090 ml Exam Abdomen is soft, no tenderness. Patient is voiding well Results/Medications Result Diagram: 08/23/17 0532 08/23/17 0532 Results 24 hrs Laboratory Tests Test 08/22/17 09:51 08/22/17 12:01 08/22/17 17:06 08/22/17 20:54 Bedside Glucose 153 112 108 108 Test 08/23/17 05:32 White Blood Count 6.2 Red Blood Count 3.93 L Hemoglobin 11.8 L Hematocrit 35.4 L Mean Corpuscular Volume 90.1 Mean Corpuscular Hemoglobin 30.0 Mean Corpuscular Hemoglobin Concent 33.3 Red Cell Distribution Width 12.5 Platelet Count 188 Mean Platelet Volume 9.3 Neutrophils % 48.2 Lymphocytes % 39.3 Monocytes % 7.1 Eosinophils % 4.7 Basophils % 0.5 Nucleated Red Blood Cells % 0.0 Neutrophils # 3.0 Lymphocytes # 2.4 Monocytes # 0.4 Eosinophils # 0.3 Basophils # 0.0 Nucleated Red Blood Cells # 0.0 Sodium Level 141 Potassium Level 3.6 Chloride Level 102 Carbon Dioxide Level 30 Anion Gap 13 Blood Urea Nitrogen 18 Creatinine 0.90 Glucose Level 96 Calcium Level 9.1 Medications Current Medications Potassium Chloride/Dextrose/ Sod Cl (D5-1/2ns + KCl 20 Meq) 1,000 ml @ 60 mls/ hr [id number] IV Last administered on 08/23/17t 06:51; Admin Dose 60 MLS/HR; Start 08/14/17 at 23:00 Ondansetron HCl (Zofran Inj) 4 mg Q6H PRN IV NAUSEA AND/OR VOMITING; Start at 23:00 Morphine Sulfate (morphine) 2 mg Q4H PRN IV PAIN LEVEL 4-7 Last administered on 08/19/17 21:06; Admin Dose 2 MG; Start 08/14/17 at 23:00 Acetaminophen (Tylenol Tab) 650 mg Q6H PRN PO PAIN AND OR ELEVATED TEMP Last administered on 08/18/17 21:16; Admin Dose 650 MG; Start 08/14/17 at 23:00 Aspirin (Halfprin) 81 mg DAILY PO Last administered on 08/22/17 09:15; Admin Dose 81 MG; Start 08/15/17 at 09:00 Insulin Glargine (Lantus) 12 unit DAILY SC Last administered on 08/22/17 09: 52; Admin Dose 12 UNIT; Start 08/15/17 at 09:00 Lamotrigine (Lamictal) 50 mg Q12 PO Last administered on 08/22/17 20:44; Admin Dose 50 MG; Start 08/15/17 at 09:00 Lorazepam (Ativan) 1 mg Q6 PRN PO ANXIETY Last administered on 08/16/17 19:45 ; Admin Dose 1 MG; Start 08/14/17 at 23:00 Risperidone (Risperdal) 2 mg BID PO Last administered on 08/22/17 20:44; Admin Dose 2 MG; Start 08/15/17 at 09:00 Miscellaneous Information 1 ea NOTE XX ; Start 08/14/17 at 23:45 Glucose (Glutose) 15 gm Q15M PRN PO DECREASED GLUCOSE; Start 08/14/17 at 23:45 Glucose (Glutose) 22.5 gm Q15M PRN PO DECREASED GLUCOSE; Start 08/14/17 at 23: 45 Dextrose (D50w Syringe) 25 ml Q15M PRN IV DECREASED GLUCOSE; Start 08/14/17 at 23:45 Dextrose (D50w Syringe) 50 ml Q15M PRN IV DECREASED GLUCOSE; Start 08/14/17 at 23:45 Glucagon (Glucagen) 1 mg Q15M PRN IM DECREASED GLUCOSE; Start 08/14/17 at 23: 45 Glucose (Glutose) 15 gm Q15M PRN BUCCAL DECREASED GLUCOSE; Start 08/14/17 at 23:45 Famotidine (Pepcid Iv) 20 mg BID IV Last administered on 08/22/17 20:44; Admin Dose 20 MG; Start 08/15/17 at 21:00 Amlodipine Besylate (Norvasc) 10 mg DAILY PO Last administered on 08/22/17 09 :16; Admin Dose 10 MG; Start 08/17/17 at 17:00 Diagnostic Test (Pha) (Accu-Chek) 1 ea 02 XX ; Start 08/19/17 at 02:00 Docusate Sodium (Colace) 100 mg BID PO Last administered on 08/22/17 20:44; Admin Dose 100 MG; Start 08/20/17 at 21:00 Magnesium Hydroxide 30 ml 30 ml DAILY PRN PO CONSTIPATION; Start 08/20/17 at 11:00 Cefazolin Sodium (Ancef 1 Gm/50 ml (Pmx)) 50 ml @ 100 mls/hr Q8 IVPB Last administered on 08/23/17 05:16; Admin Dose 100 MLS/HR; Start 08/21/17 at 22: 00 Triamcinolone Acetonide (Kenalog 0.1% Cr) 1 applic BID TOP Last administered on 08/22/17 20:44; Admin Dose 1 APPLIC; Start 08/22/17 at 21:00 Assessment/Plan Chief Complaint/Hosp Course 51-year-old female with a history of hypertension ,diabetes,high cholesterol and history of schizophrenia, she resides in a [id number] and was brought to [facility] because of chest pain. she underwent a CT scan of the abdomen and pelvis and that showed a stone in the upper left ureter with multiple stones in the renal pelvis. Since the stone in the upper left ureter is not seen on the plain KUB I ordered a repeat CT of the abdomen and pelvis without contrast to see if the stone has passed or still in the ureter. The CT scan showed: 1. 0.7 cm x 0.4 cm obstructing stone in the left proximal ureter, causing mild to moderate hydronephrosis of the left kidney. 2. Multiple stones in the calices of the left kidney. 3. Status post cholecystectomy. 4. Somewhat diffuse thickened wall of the urinary bladder, concerning for cystitis. 5. Some fecal impaction along the colon including the rectosigmoid colon. 6. Several small uterine fibroids. 7. Small inguinal hernia bilaterally, containing the fat. Patient is status post cystoscopy and left ureteroscopy and insertion of left ureteral JJ stent. She still have the stone. The KUB that was done yesterday did not demonstrate the stone but that there is a poor quality x-ray. I did explain to the patient that she will need another procedure later on to break the stone and remove the JJ stent. We will repeat the KUB today was the hope that we could see the stone. Problems: KANIKA HENAO MD Aug 23, 2017 08:10
--- NOTE | 2017-08-23 08:26 | CONS ---
Date/Time of Note Date/Time of Note DATE: 08/23/17 TIME: 08:25 Consult Date/Type/Reason Admit Date/Time Aug 14, 2017 at 19:34 Initial Consult Date 08/15/17 Type of Consultation: card Ordering Provider: TAWANA FORD MD Subjective cardiology follow up note: S: D/w STAFF pt denies any left sided cp or sob or palpitations to me now. she denies abd pain to me now . S/P CYSTOSCOPY 08/21 O: General: no acute distress HEENT: NC/AT. pupils are equal. round. NECK: NO JVD. no stridor. CV: RRR. systolic murmur; no gallop or rubs. PULM: no wheezing or rhonchi. GI: SOFT, mild tenderness, ND, no rebound or guarding Extremity: trace B/L LE edema. no clubbing. neuro: awake and alert, Psych: calm and pleasant rectal: deferred ECG NSR NORMAL CT pio angio 05/02/17: Left dominant coronary arterial system. Total calcium score: 0 Although images are partially degraded due to elevated heart rate there is no evidence of calcified or noncalcified plaque within any of the coronary arteries , all vessels appear widely patent. Objective Vital Signs Date Time Temp Pulse Resp B/P Pulse Ox O2 Delivery O2 Flow Rate FiO2 08/23/17 07:34 98.6 76 16 126/77 94 08/21/17 21:32 Room Air Intake and Output 08/22/17 08/22/17 08/23/17 15:00 23:00 07:00 Intake Total 630 ml 1470 ml 1090 ml Balance 630 ml 1470 ml 1090 ml Results/Medications Result Diagram: 08/23/17 0532 08/23/17 0532 Results 24 hrs Laboratory Tests Test 08/22/17 09:51 08/22/17 12:01 08/22/17 17:06 08/22/17 20:54 Bedside Glucose 153 112 108 108 Test 08/23/17 05:32 08/23/17 08:06 White Blood Count 6.2 Red Blood Count 3.93 L Hemoglobin 11.8 L Hematocrit 35.4 L Mean Corpuscular Volume 90.1 Mean Corpuscular Hemoglobin 30.0 Mean Corpuscular Hemoglobin Concent 33.3 Red Cell Distribution Width 12.5 Platelet Count 188 Mean Platelet Volume 9.3 Neutrophils % 48.2 Lymphocytes % 39.3 Monocytes % 7.1 Eosinophils % 4.7 Basophils % 0.5 Nucleated Red Blood Cells % 0.0 Neutrophils # 3.0 Lymphocytes # 2.4 Monocytes # 0.4 Eosinophils # 0.3 Basophils # 0.0 Nucleated Red Blood Cells # 0.0 Sodium Level 141 Potassium Level 3.6 Chloride Level 102 Carbon Dioxide Level 30 Anion Gap 13 Blood Urea Nitrogen 18 Creatinine 0.90 Glucose Level 96 Calcium Level 9.1 Bedside Glucose 95 Medications Current Medications Potassium Chloride/Dextrose/ Sod Cl (D5-1/2ns + KCl 20 Meq) 1,000 ml @ 60 mls/ hr [id number] IV Last administered on 08/23/17 06:51; Admin Dose 60 MLS/HR; Start 08/14/17 at 23:00 Ondansetron HCl (Zofran Inj) 4 mg Q6H PRN IV NAUSEA AND/OR VOMITING; Start at 23:00 Morphine Sulfate (morphine) 2 mg Q4H PRN IV PAIN LEVEL 4-7 Last administered on 08/19/17 21:06; Admin Dose 2 MG; Start 08/14/17 at 23:00 Acetaminophen (Tylenol Tab) 650 mg Q6H PRN PO PAIN AND OR ELEVATED TEMP Last administered on 08/18/17 21:16; Admin Dose 650 MG; Start 08/14/17 at 23:00 Aspirin (Halfprin) 81 mg DAILY PO Last administered on 08/22/17 09:15; Admin Dose 81 MG; Start 08/15/17 at 09:00 Insulin Glargine (Lantus) 12 unit DAILY SC Last administered on 08/22/17 09: 52; Admin Dose 12 UNIT; Start 08/15/17 at 09:00 Lamotrigine (Lamictal) 50 mg Q12 PO Last administered on 08/22/17 20:44; Admin Dose 50 MG; Start 08/15/17 at 09:00 Lorazepam (Ativan) 1 mg Q6 PRN PO ANXIETY Last administered on 08/16/17 19:45 ; Admin Dose 1 MG; Start 08/14/17 at 23:00 Risperidone (Risperdal) 2 mg BID PO Last administered on 08/22/17 20:44; Admin Dose 2 MG; Start 08/15/17 at 09:00 Miscellaneous Information 1 ea NOTE XX ; Start 08/14/17 at 23:45 Glucose (Glutose) 15 gm Q15M PRN PO DECREASED GLUCOSE; Start 08/14/17 at 23:45 Glucose (Glutose) 22.5 gm Q15M PRN PO DECREASED GLUCOSE; Start 08/14/17 at 23: 45 Dextrose (D50w Syringe) 25 ml Q15M PRN IV DECREASED GLUCOSE; Start 08/14/17 at 23:45 Dextrose (D50w Syringe) 50 ml Q15M PRN IV DECREASED GLUCOSE; Start 08/14/17 at 23:45 Glucagon (Glucagen) 1 mg Q15M PRN IM DECREASED GLUCOSE; Start 08/14/17 at 23: 45 Glucose (Glutose) 15 gm Q15M PRN BUCCAL DECREASED GLUCOSE; Start 08/14/17 at 23:45 Famotidine (Pepcid Iv) 20 mg BID IV Last administered on 08/22/17 20:44; Admin Dose 20 MG; Start 08/15/17 at 21:00 Amlodipine Besylate (Norvasc) 10 mg DAILY PO Last administered on 08/22/17 09 :16; Admin Dose 10 MG; Start 08/17/17 at 17:00 Diagnostic Test (Pha) (Accu-Chek) 1 ea 02 XX ; Start 08/19/17 at 02:00 Docusate Sodium (Colace) 100 mg BID PO Last administered on 08/22/17 20:44; Admin Dose 100 MG; Start 08/20/17 at 21:00 Magnesium Hydroxide 30 ml 30 ml DAILY PRN PO CONSTIPATION; Start 08/20/17 at 11:00 Cefazolin Sodium (Ancef 1 Gm/50 ml (Pmx)) 50 ml @ 100 mls/hr Q8 IVPB Last administered on 08/23/17 05:16; Admin Dose 100 MLS/HR; Start 08/21/17 at 22: 00 Triamcinolone Acetonide (Kenalog 0.1% Cr) 1 applic BID TOP Last administered on 08/22/17 20:44; Admin Dose 1 APPLIC; Start 08/22/17 at 21:00 Assessment/Plan Chief Complaint/Hosp Course 1. nonanginal chest pain: improved 2. acute pancreatitis 3. HTN 4. DM 5. Psych disorder 6. S/P cystoscopy: f/u rec Patient has previously had cardiac workup including echocardiogram and CT coronary angiogram both of which were unremarkable. Her calcium score is 0 which makes at very low risk of significant CAD. Her right sided chest pain does not appear to be cardiac related and most likely related to her GI symptoms versus others. Treatment of her GI GI issues including her pancreatitis as per internal medicine. Diabetic management as per internal medicine. Thank you for his referral. I will follow up with you on as needed base. CHAITANYA NEVAREZ MD [facility] Problems: CHAITANYA NEVAREZ MD Aug 23, 2017 08:25
[2017-08-23] MEDS: FAMOTIDINE 20 MG INJ IV SCH (09:30)
[2017-08-23] MEDS: TRIAMCINOLONE ACET 0.1% 15 GM CR TOP SCH ×2 (09:30→21:29)
[2017-08-23] MEDS: AMLODIPINE 10 MG TAB PO SCH (09:30)
[2017-08-23] MEDS: DOCUSATE SODIUM 100 MG CAP PO SCH ×2 (09:30→21:27)
[2017-08-23] MEDS: ASPIRIN (EC) 81 MG TAB PO SCH (09:30)
[2017-08-23] MEDS: LAMOTRIGINE 25 MG TAB PO SCH ×2 (09:30→21:28)
[2017-08-23] MEDS: RISPERIDONE 2 MG TAB PO SCH ×2 (09:30→21:28)
[2017-08-23] MEDS: INSULIN GLARGINE [LANtus] 3 ML PEN SC SCH (09:33)
--- NOTE | 2017-08-23 12:45 | RADRPT ---
PROCEDURE: XR Abdomen CLINICAL INDICATION: Kidney stone TECHNIQUE: An AP supine radiograph of the abdomen was submitted. COMPARISON: 08/22/2017 FINDINGS: Surgical clips are again seen in the right upper quadrant of the abdomen. The double-J left ureteral stent remains in place. Several calcifications again project through the right kidney including a staghorn calcification, un changed. The calcifications are now more obscured by overlying stool. Substantial stool is seen to the colon without evidence of bowel obstruction. No organomegaly or discrete mass is identified. Moderate degenerative spine changes are noted. IMPRESSION: 1. The double-J left ureteral stent is again evident and calcifications again projects to the left kidney, unchanged that more obscured by overlying stool. 2. Previous right upper quadrant abdominal surgery again noted. 3. Excessive stool is again seen to the colon without evidence of bowel obstruction. 4. Degenerative spine changes are again noted. Physician Niko Date Time Electronically viewed and signed by Physician Niko on 08/23/2017 12:45 RH/
[2017-08-23 14:58] VITALS: BP 119/74; RESP 18
[2017-08-23] MEDS: ACETAMINOPHEN 325 MG TAB PO PRN (15:39)
--- NOTE | 2017-08-23 18:19 | PN ---
Date/Time of Note Date/Time of Note DATE: 08/23/17 TIME: 18:16 Assessment/Plan VTE Prophylaxis VTE Prophylaxis Intervention: SCD's Lines/Catheters IV C[facility] Type [facility] Peripheral IV Urinary Cath still in place: No Assessment/Plan Chief Complaint/Hosp Course Patient complains of the right chest pain, hemodynamically stable Assessment/Plan -Atypical chest pain. Acute coronary syndrome ruled out. cardiac enzymes are negative 3 Dr. Aguilar is following in cardiology consultation -Acute biliary pancreatitis, resolving. continue to monitor amylase and lipase. Dr. Richards is following in gastroenterology consultation. -Left-sided hydronephrosis with stone in the ureter. S/p cystoscopy, left ureteroscopy, and insertion of left ureteral JJ stent by Dr. Frost on 08/21. -Hypertension, patient is currently hypotensive. -Diabetes mellitus type 2, continue Lantus and NovoLog. -Dyslipidemia. -Possible COPD, continue breathing treatments as needed for shortness of breath. -Schizophrenia -Facial and upper extremities rash, pending scabies scrapes Further recommendations based on clinical course. Plan of care discussed with Dr. Roach Problems: Exam/Review of Systems Vital Signs Vitals Vital Signs Date Time Temp Pulse Resp B/P Pulse Ox O2 Delivery O2 Flow Rate FiO2 08/23/17 14:58 98.4 77 18 119/74 97 08/21/17 21:32 Room Air Intake and Output 08/22/17 08/22/17 08/23/17 15:00 23:00 07:00 Intake Total 630 ml 1470 ml 1090 ml Balance 630 ml 1470 ml 1090 ml Exam Constitutional: alert, oriented Neck: supple Respiratory: normal air movement Cardiovascular: nl pulses Gastrointestinal: soft, tender Musculoskeletal: nl extremities to inspection Extremities: normal pulses Neurological: confused Results Result Diagram: 08/23/17 0532 08/23/17 0532 Results 24 hrs Laboratory Tests Test 08/22/17 20:54 08/23/17 05:32 08/23/17 08:06 08/23/17 11:50 Bedside Glucose 108 95 151 White Blood Count 6.2 Red Blood Count 3.93 L Hemoglobin 11.8 L Hematocrit 35.4 L Mean Corpuscular Volume 90.1 Mean Corpuscular Hemoglobin 30.0 Mean Corpuscular Hemoglobin Concent 33.3 Red Cell Distribution Width 12.5 Platelet Count 188 Mean Platelet Volume 9.3 Neutrophils % 48.2 Lymphocytes % 39.3 Monocytes % 7.1 Eosinophils % 4.7 Basophils % 0.5 Nucleated Red Blood Cells % 0.0 Neutrophils # 3.0 Lymphocytes # 2.4 Monocytes # 0.4 Eosinophils # 0.3 Basophils # 0.0 Nucleated Red Blood Cells # 0.0 Sodium Level 141 Potassium Level 3.6 Chloride Level 102 Carbon Dioxide Level 30 Anion Gap 13 Blood Urea Nitrogen 18 Creatinine 0.90 Glucose Level 96 Calcium Level 9.1 Test 08/23/17 17:08 Bedside Glucose 103 Medications Medications Current Medications Potassium Chloride/Dextrose/ Sod Cl (D5-1/2ns + KCl 20 Meq) 1,000 ml @ 60 mls/ hr [id number] IV Last administered on 08/23/17 06:51; Admin Dose 60 MLS/HR; Start 08/14/17 at 23:00 Ondansetron HCl (Zofran Inj) 4 mg Q6H PRN IV NAUSEA AND/OR VOMITING; Start at 23:00 Morphine Sulfate (morphine) 2 mg Q4H PRN IV PAIN LEVEL 4-7 Last administered on 08/19/17 21:06; Admin Dose 2 MG; Start 08/14/17 at 23:00 Acetaminophen (Tylenol Tab) 650 mg Q6H PRN PO PAIN AND OR ELEVATED TEMP Last administered on 08/23/17 15:39; Admin Dose 650 MG; Start 08/14/17 at 23:00 Aspirin (Halfprin) 81 mg DAILY PO Last administered on 08/23/17 09:30; Admin Dose 81 MG; Start 08/15/17 at 09:00 Insulin Glargine (Lantus) 12 unit DAILY SC Last administered on 08/23/17 09: 33; Admin Dose 12 UNIT; Start 08/15/17 at 09:00 Lamotrigine (Lamictal) 50 mg Q12 PO Last administered on 08/23/17 09:30; Admin Dose 50 MG; Start 08/15/17 at 09:00 Lorazepam (Ativan) 1 mg Q6 PRN PO ANXIETY Last administered on 08/16/17 19:45 ; Admin Dose 1 MG; Start 08/14/17 at 23:00 Risperidone (Risperdal) 2 mg BID PO Last administered on 08/23/17 09:30; Admin Dose 2 MG; Start 08/15/17 at 09:00 Miscellaneous Information 1 ea NOTE XX ; Start 08/14/17 at 23:45 Glucose (Glutose) 15 gm Q15M PRN PO DECREASED GLUCOSE; Start 08/14/17 at 23:45 Glucose (Glutose) 22.5 gm Q15M PRN PO DECREASED GLUCOSE; Start 08/14/17 at 23: 45 Dextrose (D50w Syringe) 25 ml Q15M PRN IV DECREASED GLUCOSE; Start 08/14/17 at 23:45 Dextrose (D50w Syringe) 50 ml Q15M PRN IV DECREASED GLUCOSE; Start 08/14/17 at 23:45 Glucagon (Glucagen) 1 mg Q15M PRN IM DECREASED GLUCOSE; Start 08/14/17 at 23: 45 Glucose (Glutose) 15 gm Q15M PRN BUCCAL DECREASED GLUCOSE; Start 08/14/17 at 23:45 Amlodipine Besylate (Norvasc) 10 mg DAILY PO Last administered on 08/23/17 09 :30; Admin Dose 10 MG; Start 08/17/17 at 17:00 Diagnostic Test (Pha) (Accu-Chek) 1 ea 02 XX ; Start 08/19/17 at 02:00 Docusate Sodium (Colace) 100 mg BID PO Last administered on 08/23/17 09:30; Admin Dose 100 MG; Start 08/20/17 at 21:00 Magnesium Hydroxide 30 ml 30 ml DAILY PRN PO CONSTIPATION; Start 08/20/17 at 11:00 Cefazolin Sodium (Ancef 1 Gm/50 ml (Pmx)) 50 ml @ 100 mls/hr Q8 IVPB Last administered on 08/23/17 14:50; Admin Dose 100 MLS/HR; Start 08/21/17 at 22: 00 Triamcinolone Acetonide (Kenalog 0.1% Cr) 1 applic BID TOP Last administered on 08/23/17 09:30; Admin Dose 1 APPLIC; Start 08/22/17 at 21:00 Pantoprazole (Protonix Tab) 40 mg DAILY@06 PO ; Start 08/24/17 at 06:00 LINDA BEASLEY Aug 23, 2017 18:19
--- NOTE | 2017-08-23 18:54 | CONS ---
Date/Time of Note Date/Time of Note DATE: 08/23/17 TIME: 18:53 Assessment/Plan Assessment/Plan Additional Assessment/Plan Additional Assessment/Plan Additional Assessment/Plan 1. Biliary pancreatitis, which resolved. Repeat CT is negative for pancreatitis and also negative for biliary dilatation 2. Diabetes mellitus. 3. Hypertension. 4. Hydronephrosis with 10 mm of stone in the kidney and 6 mm stone in the ureter. 5. Schizophrenia Plan Patient is scheduled for lithotripsy and removal of the ureteral stone patient had a JJ stent placed yesterday after lithotripsy Continue low-fat diet CMP and amylase in a.m. Consultation Date/Type/Reason Admit Date/Time Aug 14, 2017 at 19:34 Initial Consult Date 08/15/17 Type of Consultation: card Referring Provider: TAWANA FORD MD 24 HR Interval Summary Free Text/Dictation Patient complains of chest pain and now right upper quadrant pain Her story is not very reliable Exam/Review of Systems Vital Signs Vitals Vital Signs Date Time Temp Pulse Resp B/P Pulse Ox O2 Delivery O2 Flow Rate FiO2 08/23/17 14:58 98.4 77 18 119/74 97 08/21/17 21:32 Room Air Intake and Output 08/22/17 08/22/17 08/23/17 14:59 22:59 06:59 Intake Total 630 ml 1470 ml 1090 ml Balance 630 ml 1470 ml 1090 ml Exam Constitutional: alert, oriented, well developed Psych: nl mood/affect, no complaints Head: atraumatic, normocephalic Eyes: EOMI, PERRL, nl conjunctiva, nl lids, nl sclera ENMT: nl external ears & nose, nl lips & teeth, nl nasal mucosa & septum Neck: non-tender, supple Respiratory: clear to auscultation, normal air movement Cardiovascular: nl pulses, regular rate and rhythm Gastrointestinal: nl liver, spleen, non-tender, soft Musculoskeletal: nl extremities to inspection, nl gait and stance Extremities: normal pulses Neurological: B[employer] WORKER II-XII intact, nl mental status, nl speech, nl strength Skin: nl turgor, No rash or lesions Lymph: nl lymph nodes Results Result Diagram: 08/23/17 0532 08/23/17 0532 Results 24 hrs Laboratory Tests Test 08/22/17 20:54 08/23/17 05:32 08/23/17 08:06 08/23/17 11:50 Bedside Glucose 108 95 151 White Blood Count 6.2 Red Blood Count 3.93 L Hemoglobin 11.8 L Hematocrit 35.4 L Mean Corpuscular Volume 90.1 Mean Corpuscular Hemoglobin 30.0 Mean Corpuscular Hemoglobin Concent 33.3 Red Cell Distribution Width 12.5 Platelet Count 188 Mean Platelet Volume 9.3 Neutrophils % 48.2 Lymphocytes % 39.3 Monocytes % 7.1 Eosinophils % 4.7 Basophils % 0.5 Nucleated Red Blood Cells % 0.0 Neutrophils # 3.0 Lymphocytes # 2.4 Monocytes # 0.4 Eosinophils # 0.3 Basophils # 0.0 Nucleated Red Blood Cells # 0.0 Sodium Level 141 Potassium Level 3.6 Chloride Level 102 Carbon Dioxide Level 30 Anion Gap 13 Blood Urea Nitrogen 18 Creatinine 0.90 Glucose Level 96 Calcium Level 9.1 Test 08/23/17 17:08 Bedside Glucose 103 Medications Medications Current Medications Potassium Chloride/Dextrose/ Sod Cl (D5-1/2ns + KCl 20 Meq) 1,000 ml @ 60 mls/ hr [id number] IV Last administered on 08/23/17 06:51; Admin Dose 60 MLS/HR; Start 08/14/17 at 23:00 Ondansetron HCl (Zofran Inj) 4 mg Q6H PRN IV NAUSEA AND/OR VOMITING; Start at 23:00 Morphine Sulfate (morphine) 2 mg Q4H PRN IV PAIN LEVEL 4-7 Last administered on 08/19/17 21:06; Admin Dose 2 MG; Start 08/14/17 at 23:00 Acetaminophen (Tylenol Tab) 650 mg Q6H PRN PO PAIN AND OR ELEVATED TEMP Last administered on 08/23/17 15:39; Admin Dose 650 MG; Start 08/14/17 at 23:00 Aspirin (Halfprin) 81 mg DAILY PO Last administered on 08/23/17 09:30; Admin Dose 81 MG; Start 08/15/17 at 09:00 Insulin Glargine (Lantus) 12 unit DAILY SC Last administered on 08/23/17 09: 33; Admin Dose 12 UNIT; Start 08/15/17 at 09:00 Lamotrigine (Lamictal) 50 mg Q12 PO Last administered on 08/23/17 09:30; Admin Dose 50 MG; Start 08/15/17 at 09:00 Lorazepam (Ativan) 1 mg Q6 PRN PO ANXIETY Last administered on 08/16/17 19:45 ; Admin Dose 1 MG; Start 08/14/17 at 23:00 Risperidone (Risperdal) 2 mg BID PO Last administered on 08/23/17 09:30; Admin Dose 2 MG; Start 08/15/17 at 09:00 Miscellaneous Information 1 ea NOTE XX ; Start 08/14/17 at 23:45 Glucose (Glutose) 15 gm Q15M PRN PO DECREASED GLUCOSE; Start 08/14/17 at 23:45 Glucose (Glutose) 22.5 gm Q15M PRN PO DECREASED GLUCOSE; Start 08/14/17 at 23: 45 Dextrose (D50w Syringe) 25 ml Q15M PRN IV DECREASED GLUCOSE; Start 08/14/17 at 23:45 Dextrose (D50w Syringe) 50 ml Q15M PRN IV DECREASED GLUCOSE; Start 08/14/17 at 23:45 Glucagon (Glucagen) 1 mg Q15M PRN IM DECREASED GLUCOSE; Start 08/14/17 at 23: 45 Glucose (Glutose) 15 gm Q15M PRN BUCCAL DECREASED GLUCOSE; Start 08/14/17 at 23:45 Amlodipine Besylate (Norvasc) 10 mg DAILY PO Last administered on 08/23/17 09 :30; Admin Dose 10 MG; Start 08/17/17 at 17:00 Diagnostic Test (Pha) (Accu-Chek) 1 ea 02 XX ; Start 08/19/17 at 02:00 Docusate Sodium (Colace) 100 mg BID PO Last administered on 08/23/17 09:30; Admin Dose 100 MG; Start 08/20/17 at 21:00 Magnesium Hydroxide 30 ml 30 ml DAILY PRN PO CONSTIPATION; Start 08/20/17 at 11:00 Cefazolin Sodium (Ancef 1 Gm/50 ml (Pmx)) 50 ml @ 100 mls/hr Q8 IVPB Last administered on 08/23/17 14:50; Admin Dose 100 MLS/HR; Start 08/21/17 at 22: 00 Triamcinolone Acetonide (Kenalog 0.1% Cr) 1 applic BID TOP Last administered on 08/23/17 09:30; Admin Dose 1 APPLIC; Start 08/22/17 at 21:00 Pantoprazole (Protonix Tab) 40 mg DAILY@06 PO ; Start 08/24/17 at 06:00 JOAN BOTELLO MD Aug 23, 2017 18:54
[2017-08-23 19:17] VITALS: BP 127/72; RESP 18
[2017-08-23 20:28] LABS: ALBUMIN 3.5 g/dl (3.3-4.9); ALBUMIN/GLOBULIN RATIO 1.06; BILIRUBIN,INDIRECT 0.1 mg/dl (0-1.1); BILIRUBIN,TOTAL 0.1 mg/dl (0.2-1.3); CALCIUM 9.6 mg/dl (8.4-10.2); CREATININE 0.74 mg/dl (0.44-1.00); POTASSIUM 3.7 mmol/L (3.5-5.1); TOTAL PROTEIN 6.8 g/dl (6.1-8.1)
[2017-08-24] MEDS: D5W-0.45 NACL + KCL 20 MEQ 1,000 ML IV SCH ×2 (01:50→20:03)
[2017-08-24] MEDS: ACCU-CHEK XX SCH ×5 (02:00→21:00)
[2017-08-24 02:10] VITALS: BP 127/69; RESP 20
[2017-08-24] MEDS: PANTOPRAZOLE (EC) 40 MG TAB PO SCH (05:29)
[2017-08-24] MEDS: CEFAZOLIN 1 GM/50 ML (PMX) 50 ML IVPB SCH ×3 (05:29→22:16)
[2017-08-24 06:29] LABS: BASOPHILS % 0.6 % (0.0-2.0); EOSINOPHILS # 0.4 10^3/ul (0.0-0.5); EOSINOPHILS % 5.3 % (0.0-7.0); HEMATOCRIT 38.6 % (37.0-47.0); HEMOGLOBIN 12.7 g/dl (12.0-16.0); LYMPHOCYTES # 2.5 10^3/ul (0.8-2.9); LYMPHOCYTES % 35.4 % (15.0-51.0); MEAN CORPUSCULAR HEMOGLOBIN 29.7 pg (29.0-33.0); MEAN CORPUSCULAR HGB CONC 32.9 g/dl (32.0-37.0); MEAN CORPUSCULAR VOLUME 90.4 fl (82.0-101.0); MEAN PLATELET VOLUME 9.1 fl (7.4-10.4); MONOCYTE # 0.5 10^3/ul (0.3-0.9); MONOCYTES % 6.4 % (0.0-11.0); NEUTROPHIL # 3.7 10^3/ul (1.6-7.5); PLATELET COUNT 191 10^3/UL (140-415); RED BLOOD COUNT 4.27 10^6/ul (4.20-5.40); RED CELL DISTRIBUTION WIDTH 12.5 % (11.5-14.5)
[2017-08-24 07:10] LABS: ALBUMIN 3.6 g/dl (3.3-4.9); ALBUMIN/GLOBULIN RATIO 1.12; BILIRUBIN,INDIRECT 0.1 mg/dl (0-1.1); BILIRUBIN,TOTAL 0.1 mg/dl (0.2-1.3); CALCIUM 9.5 mg/dl (8.4-10.2); CREATININE 0.69 mg/dl (0.44-1.00); POTASSIUM 3.7 mmol/L (3.5-5.1); TOTAL PROTEIN 6.8 g/dl (6.1-8.1)
[2017-08-24 07:45] VITALS: BP 130/80; RESP 20
[2017-08-24] MEDS: INSULIN ASPART [NOVOLOG] 3 ML PEN SC SCH ×4 (08:00→21:00)
--- NOTE | 2017-08-24 08:35 | CONS ---
Date/Time of Note Date/Time of Note DATE: 08/24/17 TIME: 08:35 Consult Date/Type/Reason Admit Date/Time Aug 14, 2017 at 19:34 Initial Consult Date 08/15/17 Type of Consultation: card Ordering Provider: TAWANA FORD MD Subjective cardiology follow up note: S: D/w STAFF pt denies any left sided cp or sob or palpitations to me now. SHE C/O right sided sharp chest wall pain today she denies abd pain to me now . S/P CYSTOSCOPY 08/21 O: General: no acute distress HEENT: NC/AT. pupils are equal. round. NECK: NO JVD. no stridor. CV: RRR. systolic murmur; no gallop or rubs. PULM: no wheezing or rhonchi. GI: SOFT, mild tenderness, ND, no rebound or guarding Extremity: trace B/L LE edema. no clubbing. neuro: awake and alert, Psych: calm and pleasant rectal: deferred ECG NSR NORMAL CT pio angio 05/02/17: Left dominant coronary arterial system. Total calcium score: 0 Although images are partially degraded due to elevated heart rate there is no evidence of calcified or noncalcified plaque within any of the coronary arteries , all vessels appear widely patent. Objective Vital Signs Date Time Temp Pulse Resp B/P Pulse Ox O2 Delivery O2 Flow Rate FiO2 08/24/17 07:45 97.6 71 20 130/80 94 08/21/17 21:32 Room Air Intake and Output 08/23/17 08/23/17 08/24/17 15:00 23:00 07:00 Intake Total 1830 ml 695 ml Balance 1830 ml 695 ml Results/Medications Result Diagram: 08/24/17 0545 08/24/17 0545 Results 24 hrs Laboratory Tests Test 08/23/17 11:50 08/23/17 17:08 08/23/17 19:38 08/23/17 21:26 Bedside Glucose 151 103 97 Sodium Level 141 Potassium Level 3.7 Chloride Level 100 Carbon Dioxide Level 33 H Anion Gap 12 Blood Urea Nitrogen 16 Creatinine 0.74 Glucose Level 135 Calcium Level 9.6 Total Bilirubin 0.1 L Direct Bilirubin 0.00 Indirect Bilirubin 0.1 Aspartate Amino Transf (AST/SGOT) 24 Alanine Aminotransferase (ALT/SGPT) 53 Alkaline Phosphatase 136 H Total Protein 6.8 Albumin 3.5 Globulin 3.30 H Albumin/Globulin Ratio 1.06 Test 08/24/17 05:45 08/24/17 08:14 White Blood Count 7.0 Red Blood Count 4.27 Hemoglobin 12.7 Hematocrit 38.6 Mean Corpuscular Volume 90.4 Mean Corpuscular Hemoglobin 29.7 Mean Corpuscular Hemoglobin Concent 32.9 Red Cell Distribution Width 12.5 Platelet Count 191 Mean Platelet Volume 9.1 Neutrophils % 52.0 Lymphocytes % 35.4 Monocytes % 6.4 Eosinophils % 5.3 Basophils % 0.6 Nucleated Red Blood Cells % 0.0 Neutrophils # 3.7 Lymphocytes # 2.5 Monocytes # 0.5 Eosinophils # 0.4 Basophils # 0.0 Nucleated Red Blood Cells # 0.0 Sodium Level 142 Potassium Level 3.7 Chloride Level 104 Carbon Dioxide Level 31 Anion Gap 11 Blood Urea Nitrogen 13 Creatinine 0.69 Glucose Level 96 Calcium Level 9.5 Total Bilirubin 0.1 L Direct Bilirubin 0.00 Indirect Bilirubin 0.1 Aspartate Amino Transf (AST/SGOT) 24 Alanine Aminotransferase (ALT/SGPT) 54 Alkaline Phosphatase 141 H Total Protein 6.8 Albumin 3.6 Globulin 3.20 Albumin/Globulin Ratio 1.12 Amylase Level 56 Lipase 283 Bedside Glucose 91 Medications Current Medications Potassium Chloride/Dextrose/ Sod Cl (D5-1/2ns + KCl 20 Meq) 1,000 ml @ 60 mls/ hr [id number] IV Last administered on 08/24/17 01:50; Admin Dose 60 MLS/HR; Start 08/14/17 at 23:00 Ondansetron HCl (Zofran Inj) 4 mg Q6H PRN IV NAUSEA AND/OR VOMITING; Start at 23:00 Morphine Sulfate (morphine) 2 mg Q4H PRN IV PAIN LEVEL 4-7 Last administered on 08/19/17 21:06; Admin Dose 2 MG; Start 08/14/17 at 23:00 Acetaminophen (Tylenol Tab) 650 mg Q6H PRN PO PAIN AND OR ELEVATED TEMP Last administered on 08/23/17 15:39; Admin Dose 650 MG; Start 08/14/17 at 23:00 Aspirin (Halfprin) 81 mg DAILY PO Last administered on 08/23/17 09:30; Admin Dose 81 MG; Start 08/15/17 at 09:00 Insulin Glargine (Lantus) 12 unit DAILY SC Last administered on 08/23/17 09: 33; Admin Dose 12 UNIT; Start 08/15/17 at 09:00 Lamotrigine (Lamictal) 50 mg Q12 PO Last administered on 08/23/17 21:28; Admin Dose 50 MG; Start 08/15/17 at 09:00 Lorazepam (Ativan) 1 mg Q6 PRN PO ANXIETY Last administered on 08/16/17 19:45 ; Admin Dose 1 MG; Start 08/14/17 at 23:00 Risperidone (Risperdal) 2 mg BID PO Last administered on 08/23/17 21:28; Admin Dose 2 MG; Start 08/15/17 at 09:00 Miscellaneous Information 1 ea NOTE XX ; Start 08/14/17 at 23:45 Glucose (Glutose) 15 gm Q15M PRN PO DECREASED GLUCOSE; Start 08/14/17 at 23:45 Glucose (Glutose) 22.5 gm Q15M PRN PO DECREASED GLUCOSE; Start 08/14/17 at 23: 45 Dextrose (D50w Syringe) 25 ml Q15M PRN IV DECREASED GLUCOSE; Start 08/14/17 at 23:45 Dextrose (D50w Syringe) 50 ml Q15M PRN IV DECREASED GLUCOSE; Start 08/14/17 at 23:45 Glucagon (Glucagen) 1 mg Q15M PRN IM DECREASED GLUCOSE; Start 08/14/17 at 23: 45 Glucose (Glutose) 15 gm Q15M PRN BUCCAL DECREASED GLUCOSE; Start 08/14/17 at 23:45 Amlodipine Besylate (Norvasc) 10 mg DAILY PO Last administered on 08/23/17 09 :30; Admin Dose 10 MG; Start 08/17/17 at 17:00 Diagnostic Test (Pha) (Accu-Chek) 1 ea 02 XX ; Start 08/19/17 at 02:00 Docusate Sodium (Colace) 100 mg BID PO Last administered on 08/23/17 21:27; Admin Dose 100 MG; Start 08/20/17 at 21:00 Magnesium Hydroxide 30 ml 30 ml DAILY PRN PO CONSTIPATION; Start 08/20/17 at 11:00 Cefazolin Sodium (Ancef 1 Gm/50 ml (Pmx)) 50 ml @ 100 mls/hr Q8 IVPB Last administered on 08/24/17 05:29; Admin Dose 100 MLS/HR; Start 08/21/17 at 22: 00 Triamcinolone Acetonide (Kenalog 0.1% Cr) 1 applic BID TOP Last administered on 08/23/17 21:29; Admin Dose 1 APPLIC; Start 08/22/17 at 21:00 Pantoprazole (Protonix Tab) 40 mg DAILY@06 PO Last administered on 08/24/17 05:29; Admin Dose 40 MG; Start 08/24/17 at 06:00 Assessment/Plan Chief Complaint/Hosp Course 1. nonanginal chest pain: right sided. 2. acute pancreatitis 3. HTN 4. DM 5. Psych disorder 6. S/P cystoscopy: f/u rec Patient has previously had cardiac workup including echocardiogram and CT coronary angiogram both of which were unremarkable. Her calcium score is 0 which makes at very low risk of significant CAD. Her right sided chest pain does not appear to be cardiac related and most likely related to her GI symptoms versus others. Treatment of her GI GI issues including her pancreatitis as per internal medicine. Diabetic management as per internal medicine. f/u with rec. Thank you for his referral. I will follow up with you on as needed base. CHAITANYA NEVAREZ MD [facility] Problems: CHAITANYA NEVAREZ MD Aug 24, 2017 08:35
[2017-08-24] MEDS: LAMOTRIGINE 25 MG TAB PO SCH ×2 (08:56→21:04)
[2017-08-24] MEDS: RISPERIDONE 2 MG TAB PO SCH ×2 (08:58→21:05)
[2017-08-24] MEDS: AMLODIPINE 10 MG TAB PO SCH (08:58)
[2017-08-24] MEDS: ASPIRIN (EC) 81 MG TAB PO SCH (08:58)
[2017-08-24] MEDS: DOCUSATE SODIUM 100 MG CAP PO SCH ×3 (08:58→21:03)
[2017-08-24] MEDS: TRIAMCINOLONE ACET 0.1% 15 GM CR TOP SCH ×2 (09:02→21:07)
[2017-08-24] MEDS: INSULIN GLARGINE [LANtus] 3 ML PEN SC SCH (10:03)
--- NOTE | 2017-08-24 12:43 | PN ---
Date/Time of Note Date/Time of Note DATE: 08/24/17 TIME: 12:39 Assessment/Plan VTE Prophylaxis VTE Prophylaxis Intervention: SCD's Lines/Catheters IV C[facility]ter Type (from [facility]): Peripheral IV Urinary Cath still in place: No Assessment/Plan Chief Complaint/Hosp Course Continue low-fat diet, remains hemodynamically stable, s/p KUB yesterday, constipated will start patient on bowel regimen, discussed with Dr. Frost, patient will undergo lithotripsy upon OR availability Assessment/Plan -Atypical chest pain. Acute coronary syndrome ruled out. cardiac enzymes are negative 3 Dr. Aguilar is following in cardiology consultation -Acute biliary pancreatitis, resolving. continue to monitor amylase and lipase. Dr. Richards is following in gastroenterology consultation. -Left-sided hydronephrosis with stone in the ureter. S/p cystoscopy, left ureteroscopy, and insertion of left ureteral JJ stent by Dr. Frost on 08/21. -Hypertension, patient is currently hypotensive. -Diabetes mellitus type 2, continue Lantus and NovoLog. -Dyslipidemia. -Possible COPD, continue breathing treatments as needed for shortness of breath. -Schizophrenia -Facial and upper extremities rash, scabies ruled out, continue Kenalog topical Further recommendations based on clinical course. Plan of care discussed with Dr. Roach Problems: Exam/Review of Systems Vital Signs Vitals Vital Signs Date Time Temp Pulse Resp B/P Pulse Ox O2 Delivery O2 Flow Rate FiO2 08/24/17 07:45 97.6 71 20 130/80 94 08/21/17 21:32 Room Air Intake and Output 08/23/17 08/23/17 08/24/17 15:00 23:00 07:00 Intake Total 1830 ml 695 ml Balance 1830 ml 695 ml Exam Constitutional: alert, oriented Neck: supple Respiratory: normal air movement Cardiovascular: nl pulses Gastrointestinal: soft, tender Musculoskeletal: nl extremities to inspection Extremities: normal pulses Neurological: confused Results Result Diagram: 08/24/17 0545 08/24/17 0545 Results 24 hrs Laboratory Tests Test 08/23/17 17:08 08/23/17 19:38 08/23/17 21:26 08/24/17 05:45 Bedside Glucose 103 97 Sodium Level 141 142 Potassium Level 3.7 3.7 Chloride Level 100 104 Carbon Dioxide Level 33 H 31 Anion Gap 12 11 Blood Urea Nitrogen 16 13 Creatinine 0.74 0.69 Glucose Level 135 96 Calcium Level 9.6 9.5 Total Bilirubin 0.1 L 0.1 L Direct Bilirubin 0.00 0.00 Indirect Bilirubin 0.1 0.1 Aspartate Amino Transf (AST/SGOT) 24 24 Alanine Aminotransferase (ALT/SGPT) 53 54 Alkaline Phosphatase 136 H 141 H Total Protein 6.8 6.8 Albumin 3.5 3.6 Globulin 3.30 H 3.20 Albumin/Globulin Ratio 1.06 1.12 White Blood Count 7.0 Red Blood Count 4.27 Hemoglobin 12.7 Hematocrit 38.6 Mean Corpuscular Volume 90.4 Mean Corpuscular Hemoglobin 29.7 Mean Corpuscular Hemoglobin Concent 32.9 Red Cell Distribution Width 12.5 Platelet Count 191 Mean Platelet Volume 9.1 Neutrophils % 52.0 Lymphocytes % 35.4 Monocytes % 6.4 Eosinophils % 5.3 Basophils % 0.6 Nucleated Red Blood Cells % 0.0 Neutrophils # 3.7 Lymphocytes # 2.5 Monocytes # 0.5 Eosinophils # 0.4 Basophils # 0.0 Nucleated Red Blood Cells # 0.0 Amylase Level 56 Lipase 283 Test 08/24/17 08:14 08/24/17 12:05 Bedside Glucose 91 126 Medications Medications Current Medications Potassium Chloride/Dextrose/ Sod Cl (D5-1/2ns + KCl 20 Meq) 1,000 ml @ 60 mls/ hr [id number] IV Last administered on 08/24/17 01:50; Admin Dose 60 MLS/HR; Start 08/14/17 at 23:00 Ondansetron HCl (Zofran Inj) 4 mg Q6H PRN IV NAUSEA AND/OR VOMITING; Start at 23:00 Morphine Sulfate (morphine) 2 mg Q4H PRN IV PAIN LEVEL 4-7 Last administered on 08/19/17 21:06; Admin Dose 2 MG; Start 08/14/17 at 23:00 Acetaminophen (Tylenol Tab) 650 mg Q6H PRN PO PAIN AND OR ELEVATED TEMP Last administered on 08/23/17 15:39; Admin Dose 650 MG; Start 08/14/17 at 23:00 Aspirin (Halfprin) 81 mg DAILY PO Last administered on 08/24/17 08:58; Admin Dose 81 MG; Start 08/15/17 at 09:00 Insulin Glargine (Lantus) 12 unit DAILY SC Last administered on 08/24/17 10: 03; Admin Dose 12 UNIT; Start 08/15/17 at 09:00 Lamotrigine (Lamictal) 50 mg Q12 PO Last administered on 08/24/17 08:56; Admin Dose 50 MG; Start 08/15/17 at 09:00 Lorazepam (Ativan) 1 mg Q6 PRN PO ANXIETY Last administered on 08/16/17 19:45 ; Admin Dose 1 MG; Start 08/14/17 at 23:00 Risperidone (Risperdal) 2 mg BID PO Last administered on 08/24/17 08:58; Admin Dose 2 MG; Start 08/15/17 at 09:00 Miscellaneous Information 1 ea NOTE XX ; Start 08/14/17 at 23:45 Glucose (Glutose) 15 gm Q15M PRN PO DECREASED GLUCOSE; Start 08/14/17 at 23:45 Glucose (Glutose) 22.5 gm Q15M PRN PO DECREASED GLUCOSE; Start 08/14/17 at 23: 45 Dextrose (D50w Syringe) 25 ml Q15M PRN IV DECREASED GLUCOSE; Start 08/14/17 at 23:45 Dextrose (D50w Syringe) 50 ml Q15M PRN IV DECREASED GLUCOSE; Start 08/14/17 at 23:45 Glucagon (Glucagen) 1 mg Q15M PRN IM DECREASED GLUCOSE; Start 08/14/17 at 23: 45 Glucose (Glutose) 15 gm Q15M PRN BUCCAL DECREASED GLUCOSE; Start 08/14/17 at 23:45 Amlodipine Besylate (Norvasc) 10 mg DAILY PO Last administered on 08/24/17 08 :58; Admin Dose 10 MG; Start 08/17/17 at 17:00 Diagnostic Test (Pha) (Accu-Chek) 1 ea 02 XX ; Start 08/19/17 at 02:00 Docusate Sodium (Colace) 100 mg BID PO Last administered on 08/24/17 08:58; Admin Dose 100 MG; Start 08/20/17 at 21:00 Magnesium Hydroxide 30 ml 30 ml DAILY PRN PO CONSTIPATION; Start 08/20/17 at 11:00 Cefazolin Sodium (Ancef 1 Gm/50 ml (Pmx)) 50 ml @ 100 mls/hr Q8 IVPB Last administered on 08/24/17 05:29; Admin Dose 100 MLS/HR; Start 08/21/17 at 22: 00 Triamcinolone Acetonide (Kenalog 0.1% Cr) 1 applic BID TOP Last administered on 08/24/17 09:02; Admin Dose 1 APPLIC; Start 08/22/17 at 21:00 Pantoprazole (Protonix Tab) 40 mg DAILY@06 PO Last administered on 08/24/17 05:29; Admin Dose 40 MG; Start 08/24/17 at 06:00 LINDA BEASLEY Aug 24, 2017 12:43
[2017-08-24] MEDS ORDERED: POLYETHYLENE GLYCOL 17 GM PACKET GTB PRN (13:00)
[2017-08-24] MEDS ORDERED: POLYETHYLENE GLYCOL 17 GM PACKET PO ONE (13:30)
[2017-08-24 13:46] VITALS: BP 127/84; RESP 16
--- NOTE | 2017-08-24 19:47 | CONS ---
Date/Time of Note Date/Time of Note DATE: 08/24/17 TIME: 19:46 Assessment/Plan Assessment/Plan Additional Assessment/Plan Additional Assessment/Plan Additional Assessment/Plan 1. Biliary pancreatitis, which resolved. Repeat CT is negative for pancreatitis and also negative for biliary dilatation. Liver function is back to normal 2. Diabetes mellitus. 3. Hypertension. 4. Hydronephrosis with 10 mm of stone in the kidney and 6 mm stone in the ureter. 5. Schizophrenia 6. Chest pain 7. Tremor upper extremity Plan Continue present care Continue low-fat diet Consultation Date/Type/Reason Admit Date/Time Aug 14, 2017 at 19:34 Initial Consult Date 08/15/17 Type of Consultation: card Referring Provider: TAWANA FORD MD 24 HR Interval Summary Free Text/Dictation Some complaints of chest pain No abdominal pain no nausea no vomiting Exam/Review of Systems Vital Signs Vitals Vital Signs Date Time Temp Pulse Resp B/P Pulse Ox O2 Delivery O2 Flow Rate FiO2 08/24/17 13:46 97.9 80 16 127/84 95 08/21/17 21:32 Room Air Intake and Output 08/23/17 08/23/17 08/24/17 15:00 23:00 07:00 Intake Total 1830 ml 695 ml Balance 1830 ml 695 ml Exam Constitutional: alert, oriented, well developed Psych: nl mood/affect, no complaints Head: atraumatic, normocephalic Eyes: EOMI, PERRL, nl conjunctiva, nl lids, nl sclera ENMT: nl external ears & nose, nl lips & teeth, nl nasal mucosa & septum Neck: non-tender, supple Respiratory: clear to auscultation, normal air movement Cardiovascular: nl pulses, regular rate and rhythm Gastrointestinal: nl liver, spleen, non-tender, soft Musculoskeletal: nl extremities to inspection, nl gait and stance Extremities: normal pulses Neurological: J[employer] II-XII intact, nl mental status, nl speech, nl strength Skin: nl turgor, No rash or lesions Lymph: nl lymph nodes Results Result Diagram: 08/24/17 0545 08/24/17 0545 Results 24 hrs Laboratory Tests Test 08/23/17 21:26 08/24/17 05:45 08/24/17 08:14 08/24/17 12:05 Bedside Glucose 97 91 126 White Blood Count 7.0 Red Blood Count 4.27 Hemoglobin 12.7 Hematocrit 38.6 Mean Corpuscular Volume 90.4 Mean Corpuscular Hemoglobin 29.7 Mean Corpuscular Hemoglobin Concent 32.9 Red Cell Distribution Width 12.5 Platelet Count 191 Mean Platelet Volume 9.1 Neutrophils % 52.0 Lymphocytes % 35.4 Monocytes % 6.4 Eosinophils % 5.3 Basophils % 0.6 Nucleated Red Blood Cells % 0.0 Neutrophils # 3.7 Lymphocytes # 2.5 Monocytes # 0.5 Eosinophils # 0.4 Basophils # 0.0 Nucleated Red Blood Cells # 0.0 Sodium Level 142 Potassium Level 3.7 Chloride Level 104 Carbon Dioxide Level 31 Anion Gap 11 Blood Urea Nitrogen 13 Creatinine 0.69 Glucose Level 96 Calcium Level 9.5 Total Bilirubin 0.1 L Direct Bilirubin 0.00 Indirect Bilirubin 0.1 Aspartate Amino Transf (AST/SGOT) 24 Alanine Aminotransferase (ALT/SGPT) 54 Alkaline Phosphatase 141 H Total Protein 6.8 Albumin 3.6 Globulin 3.20 Albumin/Globulin Ratio 1.12 Amylase Level 56 Lipase 283 Test 08/24/17 17:14 Bedside Glucose 104 Medications Medications Current Medications Potassium Chloride/Dextrose/ Sod Cl (D5-1/2ns + KCl 20 Meq) 1,000 ml @ 60 mls/ hr [id number] IV Last administered on 08/24/17 01:50; Admin Dose 60 MLS/HR; Start 08/14/17 at 23:00 Ondansetron HCl (Zofran Inj) 4 mg Q6H PRN IV NAUSEA AND/OR VOMITING; Start at 23:00 Morphine Sulfate (morphine) 2 mg Q4H PRN IV PAIN LEVEL 4-7 Last administered on 08/19/17 21:06; Admin Dose 2 MG; Start 08/14/17 at 23:00 Acetaminophen (Tylenol Tab) 650 mg Q6H PRN PO PAIN AND OR ELEVATED TEMP Last administered on 08/23/17 15:39; Admin Dose 650 MG; Start 08/14/17 at 23:00 Aspirin (Halfprin) 81 mg DAILY PO Last administered on 08/24/17 08:58; Admin Dose 81 MG; Start 08/15/17 at 09:00 Insulin Glargine (Lantus) 12 unit DAILY SC Last administered on 08/24/17 10: 03; Admin Dose 12 UNIT; Start 08/15/17 at 09:00 Lamotrigine (Lamictal) 50 mg Q12 PO Last administered on 08/24/17 08:56; Admin Dose 50 MG; Start 08/15/17 at 09:00 Lorazepam (Ativan) 1 mg Q6 PRN PO ANXIETY Last administered on 08/16/17 19:45 ; Admin Dose 1 MG; Start 08/14/17 at 23:00 Risperidone (Risperdal) 2 mg BID PO Last administered on 08/24/17 08:58; Admin Dose 2 MG; Start 08/15/17 at 09:00 Miscellaneous Information 1 ea NOTE XX ; Start 08/14/17 at 23:45 Glucose (Glutose) 15 gm Q15M PRN PO DECREASED GLUCOSE; Start 08/14/17 at 23:45 Glucose (Glutose) 22.5 gm Q15M PRN PO DECREASED GLUCOSE; Start 08/14/17 at 23: 45 Dextrose (D50w Syringe) 25 ml Q15M PRN IV DECREASED GLUCOSE; Start 08/14/17 at 23:45 Dextrose (D50w Syringe) 50 ml Q15M PRN IV DECREASED GLUCOSE; Start 08/14/17 at 23:45 Glucagon (Glucagen) 1 mg Q15M PRN IM DECREASED GLUCOSE; Start 08/14/17 at 23: 45 Glucose (Glutose) 15 gm Q15M PRN BUCCAL DECREASED GLUCOSE; Start 08/14/17 at 23:45 Amlodipine Besylate (Norvasc) 10 mg DAILY PO Last administered on 08/24/17 08 :58; Admin Dose 10 MG; Start 08/17/17 at 17:00 Diagnostic Test (Pha) (Accu-Chek) 1 ea 02 XX ; Start 08/19/17 at 02:00 Docusate Sodium (Colace) 100 mg BID PO Last administered on 08/24/17 08:58; Admin Dose 100 MG; Start 08/20/17 at 21:00 Magnesium Hydroxide 30 ml 30 ml DAILY PRN PO CONSTIPATION; Start 08/20/17 at 11:00 Cefazolin Sodium (Ancef 1 Gm/50 ml (Pmx)) 50 ml @ 100 mls/hr Q8 IVPB Last administered on 08/24/17 14:38; Admin Dose 100 MLS/HR; Start 08/21/17 at 22: 00 Triamcinolone Acetonide (Kenalog 0.1% Cr) 1 applic BID TOP Last administered on 08/24/17 09:02; Admin Dose 1 APPLIC; Start 08/22/17 at 21:00 Pantoprazole (Protonix Tab) 40 mg DAILY@06 PO Last administered on 08/24/17 05:29; Admin Dose 40 MG; Start 08/24/17 at 06:00 Docusate Sodium (Colace) 100 mg BID PO ; Start 08/24/17 at 21:00 Polyethylene Glycol (Miralax) 17 gm DAILY PRN GTB CONSTIPATION; Start at 13:00 JOAN BOTELLO MD Aug 24, 2017 19:47
[2017-08-24 20:15] VITALS: BP 136/80; RESP 18
--- NOTE | 2017-08-24 22:05 | CONS ---
Date/Time of Note Date/Time of Note DATE: 08/24/17 TIME: 21:59 Consult Date/Type/Reason Admit Date/Time Aug 14, 2017 at 19:34 Initial Consult Date 08/15/17 Type of Consultation: Urology Reason for Consultation renal and ureteral stones Ordering Provider: TAWANA FORD MD Subjective Patient denies any pain,she appears comfortable Objective Vital Signs Date Time Temp Pulse Resp B/P Pulse Ox O2 Delivery O2 Flow Rate FiO2 08/24/17 20:15 98.7 77 18 136/80 98 08/21/17 21:32 Room Air Intake and Output 08/23/17 08/23/17 08/24/17 15:00 23:00 07:00 Intake Total 1830 ml 695 ml Balance 1830 ml 695 ml Exam She is alert,awake ,abdomen is soft Results/Medications Result Diagram: 08/24/17 0545 08/24/17 0545 Results 24 hrs Laboratory Tests Test 08/24/17 05:45 08/24/17 08:14 08/24/17 12:05 08/24/17 17:14 White Blood Count 7.0 Red Blood Count 4.27 Hemoglobin 12.7 Hematocrit 38.6 Mean Corpuscular Volume 90.4 Mean Corpuscular Hemoglobin 29.7 Mean Corpuscular Hemoglobin Concent 32.9 Red Cell Distribution Width 12.5 Platelet Count 191 Mean Platelet Volume 9.1 Neutrophils % 52.0 Lymphocytes % 35.4 Monocytes % 6.4 Eosinophils % 5.3 Basophils % 0.6 Nucleated Red Blood Cells % 0.0 Neutrophils # 3.7 Lymphocytes # 2.5 Monocytes # 0.5 Eosinophils # 0.4 Basophils # 0.0 Nucleated Red Blood Cells # 0.0 Sodium Level 142 Potassium Level 3.7 Chloride Level 104 Carbon Dioxide Level 31 Anion Gap 11 Blood Urea Nitrogen 13 Creatinine 0.69 Glucose Level 96 Calcium Level 9.5 Total Bilirubin 0.1 L Direct Bilirubin 0.00 Indirect Bilirubin 0.1 Aspartate Amino Transf (AST/SGOT) 24 Alanine Aminotransferase (ALT/SGPT) 54 Alkaline Phosphatase 141 H Total Protein 6.8 Albumin 3.6 Globulin 3.20 Albumin/Globulin Ratio 1.12 Amylase Level 56 Lipase 283 Bedside Glucose 91 126 104 Test 08/24/17 20:58 Bedside Glucose 79 Medications Current Medications Potassium Chloride/Dextrose/ Sod Cl (D5-1/2ns + KCl 20 Meq) 1,000 ml @ 60 mls/ hr [id number] IV Last administered on 08/24/17 20:03; Admin Dose 60 MLS/HR; Start 08/14/17 at 23:00 Ondansetron HCl (Zofran Inj) 4 mg Q6H PRN IV NAUSEA AND/OR VOMITING; Start at 23:00 Morphine Sulfate (morphine) 2 mg Q4H PRN IV PAIN LEVEL 4-7 Last administered on 08/19/17 21:06; Admin Dose 2 MG; Start 08/14/17 at 23:00 Acetaminophen (Tylenol Tab) 650 mg Q6H PRN PO PAIN AND OR ELEVATED TEMP Last administered on 08/23/17 15:39; Admin Dose 650 MG; Start 08/14/17 at 23:00 Aspirin (Halfprin) 81 mg DAILY PO Last administered on 08/24/17 08:58; Admin Dose 81 MG; Start 08/15/17 at 09:00 Insulin Glargine (Lantus) 12 unit DAILY SC Last administered on 08/24/17 10: 03; Admin Dose 12 UNIT; Start 08/15/17 at 09:00 Lamotrigine (Lamictal) 50 mg Q12 PO Last administered on 08/24/17 21:04; Admin Dose 50 MG; Start 08/15/17 at 09:00 Lorazepam (Ativan) 1 mg Q6 PRN PO ANXIETY Last administered on 08/16/17 19:45 ; Admin Dose 1 MG; Start 08/14/17 at 23:00 Risperidone (Risperdal) 2 mg BID PO Last administered on 08/24/17 21:05; Admin Dose 2 MG; Start 08/15/17 at 09:00 Miscellaneous Information 1 ea NOTE XX ; Start 08/14/17 at 23:45 Glucose (Glutose) 15 gm Q15M PRN PO DECREASED GLUCOSE; Start 08/14/17 at 23:45 Glucose (Glutose) 22.5 gm Q15M PRN PO DECREASED GLUCOSE; Start 08/14/17 at 23: 45 Dextrose (D50w Syringe) 25 ml Q15M PRN IV DECREASED GLUCOSE; Start 08/14/17 at 23:45 Dextrose (D50w Syringe) 50 ml Q15M PRN IV DECREASED GLUCOSE; Start 08/14/17 at 23:45 Glucagon (Glucagen) 1 mg Q15M PRN IM DECREASED GLUCOSE; Start 08/14/17 at 23: 45 Glucose (Glutose) 15 gm Q15M PRN BUCCAL DECREASED GLUCOSE; Start 08/14/17 at 23:45 Amlodipine Besylate (Norvasc) 10 mg DAILY PO Last administered on 08/24/17 08 :58; Admin Dose 10 MG; Start 08/17/17 at 17:00 Diagnostic Test (Pha) (Accu-Chek) 1 ea 02 XX ; Start 08/19/17 at 02:00 Docusate Sodium (Colace) 100 mg BID PO Last administered on 08/24/17 21:03; Admin Dose 100 MG; Start 08/20/17 at 21:00 Magnesium Hydroxide 30 ml 30 ml DAILY PRN PO CONSTIPATION; Start 08/20/17 at 11:00 Cefazolin Sodium (Ancef 1 Gm/50 ml (Pmx)) 50 ml @ 100 mls/hr Q8 IVPB Last administered on 08/24/17 14:38; Admin Dose 100 MLS/HR; Start 08/21/17 at 22: 00 Triamcinolone Acetonide (Kenalog 0.1% Cr) 1 applic BID TOP Last administered on 08/24/17 21:07; Admin Dose 1 APPLIC; Start 08/22/17 at 21:00 Pantoprazole (Protonix Tab) 40 mg DAILY@06 PO Last administered on 08/24/17 05:29; Admin Dose 40 MG; Start 08/24/17 at 06:00 Docusate Sodium (Colace) 100 mg BID PO Last administered on 08/24/17 21:03; Admin Dose 100 MG; Start 08/24/17 at 21:00 Polyethylene Glycol (Miralax) 17 gm DAILY PRN GTB CONSTIPATION; Start at 13:00 Assessment/Plan Chief Complaint/Hosp Course 51-year-old female with a history of hypertension ,diabetes,high cholesterol and history of schizophrenia, she resides in a [id number] and was brought to [facility] because of chest pain. she underwent a CT scan of the abdomen and pelvis and that showed a stone in the upper left ureter with multiple stones in the renal pelvis. Since the stone in the upper left ureter is not seen on the plain KUB I ordered a repeat CT of the abdomen and pelvis without contrast to see if the stone has passed or still in the ureter. The CT scan showed: 1. 0.7 cm x 0.4 cm obstructing stone in the left proximal ureter, causing mild to moderate hydronephrosis of the left kidney. 2. Multiple stones in the calices of the left kidney. 3. Status post cholecystectomy. 4. Somewhat diffuse thickened wall of the urinary bladder, concerning for cystitis. 5. Some fecal impaction along the colon including the rectosigmoid colon. 6. Several small uterine fibroids. 7. Small inguinal hernia bilaterally, containing the fat. Patient is status post cystoscopy and left ureteroscopy and insertion of left ureteral JJ stent. She still have the stone. The KUB that was done did not demonstrate the stone but that there is a poor quality x-ray. I did explain to the patient that she will need another procedure later on to break the stone and remove the JJ stent. We will repeat the KUB in AM with the hope that we could see the stone otherwise we'll repeat the CT scan and do ESWL on Monday.. Problems: KANIKA HENAO MD Aug 24, 2017 22:05
[2017-08-24] MEDS: LORAZEPAM 1 MG TAB PO PRN (22:21)
[2017-08-25] MEDS: ACCU-CHEK XX SCH ×5 (02:00→21:29)
[2017-08-25] MEDS: D5W-0.45 NACL + KCL 20 MEQ 1,000 ML IV SCH ×2 (02:14→17:54)
[2017-08-25 02:21] VITALS: BP 109/64; RESP 18
[2017-08-25] MEDS: CEFAZOLIN 1 GM/50 ML (PMX) 50 ML IVPB SCH ×3 (05:37→22:05)
[2017-08-25] MEDS: PANTOPRAZOLE (EC) 40 MG TAB PO SCH (05:37)
[2017-08-25 06:35] LABS: BASOPHILS % 0.5 % (0.0-2.0); EOSINOPHILS # 0.3 10^3/ul (0.0-0.5); EOSINOPHILS % 5.4 % (0.0-7.0); HEMATOCRIT 39.8 % (37.0-47.0); HEMOGLOBIN 12.8 g/dl (12.0-16.0); LYMPHOCYTES # 2.5 10^3/ul (0.8-2.9); LYMPHOCYTES % 43.6 % (15.0-51.0); MEAN CORPUSCULAR HEMOGLOBIN 29.2 pg (29.0-33.0); MEAN CORPUSCULAR HGB CONC 32.2 g/dl (32.0-37.0); MEAN CORPUSCULAR VOLUME 90.7 fl (82.0-101.0); MEAN PLATELET VOLUME 9.3 fl (7.4-10.4); MONOCYTE # 0.4 10^3/ul (0.3-0.9); MONOCYTES % 7.5 % (0.0-11.0); NEUTROPHIL # 2.5 10^3/ul (1.6-7.5); NEUTROPHILS % 42.8 % (39.0-77.0); PLATELET COUNT 193 10^3/UL (140-415); RED BLOOD COUNT 4.39 10^6/ul (4.20-5.40); RED CELL DISTRIBUTION WIDTH 12.4 % (11.5-14.5); WHITE BLOOD COUNT 5.8 10^3/ul (4.8-10.8)
[2017-08-25 07:11] LABS: CALCIUM 9.6 mg/dl (8.4-10.2); CREATININE 0.62 mg/dl (0.44-1.00); POTASSIUM 4.3 mmol/L (3.5-5.1)
[2017-08-25 07:16] VITALS: BP 116/76; RESP 16
[2017-08-25] MEDS: INSULIN ASPART [NOVOLOG] 3 ML PEN SC SCH ×4 (08:00→20:51)
[2017-08-25] MEDS: ASPIRIN (EC) 81 MG TAB PO SCH (08:26)
[2017-08-25] MEDS: AMLODIPINE 10 MG TAB PO SCH (08:27)
[2017-08-25] MEDS: RISPERIDONE 2 MG TAB PO SCH ×2 (08:27→20:26)
[2017-08-25] MEDS: LAMOTRIGINE 25 MG TAB PO SCH ×2 (08:27→20:27)
[2017-08-25] MEDS: DOCUSATE SODIUM 100 MG CAP PO SCH ×4 (08:27→21:00)
[2017-08-25] MEDS: TRIAMCINOLONE ACET 0.1% 15 GM CR TOP SCH ×2 (08:29→20:27)
[2017-08-25] MEDS: INSULIN GLARGINE [LANtus] 3 ML PEN SC SCH (08:35)
--- NOTE | 2017-08-25 09:56 | RADRPT ---
PROCEDURE: XR Abdomen. CLINICAL INDICATION: Renal stone. TECHNIQUE: Single AP view of the abdomen COMPARISON: 08/23/2017 FINDINGS: Again demonstrated are multiple foci of calcification projected over the left kidney measuring up to 16 mm. There is a left ureteral stent in place. Nonobstructive bowel gas pattern. There is moderate to large amount of stool identified in the colo n. Post cholecystectomy clips are identified in the right upper quadrant. IMPRESSION: 1. Unchanged nonobstructive calculi projected over the left kidney with ipsilateral ureteral stent in place in satisfactory location. 2. Moderate to large amount of stool evident within the colon. RPTAT: EE .Dami Keita MD, MD Date Time Electronically viewed and signed by .Dami Keita MD, on 08/25/2017 10:02 .C/
--- NOTE | 2017-08-25 10:26 | CONS ---
Date/Time of Note Date/Time of Note DATE: 08/25/17 TIME: 10:25 Consult Date/Type/Reason Admit Date/Time Aug 14, 2017 at 19:34 Initial Consult Date 08/15/17 Type of Consultation: cardiology Ordering Provider: TAWANA FORD MD Subjective cardiology follow up note: S: D/w STAFF pt denies any left sided cp or sob or palpitations to me now. SHE has reported intermittent right sided sharp chest wall pain she denies abd pain to me now . S/P CYSTOSCOPY 08/21 O: General: no acute distress HEENT: NC/AT. pupils are equal. round. NECK: NO JVD. no stridor. CV: RRR. systolic murmur; no gallop or rubs. PULM: no wheezing or rhonchi. GI: SOFT, mild tenderness, ND, no rebound or guarding Extremity: trace B/L LE edema. no clubbing. neuro: awake and alert, Psych: calm and pleasant rectal: deferred ECG NSR NORMAL CT pio angio 05/02/17: Left dominant coronary arterial system. Total calcium score: 0 Although images are partially degraded due to elevated heart rate there is no evidence of calcified or noncalcified plaque within any of the coronary arteries , all vessels appear widely patent. Objective Vital Signs Date Time Temp Pulse Resp B/P Pulse Ox O2 Delivery O2 Flow Rate FiO2 08/25/17 07:16 98.4 64 16 116/76 96 08/21/17 21:32 Room Air Intake and Output 08/24/17 08/24/17 08/25/17 14:59 22:59 06:59 Intake Total 1225 ml 760 ml Balance 1225 ml 760 ml Results/Medications Result Diagram: 08/25/17 0514 08/25/17 0514 Results 24 hrs Laboratory Tests Test 08/24/17 12:05 08/24/17 17:14 08/24/17 20:58 08/25/17 05:14 Bedside Glucose 126 104 79 White Blood Count 5.8 Red Blood Count 4.39 Hemoglobin 12.8 Hematocrit 39.8 Mean Corpuscular Volume 90.7 Mean Corpuscular Hemoglobin 29.2 Mean Corpuscular Hemoglobin Concent 32.2 Red Cell Distribution Width 12.4 Platelet Count 193 Mean Platelet Volume 9.3 Neutrophils % 42.8 Lymphocytes % 43.6 Monocytes % 7.5 Eosinophils % 5.4 Basophils % 0.5 Nucleated Red Blood Cells % 0.0 Neutrophils # 2.5 Lymphocytes # 2.5 Monocytes # 0.4 Eosinophils # 0.3 Basophils # 0.0 Nucleated Red Blood Cells # 0.0 Sodium Level 142 Potassium Level 4.3 Chloride Level 104 Carbon Dioxide Level 28 Anion Gap 14 Blood Urea Nitrogen 14 Creatinine 0.62 Glucose Level 88 Calcium Level 9.6 Test 08/25/17 08:09 Bedside Glucose 96 Medications Current Medications Potassium Chloride/Dextrose/ Sod Cl (D5-1/2ns + KCl 20 Meq) 1,000 ml @ 60 mls/ hr [id number] IV Last administered on 08/24/17 20:03; Admin Dose 60 MLS/HR; Start 08/14/17 at 23:00 Ondansetron HCl (Zofran Inj) 4 mg Q6H PRN IV NAUSEA AND/OR VOMITING; Start at 23:00 Morphine Sulfate (morphine) 2 mg Q4H PRN IV PAIN LEVEL 4-7 Last administered on 08/19/17 21:06; Admin Dose 2 MG; Start 08/14/17 at 23:00 Acetaminophen (Tylenol Tab) 650 mg Q6H PRN PO PAIN AND OR ELEVATED TEMP Last administered on 08/23/17 15:39; Admin Dose 650 MG; Start 08/14/17 at 23:00 Aspirin (Halfprin) 81 mg DAILY PO Last administered on 08/25/17 08:26; Admin Dose 81 MG; Start 08/15/17 at 09:00 Insulin Glargine (Lantus) 12 unit DAILY SC Last administered on 08/25/17 08:35 ; Admin Dose 12 UNIT; Start 08/15/17 at 09:00 Lamotrigine (Lamictal) 50 mg Q12 PO Last administered on 08/25/17 08:27; Admin Dose 50 MG; Start 08/15/17 at 09:00 Lorazepam (Ativan) 1 mg Q6 PRN PO ANXIETY Last administered on 08/24/17 22:21 ; Admin Dose 1 MG; Start 08/14/17 at 23:00 Risperidone (Risperdal) 2 mg BID PO Last administered on 08/25/17 08:27; Admin Dose 2 MG; Start 08/15/17 at 09:00 Miscellaneous Information 1 ea NOTE XX ; Start 08/14/17 at 23:45 Glucose (Glutose) 15 gm Q15M PRN PO DECREASED GLUCOSE; Start 08/14/17 at 23:45 Glucose (Glutose) 22.5 gm Q15M PRN PO DECREASED GLUCOSE; Start 08/14/17 at 23: 45 Dextrose (D50w Syringe) 25 ml Q15M PRN IV DECREASED GLUCOSE; Start 08/14/17 at 23:45 Dextrose (D50w Syringe) 50 ml Q15M PRN IV DECREASED GLUCOSE; Start 08/14/17 at 23:45 Glucagon (Glucagen) 1 mg Q15M PRN IM DECREASED GLUCOSE; Start 08/14/17 at 23: 45 Glucose (Glutose) 15 gm Q15M PRN BUCCAL DECREASED GLUCOSE; Start 08/14/17 at 23:45 Amlodipine Besylate (Norvasc) 10 mg DAILY PO Last administered on 08/25/17 08: 27; Admin Dose 10 MG; Start 08/17/17 at 17:00 Diagnostic Test (Pha) (Accu-Chek) 1 ea 02 XX ; Start 08/19/17 at 02:00 Docusate Sodium (Colace) 100 mg BID PO Last administered on 08/25/17 08:27; Admin Dose 100 MG; Start 08/20/17 at 21:00 Magnesium Hydroxide 30 ml 30 ml DAILY PRN PO CONSTIPATION Last administered on 08/25/17 08:38; Admin Dose 30 ML; Start 08/20/17 at 11:00 Cefazolin Sodium (Ancef 1 Gm/50 ml (Pmx)) 50 ml @ 100 mls/hr Q8 IVPB Last administered on 08/25/17 05:37; Admin Dose 100 MLS/HR; Start 08/21/17 at 22:00 Triamcinolone Acetonide (Kenalog 0.1% Cr) 1 applic BID TOP Last administered on 08/25/17 08:29; Admin Dose 1 APPLIC; Start 08/22/17 at 21:00 Pantoprazole (Protonix Tab) 40 mg DAILY@06 PO Last administered on 08/25/17 05 :37; Admin Dose 40 MG; Start 08/24/17 at 06:00 Docusate Sodium (Colace) 100 mg BID PO Last administered on 08/24/17 21:03; Admin Dose 100 MG; Start 08/24/17 at 21:00 Polyethylene Glycol (Miralax) 17 gm DAILY PRN GTB CONSTIPATION; Start at 13:00 Assessment/Plan Chief Complaint/Hosp Course 1. nonanginal chest pain: right sided. 2. acute pancreatitis 3. HTN 4. DM 5. Psych disorder 6. renal stone: S/P cystoscopy: f/u rec Patient has previously had cardiac workup including echocardiogram and CT coronary angiogram both of which were unremarkable. Her calcium score is 0 which makes at very low risk of significant CAD. Her right sided chest pain does not appear to be cardiac related and most likely related to her GI symptoms versus others. Treatment of her GI GI issues including her pancreatitis as per internal medicine. Diabetic management as per internal medicine. f/u with rec. Thank you for his referral. I will follow up with you on as needed base. CHAITANYA NEVAREZ MD [facility] Problems: CHAITANYA NEVAREZ MD Aug 25, 2017 10:25
[2017-08-25] MEDS ORDERED: BISACODYL 10 MG SUPP PR STA (12:42)
--- NOTE | 2017-08-25 12:42 | CONS ---
Date/Time of Note Date/Time of Note DATE: 08/25/17 TIME: 12:41 Assessment/Plan Assessment/Plan Additional Assessment/Plan Assessment/Plan Additional Assessment/Plan Additional Assessment/Plan Additional Assessment/Plan 1. Biliary pancreatitis, which resolved. Repeat CT is negative for pancreatitis and also negative for biliary dilatation. Liver function is back to normal 2. Diabetes mellitus. 3. Hypertension. 4. Hydronephrosis with 10 mm of stone in the kidney and 6 mm stone in the ureter. 5. Schizophrenia 6. Chest pain 7. Tremor upper extremity 8. Constipation Plan Continue present care Continue low-fat diet Dulcolax suppository and p.o. tablet Consultation Date/Type/Reason Admit Date/Time Aug 14, 2017 at 19:34 Initial Consult Date 08/15/17 Type of Consultation: cardiology Referring Provider: TAWANA FORD MD 24 HR Interval Summary Constitutional: improved Exam/Review of Systems Vital Signs Vitals Vital Signs Date Time Temp Pulse Resp B/P Pulse Ox O2 Delivery O2 Flow Rate FiO2 08/25/17 07:16 98.4 64 16 116/76 96 08/21/17 21:32 Room Air Intake and Output 08/24/17 08/24/17 08/25/17 15:00 23:00 07:00 Intake Total 1225 ml 760 ml Balance 1225 ml 760 ml Exam Constitutional: alert, oriented, well developed Psych: nl mood/affect, no complaints Head: atraumatic, normocephalic Eyes: EOMI, PERRL, nl conjunctiva, nl lids, nl sclera ENMT: nl external ears & nose, nl lips & teeth, nl nasal mucosa & septum Neck: non-tender, supple Respiratory: clear to auscultation, normal air movement Cardiovascular: nl pulses, regular rate and rhythm Gastrointestinal: nl liver, spleen, non-tender, soft Musculoskeletal: nl extremities to inspection, nl gait and stance Extremities: normal pulses Neurological: TELEPHONE OPERATOR II-XII intact, nl mental status, nl speech, nl strength Skin: nl turgor, No rash or lesions Lymph: nl lymph nodes Results Result Diagram: 08/25/17 0514 08/25/17 0514 Results 24 hrs Laboratory Tests Test 08/24/17 17:14 08/24/17 20:58 08/25/17 05:14 08/25/17 08:09 Bedside Glucose 104 79 96 White Blood Count 5.8 Red Blood Count 4.39 Hemoglobin 12.8 Hematocrit 39.8 Mean Corpuscular Volume 90.7 Mean Corpuscular Hemoglobin 29.2 Mean Corpuscular Hemoglobin Concent 32.2 Red Cell Distribution Width 12.4 Platelet Count 193 Mean Platelet Volume 9.3 Neutrophils % 42.8 Lymphocytes % 43.6 Monocytes % 7.5 Eosinophils % 5.4 Basophils % 0.5 Nucleated Red Blood Cells % 0.0 Neutrophils # 2.5 Lymphocytes # 2.5 Monocytes # 0.4 Eosinophils # 0.3 Basophils # 0.0 Nucleated Red Blood Cells # 0.0 Sodium Level 142 Potassium Level 4.3 Chloride Level 104 Carbon Dioxide Level 28 Anion Gap 14 Blood Urea Nitrogen 14 Creatinine 0.62 Glucose Level 88 Calcium Level 9.6 Test 08/25/17 12:11 Bedside Glucose 95 Medications Medications Current Medications Potassium Chloride/Dextrose/ Sod Cl (D5-1/2ns + KCl 20 Meq) 1,000 ml @ 60 mls/ hr [id number] IV Last administered on 08/24/17 20:03; Admin Dose 60 MLS/HR; Start 08/14/17 at 23:00 Ondansetron HCl (Zofran Inj) 4 mg Q6H PRN IV NAUSEA AND/OR VOMITING; Start at 23:00 Morphine Sulfate (morphine) 2 mg Q4H PRN IV PAIN LEVEL 4-7 Last administered on 08/19/17 21:06; Admin Dose 2 MG; Start 08/14/17 at 23:00 Acetaminophen (Tylenol Tab) 650 mg Q6H PRN PO PAIN AND OR ELEVATED TEMP Last administered on 08/23/17 15:39; Admin Dose 650 MG; Start 08/14/17 at 23:00 Aspirin (Halfprin) 81 mg DAILY PO Last administered on 08/25/17 08:26; Admin Dose 81 MG; Start 08/15/17 at 09:00 Insulin Glargine (Lantus) 12 unit DAILY SC Last administered on 08/25/17 08:35 ; Admin Dose 12 UNIT; Start 08/15/17 at 09:00 Lamotrigine (Lamictal) 50 mg Q12 PO Last administered on 08/25/17 08:27; Admin Dose 50 MG; Start 08/15/17 at 09:00 Lorazepam (Ativan) 1 mg Q6 PRN PO ANXIETY Last administered on 08/24/17 22:21 ; Admin Dose 1 MG; Start 08/14/17 at 23:00 Risperidone (Risperdal) 2 mg BID PO Last administered on 08/25/17 08:27; Admin Dose 2 MG; Start 08/15/17 at 09:00 Miscellaneous Information 1 ea NOTE XX ; Start 08/14/17 at 23:45 Glucose (Glutose) 15 gm Q15M PRN PO DECREASED GLUCOSE; Start 08/14/17 at 23:45 Glucose (Glutose) 22.5 gm Q15M PRN PO DECREASED GLUCOSE; Start 08/14/17 at 23: 45 Dextrose (D50w Syringe) 25 ml Q15M PRN IV DECREASED GLUCOSE; Start 08/14/17 at 23:45 Dextrose (D50w Syringe) 50 ml Q15M PRN IV DECREASED GLUCOSE; Start 08/14/17 at 23:45 Glucagon (Glucagen) 1 mg Q15M PRN IM DECREASED GLUCOSE; Start 08/14/17 at 23: 45 Glucose (Glutose) 15 gm Q15M PRN BUCCAL DECREASED GLUCOSE; Start 08/14/17 at 23:45 Amlodipine Besylate (Norvasc) 10 mg DAILY PO Last administered on 08/25/17 08: 27; Admin Dose 10 MG; Start 08/17/17 at 17:00 Diagnostic Test (Pha) (Accu-Chek) 1 ea 02 XX ; Start 08/19/17 at 02:00 Docusate Sodium (Colace) 100 mg BID PO Last administered on 08/25/17 08:27; Admin Dose 100 MG; Start 08/20/17 at 21:00 Magnesium Hydroxide 30 ml 30 ml DAILY PRN PO CONSTIPATION Last administered on 08/25/17 08:38; Admin Dose 30 ML; Start 08/20/17 at 11:00 Cefazolin Sodium (Ancef 1 Gm/50 ml (Pmx)) 50 ml @ 100 mls/hr Q8 IVPB Last administered on 08/25/17 05:37; Admin Dose 100 MLS/HR; Start 08/21/17 at 22:00 Triamcinolone Acetonide (Kenalog 0.1% Cr) 1 applic BID TOP Last administered on 08/25/17 08:29; Admin Dose 1 APPLIC; Start 08/22/17 at 21:00 Pantoprazole (Protonix Tab) 40 mg DAILY@06 PO Last administered on 08/25/17 05 :37; Admin Dose 40 MG; Start 08/24/17 at 06:00 Docusate Sodium (Colace) 100 mg BID PO Last administered on 08/24/17 21:03; Admin Dose 100 MG; Start 08/24/17 at 21:00 Polyethylene Glycol (Miralax) 17 gm DAILY PRN GTB CONSTIPATION; Start at 13:00 JOAN BOTELLO MD Aug 25, 2017 12:42
[2017-08-25] MEDS ORDERED: BISACODYL (EC) 5 MG TAB PO ONE (13:00)
--- NOTE | 2017-08-25 13:34 | RADRPT ---
PROCEDURE: CT abdomen and pelvis without contrast. CLINICAL INDICATION: Urolithiasis TECHNIQUE: CT scan of the abdomen and pelvis without contrast was performed and is reconstructed a t 2.5 mm contiguous axial intervals from the dome of the diaphragm to the inferior pubic rami.. The patient was scanned without intravenous contrast. Sagittal and coronal reformatted images were obt ained from the axial source images. The calculated radiation dose measures 1202 mGy centimeters. The CTDI measures 20 mGy. Individualized dose optimization technique was used for the performance of this exam. This included 1. Automated exposure control. 2. Adjustment of the mA and / or kV according to the patient's size. 3. Use of iterative reconstructed technique. COMPARISON: CT abdomen pelvis August 20, 2017 FINDINGS: The lung bases are clear of any infiltrate or nodule. No effusion is seen. There is minimal atelect asis deep in the right costophrenic recess. The liver is of normal size, contour and attenuation with no mass or ductal dilatation. Gallbladder has been removed. No splenic, adrenal or pancreatic abnormalities present. Kidneys are of normal size and contour. The right kidney is without evidence of hydronephrosis, ziyad culus or mass in the right ureter is of normal course and caliber with no stone. There has been inte rval insertion of a left double-J ureteral stent with the proximal end coiled and extrarenal pelvis and the distal end coiled in the urinary bladder. There has been retrieval or displacement of previo usly noted left ureteral calculus. Again noted are multiple nonobstructing stones in the left kidney . There is minimal fullness of the left intrarenal collecting system. Uterus appears normal. No adne xal mass is seen. There is no aneurysm. No adenopathy is present. No bowel mass or obstruction is present. The appendix is normal. No phlegmon, ascites or pneumop eritoneum is visualized. The osseous structures are intact. IMPRESSION: Interval insertion left double-J ureteral stent. Ureteral stone is no longer visualized. Multiple no nobstructing left renal calculi. Post cholecystectomy. Minimal atelectasis left costophrenic recess. .Barry Logan MD, MD Date Time Electronically viewed and signed by .Barry Logan MD, on 08/25/2017 13:34 .A/
--- NOTE | 2017-08-25 13:34 | PN ---
Date/Time of Note Date/Time of Note DATE: 08/25/17 TIME: 13:33 Assessment/Plan VTE Prophylaxis VTE Prophylaxis Intervention: SCD's Lines/Catheters IV [facility] Peripheral IV Urinary Cath still in place: No Assessment/Plan Chief Complaint/Hosp Course Patient remains hemodynamically stable, patient will undergo lithotripsy by Dr. Frost upon OR availability Assessment/Plan -Atypical chest pain. Acute coronary syndrome ruled out. cardiac enzymes are negative 3 Dr. Aguilar is following in cardiology consultation -Acute biliary pancreatitis, resolving. continue to monitor amylase and lipase. Dr. Richards is following in gastroenterology consultation. -Left-sided hydronephrosis with stone in the ureter. S/p cystoscopy, left ureteroscopy, and insertion of left ureteral JJ stent by Dr. Frost on 08/21. -Hypertension, patient is currently hypotensive. -Diabetes mellitus type 2, continue Lantus and NovoLog. -Dyslipidemia. -Possible COPD, continue breathing treatments as needed for shortness of breath. -Schizophrenia -Facial and upper extremities rash, resolving, scabies ruled out, continue Kenalog topical Further recommendations based on clinical course. Plan of care discussed with Dr. Roach Problems: Exam/Review of Systems Vital Signs Vitals Vital Signs Date Time Temp Pulse Resp B/P Pulse Ox O2 Delivery O2 Flow Rate FiO2 08/25/17 07:16 98.4 64 16 116/76 96 08/21/17 21:32 Room Air Intake and Output 08/24/17 08/24/17 08/25/17 15:00 23:00 07:00 Intake Total 1225 ml 760 ml Balance 1225 ml 760 ml Exam Constitutional: alert, oriented Neck: supple Respiratory: normal air movement Cardiovascular: nl pulses Gastrointestinal: soft, tender Musculoskeletal: nl extremities to inspection Extremities: normal pulses Neurological: confused Results Result Diagram: 08/25/17 0514 08/25/17 0514 Results 24 hrs Laboratory Tests Test 08/24/17 17:14 08/24/17 20:58 08/25/17 05:14 08/25/17 08:09 Bedside Glucose 104 79 96 White Blood Count 5.8 Red Blood Count 4.39 Hemoglobin 12.8 Hematocrit 39.8 Mean Corpuscular Volume 90.7 Mean Corpuscular Hemoglobin 29.2 Mean Corpuscular Hemoglobin Concent 32.2 Red Cell Distribution Width 12.4 Platelet Count 193 Mean Platelet Volume 9.3 Neutrophils % 42.8 Lymphocytes % 43.6 Monocytes % 7.5 Eosinophils % 5.4 Basophils % 0.5 Nucleated Red Blood Cells % 0.0 Neutrophils # 2.5 Lymphocytes # 2.5 Monocytes # 0.4 Eosinophils # 0.3 Basophils # 0.0 Nucleated Red Blood Cells # 0.0 Sodium Level 142 Potassium Level 4.3 Chloride Level 104 Carbon Dioxide Level 28 Anion Gap 14 Blood Urea Nitrogen 14 Creatinine 0.62 Glucose Level 88 Calcium Level 9.6 Test 08/25/17 12:11 Bedside Glucose 95 Medications Medications Current Medications Potassium Chloride/Dextrose/ Sod Cl (D5-1/2ns + KCl 20 Meq) 1,000 ml @ 60 mls/ hr [id number] IV Last administered on 08/24/17 20:03; Admin Dose 60 MLS/HR; Start 08/14/17 at 23:00 Ondansetron HCl (Zofran Inj) 4 mg Q6H PRN IV NAUSEA AND/OR VOMITING; Start at 23:00 Morphine Sulfate (morphine) 2 mg Q4H PRN IV PAIN LEVEL 4-7 Last administered on 08/19/17 21:06; Admin Dose 2 MG; Start 08/14/17 at 23:00 Acetaminophen (Tylenol Tab) 650 mg Q6H PRN PO PAIN AND OR ELEVATED TEMP Last administered on 08/23/17 15:39; Admin Dose 650 MG; Start 08/14/17 at 23:00 Aspirin (Halfprin) 81 mg DAILY PO Last administered on 08/25/17 08:26; Admin Dose 81 MG; Start 08/15/17 at 09:00 Insulin Glargine (Lantus) 12 unit DAILY SC Last administered on 08/25/17 08:35 ; Admin Dose 12 UNIT; Start 08/15/17 at 09:00 Lamotrigine (Lamictal) 50 mg Q12 PO Last administered on 08/25/17 08:27; Admin Dose 50 MG; Start 08/15/17 at 09:00 Lorazepam (Ativan) 1 mg Q6 PRN PO ANXIETY Last administered on 08/24/17 22:21 ; Admin Dose 1 MG; Start 08/14/17 at 23:00 Risperidone (Risperdal) 2 mg BID PO Last administered on 08/25/17 08:27; Admin Dose 2 MG; Start 08/15/17 at 09:00 Miscellaneous Information 1 ea NOTE XX ; Start 08/14/17 at 23:45 Glucose (Glutose) 15 gm Q15M PRN PO DECREASED GLUCOSE; Start 08/14/17 at 23:45 Glucose (Glutose) 22.5 gm Q15M PRN PO DECREASED GLUCOSE; Start 08/14/17 at 23: 45 Dextrose (D50w Syringe) 25 ml Q15M PRN IV DECREASED GLUCOSE; Start 08/14/17 at 23:45 Dextrose (D50w Syringe) 50 ml Q15M PRN IV DECREASED GLUCOSE; Start 08/14/17 at 23:45 Glucagon (Glucagen) 1 mg Q15M PRN IM DECREASED GLUCOSE; Start 08/14/17 at 23: 45 Glucose (Glutose) 15 gm Q15M PRN BUCCAL DECREASED GLUCOSE; Start 08/14/17 at 23:45 Amlodipine Besylate (Norvasc) 10 mg DAILY PO Last administered on 08/25/17 08: 27; Admin Dose 10 MG; Start 08/17/17 at 17:00 Diagnostic Test (Pha) (Accu-Chek) 1 ea 02 XX ; Start 08/19/17 at 02:00 Docusate Sodium (Colace) 100 mg BID PO Last administered on 08/25/17 08:27; Admin Dose 100 MG; Start 08/20/17 at 21:00 Magnesium Hydroxide 30 ml 30 ml DAILY PRN PO CONSTIPATION Last administered on 08/25/17 08:38; Admin Dose 30 ML; Start 08/20/17 at 11:00 Cefazolin Sodium (Ancef 1 Gm/50 ml (Pmx)) 50 ml @ 100 mls/hr Q8 IVPB Last administered on 08/25/17 05:37; Admin Dose 100 MLS/HR; Start 08/21/17 at 22:00 Triamcinolone Acetonide (Kenalog 0.1% Cr) 1 applic BID TOP Last administered on 08/25/17 08:29; Admin Dose 1 APPLIC; Start 08/22/17 at 21:00 Pantoprazole (Protonix Tab) 40 mg DAILY@06 PO Last administered on 08/25/17 05 :37; Admin Dose 40 MG; Start 08/24/17 at 06:00 Docusate Sodium (Colace) 100 mg BID PO Last administered on 08/24/17t 21:03; Admin Dose 100 MG; Start 08/24/17 at 21:00 Polyethylene Glycol (Miralax) 17 gm DAILY PRN GTB CONSTIPATION; Start at 13:00 LINDA BEASLEY Aug 25, 2017 13:34
[2017-08-25 13:42] VITALS: BP 130/80; RESP 18
--- NOTE | 2017-08-25 19:15 | CONS ---
Date/Time of Note Date/Time of Note DATE: 08/25/17 TIME: 19:11 Consult Date/Type/Reason Admit Date/Time Aug 14, 2017 at 19:34 Initial Consult Date 08/15/17 Type of Consultation: Urology Reason for Consultation Left renal stones Ordering Provider: TAWANA FORD MD Subjective Patient complains of back pain Objective Vital Signs Date Time Temp Pulse Resp B/P Pulse Ox O2 Delivery O2 Flow Rate FiO2 08/25/17 13:42 98.1 69 18 130/80 97 08/21/17 21:32 Room Air Intake and Output 08/24/17 08/24/17 08/25/17 15:00 23:00 07:00 Intake Total 1225 ml 760 ml Balance 1225 ml 760 ml Exam Awake alert the abdomen is obese, left flank tenderness. Patient had a CT scan of the abdomen and pelvis done today that showed multiple stones in the left kidney and no stones in the ureter. The stone that was in the upper ureter probably moved into the kidney. The JJ stent is in good position Results/Medications Result Diagram: 08/25/1714 08/25/17 0514 Results 24 hrs Laboratory Tests Test 08/24/17 20:58 08/25/17 05:14 08/25/17 08:09 08/25/17 12:11 Bedside Glucose 79 96 95 White Blood Count 5.8 Red Blood Count 4.39 Hemoglobin 12.8 Hematocrit 39.8 Mean Corpuscular Volume 90.7 Mean Corpuscular Hemoglobin 29.2 Mean Corpuscular Hemoglobin Concent 32.2 Red Cell Distribution Width 12.4 Platelet Count 193 Mean Platelet Volume 9.3 Neutrophils % 42.8 Lymphocytes % 43.6 Monocytes % 7.5 Eosinophils % 5.4 Basophils % 0.5 Nucleated Red Blood Cells % 0.0 Neutrophils # 2.5 Lymphocytes # 2.5 Monocytes # 0.4 Eosinophils # 0.3 Basophils # 0.0 Nucleated Red Blood Cells # 0.0 Sodium Level 142 Potassium Level 4.3 Chloride Level 104 Carbon Dioxide Level 28 Anion Gap 14 Blood Urea Nitrogen 14 Creatinine 0.62 Glucose Level 88 Calcium Level 9.6 Test 08/25/17 17:19 Bedside Glucose 88 Medications Current Medications Potassium Chloride/Dextrose/ Sod Cl (D5-1/2ns + KCl 20 Meq) 1,000 ml @ 60 mls/ hr [id number] IV Last administered on 08/25/17 17:54; Admin Dose 60 MLS/HR; Start 08/14/17 at 23:00 Ondansetron HCl (Zofran Inj) 4 mg Q6H PRN IV NAUSEA AND/OR VOMITING; Start at 23:00 Morphine Sulfate (morphine) 2 mg Q4H PRN IV PAIN LEVEL 4-7 Last administered on 08/19/17 21:06; Admin Dose 2 MG; Start 08/14/17 at 23:00 Acetaminophen (Tylenol Tab) 650 mg Q6H PRN PO PAIN AND OR ELEVATED TEMP Last administered on 08/23/17 15:39; Admin Dose 650 MG; Start 08/14/17 at 23:00 Aspirin (Halfprin) 81 mg DAILY PO Last administered on 08/25/17 08:26; Admin Dose 81 MG; Start 08/15/17 at 09:00 Insulin Glargine (Lantus) 12 unit DAILY SC Last administered on 08/25/17 08:35 ; Admin Dose 12 UNIT; Start 08/15/17 at 09:00 Lamotrigine (Lamictal) 50 mg Q12 PO Last administered on 08/25/17 08:27; Admin Dose 50 MG; Start 08/15/17 at 09:00 Lorazepam (Ativan) 1 mg Q6 PRN PO ANXIETY Last administered on 08/24/17 22:21 ; Admin Dose 1 MG; Start 08/14/17 at 23:00 Risperidone (Risperdal) 2 mg BID PO Last administered on 08/25/17 08:27; Admin Dose 2 MG; Start 08/15/17 at 09:00 Miscellaneous Information 1 ea NOTE XX ; Start 08/14/17 at 23:45 Glucose (Glutose) 15 gm Q15M PRN PO DECREASED GLUCOSE; Start 08/14/17 at 23:45 Glucose (Glutose) 22.5 gm Q15M PRN PO DECREASED GLUCOSE; Start 08/14/17 at 23: 45 Dextrose (D50w Syringe) 25 ml Q15M PRN IV DECREASED GLUCOSE; Start 08/14/17 at 23:45 Dextrose (D50w Syringe) 50 ml Q15M PRN IV DECREASED GLUCOSE; Start 08/14/17 at 23:45 Glucagon (Glucagen) 1 mg Q15M PRN IM DECREASED GLUCOSE; Start 08/14/17 at 23: 45 Glucose (Glutose) 15 gm Q15M PRN BUCCAL DECREASED GLUCOSE; Start 08/14/17 at 23:45 Amlodipine Besylate (Norvasc) 10 mg DAILY PO Last administered on 08/25/17 08: 27; Admin Dose 10 MG; Start 08/17/17 at 17:00 Diagnostic Test (Pha) (Accu-Chek) 1 ea 02 XX ; Start 08/19/17 at 02:00 Docusate Sodium (Colace) 100 mg BID PO Last administered on 08/25/17 08:27; Admin Dose 100 MG; Start 08/20/17 at 21:00 Magnesium Hydroxide 30 ml 30 ml DAILY PRN PO CONSTIPATION Last administered on 08/25/17 08:38; Admin Dose 30 ML; Start 08/20/17 at 11:00 Cefazolin Sodium (Ancef 1 Gm/50 ml (Pmx)) 50 ml @ 100 mls/hr Q8 IVPB Last administered on 08/25/17 15:17; Admin Dose 100 MLS/HR; Start 08/21/17 at 22:00 Triamcinolone Acetonide (Kenalog 0.1% Cr) 1 applic BID TOP Last administered on 08/25/17 08:29; Admin Dose 1 APPLIC; Start 08/22/17 at 21:00 Pantoprazole (Protonix Tab) 40 mg DAILY@06 PO Last administered on 08/25/17 05 :37; Admin Dose 40 MG; Start 08/24/17 at 06:00 Docusate Sodium (Colace) 100 mg BID PO Last administered on 08/24/17 21:03; Admin Dose 100 MG; Start 08/24/17 at 21:00 Polyethylene Glycol (Miralax) 17 gm DAILY PRN GTB CONSTIPATION; Start at 13:00 Assessment/Plan Chief Complaint/Hosp Course 51-year-old female with a history of hypertension ,diabetes,high cholesterol and history of schizophrenia, she resides in a [id number] facility and was brought to [facility] [place] because of chest pain. she underwent a CT scan of the abdomen and pelvis and that showed a stone in the upper left ureter with multiple stones in the renal pelvis. Since the stone in the upper left ureter is not seen on the plain KUB I ordered a repeat CT of the abdomen and pelvis without contrast to see if the stone has passed or still in the ureter. The CT scan showed: 1. 0.7 cm x 0.4 cm obstructing stone in the left proximal ureter, causing mild to moderate hydronephrosis of the left kidney. 2. Multiple stones in the calices of the left kidney. 3. Status post cholecystectomy. 4. Somewhat diffuse thickened wall of the urinary bladder, concerning for cystitis. 5. Some fecal impaction along the colon including the rectosigmoid colon. 6. Several small uterine fibroids. 7. Small inguinal hernia bilaterally, containing the fat. CT scan done today: Interval insertion left double-J ureteral stent. Ureteral stone is no longer visualized. Multiple nonobstructing left renal calculi. Post cholecystectomy. Minimal atelectasis left costophrenic recess. Plan is to do left extracorporeal shockwave lithotripsy and cystoscopy and removal of the left ureteral JJ stent. I have explained the procedure to the patient and she is agreeable to proceed. Problems: KANIKA HENAO MD Aug 25, 2017 19:15
[2017-08-25 20:00] VITALS: BP 133/72; RESP 20
[2017-08-26] VITALS (20 sets, daily range): BP systolic 102–139; BP diastolic 37–89; PULSE 87–99; RESP 8–19
[2017-08-26] MEDS: ACCU-CHEK XX SCH ×5 (02:00→20:31)
[2017-08-26] MEDS: CEFAZOLIN 1 GM/50 ML (PMX) 50 ML IVPB SCH ×3 (05:48→21:53)
[2017-08-26] MEDS: PANTOPRAZOLE (EC) 40 MG TAB PO SCH (05:48)
[2017-08-26] MEDS: DOCUSATE SODIUM 100 MG CAP PO SCH ×4 (07:44→20:29)
[2017-08-26] MEDS: ASPIRIN (EC) 81 MG TAB PO SCH (07:45)
[2017-08-26] MEDS: LAMOTRIGINE 25 MG TAB PO SCH ×2 (07:45→20:29)
[2017-08-26] MEDS: RISPERIDONE 2 MG TAB PO SCH ×2 (07:46→20:29)
[2017-08-26] MEDS: AMLODIPINE 10 MG TAB PO SCH (07:46)
[2017-08-26] MEDS: INSULIN ASPART [NOVOLOG] 3 ML PEN SC SCH ×4 (08:00→20:31)
[2017-08-26] MEDS: TRIAMCINOLONE ACET 0.1% 15 GM CR TOP SCH ×2 (08:07→20:32)
[2017-08-26] MEDS: INSULIN GLARGINE [LANtus] 3 ML PEN SC SCH (09:00)
[2017-08-26] MEDS ORDERED: ONDANSETRON 4 MG INJ IV PRN (10:30)
[2017-08-26] MEDS ORDERED: HYDROmorphONE (0.2 MG/ML) 10ML SYG IV PRN ×3 (10:30)
[2017-08-26] MEDS ORDERED: DIPHENHYDRAMINE 50 MG INJ IV PRN (10:30)
[2017-08-26] MEDS ORDERED: MEPERIDINE 25 MG INJ IV PRN (10:30)
[2017-08-26] MEDS ORDERED: METOCLOPRAMIDE 10 MG INJ ONE (10:38)
[2017-08-26] MEDS ORDERED: MIDAZOLAM 1 MG/ML 2 ML INJ ONE (10:38)
[2017-08-26] MEDS ORDERED: FENTAnyl 50 MCG/ML VIAL ONE (10:40)
[2017-08-26] MEDS ORDERED: PROPOFOL 20 ML ONE (10:40)
[2017-08-26] MEDS ORDERED: CEFAZOLIN 1 GM INJ ONE (10:45)
[2017-08-26] MEDS ORDERED: ONDANSETRON 4 MG INJ ONE (10:49)
[2017-08-26] MEDS ORDERED: PHENYLephrine (100 MCG/ML) 5ML SYG ONE (10:50)
[2017-08-26] MEDS ORDERED: EPHEDrine SULFATE 50 MG/5 ML SYG ONE (11:07)
[2017-08-26] MEDS: D5W-0.45 NACL + KCL 20 MEQ 1,000 ML IV SCH ×2 (11:34→14:37)
--- NOTE | 2017-08-26 12:35 | OPR ---
Date/Time of Note Date/Time of Note DATE: 08/26/17 TIME: 12:30 Operative Report Procedure Date: Aug 26, 2017 Preoperative Diagnosis Left renal stones Postoperative Diagnosis Left renal stones Operation/Procedure Performed Left extracorporeal shockwave lithotripsy Surgeon see signature line Cottage Attendant None Anesthesia Type: general Anesthesiologist: SHANNON BAIRES MD Estimated Blood Loss: none Transfusion none Specimen None Grafts/Implants none Complications none Pt Condition Post Procedure: stable Disposition: PACU Indications Left renal stones Procedure Description Patient was brought to the operating room she was positioned on the lithotripsy machine table and given general anesthesia. Patient was given 2 g of Ancef IV at the start of the procedure. Timeout was done the patient was identified by her name birthdate and the procedure and the side of the procedure. The patient did have a CT scan of the abdomen and pelvis yesterday. There are no stones in the ureter itself and the stone that was at the left ureteropelvic junction before is now in the kidney. The patient does have stones in the upper pole calyx middle pole calyx as well as a lower pole calyx. From the appearance on the x-ray, fluoroscopy the stone that was at the UPJ is now near the stent the middle pole calyx. Therefore I decided to give her the shockwaves to the stone in the area close to the JJ stent and that stone did break well then gave the rest of the shockwaves to the stones in the middle pole calyx a total of 2500 shockwaves were given. The stones were checked regularly was fluoroscopy to make sure that the shockwaves are delivered to the correct location. I decided not to remove the JJ stent as she does have too many stones and these could come down the ureter and causing her obstruction. She will need to be brought back again to undergo another treatment to the upper pole calyx stones and may be another time also to the lower pole stones. Patient tolerated the procedure well and was transferred to recovery room in stable and satisfactory condition KANIKA HENAO MD Aug 26, 2017 12:35
--- NOTE | 2017-08-26 13:09 | CONS ---
Date/Time of Note Date/Time of Note DATE: 08/26/17 TIME: 13:08 Assessment/Plan Assessment/Plan Additional Assessment/Plan Additional Assessment/Plan 1. Biliary pancreatitis, which resolved. Repeat CT is negative for pancreatitis and also negative for biliary dilatation. Liver function is back to normal 2. Diabetes mellitus. 3. Hypertension. 4. Hydronephrosis with 10 mm of stone in the kidney and 6 mm stone in the ureter. Underwent lithotripsy, ureteral stone is no more visible 5. Schizophrenia 6. Chest pain 7. Tremor upper extremity 8. Constipation finally had good bowel movements Plan Continue present care Continue low-fat diet Dulcolax suppository and p.o. tablet Patient had a lithotripsy today. Consultation Date/Type/Reason Admit Date/Time Aug 14, 2017 at 19:34 Initial Consult Date 08/15/17 Type of Consultation: Urology Referring Provider: TAWANA FORD MD 24 HR Interval Summary Constitutional: improved Exam/Review of Systems Vital Signs Vitals Vital Signs Date Time Temp Pulse Resp B/P Pulse Ox O2 Delivery O2 Flow Rate FiO2 08/26/17 12:37 92 10 117/85 94 08/26/17 12:12 Room Air 08/26/17 12:09 98.7 Intake and Output 08/25/17 08/25/17 08/26/17 15:00 23:00 07:00 Intake Total 1470 ml 1480 ml Balance 1470 ml 1480 ml Exam Constitutional: alert, oriented, well developed Psych: nl mood/affect, no complaints Head: atraumatic, normocephalic Eyes: EOMI, PERRL, nl conjunctiva, nl lids, nl sclera ENMT: nl external ears & nose, nl lips & teeth, nl nasal mucosa & septum Neck: non-tender, supple Respiratory: clear to auscultation, normal air movement Cardiovascular: nl pulses, regular rate and rhythm Gastrointestinal: nl liver, spleen, non-tender, soft Musculoskeletal: nl extremities to inspection, nl gait and stance Extremities: normal pulses Neurological: PIANO MAKER II-XII intact, nl mental status, nl speech, nl strength Skin: nl turgor, No rash or lesions Lymph: nl lymph nodes Results Result Diagram: 08/25/17 0514 08/25/17 0514 Results 24 hrs Laboratory Tests Test 08/25/17 17:19 08/25/17 20:20 08/26/17 08:01 08/26/17 10:01 Bedside Glucose 88 99 104 97 Test 08/26/17 12:23 Bedside Glucose 147 Medications Medications Current Medications Potassium Chloride/Dextrose/ Sod Cl (D5-1/2ns + KCl 20 Meq) 1,000 ml @ 60 mls/ hr [id number] IV Last administered on 08/25/17 17:54; Admin Dose 60 MLS/HR; Start 08/14/17 at 23:00 Ondansetron HCl (Zofran Inj) 4 mg Q6H PRN IV NAUSEA AND/OR VOMITING; Start at 23:00 Morphine Sulfate (morphine) 2 mg Q4H PRN IV PAIN LEVEL 4-7 Last administered on 08/19/17 21:06; Admin Dose 2 MG; Start 08/14/17 at 23:00 Acetaminophen (Tylenol Tab) 650 mg Q6H PRN PO PAIN AND OR ELEVATED TEMP Last administered on 08/23/17 15:39; Admin Dose 650 MG; Start 08/14/17 at 23:00 Aspirin (Halfprin) 81 mg DAILY PO Last administered on 08/25/17 08:26; Admin Dose 81 MG; Start 08/15/17 at 09:00 Insulin Glargine (Lantus) 12 unit DAILY SC Last administered on 08/25/17 08:35 ; Admin Dose 12 UNIT; Start 08/15/17 at 09:00 Lamotrigine (Lamictal) 50 mg Q12 PO Last administered on 08/25/17 20:27; Admin Dose 50 MG; Start 08/15/17 at 09:00 Lorazepam (Ativan) 1 mg Q6 PRN PO ANXIETY Last administered on 08/24/17 22:21 ; Admin Dose 1 MG; Start 08/14/17 at 23:00 Risperidone (Risperdal) 2 mg BID PO Last administered on 08/25/17 20:26; Admin Dose 2 MG; Start 08/15/17 at 09:00 Miscellaneous Information 1 ea NOTE XX ; Start 08/14/17 at 23:45 Glucose (Glutose) 15 gm Q15M PRN PO DECREASED GLUCOSE; Start 08/14/17 at 23:45 Glucose (Glutose) 22.5 gm Q15M PRN PO DECREASED GLUCOSE; Start 08/14/17 at 23: 45 Dextrose (D50w Syringe) 25 ml Q15M PRN IV DECREASED GLUCOSE; Start 08/14/17 at 23:45 Dextrose (D50w Syringe) 50 ml Q15M PRN IV DECREASED GLUCOSE; Start 08/14/17 at 23:45 Glucagon (Glucagen) 1 mg Q15M PRN IM DECREASED GLUCOSE; Start 08/14/17 at 23: 45 Glucose (Glutose) 15 gm Q15M PRN BUCCAL DECREASED GLUCOSE; Start 08/14/17 at 23:45 Amlodipine Besylate (Norvasc) 10 mg DAILY PO Last administered on 08/25/17 08: 27; Admin Dose 10 MG; Start 08/17/17 at 17:00 Diagnostic Test (Pha) (Accu-Chek) ea 02 XX ; Start 08/19/17 at 02:00 Docusate Sodium (Colace) 100 mg BID PO Last administered on 08/25/17 20:26; Admin Dose 100 MG; Start 08/20/17 at 21:00 Magnesium Hydroxide 30 ml 30 ml DAILY PRN PO CONSTIPATION Last administered on 08/25/17 08:38; Admin Dose 30 ML; Start 08/20/17 at 11:00 Cefazolin Sodium (Ancef 1 Gm/50 ml (Pmx)) 50 ml @ 100 mls/hr Q8 IVPB Last administered on 08/26/17 05:48; Admin Dose 100 MLS/HR; Start 08/21/17 at 22:00 Triamcinolone Acetonide (Kenalog 0.1% Cr) 1 applic BID TOP Last administered on 08/26/17 08:07; Admin Dose 1 APPLIC; Start 08/22/17 at 21:00 Pantoprazole (Protonix Tab) 40 mg DAILY@06 PO Last administered on 08/25/17 05 :37; Admin Dose 40 MG; Start 08/24/17 at 06:00 Docusate Sodium (Colace) 100 mg BID PO Last administered on 08/24/17 21:03; Admin Dose 100 MG; Start 08/24/17 at 21:00 Polyethylene Glycol (Miralax) 17 gm DAILY PRN GTB CONSTIPATION; Start at 13:00 JOAN BOTELLO MD Aug 26, 2017 13:09
--- NOTE | 2017-08-26 14:44 | CONS ---
Date/Time of Note Date/Time of Note DATE: 08/26/17 TIME: 14:43 Consult Date/Type/Reason Admit Date/Time Aug 14, 2017 at 19:34 Initial Consult Date 08/15/17 Type of Consultation: cardiology Ordering Provider: TAWANA FORD MD Subjective cardiology follow up note: S: D/w STAFF pt denies any left sided cp or sob or palpitations to me now. SHE has intermittent right sided sharp chest wall pain she denies abd pain to me now . S/P CYSTOSCOPY 08/21 O: General: no acute distress HEENT: NC/AT. pupils are equal. round. NECK: NO JVD. no stridor. CV: RRR. systolic murmur; no gallop or rubs. PULM: no wheezing or rhonchi. GI: SOFT, mild tenderness, ND, no rebound or guarding Extremity: trace B/L LE edema. no clubbing. neuro: awake and alert, Psych: calm and pleasant rectal: deferred ECG NSR NORMAL CT pio angio 05/02/17: Left dominant coronary arterial system. Total calcium score: 0 Although images are partially degraded due to elevated heart rate there is no evidence of calcified or noncalcified plaque within any of the coronary arteries , all vessels appear widely patent. Objective Vital Signs Date Time Temp Pulse Resp B/P Pulse Ox O2 Delivery O2 Flow Rate FiO2 08/26/17 14:41 99 16 124/65 95 08/26/17 14:13 98.6 08/26/17 12:12 Room Air Intake and Output 08/25/17 08/25/17 08/26/17 15:00 23:00 07:00 Intake Total 1470 ml 1480 ml Balance 1470 ml 1480 ml Results/Medications Result Diagram: 08/25/17 0514 08/25/17 0514 Results 24 hrs Laboratory Tests Test 08/25/17 17:19 08/25/17 20:20 08/26/17 08:01 08/26/17 10:01 Bedside Glucose 88 99 104 97 Test 08/26/17 12:23 08/26/17 13:05 Bedside Glucose 147 114 Medications Current Medications Potassium Chloride/Dextrose/ Sod Cl (D5-1/2ns + KCl 20 Meq) 1,000 ml @ 60 mls/ hr [id number] IV Last administered on 08/26/17 14:37; Admin Dose 60 MLS/HR; Start 08/14/17 at 23:00 Ondansetron HCl (Zofran Inj) 4 mg Q6H PRN IV NAUSEA AND/OR VOMITING; Start at 23:00 Morphine Sulfate (morphine) 2 mg Q4H PRN IV PAIN LEVEL 4-7 Last administered on 08/19/17 21:06; Admin Dose 2 MG; Start 08/14/17 at 23:00 Acetaminophen (Tylenol Tab) 650 mg Q6H PRN PO PAIN AND OR ELEVATED TEMP Last administered on 08/23/17 15:39; Admin Dose 650 MG; Start 08/14/17 at 23:00 Aspirin (Halfprin) 81 mg DAILY PO Last administered on 08/25/17 08:26; Admin Dose 81 MG; Start 08/15/17 at 09:00 Insulin Glargine (Lantus) 12 unit DAILY SC Last administered on 08/25/17 08:35 ; Admin Dose 12 UNIT; Start 08/15/17 at 09:00 Lamotrigine (Lamictal) 50 mg Q12 PO Last administered on 08/25/17 20:27; Admin Dose 50 MG; Start 08/15/17 at 09:00 Lorazepam (Ativan) 1 mg Q6 PRN PO ANXIETY Last administered on 08/24/17 22:21 ; Admin Dose 1 MG; Start 08/14/17 at 23:00 Risperidone (Risperdal) 2 mg BID PO Last administered on 08/25/17 20:26; Admin Dose 2 MG; Start 08/15/17 at 09:00 Miscellaneous Information 1 ea NOTE XX ; Start 08/14/17 at 23:45 Glucose (Glutose) 15 gm Q15M PRN PO DECREASED GLUCOSE; Start 08/14/17 at 23:45 Glucose (Glutose) 22.5 gm Q15M PRN PO DECREASED GLUCOSE; Start 08/14/17 at 23: 45 Dextrose (D50w Syringe) 25 ml Q15M PRN IV DECREASED GLUCOSE; Start 08/14/17 at 23:45 Dextrose (D50w Syringe) 50 ml Q15M PRN IV DECREASED GLUCOSE; Start 08/14/17 at 23:45 Glucagon (Glucagen) 1 mg Q15M PRN IM DECREASED GLUCOSE; Start 08/14/17 at 23: 45 Glucose (Glutose) 15 gm Q15M PRN BUCCAL DECREASED GLUCOSE; Start 08/14/17 at 23:45 Amlodipine Besylate (Norvasc) 10 mg DAILY PO Last administered on 08/25/17 08: 27; Admin Dose 10 MG; Start 08/17/17 at 17:00 Diagnostic Test (Pha) (Accu-Chek) 1 ea 02 XX ; Start 08/19/17 at 02:00 Docusate Sodium (Colace) 100 mg BID PO Last administered on 08/25/17 20:26; Admin Dose 100 MG; Start 08/20/17 at 21:00 Magnesium Hydroxide 30 ml 30 ml DAILY PRN PO CONSTIPATION Last administered on 08/25/17 08:38; Admin Dose 30 ML; Start 08/20/17 at 11:00 Cefazolin Sodium (Ancef 1 Gm/50 ml (Pmx)) 50 ml @ 100 mls/hr Q8 IVPB Last administered on 08/26/17 13:43; Admin Dose 100 MLS/HR; Start 08/21/17 at 22:00 Triamcinolone Acetonide (Kenalog 0.1% Cr) 1 applic BID TOP Last administered on 08/26/17 08:07; Admin Dose 1 APPLIC; Start 08/22/17 at 21:00 Pantoprazole (Protonix Tab) 40 mg DAILY@06 PO Last administered on 08/25/17 05 :37; Admin Dose 40 MG; Start 08/24/17 at 06:00 Docusate Sodium (Colace) 100 mg BID PO Last administered on 08/24/17 21:03; Admin Dose 100 MG; Start 08/24/17 at 21:00 Polyethylene Glycol (Miralax) 17 gm DAILY PRN GTB CONSTIPATION; Start at 13:00 Assessment/Plan Chief Complaint/Hosp Course 1. nonanginal chest pain: right sided. 2. acute pancreatitis: improved now. 3. HTN 4. DM 5. Psych disorder 6. renal stone: S/P cystoscopy: f/u rec Patient has previously had cardiac workup including echocardiogram and CT coronary angiogram both of which were unremarkable. Her calcium score is 0 which makes at very low risk of significant CAD. Her right sided chest pain does not appear to be cardiac related and most likely related to her GI symptoms versus others. Treatment of her GI GI issues including her pancreatitis as per internal medicine. Diabetic management as per internal medicine. f/u with rec. Thank you for his referral. I will follow up with you on as needed base. CHAITANYA NEVAREZ MD [facility] Problems: CHAITANYA NEVAREZ MD Aug 26, 2017 14:44
--- NOTE | 2017-08-26 15:59 | PN ---
Date/Time of Note Date/Time of Note DATE: 08/26/17 TIME: 15:57 Assessment/Plan VTE Prophylaxis VTE Prophylaxis Intervention: other Lines/Catheters IV Catheter Type (from [facility]): Peripheral IV Urinary Cath still in place: No Assessment/Plan Assessment/Plan -Atypical chest pain. Acute coronary syndrome ruled out. cardiac enzymes are negative 3 Dr. Aguilar is following in cardiology consultation -Acute biliary pancreatitis, resolving. continue to monitor amylase and lipase. Dr. Richards is following in gastroenterology consultation. -Left-sided hydronephrosis with stone in the ureter. S/p cystoscopy, left ureteroscopy, and insertion of left ureteral JJ stent by Dr. Frost on 08/21. -Hypertension, patient is currently hypotensive. -Diabetes mellitus type 2, continue Lantus and NovoLog. -Dyslipidemia. -Possible COPD, continue breathing treatments as needed for shortness of breath. -Schizophrenia -Facial and upper extremities rash, resolving, scabies ruled out, continue Kenalog topical Further recommendations based on clinical course. Plan of care discussed with Dr. Roach Exam/Review of Systems Vital Signs Vitals Vital Signs Date Time Temp Pulse Resp B/P Pulse Ox O2 Delivery O2 Flow Rate FiO2 08/26/17 14:41 99 16 124/65 95 08/26/17 14:13 98.6 08/26/17 12:12 Room Air Intake and Output 08/25/17 08/25/17 08/26/17 15:00 23:00 07:00 Intake Total 1470 ml 1480 ml Balance 1470 ml 1480 ml Exam Constitutional: alert Respiratory: diminished breath sounds, normal air movement Musculoskeletal: nl extremities to inspection Extremities: normal pulses Neurological: confused Results Result Diagram: 08/25/17 0514 08/25/17 0514 Results 24 hrs Laboratory Tests Test 08/25/17 17:19 08/25/17 20:20 08/26/17 08:01 08/26/17 10:01 Bedside Glucose 88 99 104 97 Test 08/26/17 12:23 08/26/17 13:05 Bedside Glucose 147 114 Medications Medications Current Medications Potassium Chloride/Dextrose/ Sod Cl (D5-1/2ns + KCl 20 Meq) 1,000 ml @ 60 mls/ hr [id number] IV Last administered on 08/26/17t 14:37; Admin Dose 60 MLS/HR; Start 08/14/17 at 23:00 Ondansetron HCl (Zofran Inj) 4 mg Q6H PRN IV NAUSEA AND/OR VOMITING; Start at 23:00 Morphine Sulfate (morphine) 2 mg Q4H PRN IV PAIN LEVEL 4-7 Last administered on 08/19/17 21:06; Admin Dose 2 MG; Start 08/14/17 at 23:00 Acetaminophen (Tylenol Tab) 650 mg Q6H PRN PO PAIN AND OR ELEVATED TEMP Last administered on 08/23/17 15:39; Admin Dose 650 MG; Start 08/14/17 at 23:00 Aspirin (Halfprin) 81 mg DAILY PO Last administered on 08/25/17 08:26; Admin Dose 81 MG; Start 08/15/17 at 09:00 Insulin Glargine (Lantus) 12 unit DAILY SC Last administered on 08/25/17 08:35 ; Admin Dose 12 UNIT; Start 08/15/17 at 09:00 Lamotrigine (Lamictal) 50 mg Q12 PO Last administered on 08/25/17 20:27; Admin Dose 50 MG; Start 08/15/17 at 09:00 Lorazepam (Ativan) 1 mg Q6 PRN PO ANXIETY Last administered on 08/24/17 22:21 ; Admin Dose 1 MG; Start 08/14/17 at 23:00 Risperidone (Risperdal) 2 mg BID PO Last administered on 08/25/17 20:26; Admin Dose 2 MG; Start 08/15/17 at 09:00 Miscellaneous Information 1 ea NOTE XX ; Start 08/14/17 at 23:45 Glucose (Glutose) 15 gm Q15M PRN PO DECREASED GLUCOSE; Start 08/14/17 at 23:45 Glucose (Glutose) 22.5 gm Q15M PRN PO DECREASED GLUCOSE; Start 08/14/17 at 23: 45 Dextrose (D50w Syringe) 25 ml Q15M PRN IV DECREASED GLUCOSE; Start 08/14/17 at 23:45 Dextrose (D50w Syringe) 50 ml Q15M PRN IV DECREASED GLUCOSE; Start 08/14/17 at 23:45 Glucagon (Glucagen) 1 mg Q15M PRN IM DECREASED GLUCOSE; Start 08/14/17 at 23: 45 Glucose (Glutose) 15 gm Q15M PRN BUCCAL DECREASED GLUCOSE; Start 08/14/17 at 23:45 Amlodipine Besylate (Norvasc) 10 mg DAILY PO Last administered on 08/25/17 08: 27; Admin Dose 10 MG; Start 08/17/17 at 17:00 Diagnostic Test (Pha) (Accu-Chek) 1 ea 02 XX ; Start 08/19/17 at 02:00 Docusate Sodium (Colace) 100 mg BID PO Last administered on 08/25/17 20:26; Admin Dose 100 MG; Start 08/20/17 at 21:00 Magnesium Hydroxide 30 ml 30 ml DAILY PRN PO CONSTIPATION Last administered on 08/25/17 08:38; Admin Dose 30 ML; Start 08/20/17 at 11:00 Cefazolin Sodium (Ancef 1 Gm/50 ml (Pmx)) 50 ml @ 100 mls/hr Q8 IVPB Last administered on 08/26/17 13:43; Admin Dose 100 MLS/HR; Start 08/21/17 at 22:00 Triamcinolone Acetonide (Kenalog 0.1% Cr) 1 applic BID TOP Last administered on 08/26/17 08:07; Admin Dose 1 APPLIC; Start 08/22/17 at 21:00 Pantoprazole (Protonix Tab) 40 mg DAILY@06 PO Last administered on 08/25/17 05 :37; Admin Dose 40 MG; Start 08/24/17 at 06:00 Docusate Sodium (Colace) 100 mg BID PO Last administered on 08/24/17 21:03; Admin Dose 100 MG; Start 08/24/17 at 21:00 Polyethylene Glycol (Miralax) 17 gm DAILY PRN GTB CONSTIPATION; Start at 13:00 EUSEBIO VALERA Aug 26, 2017 15:59
[2017-08-26] MEDS: ACETAMINOPHEN 325 MG TAB PO PRN (20:28)
[2017-08-27] MEDS: ACCU-CHEK XX SCH ×5 (02:00→20:49)
[2017-08-27 02:57] VITALS: BP 143/76; RESP 18
[2017-08-27] MEDS: D5W-0.45 NACL + KCL 20 MEQ 1,000 ML IV SCH ×3 (04:14→20:46)
[2017-08-27] MEDS: CEFAZOLIN 1 GM/50 ML (PMX) 50 ML IVPB SCH ×3 (05:37→23:55)
[2017-08-27] MEDS: PANTOPRAZOLE (EC) 40 MG TAB PO SCH (05:37)
[2017-08-27 06:09] LABS: BASOPHILS % 0.9 % (0.0-2.0); EOSINOPHILS # 0.3 10^3/ul (0.0-0.5); EOSINOPHILS % 6.8 % (0.0-7.0); HEMATOCRIT 35.2 % (37.0-47.0); HEMOGLOBIN 11.5 g/dl (12.0-16.0); LYMPHOCYTES % 47.1 % (15.0-51.0); MEAN CORPUSCULAR HEMOGLOBIN 29.6 pg (29.0-33.0); MEAN CORPUSCULAR HGB CONC 32.7 g/dl (32.0-37.0); MEAN CORPUSCULAR VOLUME 90.7 fl (82.0-101.0); MEAN PLATELET VOLUME 9.5 fl (7.4-10.4); MONOCYTE # 0.4 10^3/ul (0.3-0.9); MONOCYTES % 9.2 % (0.0-11.0); NEUTROPHIL # 1.5 10^3/ul (1.6-7.5); PLATELET COUNT 175 10^3/UL (140-415); RED BLOOD COUNT 3.88 10^6/ul (4.20-5.40); RED CELL DISTRIBUTION WIDTH 12.9 % (11.5-14.5); WHITE BLOOD COUNT 4.3 10^3/ul (4.8-10.8)
[2017-08-27 06:38] LABS: CALCIUM 9.4 mg/dl (8.4-10.2); CREATININE 0.66 mg/dl (0.44-1.00)
[2017-08-27 07:56] VITALS: BP 100/57; RESP 16
[2017-08-27] MEDS: INSULIN ASPART [NOVOLOG] 3 ML PEN SC SCH ×4 (08:00→20:52)
[2017-08-27] MEDS: AMLODIPINE 10 MG TAB PO SCH (08:01)
[2017-08-27] MEDS: TRIAMCINOLONE ACET 0.1% 15 GM CR TOP SCH ×2 (08:01→20:48)
[2017-08-27] MEDS: DOCUSATE SODIUM 100 MG CAP PO SCH ×4 (08:01→20:57)
[2017-08-27] MEDS: RISPERIDONE 2 MG TAB PO SCH ×2 (08:02→20:47)
[2017-08-27] MEDS: ASPIRIN (EC) 81 MG TAB PO SCH (08:02)
[2017-08-27] MEDS: LAMOTRIGINE 25 MG TAB PO SCH ×2 (08:02→20:47)
[2017-08-27] MEDS: INSULIN GLARGINE [LANtus] 3 ML PEN SC SCH (08:09)
--- NOTE | 2017-08-27 11:39 | RADRPT ---
PROCEDURE: XR Abdomen. CLINICAL INDICATION: left renal stones TECHNIQUE: AP abdomen x-ray. COMPARISON: CT abdomen pelvis dated August 25, 2017. FINDINGS: There is a left internal ureteral stent with the proximal pigtail overlying the left renal pelvis an d distal pigtail overlying the bladder. There is a 1.0 cm calcification overlying the left renal sha delaney consistent with a renal stone. There also appears to be a 0.4 cm hyperdensity overlying the left renal pelvis, which may represent an additional calculus versus stool. There is a nonobstructive bowel gas pattern. A large amount stool is noted in the colon. The patient is post cholecystectomy. IMPRESSION: 1. A 1.0 cm calcification overlying the left renal shadow consistent with a renal stone. An additio nal 0.4 cm calculus versus stool overlying the left renal pelvis. 2. Left ureteral stent in place. 3. Large volume stool load. RPTAT:AAJJ Physician Benito Date Time Electronically viewed and signed by Physician Benito on 08/27/2017 11:39 QL/
--- NOTE | 2017-08-27 13:31 | CONS ---
Date/Time of Note Date/Time of Note DATE: 08/27/17 TIME: 13:26 Consult Date/Type/Reason Admit Date/Time Aug 14, 2017 at 19:34 Initial Consult Date 08/15/17 Type of Consultation: Urology Reason for Consultation Left renal stones Ordering Provider: TAWANA FORD MD Subjective Patient stated that she is feeling better, she has no pain and voiding well Objective Vital Signs Date Time Temp Pulse Resp B/P Pulse Ox O2 Delivery O2 Flow Rate FiO2 08/27/17 07:56 98.2 64 16 100/57 96 08/26/17 12:12 Room Air Intake and Output 08/26/17 08/26/17 08/27/17 14:59 22:59 06:59 Intake Total 1750 ml 490 ml 1370 ml Output Total 0 ml Balance 1750 ml 490 ml 1370 ml Exam Afebrile, abdomen is soft . there is no tenderness, the urine is clear Results/Medications Result Diagram: 08/27/17 0526 08/27/17 0526 Results 24 hrs Laboratory Tests Test 08/26/17 17:17 08/26/17 20:30 08/27/17 05:26 08/27/17 08:03 Bedside Glucose 134 89 107 White Blood Count 4.3 #L Red Blood Count 3.88 L Hemoglobin 11.5 L Hematocrit 35.2 L Mean Corpuscular Volume 90.7 Mean Corpuscular Hemoglobin 29.6 Mean Corpuscular Hemoglobin Concent 32.7 Red Cell Distribution Width 12.9 Platelet Count 175 Mean Platelet Volume 9.5 Neutrophils % 36.0 L Lymphocytes % 47.1 Monocytes % 9.2 Eosinophils % 6.8 Basophils % 0.9 Nucleated Red Blood Cells % 0.0 Neutrophils # 1.5 L Lymphocytes # 2.0 Monocytes # 0.4 Eosinophils # 0.3 Basophils # 0.0 Nucleated Red Blood Cells # 0.0 Sodium Level 143 Potassium Level 4.0 Chloride Level 104 Carbon Dioxide Level 30 Anion Gap 13 Blood Urea Nitrogen 13 Creatinine 0.66 Glucose Level 90 Calcium Level 9.4 Test 08/27/17 12:11 Bedside Glucose 119 Medications Current Medications Potassium Chloride/Dextrose/ Sod Cl (D5-1/2ns + KCl 20 Meq) 1,000 ml @ 60 mls/ hr [id number] IV Last administered on 08/27/17t 05:38; Admin Dose 60 MLS/HR; Start 08/14/17 at 23:00 Ondansetron HCl (Zofran Inj) 4 mg Q6H PRN IV NAUSEA AND/OR VOMITING; Start at 23:00 Morphine Sulfate (morphine) 2 mg Q4H PRN IV PAIN LEVEL 4-7 Last administered on 08/19/17 21:06; Admin Dose 2 MG; Start 08/14/17 at 23:00 Acetaminophen (Tylenol Tab) 650 mg Q6H PRN PO PAIN AND OR ELEVATED TEMP Last administered on 08/26/17 20:28; Admin Dose 650 MG; Start 08/14/17 at 23:00 Aspirin (Halfprin) 81 mg DAILY PO Last administered on 08/27/17 08:02; Admin Dose 81 MG; Start 08/15/17 at 09:00 Insulin Glargine (Lantus) 12 unit DAILY SC Last administered on 08/27/17 08:09 ; Admin Dose 12 UNIT; Start 08/15/17 at 09:00 Lamotrigine (Lamictal) 50 mg Q12 PO Last administered on 08/27/17 08:02; Admin Dose 50 MG; Start 08/15/17 at 09:00 Lorazepam (Ativan) 1 mg Q6 PRN PO ANXIETY Last administered on 08/24/17 22:21 ; Admin Dose 1 MG; Start 08/14/17 at 23:00 Risperidone (Risperdal) 2 mg BID PO Last administered on 08/27/17 08:02; Admin Dose 2 MG; Start 08/15/17 at 09:00 Miscellaneous Information 1 ea NOTE XX ; Start 08/14/17 at 23:45 Glucose (Glutose) 15 gm Q15M PRN PO DECREASED GLUCOSE; Start 08/14/17 at 23:45 Glucose (Glutose) 22.5 gm Q15M PRN PO DECREASED GLUCOSE; Start 08/14/17 at 23: 45 Dextrose (D50w Syringe) 25 ml Q15M PRN IV DECREASED GLUCOSE; Start 08/14/17 at 23:45 Dextrose (D50w Syringe) 50 ml Q15M PRN IV DECREASED GLUCOSE; Start 08/14/17 at 23:45 Glucagon (Glucagen) 1 mg Q15M PRN IM DECREASED GLUCOSE; Start 08/14/17 at 23: 45 Glucose (Glutose) 15 gm Q15M PRN BUCCAL DECREASED GLUCOSE; Start 08/14/17 at 23:45 Amlodipine Besylate (Norvasc) 10 mg DAILY PO Last administered on 08/27/17 08: 01; Admin Dose 10 MG; Start 08/17/17 at 17:00 Diagnostic Test (Pha) (Accu-Chek) 1 ea 02 XX ; Start 08/19/17 at 02:00 Docusate Sodium (Colace) 100 mg BID PO Last administered on 08/27/17 08:01; Admin Dose 100 MG; Start 08/20/17 at 21:00 Magnesium Hydroxide 30 ml 30 ml DAILY PRN PO CONSTIPATION Last administered on 08/25/17 08:38; Admin Dose 30 ML; Start 08/20/17 at 11:00 Cefazolin Sodium (Ancef 1 Gm/50 ml (Pmx)) 50 ml @ 100 mls/hr Q8 IVPB Last administered on 08/27/17 05:37; Admin Dose 100 MLS/HR; Start 08/21/17 at 22:00 Triamcinolone Acetonide (Kenalog 0.1% Cr) 1 applic BID TOP Last administered on 08/27/17 08:01; Admin Dose 1 APPLIC; Start 08/22/17 at 21:00 Pantoprazole (Protonix Tab) 40 mg DAILY@06 PO Last administered on 08/27/17 05 :37; Admin Dose 40 MG; Start 08/24/17 at 06:00 Docusate Sodium (Colace) 100 mg BID PO Last administered on 08/24/17 21:03; Admin Dose 100 MG; Start 08/24/17 at 21:00 Polyethylene Glycol (Miralax) 17 gm DAILY PRN GTB CONSTIPATION; Start at 13:00 Assessment/Plan Chief Complaint/Hosp Course 51-year-old female with a history of hypertension ,diabetes,high cholesterol and history of schizophrenia, she resides in a [id number] and was brought to [facility] because of chest pain. she underwent a CT scan of the abdomen and pelvis and that showed a stone in the upper left ureter with multiple stones in the renal pelvis. The patient underwent left extracorporeal shockwave lithotripsy to the stones and the left middle pole calyx. The stone that was in the upper ureter was has moved into the kidney based on the CT scan that she had the day before the lithotripsy. A KUB today showed the stone fragmented in the middle pole calyx. the patient still has stones in the upper pole calyx as well as in the lower pole calyx and the stent is in place. She will need at least 2 more treatments to break the remaining stones in the upper pole calyx and then in the lower pole calyx and these will be done in the future. Problems: KANIKA HENAO MD Aug 27, 2017 13:31
--- NOTE | 2017-08-27 14:15 | CONS ---
Date/Time of Note Date/Time of Note DATE: 08/27/17 TIME: 14:13 Consult Date/Type/Reason Admit Date/Time Aug 14, 2017 at 19:34 Initial Consult Date 08/15/17 Type of Consultation: card Ordering Provider: TAWANA FORD MD Subjective cardiology follow up note: S: D/w STAFF pt denies any left sided cp or sob or palpitations to me now. SHE has intermittent right sided sharp chest wall pain but no pain now she denies abd pain to me now . S/P CYSTOSCOPY 08/21 O: General: no acute distress HEENT: NC/AT. pupils are equal. round. NECK: NO JVD. no stridor. CV: RRR. systolic murmur; no gallop or rubs. PULM: no wheezing or rhonchi. GI: SOFT, mild tenderness, ND, no rebound or guarding Extremity: trace B/L LE edema. no clubbing. neuro: awake and alert, Psych: calm and pleasant rectal: deferred Objective Vital Signs Date Time Temp Pulse Resp B/P Pulse Ox O2 Delivery O2 Flow Rate FiO2 08/27/17 07:56 98.2 64 16 100/57 96 08/26/17 12:12 Room Air Intake and Output 08/26/17 08/26/17 08/27/17 15:00 23:00 07:00 Intake Total 1750 ml 490 ml 1370 ml Output Total 0 ml Balance 1750 ml 490 ml 1370 ml Results/Medications Result Diagram: 08/27/17 0526 08/27/17 0526 Results 24 hrs Laboratory Tests Test 08/26/17 17:17 08/26/17 20:30 08/27/17 05:26 08/27/17 08:03 Bedside Glucose 134 89 107 White Blood Count 4.3 #L Red Blood Count 3.88 L Hemoglobin 11.5 L Hematocrit 35.2 L Mean Corpuscular Volume 90.7 Mean Corpuscular Hemoglobin 29.6 Mean Corpuscular Hemoglobin Concent 32.7 Red Cell Distribution Width 12.9 Platelet Count 175 Mean Platelet Volume 9.5 Neutrophils % 36.0 L Lymphocytes % 47.1 Monocytes % 9.2 Eosinophils % 6.8 Basophils % 0.9 Nucleated Red Blood Cells % 0.0 Neutrophils # 1.5 L Lymphocytes # 2.0 Monocytes # 0.4 Eosinophils # 0.3 Basophils # 0.0 Nucleated Red Blood Cells # 0.0 Sodium Level 143 Potassium Level 4.0 Chloride Level 104 Carbon Dioxide Level 30 Anion Gap 13 Blood Urea Nitrogen 13 Creatinine 0.66 Glucose Level 90 Calcium Level 9.4 Test 08/27/17 12:11 Bedside Glucose 119 Medications Current Medications Potassium Chloride/Dextrose/ Sod Cl (D5-1/2ns + KCl 20 Meq) 1,000 ml @ 60 mls/ hr [id number] IV Last administered on 08/27/17 05:38; Admin Dose 60 MLS/HR; Start 08/14/17 at 23:00 Ondansetron HCl (Zofran Inj) 4 mg Q6H PRN IV NAUSEA AND/OR VOMITING; Start at 23:00 Morphine Sulfate (morphine) 2 mg Q4H PRN IV PAIN LEVEL 4-7 Last administered on 08/19/17 21:06; Admin Dose 2 MG; Start 08/14/17 at 23:00 Acetaminophen (Tylenol Tab) 650 mg Q6H PRN PO PAIN AND OR ELEVATED TEMP Last administered on 08/26/17 20:28; Admin Dose 650 MG; Start 08/14/17 at 23:00 Aspirin (Halfprin) 81 mg DAILY PO Last administered on 08/27/17 08:02; Admin Dose 81 MG; Start 08/15/17 at 09:00 Insulin Glargine (Lantus) 12 unit DAILY SC Last administered on 08/27/17 08:09 ; Admin Dose 12 UNIT; Start 08/15/17 at 09:00 Lamotrigine (Lamictal) 50 mg Q12 PO Last administered on 08/27/17 08:02; Admin Dose 50 MG; Start 08/15/17 at 09:00 Lorazepam (Ativan) 1 mg Q6 PRN PO ANXIETY Last administered on 08/24/17 22:21 ; Admin Dose 1 MG; Start 08/14/17 at 23:00 Risperidone (Risperdal) 2 mg BID PO Last administered on 08/27/17 08:02; Admin Dose 2 MG; Start 08/15/17 at 09:00 Miscellaneous Information 1 ea NOTE XX ; Start 08/14/17 at 23:45 Glucose (Glutose) 15 gm Q15M PRN PO DECREASED GLUCOSE; Start 08/14/17 at 23:45 Glucose (Glutose) 22.5 gm Q15M PRN PO DECREASED GLUCOSE; Start 08/14/17 at 23: 45 Dextrose (D50w Syringe) 25 ml Q15M PRN IV DECREASED GLUCOSE; Start 08/14/17 at 23:45 Dextrose (D50w Syringe) 50 ml Q15M PRN IV DECREASED GLUCOSE; Start 08/14/17 at 23:45 Glucagon (Glucagen) 1 mg Q15M PRN IM DECREASED GLUCOSE; Start 08/14/17 at 23: 45 Glucose (Glutose) 15 gm Q15M PRN BUCCAL DECREASED GLUCOSE; Start 08/14/17 at 23:45 Amlodipine Besylate (Norvasc) 10 mg DAILY PO Last administered on 08/27/17 08: 01; Admin Dose 10 MG; Start 08/17/17 at 17:00 Diagnostic Test (Pha) (Accu-Chek) 1 ea 02 XX ; Start 08/19/17 at 02:00 Docusate Sodium (Colace) 100 mg BID PO Last administered on 08/27/17 08:01; Admin Dose 100 MG; Start 08/20/17 at 21:00 Magnesium Hydroxide 30 ml 30 ml DAILY PRN PO CONSTIPATION Last administered on 08/25/17 08:38; Admin Dose 30 ML; Start 08/20/17 at 11:00 Cefazolin Sodium (Ancef 1 Gm/50 ml (Pmx)) 50 ml @ 100 mls/hr Q8 IVPB Last administered on 08/27/17 05:37; Admin Dose 100 MLS/HR; Start 08/21/17 at 22:00 Triamcinolone Acetonide (Kenalog 0.1% Cr) 1 applic BID TOP Last administered on 08/27/17 08:01; Admin Dose 1 APPLIC; Start 08/22/17 at 21:00 Pantoprazole (Protonix Tab) 40 mg DAILY@06 PO Last administered on 08/27/17 05 :37; Admin Dose 40 MG; Start 08/24/17 at 06:00 Docusate Sodium (Colace) 100 mg BID PO Last administered on 08/24/17 21:03; Admin Dose 100 MG; Start 08/24/17 at 21:00 Polyethylene Glycol (Miralax) 17 gm DAILY PRN GTB CONSTIPATION; Start at 13:00 Assessment/Plan Chief Complaint/Hosp Course 1. nonanginal chest pain: right sided. 2. acute pancreatitis: improved now. 3. HTN 4. DM 5. Psych disorder 6. renal stone: S/P cystoscopy: f/u rec Patient has previously had cardiac workup including echocardiogram and CT coronary angiogram both of which were unremarkable. Her calcium score is 0 which makes at very low risk of significant CAD. Her right sided chest pain does not appear to be cardiac related and most likely related to her GI symptoms versus others. Treatment of her GI GI issues including her pancreatitis as per internal medicine. Diabetic management as per internal medicine. f/u with rec. Thank you for his referral. I will follow up with you on as needed base. CHAITANYA NEVAREZ MD [facility] Problems: CHAITANYA NEVAREZ MD Aug 27, 2017 14:15
[2017-08-27 14:30] VITALS: BP 107/63; RESP 18
[2017-08-27] MEDS: ACETAMINOPHEN 325 MG TAB PO PRN ×2 (17:18→23:59)
--- NOTE | 2017-08-27 17:46 | PN ---
Date/Time of Note Date/Time of Note DATE: 08/27/17 TIME: 17:45 Assessment/Plan Lines/Catheters IV [facility] (from [facility]): Peripheral IV Urinary Cath still in place: No Assessment/Plan Assessment/Plan -Atypical chest pain. Acute coronary syndrome ruled out. cardiac enzymes are negative 3 Dr. Aguilar is following in cardiology consultation -Acute biliary pancreatitis, resolving. continue to monitor amylase and lipase. Dr. Richards is following in gastroenterology consultation. -Left-sided hydronephrosis with stone in the ureter. S/p cystoscopy, left ureteroscopy, and insertion of left ureteral JJ stent by Dr. Frost on 08/21. -Hypertension, patient is currently hypotensive. -Diabetes mellitus type 2, continue Lantus and NovoLog. -Dyslipidemia. -Possible COPD, continue breathing treatments as needed for shortness of breath. -Schizophrenia -Facial and upper extremities rash, resolving, scabies ruled out, continue Kenalog topical Further recommend Subjective 24 Hr Interval Summary Free Text/Dictation - afebrile - denies any pain, Cardiovascular: no complaints Gastrointestinal: no complaints Genitourinary: no complaints Musculoskeletal: no complaints Skin: no complaints Exam/Review of Systems Vital Signs Vitals Vital Signs Date Time Temp Pulse Resp B/P Pulse Ox O2 Delivery O2 Flow Rate FiO2 08/27/17 14:30 98.2 18 107/63 96 08/27/17 07:56 64 08/26/17 12:12 Room Air Intake and Output 08/26/17 08/26/17 08/27/17 15:00 23:00 07:00 Intake Total 1750 ml 490 ml 1370 ml Output Total 0 ml Balance 1750 ml 490 ml 1370 ml Exam Constitutional: alert Results Result Diagram: 08/27/17 0526 08/27/17 0526 Results 24 hrs Laboratory Tests Test 08/26/17 20:30 08/27/17 05:26 08/27/17 08:03 08/27/17 12:11 Bedside Glucose 89 107 119 White Blood Count 4.3 #L Red Blood Count 3.88 L Hemoglobin 11.5 L Hematocrit 35.2 L Mean Corpuscular Volume 90.7 Mean Corpuscular Hemoglobin 29.6 Mean Corpuscular Hemoglobin Concent 32.7 Red Cell Distribution Width 12.9 Platelet Count 175 Mean Platelet Volume 9.5 Neutrophils % 36.0 L Lymphocytes % 47.1 Monocytes % 9.2 Eosinophils % 6.8 Basophils % 0.9 Nucleated Red Blood Cells % 0.0 Neutrophils # 1.5 L Lymphocytes # 2.0 Monocytes # 0.4 Eosinophils # 0.3 Basophils # 0.0 Nucleated Red Blood Cells # 0.0 Sodium Level 143 Potassium Level 4.0 Chloride Level 104 Carbon Dioxide Level 30 Anion Gap 13 Blood Urea Nitrogen 13 Creatinine 0.66 Glucose Level 90 Calcium Level 9.4 Test 08/27/17 17:19 Bedside Glucose 85 Medications Medications Current Medications Potassium Chloride/Dextrose/ Sod Cl (D5-1/2ns + KCl 20 Meq) 1,000 ml @ 60 mls/ hr [id number] IV Last administered on 08/27/17 05:38; Admin Dose 60 MLS/HR; Start 08/14/17 at 23:00 Ondansetron HCl (Zofran Inj) 4 mg Q6H PRN IV NAUSEA AND/OR VOMITING; Start at 23:00 Morphine Sulfate (morphine) 2 mg Q4H PRN IV PAIN LEVEL 4-7 Last administered on 08/19/17 21:06; Admin Dose 2 MG; Start 08/14/17 at 23:00 Acetaminophen (Tylenol Tab) 650 mg Q6H PRN PO PAIN AND OR ELEVATED TEMP Last administered on 08/27/17 17:18; Admin Dose 650 MG; Start 08/14/17 at 23:00 Aspirin (Halfprin) 81 mg DAILY PO Last administered on 08/27/17 08:02; Admin Dose 81 MG; Start 08/15/17 at 09:00 Insulin Glargine (Lantus) 12 unit DAILY SC Last administered on 08/27/17 08:09 ; Admin Dose 12 UNIT; Start 08/15/17 at 09:00 Lamotrigine (Lamictal) 50 mg Q12 PO Last administered on 08/27/17 08:02; Admin Dose 50 MG; Start 08/15/17 at 09:00 Lorazepam (Ativan) 1 mg Q6 PRN PO ANXIETY Last administered on 08/24/17 22:21 ; Admin Dose 1 MG; Start 08/14/17 at 23:00 Risperidone (Risperdal) 2 mg BID PO Last administered on 08/27/17 08:02; Admin Dose 2 MG; Start 08/15/17 at 09:00 Miscellaneous Information 1 ea NOTE XX ; Start 08/14/17 at 23:45 Glucose (Glutose) 15 gm Q15M PRN PO DECREASED GLUCOSE; Start 08/14/17 at 23:45 Glucose (Glutose) 22.5 gm Q15M PRN PO DECREASED GLUCOSE; Start 08/14/17 at 23: 45 Dextrose (D50w Syringe) 25 ml Q15M PRN IV DECREASED GLUCOSE; Start 08/14/17 at 23:45 Dextrose (D50w Syringe) 50 ml Q15M PRN IV DECREASED GLUCOSE; Start 08/14/17 at 23:45 Glucagon (Glucagen) 1 mg Q15M PRN IM DECREASED GLUCOSE; Start 08/14/17 at 23: 45 Glucose (Glutose) 15 gm Q15M PRN BUCCAL DECREASED GLUCOSE; Start 08/14/17 at 23:45 Amlodipine Besylate (Norvasc) 10 mg DAILY PO Last administered on 08/27/17 08: 01; Admin Dose 10 MG; Start 08/17/17 at 17:00 Diagnostic Test (Pha) (Accu-Chek) 1 ea 02 XX ; Start 08/19/17 at 02:00 Docusate Sodium (Colace) 100 mg BID PO Last administered on 08/27/17 08:01; Admin Dose 100 MG; Start 08/20/17 at 21:00 Magnesium Hydroxide 30 ml 30 ml DAILY PRN PO CONSTIPATION Last administered on 08/25/17 08:38; Admin Dose 30 ML; Start 08/20/17 at 11:00 Cefazolin Sodium (Ancef 1 Gm/50 ml (Pmx)) 50 ml @ 100 mls/hr Q8 IVPB Last administered on 08/27/17 15:12; Admin Dose 100 MLS/HR; Start 08/21/17 at 22:00 Triamcinolone Acetonide (Kenalog 0.1% Cr) 1 applic BID TOP Last administered on 08/27/17 08:01; Admin Dose 1 APPLIC; Start 08/22/17 at 21:00 Pantoprazole (Protonix Tab) 40 mg DAILY@06 PO Last administered on 08/27/17 05 :37; Admin Dose 40 MG; Start 08/24/17 at 06:00 Docusate Sodium (Colace) 100 mg BID PO Last administered on 08/24/17t 21:03; Admin Dose 100 MG; Start 08/24/17 at 21:00 Polyethylene Glycol (Miralax) 17 gm DAILY PRN GTB CONSTIPATION; Start at 13:00 EUSEBIO VALERA Aug 27, 2017 17:46
[2017-08-27 19:10] VITALS: BP 116/70; RESP 17
[2017-08-28 01:46] VITALS: BP 121/76; RESP 18
[2017-08-28] MEDS: ACCU-CHEK XX SCH ×5 (02:00→21:00)
[2017-08-28] MEDS: CEFAZOLIN 1 GM/50 ML (PMX) 50 ML IVPB SCH ×3 (05:53→21:19)
[2017-08-28] MEDS: PANTOPRAZOLE (EC) 40 MG TAB PO SCH (05:53)
[2017-08-28 07:20] VITALS: BP 141/74; RESP 16
[2017-08-28] MEDS: INSULIN ASPART [NOVOLOG] 3 ML PEN SC SCH ×4 (08:00→21:00)
[2017-08-28] MEDS: AMLODIPINE 10 MG TAB PO SCH (08:06)
[2017-08-28] MEDS: DOCUSATE SODIUM 100 MG CAP PO SCH ×4 (08:06→21:19)
[2017-08-28] MEDS: LAMOTRIGINE 25 MG TAB PO SCH ×2 (08:07→21:20)
[2017-08-28] MEDS: ASPIRIN (EC) 81 MG TAB PO SCH (08:07)
[2017-08-28] MEDS: RISPERIDONE 2 MG TAB PO SCH ×2 (08:07→21:19)
[2017-08-28] MEDS: morphine 2 MG INJ IV PRN (08:12)
[2017-08-28] MEDS: TRIAMCINOLONE ACET 0.1% 15 GM CR TOP SCH ×2 (08:12→21:23)
[2017-08-28] MEDS: INSULIN GLARGINE [LANtus] 3 ML PEN SC SCH (08:18)
--- NOTE | 2017-08-28 08:36 | RADRPT ---
PROCEDURE: XR Abdomen. CLINICAL INDICATION: Renal calculi. TECHNIQUE: AP supine abdomen x-ray. CT scan of the abdomen and pelvis dated 08/25/2017. COMPARISON: 08/27/2017. FINDINGS: The bowel gas pattern is normal with no evidence of obstruction. Surgical clips are present in the right quadrant of the abdomen. There is a left ureteral stent in satisfactory position. Multiple left renal calculi are once again noted measuring up to 1.2 cm. There are mild degenerative changes of the spine. IMPRESSION: 1. Prior right upper quadrant abdomen surgery. 2. Left ureteral stent in satisfactory position. 3. Multiple left renal calculi. 4. Degenerative changes of the spine. RPTAT: QQ .Ravi Gurrola MD, MD Date Time Electronically viewed and signed by .Ravi Gurrola MD, on 08/28/2017 08:36 .R/
--- NOTE | 2017-08-28 12:01 | PN ---
Date/Time of Note Date/Time of Note DATE: 08/28/17 TIME: 11:59 Assessment/Plan VTE Prophylaxis VTE Prophylaxis Intervention: SCD's Lines/Catheters [facility] Peripheral IV Urinary Cath still in place: No Assessment/Plan Chief Complaint/Hosp Course Patient remains hemodynamically stable, able to void, continue to monitor electrolytes, intake and output, follow-up urology recommendations. Assessment/Plan -Atypical chest pain. Acute coronary syndrome ruled out. cardiac enzymes are negative 3 Dr. Aguilar is following in cardiology consultation -Acute biliary pancreatitis, resolving. continue to monitor amylase and lipase. Dr. Richards is following in gastroenterology consultation. -Left-sided hydronephrosis with stone in the ureter. S/p cystoscopy, left ureteroscopy, and insertion of left ureteral JJ stent by Dr. Frost on 08/21. S /p lithotripsy on 08/26. -Hypertension, patient is currently hypotensive. -Diabetes mellitus type 2, continue Lantus and NovoLog. -Dyslipidemia. -Possible COPD, continue breathing treatments as needed for shortness of breath. -Schizophrenia -Facial and upper extremities rash, resolving, scabies ruled out, continue Kenalog topical Further recommendations based on clinical course. Plan of care discussed with Dr. Roach Problems: Exam/Review of Systems Vital Signs Vitals Vital Signs Date Time Temp Pulse Resp B/P Pulse Ox O2 Delivery O2 Flow Rate FiO2 08/28/17 07:20 97.9 71 16 141/74 94 08/26/17 12:12 Room Air Intake and Output 08/27/17 08/27/17 08/28/17 15:00 23:00 07:00 Intake Total 2040 ml 1000 ml Balance 2040 ml 1000 ml Exam Constitutional: alert, oriented Neck: supple Respiratory: normal air movement Cardiovascular: nl pulses Gastrointestinal: soft, tender Musculoskeletal: nl extremities to inspection Extremities: normal pulses Neurological: confused Results Result Diagram: 08/27/17 0526 08/27/17 05 Results 24 hrs Laboratory Tests Test 08/27/17 12:11 08/27/17 17:19 08/27/17 20:52 08/28/17 08:11 Bedside Glucose 119 85 102 104 Test 08/28/17 11:33 White Blood Count Pending Red Blood Count Pending Hemoglobin Pending Hematocrit Pending Mean Corpuscular Volume Pending Mean Corpuscular Hemoglobin Pending Mean Corpuscular Hemoglobin Concent Pending Red Cell Distribution Width Pending Platelet Count Pending Mean Platelet Volume Pending Medications Medications Current Medications Potassium Chloride/Dextrose/ Sod Cl (D5-1/2ns + KCl 20 Meq) 1,000 ml @ 60 mls/ hr [id number] IV Last administered on 08/27/17 20:46; Admin Dose 60 MLS/HR; Start 08/14/17 at 23:00 Ondansetron HCl (Zofran Inj) 4 mg Q6H PRN IV NAUSEA AND/OR VOMITING; Start at 23:00 Morphine Sulfate (morphine) 2 mg Q4H PRN IV PAIN LEVEL 4-7 Last administered on 08/28/17 08:12; Admin Dose 2 MG; Start 08/14/17 at 23:00 Acetaminophen (Tylenol Tab) 650 mg Q6H PRN PO PAIN AND OR ELEVATED TEMP Last administered on 08/27/17 23:59; Admin Dose 650 MG; Start 08/14/17 at 23:00 Aspirin (Halfprin) 81 mg DAILY PO Last administered on 08/28/17 08:07; Admin Dose 81 MG; Start 08/15/17 at 09:00 Insulin Glargine (Lantus) 12 unit DAILY SC Last administered on 08/28/17 08:18 ; Admin Dose 12 UNIT; Start 08/15/17 at 09:00 Lamotrigine (Lamictal) 50 mg Q12 PO Last administered on 08/28/17 08:07; Admin Dose 50 MG; Start 08/15/17 at 09:00 Lorazepam (Ativan) 1 mg Q6 PRN PO ANXIETY Last administered on 08/24/17 22:21 ; Admin Dose 1 MG; Start 08/14/17 at 23:00 Risperidone (Risperdal) 2 mg BID PO Last administered on 08/28/17 08:07; Admin Dose 2 MG; Start 08/15/17 at 09:00 Miscellaneous Information 1 ea NOTE XX ; Start 08/14/17 at 23:45 Glucose (Glutose) 15 gm Q15M PRN PO DECREASED GLUCOSE; Start 08/14/17 at 23:45 Glucose (Glutose) 22.5 gm Q15M PRN PO DECREASED GLUCOSE; Start 08/14/17 at 23: 45 Dextrose (D50w Syringe) 25 ml Q15M PRN IV DECREASED GLUCOSE; Start 08/14/17 at 23:45 Dextrose (D50w Syringe) 50 ml Q15M PRN IV DECREASED GLUCOSE; Start 08/14/17 at 23:45 Glucagon (Glucagen) 1 mg Q15M PRN IM DECREASED GLUCOSE; Start 08/14/17 at 23: 45 Glucose (Glutose) 15 gm Q15M PRN BUCCAL DECREASED GLUCOSE; Start 08/14/17 at 23:45 Amlodipine Besylate (Norvasc) 10 mg DAILY PO Last administered on 08/28/17 08: 06; Admin Dose 10 MG; Start 08/17/17 at 17:00 Diagnostic Test (Pha) (Accu-Chek) 1 ea 02 XX ; Start 08/19/17 at 02:00 Docusate Sodium (Colace) 100 mg BID PO Last administered on 08/28/17 08:06; Admin Dose 100 MG; Start 08/20/17 at 21:00 Magnesium Hydroxide 30 ml 30 ml DAILY PRN PO CONSTIPATION Last administered on 08/25/17 08:38; Admin Dose 30 ML; Start 08/20/17 at 11:00 Cefazolin Sodium (Ancef 1 Gm/50 ml (Pmx)) 50 ml @ 100 mls/hr Q8 IVPB Last administered on 08/28/17 05:53; Admin Dose 100 MLS/HR; Start 08/21/17 at 22:00 Triamcinolone Acetonide (Kenalog 0.1% Cr) 1 applic BID TOP Last administered on 08/28/17 08:12; Admin Dose 1 APPLIC; Start 08/22/17 at 21:00 Pantoprazole (Protonix Tab) 40 mg DAILY@06 PO Last administered on 08/28/17 05 :53; Admin Dose 40 MG; Start 08/24/17 at 06:00 Docusate Sodium (Colace) 100 mg BID PO Last administered on 08/24/17 21:03; Admin Dose 100 MG; Start 08/24/17 at 21:00 Polyethylene Glycol (Miralax) 17 gm DAILY PRN GTB CONSTIPATION; Start at 13:00 LINDA BEASLEY Aug 28, 2017 12:01
[2017-08-28 12:07] LABS: BASOPHILS % 0.6 % (0.0-2.0); EOSINOPHILS # 0.3 10^3/ul (0.0-0.5); EOSINOPHILS % 5.5 % (0.0-7.0); HEMATOCRIT 36.6 % (37.0-47.0); HEMOGLOBIN 12.3 g/dl (12.0-16.0); LYMPHOCYTES % 38.7 % (15.0-51.0); MEAN CORPUSCULAR HEMOGLOBIN 30.4 pg (29.0-33.0); MEAN CORPUSCULAR HGB CONC 33.6 g/dl (32.0-37.0); MEAN CORPUSCULAR VOLUME 90.6 fl (82.0-101.0); MEAN PLATELET VOLUME 9.8 fl (7.4-10.4); MONOCYTE # 0.4 10^3/ul (0.3-0.9); MONOCYTES % 7.3 % (0.0-11.0); NEUTROPHIL # 2.5 10^3/ul (1.6-7.5); NEUTROPHILS % 47.5 % (39.0-77.0); PLATELET COUNT 181 10^3/UL (140-415); RED BLOOD COUNT 4.04 10^6/ul (4.20-5.40); RED CELL DISTRIBUTION WIDTH 12.7 % (11.5-14.5); WHITE BLOOD COUNT 5.2 10^3/ul (4.8-10.8)
[2017-08-28 12:23] LABS: CALCIUM 9.6 mg/dl (8.4-10.2); CREATININE 0.71 mg/dl (0.44-1.00); POTASSIUM 3.9 mmol/L (3.5-5.1)
[2017-08-28] MEDS: D5W-0.45 NACL + KCL 20 MEQ 1,000 ML IV SCH (13:46)
[2017-08-28 14:02] VITALS: BP 108/65; RESP 16
--- NOTE | 2017-08-28 16:46 | CONS ---
Date/Time of Note Date/Time of Note DATE: 08/28/17 TIME: 16:46 Assessment/Plan Assessment/Plan Additional Assessment/Plan Additional Assessment/Plan 1. Biliary pancreatitis, which resolved. Repeat CT is negative for pancreatitis and also negative for biliary dilatation. Liver function is back to normal 2. Diabetes mellitus. 3. Hypertension. 4. Hydronephrosis with 10 mm of stone in the kidney and 6 mm stone in the ureter. Underwent lithotripsy, ureteral stone is no more visible 5. Schizophrenia 6. Chest pain 7. Tremor upper extremity 8. Constipation finally had good bowel movements 9. Renal stone Plan Continue present care Continue low-fat diet Consultation Date/Type/Reason Admit Date/Time Aug 14, 2017 at 19:34 Initial Consult Date 08/15/17 Type of Consultation: card Referring Provider: TAWANA FORD MD 24 HR Interval Summary Constitutional: improved Exam/Review of Systems Vital Signs Vitals Vital Signs Date Time Temp Pulse Resp B/P Pulse Ox O2 Delivery O2 Flow Rate FiO2 08/28/17 14:02 98.3 71 16 108/65 94 08/26/17 12:12 Room Air Intake and Output 08/27/17 08/27/17 08/28/17 15:00 23:00 07:00 Intake Total 2040 ml 1000 ml Balance 2040 ml 1000 ml Exam Constitutional: alert, oriented, well developed Psych: nl mood/affect, no complaints Head: atraumatic, normocephalic Eyes: EOMI, PERRL, nl conjunctiva, nl lids, nl sclera ENMT: nl external ears & nose, nl lips & teeth, nl nasal mucosa & septum Neck: non-tender, supple Respiratory: clear to auscultation, normal air movement Cardiovascular: nl pulses, regular rate and rhythm Gastrointestinal: nl liver, spleen, non-tender, soft Musculoskeletal: nl extremities to inspection, nl gait and stance Extremities: normal pulses Neurological: [employer] II-XII intact, nl mental status, nl speech, nl strength Skin: nl turgor, No rash or lesions Lymph: nl lymph nodes Results Result Diagram: 08/28/17 1133 08/28/17 1133 Results 24 hrs Laboratory Tests Test 08/27/17 17:19 08/27/17 20:52 08/28/17 08:11 08/28/17 11:33 Bedside Glucose 85 102 104 White Blood Count 5.2 # Red Blood Count 4.04 L Hemoglobin 12.3 Hematocrit 36.6 L Mean Corpuscular Volume 90.6 Mean Corpuscular Hemoglobin 30.4 Mean Corpuscular Hemoglobin Concent 33.6 Red Cell Distribution Width 12.7 Platelet Count 181 Mean Platelet Volume 9.8 Neutrophils % 47.5 Lymphocytes % 38.7 Monocytes % 7.3 Eosinophils % 5.5 Basophils % 0.6 Nucleated Red Blood Cells % 0.0 Neutrophils # 2.5 Lymphocytes # 2.0 Monocytes # 0.4 Eosinophils # 0.3 Basophils # 0.0 Nucleated Red Blood Cells # 0.0 Sodium Level 144 Potassium Level 3.9 Chloride Level 102 Carbon Dioxide Level 32 H Anion Gap 14 Blood Urea Nitrogen 17 Creatinine 0.71 Glucose Level 100 Calcium Level 9.6 Test 08/28/17 12:12 Bedside Glucose 107 Medications Medications Current Medications Potassium Chloride/Dextrose/ Sod Cl (D5-1/2ns + KCl 20 Meq) 1,000 ml @ 60 mls/ hr [id number] IV Last administered on 08/28/17 13:46; Admin Dose 60 MLS/HR; Start 08/14/17 at 23:00 Ondansetron HCl (Zofran Inj) 4 mg Q6H PRN IV NAUSEA AND/OR VOMITING; Start at 23:00 Morphine Sulfate (morphine) 2 mg Q4H PRN IV PAIN LEVEL 4-7 Last administered on 08/28/17 08:12; Admin Dose 2 MG; Start 08/14/17 at 23:00 Acetaminophen (Tylenol Tab) 650 mg Q6H PRN PO PAIN AND OR ELEVATED TEMP Last administered on 08/27/17 23:59; Admin Dose 650 MG; Start 08/14/17 at 23:00 Aspirin (Halfprin) 81 mg DAILY PO Last administered on 08/28/17 08:07; Admin Dose 81 MG; Start 08/15/17 at 09:00 Insulin Glargine (Lantus) 12 unit DAILY SC Last administered on 08/28/17 08:18 ; Admin Dose 12 UNIT; Start 08/15/17 at 09:00 Lamotrigine (Lamictal) 50 mg Q12 PO Last administered on 08/28/17 08:07; Admin Dose 50 MG; Start 08/15/17 at 09:00 Lorazepam (Ativan) 1 mg Q6 PRN PO ANXIETY Last administered on 08/24/17 22:21 ; Admin Dose 1 MG; Start 08/14/17 at 23:00 Risperidone (Risperdal) 2 mg BID PO Last administered on 08/28/17 08:07; Admin Dose 2 MG; Start 08/15/17 at 09:00 Miscellaneous Information 1 ea NOTE XX ; Start 08/14/17 at 23:45 Glucose (Glutose) 15 gm Q15M PRN PO DECREASED GLUCOSE; Start 08/14/17 at 23:45 Glucose (Glutose) 22.5 gm Q15M PRN PO DECREASED GLUCOSE; Start 08/14/17 at 23: 45 Dextrose (D50w Syringe) 25 ml Q15M PRN IV DECREASED GLUCOSE; Start 08/14/17 at 23:45 Dextrose (D50w Syringe) 50 ml Q15M PRN IV DECREASED GLUCOSE; Start 08/14/17 at 23:45 Glucagon (Glucagen) 1 mg Q15M PRN IM DECREASED GLUCOSE; Start 08/14/17 at 23: 45 Glucose (Glutose) 15 gm Q15M PRN BUCCAL DECREASED GLUCOSE; Start 08/14/17 at 23:45 Amlodipine Besylate (Norvasc) 10 mg DAILY PO Last administered on 08/28/17 08: 06; Admin Dose 10 MG; Start 08/17/17 at 17:00 Diagnostic Test (Pha) (Accu-Chek) 1 ea 02 XX ; Start 08/19/17 at 02:00 Docusate Sodium (Colace) 100 mg BID PO Last administered on 08/28/17 08:06; Admin Dose 100 MG; Start 08/20/17 at 21:00 Magnesium Hydroxide 30 ml 30 ml DAILY PRN PO CONSTIPATION Last administered on 08/25/17 08:38; Admin Dose 30 ML; Start 08/20/17 at 11:00 Cefazolin Sodium (Ancef 1 Gm/50 ml (Pmx)) 50 ml @ 100 mls/hr Q8 IVPB Last administered on 08/28/17 13:35; Admin Dose 100 MLS/HR; Start 08/21/17 at 22:00 Triamcinolone Acetonide (Kenalog 0.1% Cr) 1 applic BID TOP Last administered on 08/28/17 08:12; Admin Dose 1 APPLIC; Start 08/22/17 at 21:00 Pantoprazole (Protonix Tab) 40 mg DAILY@06 PO Last administered on 08/28/17 05 :53; Admin Dose 40 MG; Start 08/24/17 at 06:00 Docusate Sodium (Colace) 100 mg BID PO Last administered on 08/24/17 21:03; Admin Dose 100 MG; Start 08/24/17 at 21:00 Polyethylene Glycol (Miralax) 17 gm DAILY PRN GTB CONSTIPATION; Start at 13:00 JOAN BOTELLO MD Aug 28, 2017 16:46
[2017-08-28 19:41] VITALS: BP 120/72; RESP 16
--- NOTE | 2017-08-28 20:01 | CONS ---
Date/Time of Note Date/Time of Note DATE: 08/28/17 TIME: 20:01 Consult Date/Type/Reason Admit Date/Time Aug 14, 2017 at 19:34 Initial Consult Date 08/15/17 Type of Consultation: card Ordering Provider: TAWANA FORD MD Subjective cardiology follow up note: S: D/w STAFF pt denies any left sided cp or sob or palpitations to me now. SHE has intermittent right sided sharp chest wall pain but no pain now she denies abd pain to me now . S/P CYSTOSCOPY 08/21 O: General: no acute distress HEENT: NC/AT. pupils are equal. round. NECK: NO JVD. no stridor. CV: RRR. systolic murmur; no gallop or rubs. PULM: no wheezing or rhonchi. GI: SOFT, mild tenderness, ND, no rebound or guarding Extremity: trace B/L LE edema. no clubbing. neuro: awake and alert, Psych: calm and pleasant Objective Vital Signs Date Time Temp Pulse Resp B/P Pulse Ox O2 Delivery O2 Flow Rate FiO2 08/28/17 19:41 98.0 66 16 120/72 95 08/26/17 12:12 Room Air Intake and Output 08/27/17 08/27/17 08/28/17 14:59 22:59 06:59 Intake Total 2040 ml 1000 ml Balance 2040 ml 1000 ml Results/Medications Result Diagram: 08/28/17 1133 08/28/17 1133 Results 24 hrs Laboratory Tests Test 08/27/17 20:52 08/28/17 08:11 08/28/17 11:33 08/28/17 12:12 Bedside Glucose 102 104 107 White Blood Count 5.2 # Red Blood Count 4.04 L Hemoglobin 12.3 Hematocrit 36.6 L Mean Corpuscular Volume 90.6 Mean Corpuscular Hemoglobin 30.4 Mean Corpuscular Hemoglobin Concent 33.6 Red Cell Distribution Width 12.7 Platelet Count 181 Mean Platelet Volume 9.8 Neutrophils % 47.5 Lymphocytes % 38.7 Monocytes % 7.3 Eosinophils % 5.5 Basophils % 0.6 Nucleated Red Blood Cells % 0.0 Neutrophils # 2.5 Lymphocytes # 2.0 Monocytes # 0.4 Eosinophils # 0.3 Basophils # 0.0 Nucleated Red Blood Cells # 0.0 Sodium Level 144 Potassium Level 3.9 Chloride Level 102 Carbon Dioxide Level 32 H Anion Gap 14 Blood Urea Nitrogen 17 Creatinine 0.71 Glucose Level 100 Calcium Level 9.6 Test 08/28/17 17:16 Bedside Glucose 100 Medications Current Medications Potassium Chloride/Dextrose/ Sod Cl (D5-1/2ns + KCl 20 Meq) 1,000 ml @ 60 mls/ hr [id number] IV Last administered on 08/28/17 13:46; Admin Dose 60 MLS/HR; Start 08/14/17 at 23:00 Ondansetron HCl (Zofran Inj) 4 mg Q6H PRN IV NAUSEA AND/OR VOMITING; Start at 23:00 Morphine Sulfate (morphine) 2 mg Q4H PRN IV PAIN LEVEL 4-7 Last administered on 08/28/17 08:12; Admin Dose 2 MG; Start 08/14/17 at 23:00 Acetaminophen (Tylenol Tab) 650 mg Q6H PRN PO PAIN AND OR ELEVATED TEMP Last administered on 08/27/17 23:59; Admin Dose 650 MG; Start 08/14/17 at 23:00 Aspirin (Halfprin) 81 mg DAILY PO Last administered on 08/28/17 08:07; Admin Dose 81 MG; Start 08/15/17 at 09:00 Insulin Glargine (Lantus) 12 unit DAILY SC Last administered on 08/28/17 08:18 ; Admin Dose 12 UNIT; Start 08/15/17 at 09:00 Lamotrigine (Lamictal) 50 mg Q12 PO Last administered on 08/28/17 08:07; Admin Dose 50 MG; Start 08/15/17 at 09:00 Lorazepam (Ativan) 1 mg Q6 PRN PO ANXIETY Last administered on 08/24/17 22:21 ; Admin Dose 1 MG; Start 08/14/17 at 23:00 Risperidone (Risperdal) 2 mg BID PO Last administered on 08/28/17 08:07; Admin Dose 2 MG; Start 08/15/17 at 09:00 Miscellaneous Information 1 ea NOTE XX ; Start 08/14/17 at 23:45 Glucose (Glutose) 15 gm Q15M PRN PO DECREASED GLUCOSE; Start 08/14/17 at 23:45 Glucose (Glutose) 22.5 gm Q15M PRN PO DECREASED GLUCOSE; Start 08/14/17 at 23: 45 Dextrose (D50w Syringe) 25 ml Q15M PRN IV DECREASED GLUCOSE; Start 08/14/17 at 23:45 Dextrose (D50w Syringe) 50 ml Q15M PRN IV DECREASED GLUCOSE; Start 08/14/17 at 23:45 Glucagon (Glucagen) 1 mg Q15M PRN IM DECREASED GLUCOSE; Start 08/14/17 at 23: 45 Glucose (Glutose) 15 gm Q15M PRN BUCCAL DECREASED GLUCOSE; Start 08/14/17 at 23:45 Amlodipine Besylate (Norvasc) 10 mg DAILY PO Last administered on 08/28/17 08: 06; Admin Dose 10 MG; Start 08/17/17 at 17:00 Diagnostic Test (Pha) (Accu-Chek) 1 ea 02 XX ; Start 08/19/17 at 02:00 Docusate Sodium (Colace) 100 mg BID PO Last administered on 08/28/17 08:06; Admin Dose 100 MG; Start 08/20/17 at 21:00 Magnesium Hydroxide 30 ml 30 ml DAILY PRN PO CONSTIPATION Last administered on 08/25/17 08:38; Admin Dose 30 ML; Start 08/20/17 at 11:00 Cefazolin Sodium (Ancef 1 Gm/50 ml (Pmx)) 50 ml @ 100 mls/hr Q8 IVPB Last administered on 08/28/17 13:35; Admin Dose 100 MLS/HR; Start 08/21/17 at 22:00 Triamcinolone Acetonide (Kenalog 0.1% Cr) 1 applic BID TOP Last administered on 08/28/17 08:12; Admin Dose 1 APPLIC; Start 08/22/17 at 21:00 Pantoprazole (Protonix Tab) 40 mg DAILY@06 PO Last administered on 08/28/17 05 :53; Admin Dose 40 MG; Start 08/24/17 at 06:00 Docusate Sodium (Colace) 100 mg BID PO Last administered on 08/24/17 21:03; Admin Dose 100 MG; Start 08/24/17 at 21:00 Polyethylene Glycol (Miralax) 17 gm DAILY PRN GTB CONSTIPATION; Start at 13:00 Assessment/Plan Chief Complaint/Hosp Course 1. nonanginal chest pain: right sided. 2. acute pancreatitis: improved now. 3. HTN 4. DM 5. Psych disorder 6. renal stone: S/P cystoscopy: f/u rec Patient has previously had cardiac workup including echocardiogram and CT coronary angiogram both of which were unremarkable. Her calcium score is 0 which makes at very low risk of significant CAD. Her right sided chest pain does not appear to be cardiac related and most likely related to her GI symptoms versus others. Treatment of her GI GI issues including her pancreatitis as per internal medicine. Diabetic management as per internal medicine. f/u with rec. Thank you for his referral. I will follow up with you on as needed base. CHAITANYA NEVAREZ MD [facility] Problems: CHAITANYA NEVAREZ MD Aug 28, 2017 20:01
[2017-08-29 01:58] VITALS: BP 122/63; RESP 16
[2017-08-29] MEDS: ACCU-CHEK XX SCH ×5 (02:00→21:00)
[2017-08-29] MEDS: PANTOPRAZOLE (EC) 40 MG TAB PO SCH (06:39)
[2017-08-29] MEDS: CEFAZOLIN 1 GM/50 ML (PMX) 50 ML IVPB SCH ×3 (06:39→21:09)
[2017-08-29] MEDS: D5W-0.45 NACL + KCL 20 MEQ 1,000 ML IV SCH ×2 (06:39→22:58)
[2017-08-29 07:35] VITALS: BP 124/75; RESP 16
[2017-08-29] MEDS: INSULIN ASPART [NOVOLOG] 3 ML PEN SC SCH ×4 (08:00→21:00)
--- NOTE | 2017-08-29 08:08 | CONS ---
Date/Time of Note Date/Time of Note DATE: 08/29/17 TIME: 08:03 Consult Date/Type/Reason Admit Date/Time Aug 14, 2017 at 19:34 Initial Consult Date 08/15/17 Type of Consultation: Urology Reason for Consultation Kidney stones Ordering Provider: TAWANA FORD MD Subjective Patient states she is feeling fine, no abdominal pain Objective Vital Signs Date Time Temp Pulse Resp B/P Pulse Ox O2 Delivery O2 Flow Rate FiO2 08/29/17 07:35 98.1 71 16 124/75 95 08/26/17 12:12 Room Air Intake and Output 08/28/17 08/28/17 08/29/17 15:00 23:00 07:00 Intake Total 1370 ml 1250 ml Balance 1370 ml 1250 ml Exam Afebrile abdomen is soft Results/Medications Result Diagram: 08/28/17 1133 08/28/17 1133 Results 24 hrs Laboratory Tests Test 08/28/17 08:11 08/28/17 11:33 08/28/17 12:12 08/28/17 17:16 Bedside Glucose 104 107 100 White Blood Count 5.2 # Red Blood Count 4.04 L Hemoglobin 12.3 Hematocrit 36.6 L Mean Corpuscular Volume 90.6 Mean Corpuscular Hemoglobin 30.4 Mean Corpuscular Hemoglobin Concent 33.6 Red Cell Distribution Width 12.7 Platelet Count 181 Mean Platelet Volume 9.8 Neutrophils % 47.5 Lymphocytes % 38.7 Monocytes % 7.3 Eosinophils % 5.5 Basophils % 0.6 Nucleated Red Blood Cells % 0.0 Neutrophils # 2.5 Lymphocytes # 2.0 Monocytes # 0.4 Eosinophils # 0.3 Basophils # 0.0 Nucleated Red Blood Cells # 0.0 Sodium Level 144 Potassium Level 3.9 Chloride Level 102 Carbon Dioxide Level 32 H Anion Gap 14 Blood Urea Nitrogen 17 Creatinine 0.71 Glucose Level 100 Calcium Level 9.6 Test 08/28/17 21:17 Bedside Glucose 108 Medications Current Medications Potassium Chloride/Dextrose/ Sod Cl (D5-1/2ns + KCl 20 Meq) 1,000 ml @ 60 mls/ hr [id number] IV Last administered on 08/29/17t 06:39; Admin Dose 60 MLS/HR; Start 08/14/17 at 23:00 Ondansetron HCl (Zofran Inj) 4 mg Q6H PRN IV NAUSEA AND/OR VOMITING; Start at 23:00 Morphine Sulfate (morphine) 2 mg Q4H PRN IV PAIN LEVEL 4-7 Last administered on 08/28/17 08:12; Admin Dose 2 MG; Start 08/14/17 at 23:00 Acetaminophen (Tylenol Tab) 650 mg Q6H PRN PO PAIN AND OR ELEVATED TEMP Last administered on 08/27/17 23:59; Admin Dose 650 MG; Start 08/14/17 at 23:00 Aspirin (Halfprin) 81 mg DAILY PO Last administered on 08/28/17 08:07; Admin Dose 81 MG; Start 08/15/17 at 09:00 Insulin Glargine (Lantus) 12 unit DAILY SC Last administered on 08/28/17 08:18 ; Admin Dose 12 UNIT; Start 08/15/17 at 09:00 Lamotrigine (Lamictal) 50 mg Q12 PO Last administered on 08/28/17 21:20; Admin Dose 50 MG; Start 08/15/17 at 09:00 Lorazepam (Ativan) 1 mg Q6 PRN PO ANXIETY Last administered on 08/24/17 22:21 ; Admin Dose 1 MG; Start 08/14/17 at 23:00 Risperidone (Risperdal) 2 mg BID PO Last administered on 08/28/17 21:19; Admin Dose 2 MG; Start 08/15/17 at 09:00 Miscellaneous Information 1 ea NOTE XX ; Start 08/14/17 at 23:45 Glucose (Glutose) 15 gm Q15M PRN PO DECREASED GLUCOSE; Start 08/14/17 at 23:45 Glucose (Glutose) 22.5 gm Q15M PRN PO DECREASED GLUCOSE; Start 08/14/17 at 23: 45 Dextrose (D50w Syringe) 25 ml Q15M PRN IV DECREASED GLUCOSE; Start 08/14/17 at 23:45 Dextrose (D50w Syringe) 50 ml Q15M PRN IV DECREASED GLUCOSE; Start 08/14/17 at 23:45 Glucagon (Glucagen) 1 mg Q15M PRN IM DECREASED GLUCOSE; Start 08/14/17 at 23: 45 Glucose (Glutose) 15 gm Q15M PRN BUCCAL DECREASED GLUCOSE; Start 11/20/17 at 23:45 Amlodipine Besylate (Norvasc) 10 mg DAILY PO Last administered on 08/28/17 08: 06; Admin Dose 10 MG; Start 08/17/17 at 17:00 Diagnostic Test (Pha) (Accu-Chek) 1 ea 02 XX ; Start 08/19/17 at 02:00 Docusate Sodium (Colace) 100 mg BID PO Last administered on 08/28/17 21:19; Admin Dose 100 MG; Start 08/20/17 at 21:00 Magnesium Hydroxide 30 ml 30 ml DAILY PRN PO CONSTIPATION Last administered on 08/25/17 08:38; Admin Dose 30 ML; Start 08/20/17 at 11:00 Cefazolin Sodium (Ancef 1 Gm/50 ml (Pmx)) 50 ml @ 100 mls/hr Q8 IVPB Last administered on 08/29/17 06:39; Admin Dose 100 MLS/HR; Start 08/21/17 at 22:00 Triamcinolone Acetonide (Kenalog 0.1% Cr) 1 applic BID TOP Last administered on 08/28/17 21:23; Admin Dose 1 APPLIC; Start 08/22/17 at 21:00 Pantoprazole (Protonix Tab) 40 mg DAILY@06 PO Last administered on 08/29/17 06 :39; Admin Dose 40 MG; Start 08/24/17 at 06:00 Docusate Sodium (Colace) 100 mg BID PO Last administered on 08/24/17 21:03; Admin Dose 100 MG; Start 08/24/17 at 21:00 Polyethylene Glycol (Miralax) 17 gm DAILY PRN GTB CONSTIPATION; Start at 13:00 Assessment/Plan Chief Complaint/Hosp Course 51-year-old female with a history of hypertension ,diabetes,high cholesterol and history of schizophrenia, she resides in a [id number] and was brought to [facility] because of chest pain. she underwent a CT scan of the abdomen and pelvis and that showed a stone in the upper left ureter with multiple stones in the renal pelvis. The patient underwent left extracorporeal shockwave lithotripsy to the stones and the left middle pole calyx. The stone that was in the upper ureter was has moved into the kidney based on the CT scan that she had the day before the lithotripsy. the patient still has stones in the upper pole calyx as well as in the lower pole calyx and the stent is in place. She will need at least 2 more treatments to break the remaining stones in the upper pole calyx and then in the lower pole calyx and these will be done in the future. Problems: KANIKA HENAO MD Aug 29, 2017 08:08
[2017-08-29] MEDS: TRIAMCINOLONE ACET 0.1% 15 GM CR TOP SCH ×2 (09:00→21:10)
[2017-08-29] MEDS: DOCUSATE SODIUM 100 MG CAP PO SCH ×4 (09:00→21:10)
[2017-08-29] MEDS: RISPERIDONE 2 MG TAB PO SCH ×2 (09:36→21:10)
[2017-08-29] MEDS: ASPIRIN (EC) 81 MG TAB PO SCH (09:38)
[2017-08-29] MEDS: AMLODIPINE 10 MG TAB PO SCH (09:38)
[2017-08-29] MEDS: LAMOTRIGINE 25 MG TAB PO SCH ×2 (09:53→21:10)
[2017-08-29] MEDS: morphine 2 MG INJ IV PRN (09:54)
[2017-08-29] MEDS: INSULIN GLARGINE [LANtus] 3 ML PEN SC SCH (10:02)
--- NOTE | 2017-08-29 13:13 | PN ---
Date/Time of Note Date/Time of Note DATE: 08/29/17 TIME: 13:12 Assessment/Plan VTE Prophylaxis VTE Prophylaxis Intervention: SCD's Lines/Catheters IV [facility] Peripheral IV Urinary Cath still in place: No Assessment/Plan Chief Complaint/Hosp Course Patient remains hemodynamically stable, able to void, continue to monitor electrolytes, intake and output, follow-up urology recommendations. Assessment/Plan -Atypical chest pain. Acute coronary syndrome ruled out. cardiac enzymes are negative 3 Dr. Aguilar is following in cardiology consultation -Acute biliary pancreatitis, resolving. continue to monitor amylase and lipase. Dr. Richards is following in gastroenterology consultation. -Left-sided hydronephrosis with stone in the ureter. S/p cystoscopy, left ureteroscopy, and insertion of left ureteral JJ stent by Dr. Frost on 08/21. S /p lithotripsy on 08/26. -Hypertension, patient is currently hypotensive. -Diabetes mellitus type 2, continue Lantus and NovoLog. -Dyslipidemia. -Possible COPD, continue breathing treatments as needed for shortness of breath. -Schizophrenia -Facial and upper extremities rash, resolving, scabies ruled out, continue Kenalog topical Further recommendations based on clinical course. Plan of care discussed with Dr. Roach Problems: Exam/Review of Systems Vital Signs Vitals Vital Signs Date Time Temp Pulse Resp B/P Pulse Ox O2 Delivery O2 Flow Rate FiO2 08/29/17 07:35 98.1 71 16 124/75 95 08/26/17 12:12 Room Air Intake and Output 08/28/17 08/28/17 08/29/17 15:00 23:00 07:00 Intake Total 1370 ml 1250 ml Balance 1370 ml 1250 ml Exam Constitutional: alert, oriented Neck: supple Respiratory: normal air movement Cardiovascular: nl pulses Gastrointestinal: soft, tender Musculoskeletal: nl extremities to inspection Extremities: normal pulses Neurological: confused Results Result Diagram: 08/28/17 1133 08/28/17 1133 Results 24 hrs Laboratory Tests Test 08/28/17 17:16 08/28/17 21:17 08/29/17 08:14 08/29/17 09:46 Bedside Glucose 100 108 98 132 Test 08/29/17 12:31 Bedside Glucose 95 Medications Medications Current Medications Potassium Chloride/Dextrose/ Sod Cl (D5-1/2ns + KCl 20 Meq) 1,000 ml @ 60 mls/ hr [id number] IV Last administered on 08/29/17 06:39; Admin Dose 60 MLS/HR; Start 08/14/17 at 23:00 Ondansetron HCl (Zofran Inj) 4 mg Q6H PRN IV NAUSEA AND/OR VOMITING; Start at 23:00 Morphine Sulfate (morphine) 2 mg Q4H PRN IV PAIN LEVEL 4-7 Last administered on 08/29/17 09:54; Admin Dose 2 MG; Start 08/14/17 at 23:00 Acetaminophen (Tylenol Tab) 650 mg Q6H PRN PO PAIN AND OR ELEVATED TEMP Last administered on 08/27/17 23:59; Admin Dose 650 MG; Start 08/14/17 at 23:00 Aspirin (Halfprin) 81 mg DAILY PO Last administered on 08/29/17 09:38; Admin Dose 81 MG; Start 08/15/17 at 09:00 Insulin Glargine (Lantus) 12 unit DAILY SC Last administered on 08/29/17 10:02 ; Admin Dose 12 UNIT; Start 08/15/17 at 09:00 Lamotrigine (Lamictal) 50 mg Q12 PO Last administered on 08/29/17 09:53; Admin Dose 50 MG; Start 08/15/17 at 09:00 Lorazepam (Ativan) 1 mg Q6 PRN PO ANXIETY Last administered on 08/24/17 22:21 ; Admin Dose 1 MG; Start 08/14/17 at 23:00 Risperidone (Risperdal) 2 mg BID PO Last administered on 08/29/17 09:36; Admin Dose 2 MG; Start 08/15/17 at 09:00 Miscellaneous Information 1 ea NOTE XX ; Start 08/14/17 at 23:45 Glucose (Glutose) 15 gm Q15M PRN PO DECREASED GLUCOSE; Start 08/14/17 at 23:45 Glucose (Glutose) 22.5 gm Q15M PRN PO DECREASED GLUCOSE; Start 08/14/17 at 23: 45 Dextrose (D50w Syringe) 25 ml Q15M PRN IV DECREASED GLUCOSE; Start 08/14/17 at 23:45 Dextrose (D50w Syringe) 50 ml Q15M PRN IV DECREASED GLUCOSE; Start 08/14/17 at 23:45 Glucagon (Glucagen) 1 mg Q15M PRN IM DECREASED GLUCOSE; Start 08/14/17 at 23: 45 Glucose (Glutose) 15 gm Q15M PRN BUCCAL DECREASED GLUCOSE; Start 08/14/17 at 23:45 Amlodipine Besylate (Norvasc) 10 mg DAILY PO Last administered on 08/29/17 09: 38; Admin Dose 10 MG; Start 08/17/17 at 17:00 Diagnostic Test (Pha) (Accu-Chek) 1 ea 02 XX ; Start 08/19/17 at 02:00 Docusate Sodium (Colace) 100 mg BID PO Last administered on 08/29/17 09:38; Admin Dose 100 MG; Start 08/20/17 at 21:00 Magnesium Hydroxide 30 ml 30 ml DAILY PRN PO CONSTIPATION Last administered on 08/25/17 08:38; Admin Dose 30 ML; Start 08/20/17 at 11:00 Cefazolin Sodium (Ancef 1 Gm/50 ml (Pmx)) 50 ml @ 100 mls/hr Q8 IVPB Last administered on 08/29/17 06:39; Admin Dose 100 MLS/HR; Start 08/21/17 at 22:00 Triamcinolone Acetonide (Kenalog 0.1% Cr) 1 applic BID TOP Last administered on 08/29/17 09:00; Admin Dose 1 APPLIC; Start 08/22/17 at 21:00 Pantoprazole (Protonix Tab) 40 mg DAILY@06 PO Last administered on 08/29/17 06 :39; Admin Dose 40 MG; Start 08/24/17 at 06:00 Docusate Sodium (Colace) 100 mg BID PO Last administered on 08/24/17 21:03; Admin Dose 100 MG; Start 08/24/17 at 21:00 Polyethylene Glycol (Miralax) 17 gm DAILY PRN GTB CONSTIPATION; Start at 13:00 LINDA BEASLEY Aug 29, 2017 13:13
--- NOTE | 2017-08-29 14:02 | CONS ---
Date/Time of Note Date/Time of Note DATE: 08/29/17 TIME: 14:01 Consult Date/Type/Reason Admit Date/Time Aug 14, 2017 at 19:34 Initial Consult Date 08/15/17 Type of Consultation: cardiology Ordering Provider: TAWANA FORD MD Subjective cardiology follow up note: S: D/w STAFF. pt denies any left sided cp or sob or palpitations to me now. but still has intermittent right sided chest wall pain she denies abd pain to me now . S/P CYSTOSCOPY 08/21 O: General: no acute distress HEENT: NC/AT. pupils are equal. round. NECK: NO JVD. no stridor. CV: RRR. systolic murmur; no gallop or rubs. PULM: no wheezing or rhonchi. GI: SOFT, mild tenderness, ND, no rebound or guarding Extremity: trace B/L LE edema. no clubbing. neuro: awake and alert, Psych: calm and pleasant Objective Vital Signs Date Time Temp Pulse Resp B/P Pulse Ox O2 Delivery O2 Flow Rate FiO2 08/29/17 07:35 98.1 71 16 124/75 95 08/26/17 12:12 Room Air Intake and Output 08/28/17 08/28/17 08/29/17 14:59 22:59 06:59 Intake Total 1370 ml 1250 ml Balance 1370 ml 1250 ml Results/Medications Result Diagram: 08/28/17 1133 08/28/17 1133 Results 24 hrs Laboratory Tests Test 08/28/17 17:16 08/28/17 21:17 08/29/17 08:14 08/29/17 09:46 Bedside Glucose 100 108 98 132 Test 08/29/17 12:31 Bedside Glucose 95 Medications Current Medications Potassium Chloride/Dextrose/ Sod Cl (D5-1/2ns + KCl 20 Meq) 1,000 ml @ 60 mls/ hr [id number] IV Last administered on 08/29/17t 06:39; Admin Dose 60 MLS/HR; Start 08/14/17 at 23:00 Ondansetron HCl (Zofran Inj) 4 mg Q6H PRN IV NAUSEA AND/OR VOMITING; Start at 23:00 Morphine Sulfate (morphine) 2 mg Q4H PRN IV PAIN LEVEL 4-7 Last administered on 08/29/17 09:54; Admin Dose 2 MG; Start 08/14/17 at 23:00 Acetaminophen (Tylenol Tab) 650 mg Q6H PRN PO PAIN AND OR ELEVATED TEMP Last administered on 08/27/17 23:59; Admin Dose 650 MG; Start 08/14/17 at 23:00 Aspirin (Halfprin) 81 mg DAILY PO Last administered on 08/29/17 09:38; Admin Dose 81 MG; Start 08/15/17 at 09:00 Insulin Glargine (Lantus) 12 unit DAILY SC Last administered on 08/29/17 10:02 ; Admin Dose 12 UNIT; Start 08/15/17 at 09:00 Lamotrigine (Lamictal) 50 mg Q12 PO Last administered on 08/29/17 09:53; Admin Dose 50 MG; Start 08/15/17 at 09:00 Lorazepam (Ativan) 1 mg Q6 PRN PO ANXIETY Last administered on 08/24/17 22:21 ; Admin Dose 1 MG; Start 08/14/17 at 23:00 Risperidone (Risperdal) 2 mg BID PO Last administered on 08/29/17 09:36; Admin Dose 2 MG; Start 08/15/17 at 09:00 Miscellaneous Information 1 ea NOTE XX ; Start 08/14/17 at 23:45 Glucose (Glutose) 15 gm Q15M PRN PO DECREASED GLUCOSE; Start 08/14/17 at 23:45 Glucose (Glutose) 22.5 gm Q15M PRN PO DECREASED GLUCOSE; Start 08/14/17 at 23: 45 Dextrose (D50w Syringe) 25 ml Q15M PRN IV DECREASED GLUCOSE; Start 08/14/17 at 23:45 Dextrose (D50w Syringe) 50 ml Q15M PRN IV DECREASED GLUCOSE; Start 08/14/17 at 23:45 Glucagon (Glucagen) 1 mg Q15M PRN IM DECREASED GLUCOSE; Start 08/14/17 at 23: 45 Glucose (Glutose) 15 gm Q15M PRN BUCCAL DECREASED GLUCOSE; Start 08/14/17 at 23:45 Amlodipine Besylate (Norvasc) 10 mg DAILY PO Last administered on 08/29/17 09: 38; Admin Dose 10 MG; Start 08/17/17 at 17:00 Diagnostic Test (Pha) (Accu-Chek) 1 ea 02 XX ; Start 08/19/17 at 02:00 Docusate Sodium (Colace) 100 mg BID PO Last administered on 08/29/17 09:38; Admin Dose 100 MG; Start 08/20/17 at 21:00 Magnesium Hydroxide 30 ml 30 ml DAILY PRN PO CONSTIPATION Last administered on 08/25/17 08:38; Admin Dose 30 ML; Start 08/20/17 at 11:00 Cefazolin Sodium (Ancef 1 Gm/50 ml (Pmx)) 50 ml @ 100 mls/hr Q8 IVPB Last administered on 08/29/17 06:39; Admin Dose 100 MLS/HR; Start 08/21/17 at 22:00 Triamcinolone Acetonide (Kenalog 0.1% Cr) 1 applic BID TOP Last administered on 08/29/17 09:00; Admin Dose 1 APPLIC; Start 08/22/17 at 21:00 Pantoprazole (Protonix Tab) 40 mg DAILY@06 PO Last administered on 08/29/17 06 :39; Admin Dose 40 MG; Start 08/24/17 at 06:00 Docusate Sodium (Colace) 100 mg BID PO Last administered on 08/24/17 21:03; Admin Dose 100 MG; Start 08/24/17 at 21:00 Polyethylene Glycol (Miralax) 17 gm DAILY PRN GTB CONSTIPATION; Start at 13:00 Assessment/Plan Chief Complaint/Hosp Course 1. nonanginal chest pain: right sided. 2. acute pancreatitis: improved now. 3. HTN 4. DM 5. Psych disorder 6. renal stone: S/P cystoscopy: f/u rec Patient has previously had cardiac workup including echocardiogram and CT coronary angiogram both of which were unremarkable. Her calcium score is 0 which makes at very low risk of significant CAD. Her right sided chest pain does not appear to be cardiac related and most likely related to her GI symptoms versus others. Treatment of her GI GI issues including her pancreatitis as per internal medicine. Diabetic management as per internal medicine. f/u with rec. Thank you for his referral. I will follow up with you on as needed base. CHAITANYA NEVAREZ MD [facility] Problems: CHAITANYA NEVAREZ MD Aug 29, 2017 14:02
[2017-08-29 14:15] VITALS: BP 106/63; RESP 14
[2017-08-29 19:57] VITALS: BP 95/57; RESP 20
[2017-08-30] MEDS: ACCU-CHEK XX SCH ×4 (02:00→17:40)
[2017-08-30 02:42] VITALS: BP 100/65; RESP 18
[2017-08-30] MEDS: PANTOPRAZOLE (EC) 40 MG TAB PO SCH (06:01)
[2017-08-30] MEDS: CEFAZOLIN 1 GM/50 ML (PMX) 50 ML IVPB SCH ×2 (06:01→14:50)
[2017-08-30 06:25] LABS: CREATININE 0.8 mg/dl (0.44-1.00); POTASSIUM 4.1 mmol/L (3.5-5.1)
[2017-08-30 07:43] VITALS: BP 123/82; RESP 16
[2017-08-30] MEDS: INSULIN ASPART [NOVOLOG] 3 ML PEN SC SCH ×3 (08:00→17:40)
--- NOTE | 2017-08-30 08:42 | CONS ---
Date/Time of Note Date/Time of Note DATE: 08/30/17 TIME: 08:39 Consult Date/Type/Reason Admit Date/Time Aug 14, 2017 at 19:34 Initial Consult Date 08/15/17 Type of Consultation: Urology Reason for Consultation Left renal stones Ordering Provider: TAWANA FORD MD Subjective Patient is comfortable and denies having any pain Objective Vital Signs Date Time Temp Pulse Resp B/P Pulse Ox O2 Delivery O2 Flow Rate FiO2 08/30/17 07:43 97.6 68 16 123/82 95 08/26/17 12:12 Room Air Intake and Output 08/29/17 08/29/17 08/30/17 15:00 23:00 07:00 Intake Total 50 ml 2060 ml 770 ml Output Total 0 ml Balance 50 ml 2060 ml 770 ml Exam Alert and comfortable, abdomen is soft Results/Medications Result Diagram: 08/28/17 1133 08/30/17 0539 Results 24 hrs Laboratory Tests Test 08/29/17 09:46 08/29/17 12:31 08/29/17 17:16 08/29/17 21:09 Bedside Glucose 132 95 135 86 Test 08/30/17 05:39 08/30/17 08:05 Sodium Level 142 Potassium Level 4.1 Chloride Level 104 Carbon Dioxide Level 31 Anion Gap 11 Blood Urea Nitrogen 21 H Creatinine 0.80 Glucose Level 87 Calcium Level 10.0 Bedside Glucose 86 Medications Current Medications Potassium Chloride/Dextrose/ Sod Cl (D5-1/2ns + KCl 20 Meq) 1,000 ml @ 60 mls/ hr [id number] IV Last administered on 08/29/17 22:58; Admin Dose 60 MLS/HR; Start 08/14/17 at 23:00 Ondansetron HCl (Zofran Inj) 4 mg Q6H PRN IV NAUSEA AND/OR VOMITING; Start at 23:00 Morphine Sulfate (morphine) 2 mg Q4H PRN IV PAIN LEVEL 4-7 Last administered on 08/29/17 09:54; Admin Dose 2 MG; Start 08/14/17 at 23:00 Acetaminophen (Tylenol Tab) 650 mg Q6H PRN PO PAIN AND OR ELEVATED TEMP Last administered on 08/27/17 23:59; Admin Dose 650 MG; Start 08/14/17 at 23:00 Aspirin (Halfprin) 81 mg DAILY PO Last administered on 08/29/17 09:38; Admin Dose 81 MG; Start 08/15/17 at 09:00 Insulin Glargine (Lantus) 12 unit DAILY SC Last administered on 08/29/17 10:02 ; Admin Dose 12 UNIT; Start 08/15/17 at 09:00 Lamotrigine (Lamictal) 50 mg Q12 PO Last administered on 08/29/17 21:10; Admin Dose 50 MG; Start 08/15/17 at 09:00 Lorazepam (Ativan) 1 mg Q6 PRN PO ANXIETY Last administered on 08/24/17 22:21 ; Admin Dose 1 MG; Start 08/14/17 at 23:00 Risperidone (Risperdal) 2 mg BID PO Last administered on 08/29/17 21:10; Admin Dose 2 MG; Start 08/15/17 at 09:00 Miscellaneous Information 1 ea NOTE XX ; Start 08/14/17 at 23:45 Glucose (Glutose) 15 gm Q15M PRN PO DECREASED GLUCOSE; Start 08/14/17 at 23:45 Glucose (Glutose) 22.5 gm Q15M PRN PO DECREASED GLUCOSE; Start 08/14/17 at 23: 45 Dextrose (D50w Syringe) 25 ml Q15M PRN IV DECREASED GLUCOSE; Start 08/14/17 at 23:45 Dextrose (D50w Syringe) 50 ml Q15M PRN IV DECREASED GLUCOSE; Start 08/14/17 at 23:45 Glucagon (Glucagen) 1 mg Q15M PRN IM DECREASED GLUCOSE; Start 08/14/17 at 23: 45 Glucose (Glutose) 15 gm Q15M PRN BUCCAL DECREASED GLUCOSE; Start 08/14/17 at 23:45 Amlodipine Besylate (Norvasc) 10 mg DAILY PO Last administered on 08/29/17 09: 38; Admin Dose 10 MG; Start 08/17/17 at 17:00 Diagnostic Test (Pha) (Accu-Chek) 1 ea 02 XX ; Start 08/19/17 at 02:00 Docusate Sodium (Colace) 100 mg BID PO Last administered on 08/29/17 21:10; Admin Dose 100 MG; Start 08/20/17 at 21:00 Magnesium Hydroxide 30 ml 30 ml DAILY PRN PO CONSTIPATION Last administered on 08/25/17 08:38; Admin Dose 30 ML; Start 08/20/17 at 11:00 Cefazolin Sodium (Ancef 1 Gm/50 ml (Pmx)) 50 ml @ 100 mls/hr Q8 IVPB Last administered on 08/30/17 06:01; Admin Dose 100 MLS/HR; Start 08/21/17 at 22:00 Triamcinolone Acetonide (Kenalog 0.1% Cr) 1 applic BID TOP Last administered on 08/29/17 21:10; Admin Dose 1 APPLIC; Start 08/22/17 at 21:00 Pantoprazole (Protonix Tab) 40 mg DAILY@06 PO Last administered on 08/30/17 06 :01; Admin Dose 40 MG; Start 08/24/17 at 06:00 Docusate Sodium (Colace) 100 mg BID PO Last administered on 08/24/17 21:03; Admin Dose 100 MG; Start 08/24/17 at 21:00 Polyethylene Glycol (Miralax) 17 gm DAILY PRN GTB CONSTIPATION; Start at 13:00 Assessment/Plan Chief Complaint/Hosp Course 51-year-old female with a history of hypertension ,diabetes,high cholesterol and history of schizophrenia, she resides in a [id number] and was brought to [facility] because of chest pain. she underwent a CT scan of the abdomen and pelvis and that showed a stone in the upper left ureter with multiple stones in the left kidney. The patient underwent left extracorporeal shockwave lithotripsy to the stones in the left middle pole calyx. The stone that was in the upper ureter has moved into the kidney based on the CT scan that she had the day before the lithotripsy. the patient still has stones in the upper pole calyx as well as in the lower pole calyx and the stent is in place. She will need at least 2 more treatments to break the remaining stones in the upper pole calyx and then in the lower pole calyx and these will be done in the future. From a urological standpoint patient may be discharged and we will have to bring her back for another lithotripsy and also removed and may be a replace the JJ stent. Please let me know what [facility] she goes to so we could follow her up Problems: KANIKA HENAO MD Aug 30, 2017 08:42
[2017-08-30] MEDS: INSULIN GLARGINE [LANtus] 3 ML PEN SC SCH (08:56)
[2017-08-30] MEDS: DOCUSATE SODIUM 100 MG CAP PO SCH ×2 (09:00→09:22)
[2017-08-30] MEDS: AMLODIPINE 10 MG TAB PO SCH (09:23)
[2017-08-30] MEDS: ASPIRIN (EC) 81 MG TAB PO SCH (09:23)
[2017-08-30] MEDS: RISPERIDONE 2 MG TAB PO SCH (09:23)
[2017-08-30] MEDS: TRIAMCINOLONE ACET 0.1% 15 GM CR TOP SCH (09:23)
--- NOTE | 2017-08-30 09:36 | CONS ---
Date/Time of Note Date/Time of Note DATE: 08/30/17 TIME: 09:36 Consult Date/Type/Reason Admit Date/Time Aug 14, 2017 at 19:34 Initial Consult Date 08/15/17 Type of Consultation: Urology Ordering Provider: TAWANA FORD MD Subjective cardiology follow up note: S: D/w STAFF. pt denies any left sided cp or sob or palpitations to me now. she denies abd pain to me now . S/P CYSTOSCOPY 08/21 O: General: no acute distress HEENT: NC/AT. pupils are equal. round. NECK: NO JVD. no stridor. CV: RRR. systolic murmur; no gallop or rubs. PULM: no wheezing or rhonchi. GI: SOFT, mild tenderness, ND, no rebound or guarding Extremity: trace B/L LE edema. no clubbing. neuro: awake and alert, Psych: calm and pleasant Objective Vital Signs Date Time Temp Pulse Resp B/P Pulse Ox O2 Delivery O2 Flow Rate FiO2 08/30/17 07:43 97.6 68 16 123/82 95 08/26/17 12:12 Room Air Intake and Output 08/29/17 08/29/17 08/30/17 15:00 23:00 07:00 Intake Total 50 ml 2060 ml 770 ml Output Total 0 ml Balance 50 ml 2060 ml 770 ml Results/Medications Result Diagram: 08/28/17 1133 08/30/17 0539 Results 24 hrs Laboratory Tests Test 08/29/17 09:46 08/29/17 12:31 08/29/17 17:16 08/29/17 21:09 Bedside Glucose 132 95 135 86 Test 08/30/17 05:39 08/30/17 08:05 Sodium Level 142 Potassium Level 4.1 Chloride Level 104 Carbon Dioxide Level 31 Anion Gap 11 Blood Urea Nitrogen 21 H Creatinine 0.80 Glucose Level 87 Calcium Level 10.0 Bedside Glucose 86 Medications Current Medications Potassium Chloride/Dextrose/ Sod Cl (D5-1/2ns + KCl 20 Meq) 1,000 ml @ 60 mls/ hr [id number] IV Last administered on 08/29/17t 22:58; Admin Dose 60 MLS/HR; Start 08/14/17 at 23:00 Ondansetron HCl (Zofran Inj) 4 mg Q6H PRN IV NAUSEA AND/OR VOMITING; Start at 23:00 Morphine Sulfate (morphine) 2 mg Q4H PRN IV PAIN LEVEL 4-7 Last administered on 08/29/17 09:54; Admin Dose 2 MG; Start 08/14/17 at 23:00 Acetaminophen (Tylenol Tab) 650 mg Q6H PRN PO PAIN AND OR ELEVATED TEMP Last administered on 08/27/17 23:59; Admin Dose 650 MG; Start 08/14/17 at 23:00 Aspirin (Halfprin) 81 mg DAILY PO Last administered on 08/30/17 09:23; Admin Dose 81 MG; Start 08/15/17 at 09:00 Insulin Glargine (Lantus) 12 unit DAILY SC Last administered on 08/30/17 08:56 ; Admin Dose 12 UNIT; Start 08/15/17 at 09:00 Lamotrigine (Lamictal) 50 mg Q12 PO Last administered on 08/29/17 21:10; Admin Dose 50 MG; Start 08/15/17 at 09:00 Lorazepam (Ativan) 1 mg Q6 PRN PO ANXIETY Last administered on 08/24/17 22:21 ; Admin Dose 1 MG; Start 08/14/17 at 23:00 Risperidone (Risperdal) 2 mg BID PO Last administered on 08/30/17 09:23; Admin Dose 2 MG; Start 08/15/17 at 09:00 Miscellaneous Information 1 ea NOTE XX ; Start 08/14/17 at 23:45 Glucose (Glutose) 15 gm Q15M PRN PO DECREASED GLUCOSE; Start 08/14/17 at 23:45 Glucose (Glutose) 22.5 gm Q15M PRN PO DECREASED GLUCOSE; Start 08/14/17 at 23: 45 Dextrose (D50w Syringe) 25 ml Q15M PRN IV DECREASED GLUCOSE; Start 08/14/17 at 23:45 Dextrose (D50w Syringe) 50 ml Q15M PRN IV DECREASED GLUCOSE; Start 08/14/17 at 23:45 Glucagon (Glucagen) 1 mg Q15M PRN IM DECREASED GLUCOSE; Start 08/14/17 at 23: 45 Glucose (Glutose) 15 gm Q15M PRN BUCCAL DECREASED GLUCOSE; Start 08/14/17 at 23:45 Amlodipine Besylate (Norvasc) 10 mg DAILY PO Last administered on 08/30/17 09: 23; Admin Dose 10 MG; Start 08/17/17 at 17:00 Diagnostic Test (Pha) (Accu-Chek) 1 ea 02 XX ; Start 08/19/17 at 02:00 Docusate Sodium (Colace) 100 mg BID PO Last administered on 08/30/17 09:22; Admin Dose 100 MG; Start 08/20/17 at 21:00 Magnesium Hydroxide 30 ml 30 ml DAILY PRN PO CONSTIPATION Last administered on 08/25/17 08:38; Admin Dose 30 ML; Start 08/20/17 at 11:00 Cefazolin Sodium (Ancef 1 Gm/50 ml (Pmx)) 50 ml @ 100 mls/hr Q8 IVPB Last administered on 08/30/17 06:01; Admin Dose 100 MLS/HR; Start 08/21/17 at 22:00 Triamcinolone Acetonide (Kenalog 0.1% Cr) 1 applic BID TOP Last administered on 08/30/17 09:23; Admin Dose 1 APPLIC; Start 08/22/17 at 21:00 Pantoprazole (Protonix Tab) 40 mg DAILY@06 PO Last administered on 08/30/17 06 :01; Admin Dose 40 MG; Start 08/24/17 at 06:00 Docusate Sodium (Colace) 100 mg BID PO Last administered on 08/24/17 21:03; Admin Dose 100 MG; Start 08/24/17 at 21:00 Polyethylene Glycol (Miralax) 17 gm DAILY PRN GTB CONSTIPATION; Start at 13:00 Assessment/Plan Chief Complaint/Hosp Course 1. nonanginal chest pain: right sided. 2. acute pancreatitis: improved now. 3. HTN 4. DM 5. Psych disorder 6. renal stone: S/P cystoscopy: f/u rec Patient has previously had cardiac workup including echocardiogram and CT coronary angiogram both of which were unremarkable. Her calcium score is 0 which makes at very low risk of significant CAD. Her right sided chest pain does not appear to be cardiac related and most likely related to her GI symptoms versus others. Treatment of her GI GI issues including her pancreatitis as per internal medicine. Diabetic management as per internal medicine. f/u with rec. Thank you for his referral. I will follow up with you on as needed base. CHAITANYA NEVAREZ MD [facility] Problems: CHAITANYA NEVAREZ MD Aug 30, 2017 09:36
[2017-08-30] MEDS: LAMOTRIGINE 25 MG TAB PO SCH (13:11)
[2017-08-30 14:00] VITALS: BP 111/67; RESP 16
[2017-08-30] MEDS: D5W-0.45 NACL + KCL 20 MEQ 1,000 ML IV SCH (15:34)
--- NOTE | 2017-08-30 18:11 | DS ---
Date/Time of Note Date/Time of Note DATE: 08/30/17 TIME: 18:09 Discharge Summary Admission/Discharge Info Admit Date/Time Aug 14, 2017 at 19:34 Discharge Date/Time Patient Condition: Stable Hx of Present Illness Patient is 51-year-old female known to me from previous admission. Patient has a history of diabetes, essential hypertension, hyperlipidemia, and schizophrenia. Patient was brought from [facility] for complaints of sharp nonexertional and nonradiating chest pain. On evaluation in the emergency room patient's troponin was 0.016 twelve-lead EKG revealed normal sinus rhythm at the rate of [address] segment segment elevation or depression. However patient was found to have elevated lipase and amylase and elevated liver enzymes. Patient was diagnosed with acute pancreatitis and admitted for further evaluation and management. Hospital Course Patient discharged to [facility] -Atypical chest pain. Acute coronary syndrome ruled out. cardiac enzymes are negative 3 Dr. Aguilar is following in cardiology consultation -Acute biliary pancreatitis, resolving. continue to monitor amylase and lipase. Dr. Richards is following in gastroenterology consultation. -Left-sided hydronephrosis with stone in the ureter. S/p cystoscopy, left ureteroscopy, and insertion of left ureteral JJ stent by Dr. Frost on 08/21. S /p lithotripsy on 08/26. -Hypertension, patient is currently hypotensive. -Diabetes mellitus type 2, continue Lantus and NovoLog. -Dyslipidemia. -Possible COPD, continue breathing treatments as needed for shortness of breath. -Schizophrenia -Facial and upper extremities rash, resolving, scabies ruled out, continue Kenalog topical Plan of care discussed with Dr. Roach Home Meds Reported Medications Nitroglycerin* (Nitrostat*) 0.4 Mg Tab.subl, 0.4 MG SL Q5MIN Y for CHEST PAIN, BOTTLE 08/15/17 Insulin Aspart* (Novolog Insulin Pen*) 100 Unit/Ml Soln, 0 SC .SLIDING SCALE AC , EA IF 131-160 =2 UNITS 161-200 =3 UNITS 201-250 =6 UNITS 251-300 =9 UNITS 301-350 =12 UNITS 351-400 15 UNITS BS OVER 400 OR UNDER 60 CALL 05/23/17 Risperidone* (Risperidone*) 2 Mg Tablet, 2 MG PO BID, TAB 8/29/17 Ondansetron Hcl* (Zofran*) 4 Mg Tablet, 4 MG PO Q6H Y for NAUSEA AND OR VOMITING , TAB 05/23/17 Multivitamins* (Theragran*) 1 Tab Tab, 1 TAB PO DAILY, TAB 05/23/17 Magnesium Hydroxide* (Milk Of Magnesia*) 400 Mg/5 Ml Oral.susp, 30 ML PO DAILY Y for CONSTIPATION, ML 05/23/17 Lorazepam* (Lorazepam*) 1 Mg Tablet, 1 MG PO Q6 Y for ANXIETY, #60 TAB 05/23/17 Insulin Glargine* (Lantus*) 100 Unit/Ml Soln, 12 UNIT SC DAILY, #1 VIAL 05/23/17 Lamotrigine* (Lamotrigine*) 25 Mg Tablet, 50 MG PO Q12, TAB 05/23/17 Hydrocodone/Acetaminophen ([place] 5-325 Tablet) 1 Each Tablet, 1 EACH PO Q6 Y for PAIN, TAB 05/23/17 Famotidine* (Famotidine*) 20 Mg Tablet, 20 MG PO BID, #60 TAB 05/23/17 Enoxaparin Sodium* (Enoxaparin Sodium*) 40 Mg/0.4 Ml Syringe, 40 MG SC DAILY, SYR 05/23/17 Ipratropium-Albuterol (Ipratropium-Albuterol) 0.5-3 Mg/3 Ml Ampul.neb, 3 ML INHALATION Q4 Y for SHORTNESS OF BREATH, #30 VIAL 05/23/17 Bisacodyl* (Bisacodyl*) 5 Mg Tablet.dr, 5 MG PO DAILY, TAB 05/23/17 Atorvastatin Calcium (Atorvastatin Calcium) 10 Mg Tablet, 10 MG PO QHS, #30 TAB 05/23/17 Aspirin (Low Dose Aspirin) 81 Mg Tablet.dr, 81 MG PO DAILY, #30 TAB 05/23/17 Acetaminophen* (Acetaminophen*) 650 Mg Tablet, 650 MG PO Q6H Y for PAIN AND OR ELEVATED TEMP, #30 TAB 05/23/17 Follow-up Plan Up with Dr. Frost in 2-3 weeks Primary Care Provider Care Physician No Primary Time spent on discharge: > 30 minutes Pending Labs Laboratory Tests Test 08/29/17 21:09 08/30/17 05:39 08/30/17 08:05 08/30/17 12:15 Bedside Glucose 86mg/dL (70-220) 86mg/dL (70-220) 70mg/dL (70-220) Sodium Level 142mmol/L (135-144) Potassium Level 4.1mmol/L (3.5-5.1) Chloride Level 104mmol/L (97-110) Carbon Dioxide Level 31mmol/L (21-31) Anion Gap 11 (8-16) Blood Urea Nitrogen 21mg/dl (7-20) Creatinine 0.80mg/dl (0.44-1.00) Glucose Level 87mg/dl (70-220) Calcium Level 10.0mg/dl (8.4-10.2) Test 08/30/17 17:39 Bedside Glucose 87mg/dL (70-220) LINDA BEASLEY Aug 30, 2017 18:11
== END 2017-08-30 18:25 | DRG 691 ==
LOC: E/R 17:36 → MS2 19:34
PROVIDERS: ADMIT Internal Medicine; ATTEND Internal Medicine
PROC: 0T778DZ Dilation of Left Ureter with Intraluminal Device, Via Natural or Artificial Opening Endoscopic (ICD-10-PCS; 2017-08-21)
PROC: 0TF4XZZ Fragmentation in Left Kidney Pelvis, External Approach (ICD-10-PCS; principal; 2017-08-26 10:30)
DX: N13.2 Hydronephrosis with renal and ureteral calculous obstruction (principal); K85.10 Biliary acute pancreatitis without necrosis or infection; R07.89 Other chest pain; F20.9 Schizophrenia, unspecified; I10 Essential (primary) hypertension; E11.9 Type 2 diabetes mellitus without complications; E78.00 Pure hypercholesterolemia, unspecified; J44.9 Chronic obstructive pulmonary disease, unspecified; R25.1 Tremor, unspecified; K59.00 Constipation, unspecified; R21 Rash and other nonspecific skin eruption; E66.9 Obesity, unspecified; Z68.31 Body mass index [BMI] 31.0-31.9, adult; Z79.4 Long term (current) use of insulin; Z79.82 Long term (current) use of aspirin; Z95.5 Presence of coronary angioplasty implant and graft; Z87.891 Personal history of nicotine dependence
CPT/HCPCS: 71010; 74000; 74176; 74177; 74181; 74430; 80048; 80053; 81001; 82150; 82550; 82553; 82962; 83036; 83690; 84484; 85025; 85610; 87086; 88300; 93005; 96360; 96361; A4310; C2617; C9113; J0171; J0690; J1815; J2250; J2270; J2370; J2405; J2765; J3010; J3480; J7030; Q9967

== ENCOUNTER 2017-10-19 01:23 | Inpatient (IN) | END 2017-11-01 19:04 | DRG 694 ==